=== PATIENT | female | born 1960 | race Caucasian/White ===

== ENCOUNTER 2022-09-13 11:20 | Emergency (ER) | payer OTHER, MEDICARE ==
[~2022-09-13] VITALS: Ht 157.5 cm; Wt 62.1 kg
--- OUTSIDE RECORDS SUMMARY | ~2022-09-13 | XMS | Continuity of Care Document ---
Demographics + + + | Address | [address] | | | [place] [address] | + + + | Preferred Language | Unknown | + + + | Marital Status | Never | + + + | Congregation Affiliation | Unknown | + + + | Race | White | + + + | Ethnic Group | Not or | + + + Author + + + | Author | [facility] | + + + | Organization | [facility] | + + + | Address | [address] [facility] | | | [place] [address] | + + + | Phone | | + + + Care Team Providers + + + + | Care Space And Storage Clerk Name | Role | Phone | + + + + Unavailable | Unavailable | + + + + Unavailable | Unavailable | + + + + Allergies and Intolerances + + + + + | date | description | facility | type | + + + + + | (no date) | Cipro | [facility] | (unknown) | | | | [facility] | | + + + + + | (no date) | Skin Rashes / | [facility] | (unknown) | | | Eruption of skin | [facility] | | + + + + + | (no date) | Skin Rashes | [facility] | (unknown) | | | | [facility] | | + + + + + | (no date) | Cipro 10 MG/ML | [facility] | (unknown) | | | Intravenous | [facility] | | | | Solution | | | + + + + + Encounters No information. Functional Status No information. Immunizations No information. Medications + + + + | date | description | facility | + + + + | 2020-07-27 00:00 | acetaminophen 325 MG / | [facility] | | | oxycodone hydrochloride 5 | | | | MG Oral Tablet | | + + + + | 2020-08-25 00:00 | acetaminophen 325 MG / | [facility] | | | oxycodone hydrochloride 5 | | | | MG Oral Tablet | | + + + + | 2020-09-24 00:00 | acetaminophen 325 MG / | [facility] | | | oxycodone hydrochloride 5 | | | | MG Oral Tablet | | + + + + | 2020-10-12 00:00 | oxycodone hydrochloride 15 | [facility] | | | MG Oral Tablet | | + + + + | 2020-11-11 00:00 | oxycodone hydrochloride 15 | [facility] | | | MG Oral Tablet | | + + + + | 2020-12-14 00:00 | oxycodone hydrochloride 15 | [facility] | | | MG Oral Tablet | | + + + + | 2020-12-22 00:00 | oxycodone hydrochloride 15 | [facility] | | | MG Oral Tablet | | + + + + | 2021-02-09 00:00 | [facility]one [facility]ide 15 | [facility] | | | MG Oral Tablet | | + + + + | 2021-03-15 00:00 | oxycodone hydrochloride 15 | [facility] | | | MG Oral Tablet | | + + + + | 2021-03-29 00:00 | oxycodone hydrochloride 15 | [facility] | | | MG Oral Tablet | | + + + + | 2021-05-07 00:00 | oxycodone hydrochloride 15 | [facility] | | | MG Oral Tablet | | + + + + | 2021-06-08 00:00 | oxycodone hydrochloride 15 | [facility] | | | MG Oral Tablet | | + + + + | 2021-07-08 00:00 | oxycodone hydrochloride 15 | [facility] | | | MG Oral Tablet | | + + + + | 2021-08-05 00:00 | oxycodone hydrochloride 15 | [facility] | | | MG Oral Tablet | | + + + + | 2021-09-02 00:00 | oxycodone hydrochloride 15 | [facility] | | | MG Oral Tablet | | + + + + | 2021-10-04 00:00 | oxycodone hydrochloride 15 | [facility] | | | MG Oral Tablet | | + + + + | 2021-10-26 00:00 | oxycodone hydrochloride 15 | [facility] | | | MG Oral Tablet | | + + + + | 2021-11-30 00:00 | oxycodone hydrochloride 15 | [facility] | | | MG Oral Tablet | | + + + + | 2021-12-29 00:00 | oxycodone hydrochloride 15 | [facility] | | | MG Oral Tablet | | + + + + | 2022-01-24 00:00 | oxycodone hydrochloride 15 | [facility] | | | MG Oral Tablet | | + + + + | 2022-02-22 00:00 | oxycodone hydrochloride 15 | [facility] | | | MG Oral Tablet | | + + + + | 2022-03-15 00:00 | oxycodone hydrochloride 15 | [facility] | | | MG Oral Tablet | | + + + + | 2022-04-19 00:00 | oxycodone hydrochloride 15 | [facility] | | | MG Oral Tablet | | + + + + | 2022-05-17 00:00 | oxycodone hydrochloride 15 | [facility] | | | MG Oral Tablet | | + + + + | 2019-10-04 00:00 | acetaminophen 500 MG / | [facility] | | | diphenhydramine | | | | hydrochloride 25 MG Oral | | | | Tablet [Tylenol PM] | | + + + + | 2019-11-27 00:00 | 60 ACTUAT budesonide 0.16 | [facility] | | | MG/ACTUAT / formoterol | | | | fumarate 0.0045 MG/ACTUAT | | | | Metered Dose Inhaler | | | | [Symbicort] | | + + + + | 2019-11-27 00:00 | Symbicort 160-4.5 MCG/ACT | [facility] | | | IN AERO | | + + + + | 2020-11-23 00:00 | Morphine Sulfate 15 MG | [facility] | | | Oral Tablet | | + + + + | 2020-12-22 00:00 | Morphine Sulfate 15 MG | [facility] | | | Oral Tablet | | + + + + | 2021-02-02 00:00 | Morphine Sulfate 15 MG | [facility] | | | Oral Tablet | | + + + + | 2021-03-02 00:00 | Morphine Sulfate 15 MG | [facility] | | | Oral Tablet | | + + + + | 2021-03-29 00:00 | Morphine Sulfate 15 MG | [facility] | | | Oral Tablet | | + + + + | 2021-04-29 00:00 | Morphine Sulfate 15 MG | [facility] | | | Oral Tablet | | + + + + | 2021-05-12 00:00 | Morphine Sulfate 15 MG | [facility] | | | Oral Tablet | | + + + + | 2021-06-24 00:00 | Morphine Sulfate 15 MG | [facility] | | | Oral Tablet | | + + + + | 2021-07-22 00:00 | Morphine Sulfate 15 MG | [facility] | | | Oral Tablet | | + + + + | 2021-07-24 00:00 | Morphine Sulfate 15 MG | [facility] | | | Oral Tablet | | + + + + | 2021-08-24 00:00 | Morphine Sulfate 15 MG | [facility] | | | Oral Tablet | | + + + + | 2021-09-23 00:00 | Morphine Sulfate 15 MG | [facility] | | | Oral Tablet | | + + + + | 2021-10-26 00:00 | Morphine Sulfate 15 MG | [facility] | | | Oral Tablet | | + + + + | 2021-11-25 00:00 | Morphine Sulfate 15 MG | [facility] | | | Oral Tablet | | + + + + | 2021-12-27 00:00 | Morphine Sulfate 15 MG | [facility] | | | Oral Tablet | | + + + + | 2022-01-24 00:00 | Morphine Sulfate 15 MG | [facility] | | | Oral Tablet | | + + + + | 2022-02-22 00:00 | Morphine Sulfate 15 MG | [facility] | | | Oral Tablet | | + + + + | 2022-03-15 00:00 | Morphine Sulfate 15 MG | [facility] | | | Oral Tablet | | + + + + | 2022-04-19 00:00 | Morphine Sulfate 15 MG | [facility] | | | Oral Tablet | | + + + + | 2022-05-17 00:00 | Morphine Sulfate 15 MG | [facility] | | | Oral Tablet | | + + + + | 2019-10-04 00:00 | meloxicam 15 MG Oral | [facility] | | | Tablet | | + + + + | 2021-10-28 00:00 | Nystatin 199413 UNIT/ML | [facility] | | | Mouth/Throat Suspension | | + + + + | 2020-07-27 00:00 | oxyCODONE-Acetaminophen | [facility] | | | 5-325 MG Oral Tablet | | + + + + | 2020-08-25 00:00 | oxyCODONE-Acetaminophen | [facility] | | | 5-325 MG Oral Tablet | | + + + + | 2020-09-24 00:00 | oxyCODONE-Acetaminophen | [facility] | | | 5-325 MG Oral Tablet | | + + + + | 2021-03-16 00:00 | predniSONE 10 MG Oral | [facility] | | | Tablet | | + + + + | 2019-11-19 00:00 | 30 ACTUAT fluticasone | [facility] | | | furoate 0.1 MG/ACTUAT / | | | | umeclidinium 0.0625 | | | | MG/ACTUAT / vilanterol | | | | 0.025 MG/ACTUAT Dry Powder | | | | Inhaler [Trelegy] | | + + + + | 2021-07-13 00:00 | 30 ACTUAT fluticasone | [facility] | | | furoate 0.1 MG/ACTUAT / | | | | umeclidinium 0.0625 | | | | MG/ACTUAT / vilanterol | | | | 0.025 MG/ACTUAT Dry Powder | | | | Inhaler [Trelegy] | | + + + + | 2021-07-13 00:00 | fluconazole 100 MG Oral | [facility] | | | Tablet | | + + + + | 2021-05-14 00:00 | fluconazole 150 MG Oral | [facility] | | | Tablet | | + + + + | 2020-04-28 00:00 | hydrochlorothiazide 12.5 | [facility] | | | MG / lisinopril 10 MG Oral | | | | Tablet | | + + + + | 2020-12-22 00:00 | hydrochlorothiazide 12.5 | [facility] | | | MG / lisinopril 10 MG Oral | | | | Tablet | | + + + + | 2022-01-19 00:00 | hydrochlorothiazide 12.5 | [facility] | | | MG / lisinopril 10 MG Oral | | | | Tablet | | + + + + | 2022-02-22 00:00 | hydrochlorothiazide 12.5 | [facility] | | | MG / lisinopril 10 MG Oral | | | | Tablet | | + + + + | 2022-03-15 00:00 | omeprazole 20 MG Delayed | [facility] | | | Release Oral Capsule | | + + + + | 2021-03-16 00:00 | prednisone 10 MG Oral | [facility] | | | Tablet | | + + + + | 2019-11-19 00:00 | Trelegy Ellipta | [facility] | | | 100-62.5-25 MCG/INH | | | | Inhalation Aerosol Powder | | | | Breath Activated | | + + + + | 2021-07-13 00:00 | Trelegy Ellipta | [facility] | | | 100-62.5-25 MCG/INH | | | | Inhalation Aerosol Powder | | | | Breath Activated | | + + + + | 2019-10-04 00:00 | Tylenol PM Extra Strength | [facility] | | | 500-25 MG Oral Tablet | | + + + + | 2021-05-07 00:00 | Bactrim DS 800-160 MG Oral | [facility] | | | Tablet | | + + + + | 2021-07-13 00:00 | Fluconazole 100 MG Oral | [facility] | | | Tablet | | + + + + | 2021-03-16 00:00 | benzonatate 200 MG Oral | [facility] | | | Capsule | | + + + + | 2022-03-15 00:00 | benzonatate 200 MG Oral | [facility] | | | Capsule | | + + + + | 2019-10-04 00:00 | gabapentin 600 MG Oral | [facility] | | | Tablet | | + + + + | 2021-05-07 00:00 | gabapentin 600 MG Oral | [facility] | | | Tablet | | + + + + | 2022-01-24 00:00 | gabapentin 600 MG Oral | [facility] | | | Tablet | | + + + + | 2021-10-28 00:00 | nystatin [id number] UNT/ML | [facility] | | | Oral Suspension | | + + + + | 2021-11-30 00:00 | Potassium Chloride ER 10 | [facility] | | | MEQ Oral Tablet Extended | | | | Release | | + + + + | 2021-05-14 00:00 | Fluconazole 150 MG Oral | [facility] | | | Tablet | | + + + + | 2019-10-21 00:00 | traMADol HCl 50 MG Oral | [facility] | | | Tablet | | + + + + | 2019-10-04 00:00 | Meloxicam 15 MG Oral | [facility] | | | Tablet | | + + + + | 2021-05-07 00:00 | amoxicillin 875 MG / | [facility] | | | clavulanate 125 MG Oral | | | | Tablet | | + + + + | 2019-11-27 00:00 | tiotropium 0.018 MG | [facility] | | | Inhalation Powder [Spiriva] | | | | | | + + + + | 2020-04-28 00:00 | | [facility] | | | Lisinopril-hydroCHLOROthiaz | | | | grazyna 10-12.5 MG Oral Tablet | | + + + + | 2020-12-22 00:00 | | [facility] | | | Lisinopril-hydroCHLOROthiaz | | | | grazyna 10-12.5 MG Oral Tablet | | + + + + | 2022-01-19 00:00 | | [facility] | | | Lisinopril-hydroCHLOROthiaz | | | | grazyna 10-12.5 MG Oral Tablet | | + + + + | 2022-02-22 00:00 | | [facility] | | | Lisinopril-hydroCHLOROthiaz | | | | grazyna 10-12.5 MG Oral Tablet | | + + + + | 2019-10-04 00:00 | Gabapentin 600 MG Oral | [facility] | | | Tablet | | + + + + | 2021-05-07 00:00 | Gabapentin 600 MG Oral | [facility] | | | Tablet | | + + + + | 2022-01-24 00:00 | Gabapentin 600 MG Oral | [facility] | | | Tablet | | + + + + | 2021-11-30 00:00 | potassium chloride 10 MEQ | [facility] | | | Extended Release Oral | | | | Tablet | | + + + + | 2021-03-16 00:00 | Benzonatate 200 MG Oral | [facility] | | | Capsule | | + + + + | 2022-03-15 00:00 | Benzonatate 200 MG Oral | [facility] | | | Capsule | | + + + + | 2022-03-15 00:00 | Omeprazole 20 MG Oral | [facility] | | | Capsule Delayed Release | | + + + + | 2020-10-12 00:00 | oxyCODONE HCl 15 MG Oral | [facility] | | | Tablet | | + + + + | 2020-11-11 00:00 | oxyCODONE HCl 15 MG Oral | [facility] | | | Tablet | | + + + + | 2020-12-14 00:00 | oxyCODONE HCl 15 MG Oral | [facility] | | | Tablet | | + + + + | 2020-12-22 00:00 | oxyCODONE HCl 15 MG Oral | [facility] | | | Tablet | | + + + + | 2021-02-09 00:00 | oxyCODONE HCl 15 MG Oral | [facility] | | | Tablet | | + + + + | 2021-03-15 00:00 | oxyCODONE HCl 15 MG Oral | [facility] | | | Tablet | | + + + + | 2021-03-29 00:00 | oxyCODONE HCl 15 MG Oral | [facility] | | | Tablet | | + + + + | 2021-05-07 00:00 | oxyCODONE HCl 15 MG Oral | [facility] | | | Tablet | | + + + + | 2021-06-08 00:00 | oxyCODONE HCl 15 MG Oral | [facility] | | | Tablet | | + + + + | 2021-07-08 00:00 | oxyCODONE HCl 15 MG Oral | [facility] | | | Tablet | | + + + + | 2021-08-05 00:00 | oxyCODONE HCl 15 MG Oral | [facility] | | | Tablet | | + + + + | 2021-09-02 00:00 | oxyCODONE HCl 15 MG Oral | [facility] | | | Tablet | | + + + + | 2021-10-04 00:00 | oxyCODONE HCl 15 MG Oral | [facility] | | | Tablet | | + + + + | 2021-10-26 00:00 | oxyCODONE HCl 15 MG Oral | [facility] | | | Tablet | | + + + + | 2021-11-30 00:00 | oxyCODONE HCl 15 MG Oral | [facility] | | | Tablet | | + + + + | 2021-12-29 00:00 | oxyCODONE HCl 15 MG Oral | [facility] | | | Tablet | | + + + + | 2022-01-24 00:00 | oxyCODONE HCl 15 MG Oral | [facility] | | | Tablet | | + + + + | 2022-02-22 00:00 | oxyCODONE HCl 15 MG Oral | [facility] | | | Tablet | | + + + + | 2022-03-15 00:00 | oxyCODONE HCl 15 MG Oral | [facility] | | | Tablet | | + + + + | 2022-04-19 00:00 | oxyCODONE HCl 15 MG Oral | [facility] | | | Tablet | | + + + + | 2022-05-17 00:00 | oxyCODONE HCl 15 MG Oral | [facility] | | | Tablet | | + + + + | 2019-11-19 00:00 | Corrigan 5-325 MG Oral Tablet | [facility] | | | | | + + + + | 2019-12-23 00:00 | Corrigan 5-325 MG Oral Tablet | [facility] | | | | | + + + + | 2019-12-27 00:00 | Corrigan 5-325 MG Oral Tablet | [facility] | | | | | + + + + | 2020-01-27 00:00 | Corrigan 5-325 MG Oral Tablet | [facility] | | | | | + + + + | 2019-10-21 00:00 | Ventolin HFA 108 (90 Base) | [facility] | | | MCG/ACT Inhalation Aerosol | | | | Solution | | + + + + | 2020-12-22 00:00 | Ventolin HFA 108 (90 Base) | [facility] | | | MCG/ACT Inhalation Aerosol | | | | Solution | | + + + + | 2022-03-15 00:00 | Ventolin HFA 108 (90 Base) | [facility] | | | MCG/ACT Inhalation Aerosol | | | | Solution | | + + + + | 2021-05-07 00:00 | Amoxicillin-Pot | [facility] | | | Clavulanate 875-125 MG Oral | | | | Tablet | | + + + + | 2020-05-26 00:00 | HYDROcodone-Acetaminophen | [facility] | | | 5-325 MG OR TABS | | + + + + | 2020-02-25 00:00 | HYDROcodone-Acetaminophen | [facility] | | | 5-325 MG Oral Tablet | | + + + + | 2020-03-26 00:00 | HYDROcodone-Acetaminophen | [facility] | | | 5-325 MG Oral Tablet | | + + + + | 2020-04-27 00:00 | HYDROcodone-Acetaminophen | [facility] | | | 5-325 MG Oral Tablet | | + + + + | 2020-05-26 00:00 | HYDROcodone-Acetaminophen | [facility] | | | 5-325 MG Oral Tablet | | + + + + | 2020-06-29 00:00 | HYDROcodone-Acetaminophen | [facility] | | | 5-325 MG Oral Tablet | | + + + + | 2020-08-13 00:00 | Rosuvastatin Calcium 10 MG | [facility] | | | OR TABS | | + + + + | 2020-12-22 00:00 | Rosuvastatin Calcium 10 MG | [facility] | | | Oral Tablet | | + + + + | 2022-01-19 00:00 | Rosuvastatin Calcium 10 MG | [facility] | | | Oral Tablet | | + + + + | 2022-02-22 00:00 | Rosuvastatin Calcium 10 MG | [facility] | | | Oral Tablet | | + + + + | 2019-10-21 00:00 | tramadol hydrochloride 50 | [facility] | | | MG Oral Tablet | | + + + + | 2021-05-07 00:00 | sulfamethoxazole 800 MG / | [facility] | | | trimethoprim 160 MG Oral | | | | Tablet [Bactrim] | | + + + + | 2020-02-25 00:00 | acetaminophen 325 MG / | [facility] | | | hydrocodone bitartrate 5 MG | | | | Oral Tablet | | + + + + | 2020-03-26 00:00 | acetaminophen 325 MG / | [facility] | | | hydrocodone bitartrate 5 MG | | | | Oral Tablet | | + + + + | 2020-04-27 00:00 | acetaminophen 325 MG / | [facility] | | | hydrocodone bitartrate 5 MG | | | | Oral Tablet | | + + + + | 2020-05-26 00:00 | acetaminophen 325 MG / | [facility] | | | hydrocodone bitartrate 5 MG | | | | Oral Tablet | | + + + + | 2020-06-29 00:00 | acetaminophen 325 MG / | [facility] | | | hydrocodone bitartrate 5 MG | | | | Oral Tablet | | + + + + | 2019-11-19 00:00 | acetaminophen 325 MG / | [facility] | | | hydrocodone bitartrate 5 MG | | | | Oral Tablet [Corrigan] | | + + + + | 2019-12-23 00:00 | acetaminophen 325 MG / | [facility] | | | hydrocodone bitartrate 5 MG | | | | Oral Tablet [Corrigan] | | + + + + | 2019-12-27 00:00 | acetaminophen 325 MG / | [facility] | | | hydrocodone bitartrate 5 MG | | | | Oral Tablet [Corrigan] | | + + + + | 2020-01-27 00:00 | acetaminophen 325 MG / | [facility] | | | hydrocodone bitartrate 5 MG | | | | Oral Tablet [Corrigan] | | + + + + | 2019-10-21 00:00 | [id number] 200 ACTUAT | [facility] | | | albuterol 0.09 MG/ACTUAT | | | | Metered Dose Inhaler | | | | [Ventolin] | | + + + + | 2020-12-22 00:00 | [id number] 200 ACTUAT | [facility] | | | albuterol 0.09 MG/ACTUAT | | | | Metered Dose Inhaler | | | | [Ventolin] | | + + + + | 2022-03-15 00:00 | [id number] 200 ACTUAT | [facility] | | | albuterol 0.09 MG/ACTUAT | | | | Metered Dose Inhaler | | | | [Ventolin] | | + + + + | 2020-08-13 00:00 | rosuvastatin calcium 10 MG | [facility] | | | Oral Tablet | | + + + + | 2020-12-22 00:00 | rosuvastatin calcium 10 MG | [facility] | | | Oral Tablet | | + + + + | 2022-01-19 00:00 | rosuvastatin calcium 10 MG | [facility] | | | Oral Tablet | | + + + + | 2022-02-22 00:00 | rosuvastatin calcium 10 MG | [facility] | | | Oral Tablet | | + + + + | 2019-11-27 00:00 | Ted HandiHaler 18 MCG | [facility] | | | IN CAPS | | + + + + | 2020-11-23 00:00 | morphine sulfate 15 MG | [facility] | | | Oral Tablet | | + + + + | 2020-12-22 00:00 | morphine sulfate 15 MG | [facility] | | | Oral Tablet | | + + + + | 2021-02-02 00:00 | morphine sulfate 15 MG | [facility] | | | Oral Tablet | | + + + + | 2021-03-02 00:00 | morphine sulfate 15 MG | [facility] | | | Oral Tablet | | + + + + | 2021-03-29 00:00 | morphine sulfate 15 MG | [facility] | | | Oral Tablet | | + + + + | 2021-04-29 00:00 | morphine sulfate 15 MG | [facility] | | | Oral Tablet | | + + + + | 2021-05-12 00:00 | morphine sulfate 15 MG | [facility] | | | Oral Tablet | | + + + + | 2021-06-24 00:00 | morphine sulfate 15 MG | [facility] | | | Oral Tablet | | + + + + | 2021-07-22 00:00 | morphine sulfate 15 MG | [facility] | | | Oral Tablet | | + + + + | 2021-07-24 00:00 | morphine sulfate 15 MG | [facility] | | | Oral Tablet | | + + + + | 2021-08-24 00:00 | morphine sulfate 15 MG | [facility] | | | Oral Tablet | | + + + + | 2021-09-23 00:00 | morphine sulfate 15 MG | [facility] | | | Oral Tablet | | + + + + | 2021-10-26 00:00 | morphine sulfate 15 MG | [facility] | | | Oral Tablet | | + + + + | 2021-11-25 00:00 | morphine sulfate 15 MG | [facility] | | | Oral Tablet | | + + + + | 2021-12-27 00:00 | morphine sulfate 15 MG | [facility] | | | Oral Tablet | | + + + + | 2022-01-24 00:00 | morphine sulfate 15 MG | [facility] | | | Oral Tablet | | + + + + | 2022-02-22 00:00 | morphine sulfate 15 MG | [facility] | | | Oral Tablet | | + + + + | 2022-03-15 00:00 | morphine sulfate 15 MG | [facility] | | | Oral Tablet | | + + + + | 2022-04-19 00:00 | morphine sulfate 15 MG | [facility] | | | Oral Tablet | | + + + + | 2022-05-17 00:00 | morphine sulfate 15 MG | [facility] | | | Oral Tablet | | + + + + | 2019-10-04 00:00 | EQ Ibuprofen 200 MG Oral | [facility] | | | Capsule | | + + + + | 2020-12-02 00:00 | Miscellaneous | [facility] | | | | | + + + + | 2019-10-04 00:00 | Trazadone HCL 50mg Oral | [facility] | | | Tablet | | + + + + Problems + + + + | date | description | facility | + + + + | 2019-11-19 00:00 | Chronic obstructive lung | [facility] | | | disease (disorder) | | + + + + | 2019-11-19 00:00 | DISEASE, CHRONIC | [facility] | | | OBSTRUCTIVE PULMONARY | | | | (COPD) | | + + + + | 2019-11-19 00:00 | Chronic Obstructive | [facility] | | | Pulmonary Disease | | + + + + | 2019-12-23 00:00 | Diffuse brain injury | [facility] 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 | | | intervertebral disc | | | | (disorder) | | + + + + | 2019-12-23 00:00 | DEGENERATION OF CERVICAL | [facility] | | | DISC | | + + + + | 2019-12-23 00:00 | DEGENERATION | [facility] | | | LUMBAR/LUMBOSACRAL INTERV | | | | DISC | | + + + + | 2019-12-23 00:00 | Tobacco dependence | [facility] | | | syndrome (disorder) | | + + + + | 2019-12-23 00:00 | Brain injury without open | [facility] | | | intracranial wound | | | | (disorder) | | + + + + | 2019-12-23 00:00 | Intervertebral Disc | [facility] 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 | | | | | + + + + | 2019-12-23 00:00 | Rndx Tobacco Abuse | [facility] | | | | | + + + + | 2020-04-28 00:00 | Benign essential | [facility] | | | hypertension (disorder) | | + + + + | 2020-04-28 00:00 | HTN BENIGN | [facility] | | | | | + + + + | 2020-04-28 00:00 | Essential Hypertension | [facility] [facility] | | | Benign | | + + + + | 2021-10-09 00:00 | Patient left without being | [facility] | | | seen | | + + + + Procedures + + + + | date | description | facility | + + + + | 2021-11-10 00:00 | EGD; Flexible; Transoral; | [facility], [facility]. | | | With Biopsy; Single or | | | | Multiple | | + + + + | 2021-11-10 00:00 | Colonoscopy; Flexible; | [facility]. | | | Diagnostic | | + + + + | 2020-07-03 00:00 | [facility] General [facility] | [facility]. | | | Management 20 min Clinical | | | | Staff Time | | + + + + | 2020-08-03 00:00 | C General Care | [facility] | | | Management 20 min Clinical | | | | Staff Time | | + + + + | 2020-09-02 00:00 | C General Care | [facility] | | | Management 20 min Clinical | | | | Staff Time | | + + + + | 2020-10-03 00:00 | [facility] General Care | [facility] | | | Management 20 min Clinical | | | | Staff Time | | + + + + | 2020-11-03 00:00 | [facility] General Care | [facility] | | | Management 20 min Clinical | | | | Staff Time | | + + + + | 2021-05-18 00:00 | [facility] for Telehealth | [facility] | | | Distant Site Service | | + + + + | 2021-06-14 00:00 | [facility] for Telehealth | [facility] | | | Distant Site Service | | + + + + Results/Labs +--------+--------+ + +---------+--------+ + | test | date | author | facility | value | unit | | | | | | | | | interpreta | | | | | | | | tion | +--------+--------+ + +---------+--------+ + + + | Result panel 1 | + + + + + + +---------+ + + | (unknown) | (no date) | (unknown) | [facility] | (no | (units | (unknown) | | | | | MEDICAL | value) | unknown) | | | | | | GROUP, | | | | | | | | [facility] | | | | + + + + +---------+ + + + + | Result panel 2 | + + + + + + +---------+ + + | (unknown) | (no date) | (unknown) | [facility] | (no | (units | (unknown) | | | | | MEDICAL | value) | unknown) | | | | | | GROUP, | | | | | | | | [facility] | | | | + + + + +---------+ + + + + | Result panel 3 | + + + + + + +---------+ + + | (unknown) | (no date) | (unknown) | [facility] | (no | (units | (unknown) | | | | | MEDICAL | value) | unknown) | | | | | | GROUP, | | | | | | | | [facility] | | | | + + + + +---------+ + + + + | Result panel 4 | + + + + + + +---------+ + + | (unknown) | (no date) | (unknown) | [facility] | (no | (units | (unknown) | | | | | MEDICAL | value) | unknown) | | | | | | GROUP, | | | | | | | | [facility] | | | | + + + + +---------+ + + + + | Result panel 5 | + + + + + + +---------+ + + | (unknown) | (no date) | (unknown) | [facility] | (no | (units | (unknown) | | | | | MEDICAL | value) | unknown) | | | | | | GROUP, | | | | | | | | [facility] | | | | + + + + +---------+ + + + + | Result panel 6 | + + + + + + +---------+ + + | (unknown) | (no date) | (unknown) | [facility] | (no | (units | (unknown) | | | | | MEDICAL | value) | unknown) | | | | | | GROUP, | | | | | | | | [facility] | | | | + + + + +---------+ + + + + | Result panel 7 | + + + + + + +---------+ + + | (unknown) | (no date) | (unknown) | [facility] | (no | (units | (unknown) | | | | | MEDICAL | value) | unknown) | | | | | | GROUP, | | | | | | | | [facility] | | | | + + + + +---------+ + + + + | Result panel 8 | + + + + + + +---------+ + + | (unknown) | (no date) | (unknown) | [facility] | (no | (units | (unknown) | | | | | MEDICAL | value) | unknown) | | | | | | GROUP, | | | | | | | | [facility] | | | | + + + + +---------+ + + + + | Result panel 9 | + + + + + + +---------+ + + | (unknown) | (no date) | (unknown) | [facility] | (no | (units | (unknown) | | | | | MEDICAL | value) | unknown) | | | | | | GROUP, | | | | | | | | [facility] | | | | + + + + +---------+ + + + + | Result panel 10 | + + + + + + +---------+ + + | (unknown) | (no date) | (unknown) | [facility] | (no | (units | (unknown) | | | | | MEDICAL | value) | unknown) | | | | | | GROUP, | | | | | | | | [facility] | | | | + + + + +---------+ + + + + | Result panel 11 | + + + + + + +---------+ + + | (unknown) | (no date) | (unknown) | [facility] | (no | (units | (unknown) | | | | | MEDICAL | value) | unknown) | | | | | | GROUP, | | | | | | | | [facility] | | | | + + + + +---------+ + + + + | Result panel 12 | + + + + + + +---------+ + + | (unknown) | (no date) | (unknown) | [facility] | (no | (units | (unknown) | | | | | MEDICAL | value) | unknown) | | | | | | GROUP, | | | | | | | | [facility] | | | | + + + + +---------+ + + + + | Result panel 13 | + + + + + + +---------+ + + | (unknown) | (no date) | (unknown) | [facility] | (no | (units | (unknown) | | | | | MEDICAL | value) | unknown) | | | | | | GROUP, | | | | | | | | [facility] | | | | + + + + +---------+ + + + + | Result panel 14 | + + + + + + +---------+ + + | (unknown) | (no date) | (unknown) | [facility] | (no | (units | (unknown) | | | | | MEDICAL | value) | unknown) | | | | | | GROUP, | | | | | | | | [facility] | | | | + + + + +---------+ + + + + | Result panel 15 | + + + + + + +---------+ + + | (unknown) | (no date) | (unknown) | [facility] | (no | (units | (unknown) | | | | | MEDICAL | value) | unknown) | | | | | | GROUP, | | | | | | | | [facility] | | | | + + + + +---------+ + + + + | Result panel 16 | + + + + + + +---------+ + + | (unknown) | (no date) | (unknown) | [facility] | (no | (units | (unknown) | | | | | MEDICAL | value) | unknown) | | | | | | GROUP, | | | | | | | | [facility] | | | | + + + + +---------+ + + + + | Result panel 17 | + + + + + + +---------+ + + | (unknown) | (no date) | (unknown) | [facility] | (no | (units | (unknown) | | | | | MEDICAL | value) | unknown) | | | | | | GROUP, | | | | | | | | [facility] | | | | + + + + +---------+ + + + + | Result panel 18 | + + + + + + +---------+ + + | (unknown) | (no date) | (unknown) | [facility] | (no | (units | (unknown) | | | | | MEDICAL | value) | unknown) | | | | | | GROUP, | | | | | | | | [facility] | | | | + + + + +---------+ + + + + | Result panel 19 | + + + + + + +---------+ + + | (unknown) | (no date) | (unknown) | [facility] | (no | (units | (unknown) | | | | | MEDICAL | value) | unknown) | | | | | | GROUP, | | | | | | | | [facility] | | | | + + + + +---------+ + + + + | Result panel 20 | + + + + + + +---------+ + + | (unknown) | (no date) | (unknown) | [facility] | (no | (units | (unknown) | | | | | MEDICAL | value) | unknown) | | | | | | GROUP, | | | | | | | | [facility] | | | | + + + + +---------+ + + + + | Result panel 21 | + + + + + + +---------+ + + | (unknown) | (no date) | (unknown) | [facility] | (no | (units | (unknown) | | | | | MEDICAL | value) | unknown) | | | | | | GROUP, | | | | | | | | [facility] | | | | + + + + +---------+ + + + + | Result panel 22 | + + + + + + +---------+ + + | (unknown) | (no date) | (unknown) | [facility] | (no | (units | (unknown) | | | | | MEDICAL | value) | unknown) | | | | | | GROUP, | | | | | | | | [facility] | | | | + + + + +---------+ + + + + | Result panel 23 | + + + + + + +---------+ + + | (unknown) | (no date) | (unknown) | [facility] | (no | (units | (unknown) | | | | | MEDICAL | value) | unknown) | | | | | | GROUP, | | | | | | | | [facility] | | | | + + + + +---------+ + + + + | Result panel 24 | + + + + + + +---------+ + + | (unknown) | (no date) | (unknown) | [facility] | (no | (units | (unknown) | | | | | MEDICAL | value) | unknown) | | | | | | GROUP, | | | | | | | | [facility] | | | | + + + + +---------+ + + + + | Result panel 25 | + + + + + + +---------+ + + | (unknown) | (no date) | (unknown) | [facility] | (no | (units | (unknown) | | | | | MEDICAL | value) | unknown) | | | | | | GROUP, | | | | | | | | [facility] | | | | + + + + +---------+ + + + + | Result panel 26 | + + + + + + +---------+ + + | (unknown) | (no date) | (unknown) | [facility] | (no | (units | (unknown) | | | | | MEDICAL | value) | unknown) | | | | | | GROUP, | | | | | | | | [facility] | | | | + + + + +---------+ + + + + | Result panel 27 | + + + + + + +---------+ + + | (unknown) | (no date) | (unknown) | [facility] | (no | (units | (unknown) | | | | | MEDICAL | value) | unknown) | | | | | | GROUP, | | | | | | | | [facility] | | | | + + + + +---------+ + + + + | Result panel 28 | + + + + + + +---------+ + + | (unknown) | (no date) | (unknown) | [facility] | (no | (units | (unknown) | | | | | MEDICAL | value) | unknown) | | | | | | GROUP, | | | | | | | | [facility] | | | | + + + + +---------+ + + + + | Result panel 29 | + + + + + + +---------+ + + | (unknown) | (no date) | (unknown) | [facility] | (no | (units | (unknown) | | | | | MEDICAL | value) | unknown) | | | | | | GROUP, | | | | | | | | [facility] | | | | + + + + +---------+ + + + + | Result panel 30 | + + + + + + +---------+ + + | (unknown) | (no date) | (unknown) | [facility] | (no | (units | (unknown) | | | | | MEDICAL | value) | unknown) | | | | | | GROUP, | | | | | | | | [facility] | | | | + + + + +---------+ + + + + | Result panel 31 | + + + + + + +---------+ + + | (unknown) | (no date) | (unknown) | [facility] | (no | (units | (unknown) | | | | | MEDICAL | value) | unknown) | | | | | | GROUP, | | | | | | | | [facility] | | | | + + + + +---------+ + + + + | Result panel 32 | + + + + + + +---------+ + + | (unknown) | (no date) | (unknown) | [facility] | (no | (units | (unknown) | | | | | MEDICAL | value) | unknown) | | | | | | GROUP, | | | | | | | | [facility] | | | | + + + + +---------+ + + + + | Result panel 33 | + + + + + + +---------+ + + | (unknown) | (no date) | (unknown) | [facility] | (no | (units | (unknown) | | | | | MEDICAL | value) | unknown) | | | | | | GROUP, | | | | | | | | [facility] | | | | + + + + +---------+ + + + + | Result panel 34 | + + + + + + +---------+ + + | (unknown) | (no date) | (unknown) | [facility] | (no | (units | (unknown) | | | | | MEDICAL | value) | unknown) | | | | | | GROUP, | | | | | | | | [facility] | | | | + + + + +---------+ + + + + | Result panel 35 | + + + + + + +---------+ + + | (unknown) | (no date) | (unknown) | [facility] | (no | (units | (unknown) | | | | | MEDICAL | value) | unknown) | | | | | | GROUP, | | | | | | | | [facility] | | | | + + + + +---------+ + + + + | Result panel 36 | + + + + + + +---------+ + + | (unknown) | (no date) | (unknown) | [facility] | (no | (units | (unknown) | | | | | MEDICAL | value) | unknown) | | | | | | GROUP, | | | | | | | | [facility] | | | | + + + + +---------+ + + + + | Result panel 37 | + + + + + + +---------+ + + | (unknown) | (no date) | (unknown) | [facility] | (no | (units | (unknown) | | | | | MEDICAL | value) | unknown) | | | | | | GROUP, | | | | | | | | [facility] | | | | + + + + +---------+ + + + + | Result panel 38 | + + + + + + +---------+ + + | (unknown) | (no date) | (unknown) | [facility] | (no | (units | (unknown) | | | | | MEDICAL | value) | unknown) | | | | | | GROUP, | | | | | | | | [facility] | | | | + + + + +---------+ + + + + | Result panel 39 | + + + + + + +---------+ + + | (unknown) | (no date) | (unknown) | [facility] | (no | (units | (unknown) | | | | | MEDICAL | value) | unknown) | | | | | | GROUP, | | | | | | | | [facility] | | | | + + + + +---------+ + + + + | Result panel 40 | + + + + + + +---------+ + + | (unknown) | (no date) | (unknown) | [facility] | (no | (units | (unknown) | | | | | MEDICAL | value) | unknown) | | | | | | GROUP, | | | | | | | | [facility] | | | | + + + + +---------+ + + + + | Result panel 41 | + + + + + + +---------+ + + | (unknown) | (no date) | (unknown) | [facility] | (no | (units | (unknown) | | | | | MEDICAL | value) | unknown) | | | | | | GROUP, | | | | | | | | [facility] | | | | + + + + +---------+ + + + + | Result panel 42 | + + + + + + +---------+ + + | (unknown) | (no date) | (unknown) | [facility] | (no | (units | (unknown) | | | | | MEDICAL | value) | unknown) | | | | | | GROUP, | | | | | | | | [facility] | | | | + + + + +---------+ + + + + | Result panel 43 | + + + + + + +---------+ + + | (unknown) | (no date) | (unknown) | [facility] | (no | (units | (unknown) | | | | | MEDICAL | value) | unknown) | | | | | | GROUP, | | | | | | | | [facility] | | | | + + + + +---------+ + + + + | Result panel 44 | + + + + + + +---------+ + + | (unknown) | (no date) | (unknown) | [facility] | (no | (units | (unknown) | | | | | MEDICAL | value) | unknown) | | | | | | GROUP, | | | | | | | | [facility] | | | | + + + + +---------+ + + + + | Result panel 45 | + + + + + + +---------+ + + | (unknown) | (no date) | (unknown) | [facility] | (no | (units | (unknown) | | | | | MEDICAL | value) | unknown) | | | | | | GROUP, | | | | | | | | [facility] | | | | + + + + +---------+ + + + + | Result panel 46 | + + + + + + +---------+ + + | (unknown) | (no date) | (unknown) | [facility] | (no | (units | (unknown) | | | | | MEDICAL | value) | unknown) | | | | | | GROUP, | | | | | | | | [facility] | | | | + + + + +---------+ + + + + | Result panel 47 | + + + + + + +---------+ + + | (unknown) | (no date) | (unknown) | [facility] | (no | (units | (unknown) | | | | | MEDICAL | value) | unknown) | | | | | | GROUP, | | | | | | | | [facility] | | | | + + + + +---------+ + + + + | Result panel 48 | + + + + + + +---------+ + + | (unknown) | (no date) | (unknown) | [facility] | (no | (units | (unknown) | | | | | MEDICAL | value) | unknown) | | | | | | GROUP, | | | | | | | | [facility] | | | | + + + + +---------+ + + + + | Result panel 49 | + + + + + + +---------+ + + | (unknown) | (no date) | (unknown) | [facility] | (no | (units | (unknown) | | | | | MEDICAL | value) | unknown) | | | | | | GROUP, | | | | | | | | [facility] | | | | + + + + +---------+ + + + + | Result panel 50 | + + + + + + +---------+ + + | (unknown) | (no date) | (unknown) | [facility] | (no | (units | (unknown) | | | | | MEDICAL | value) | unknown) | | | | | | GROUP, | | | | | | | | [facility] | | | | + + + + +---------+ + + + + | Result panel 51 | + + + + + + +---------+ + + | (unknown) | (no date) | (unknown) | [facility] | (no | (units | (unknown) | | | | | MEDICAL | value) | unknown) | | | | | | GROUP, | | | | | | | | [facility] | | | | + + + + +---------+ + + + + | Result panel 52 | + + + + + + +---------+ + + | (unknown) | (no date) | (unknown) | [facility] | (no | (units | (unknown) | | | | | MEDICAL | value) | unknown) | | | | | | GROUP, | | | | | | | | [facility] | | | | + + + + +---------+ + + + + | Result panel 53 | + + + + + + +---------+ + + | (unknown) | (no date) | (unknown) | [facility] | (no | (units | (unknown) | | | | | MEDICAL | value) | unknown) | | | | | | GROUP, | | | | | | | | [facility] | | | | + + + + +---------+ + + + + | Result panel 54 | + + + + + + +---------+ + + | (unknown) | (no date) | (unknown) | [facility] | (no | (units | (unknown) | | | | | MEDICAL | value) | unknown) | | | | | | GROUP, | | | | | | | | [facility] | | | | + + + + +---------+ + + + + | Result panel 55 | + + + + + + +---------+ + + | (unknown) | (no date) | (unknown) | [facility] | (no | (units | (unknown) | | | | | MEDICAL | value) | unknown) | | | | | | GROUP, | | | | | | | | [facility] | | | | + + + + +---------+ + + + + | Result panel 56 | + + + + + + +---------+ + + | (unknown) | (no date) | (unknown) | [facility] | (no | (units | (unknown) | | | | | MEDICAL | value) | unknown) | | | | | | GROUP, | | | | | | | | [facility] | | | | + + + + +---------+ + + + + | Result panel 57 | + + + + + + +---------+ + + | (unknown) | (no date) | (unknown) | [facility] | (no | (units | (unknown) | | | | | MEDICAL | value) | unknown) | | | | | | GROUP, | | | | | | | | [facility] | | | | + + + + +---------+ + + + + | Result panel 58 | + + + + + + +---------+ + + | (unknown) | (no date) | (unknown) | [facility] | (no | (units | (unknown) | | | | | MEDICAL | value) | unknown) | | | | | | GROUP, | | | | | | | | [facility] | | | | + + + + +---------+ + + + + | Result panel 59 | + + + + + + +---------+ + + | (unknown) | (no date) | (unknown) | [facility] | (no | (units | (unknown) | | | | | MEDICAL | value) | unknown) | | | | | | GROUP, | | | | | | | | [facility] | | | | + + + + +---------+ + + + + | Result panel 60 | + + + + + + +---------+ + + | (unknown) | (no date) | (unknown) | [facility] | (no | (units | (unknown) | | | | | MEDICAL | value) | unknown) | | | | | | GROUP, | | | | | | | | [facility] | | | | + + + + +---------+ + + + + | Result panel 61 | + + + + + + +---------+ + + | (unknown) | (no date) | (unknown) | [facility] | (no | (units | (unknown) | | | | | MEDICAL | value) | unknown) | | | | | | GROUP, | | | | | | | | [facility] | | | | + + + + +---------+ + + + + | Result panel 62 | + + + + + + +---------+ + + | (unknown) | (no date) | (unknown) | [facility] | (no | (units | (unknown) | | | | | MEDICAL | value) | unknown) | | | | | | GROUP, | | | | | | | | [facility] | | | | + + + + +---------+ + + + + | Result panel 63 | + + + + + + +---------+ + + | (unknown) | (no date) | (unknown) | [facility] | (no | (units | (unknown) | | | | | MEDICAL | value) | unknown) | | | | | | GROUP, | | | | | | | | [facility] | | | | + + + + +---------+ + + + + | Result panel 64 | + + + + + + +---------+ + + | (unknown) | (no date) | (unknown) | [facility] | (no | (units | (unknown) | | | | | MEDICAL | value) | unknown) | | | | | | GROUP, | | | | | | | | [facility] | | | | + + + + +---------+ + + + + | Result panel 65 | + + + + + + +---------+ + + | (unknown) | (no date) | (unknown) | [facility] | (no | (units | (unknown) | | | | | MEDICAL | value) | unknown) | | | | | | GROUP, | | | | | | | | [facility] | | | | + + + + +---------+ + + + + | Result panel 66 | + + + + + + +---------+ + + | (unknown) | (no date) | (unknown) | [facility] | (no | (units | (unknown) | | | | | MEDICAL | value) | unknown) | | | | | | GROUP, | | | | | | | | [facility] | | | | + + + + +---------+ + + + + | Result panel 67 | + + + + + + +---------+ + + | (unknown) | (no date) | (unknown) | [facility] | (no | (units | (unknown) | | | | | MEDICAL | value) | unknown) | | | | | | GROUP, | | | | | | | | [facility] | | | | + + + + +---------+ + + + + | Result panel 68 | + + + + + + +---------+ + + | (unknown) | (no date) | (unknown) | [facility] | (no | (units | (unknown) | | | | | MEDICAL | value) | unknown) | | | | | | GROUP, | | | | | | | | [facility] | | | | + + + + +---------+ + + + + | Result panel 69 | + + + + + + +---------+ + + | (unknown) | (no date) | (unknown) | [facility] | (no | (units | (unknown) | | | | | MEDICAL | value) | unknown) | | | | | | GROUP, | | | | | | | | [facility] | | | | + + + + +---------+ + + + + | Result panel 70 | + + + + + + +---------+ + + | (unknown) | (no date) | (unknown) | [facility] | (no | (units | (unknown) | | | | | MEDICAL | value) | unknown) | | | | | | GROUP, | | | | | | | | [facility] | | | | + + + + +---------+ + + + + | Result panel 71 | + + + + + + +---------+ + + | (unknown) | (no date) | (unknown) | [facility] | (no | (units | (unknown) | | | | | MEDICAL | value) | unknown) | | | | | | GROUP, | | | | | | | | [facility] | | | | + + + + +---------+ + + + + | Result panel 72 | + + + + + + +---------+ + + | (unknown) | (no date) | (unknown) | [facility] | (no | (units | (unknown) | | | | | MEDICAL | value) | unknown) | | | | | | GROUP, | | | | | | | | [facility] | | | | + + + + +---------+ + + + + | Result panel 73 | + + + + + + +---------+ + + | (unknown) | (no date) | (unknown) | [facility] | (no | (units | (unknown) | | | | | MEDICAL | value) | unknown) | | | | | | GROUP, | | | | | | | | [facility] | | | | + + + + +---------+ + + + + | Result panel 74 | + + + + + + +---------+ + + | (unknown) | (no date) | (unknown) | [facility] | (no | (units | (unknown) | | | | | MEDICAL | value) | unknown) | | | | | | GROUP, | | | | | | | | [facility] | | | | + + + + +---------+ + + + + | Result panel 75 | + + + + + + +---------+ + + | (unknown) | (no date) | (unknown) | [facility] | (no | (units | (unknown) | | | | | MEDICAL | value) | unknown) | | | | | | GROUP, | | | | | | | | [facility] | | | | + + + + +---------+ + + + + | Result panel 76 | + + + + + + +---------+ + + | (unknown) | (no date) | (unknown) | [facility] | (no | (units | (unknown) | | | | | MEDICAL | value) | unknown) | | | | | | GROUP, | | | | | | | | [facility] | | | | + + + + +---------+ + + + + | Result panel 77 | + + + + + + +---------+ + + | (unknown) | (no date) | (unknown) | [facility] | (no | (units | (unknown) | | | | | MEDICAL | value) | unknown) | | | | | | GROUP, | | | | | | | | [facility] | | | | + + + + +---------+ + + + + | Result panel 78 | + + + + + + +---------+ + + | (unknown) | (no date) | (unknown) | [facility] | (no | (units | (unknown) | | | | | MEDICAL | value) | unknown) | | | | | | GROUP, | | | | | | | | [facility] | | | | + + + + +---------+ + + + + | Result panel 79 | + + + + + + +---------+ + + | (unknown) | (no date) | (unknown) | [facility] | (no | (units | (unknown) | | | | | MEDICAL | value) | unknown) | | | | | | GROUP, | | | | | | | | [facility] | | | | + + + + +---------+ + + + + | Result panel 80 | + + + + + + +---------+ + + | (unknown) | (no date) | (unknown) | [facility] | (no | (units | (unknown) | | | | | MEDICAL | value) | unknown) | | | | | | GROUP, | | | | | | | | [facility] | | | | + + + + +---------+ + + + + | Result panel 81 | + + + + + + +---------+ + + | (unknown) | (no date) | (unknown) | [facility] | (no | (units | (unknown) | | | | | MEDICAL | value) | unknown) | | | | | | GROUP, | | | | | | | | [facility] | | | | + + + + +---------+ + + + + | Result panel 82 | + + + + + + +---------+ + + | (unknown) | (no date) | (unknown) | [facility] | (no | (units | (unknown) | | | | | MEDICAL | value) | unknown) | | | | | | GROUP, | | | | | | | | [facility] | | | | + + + + +---------+ + + + + | Result panel 83 | + + + + + + +---------+ + + | (unknown) | (no date) | (unknown) | [facility] | (no | (units | (unknown) | | | | | MEDICAL | value) | unknown) | | | | | | GROUP, | | | | | | | | [facility] | | | | + + + + +---------+ + + + + | Result panel 84 | + + + + + + +---------+ + + | (unknown) | (no date) | (unknown) | [facility] | (no | (units | (unknown) | | | | | MEDICAL | value) | unknown) | | | | | | GROUP, | | | | | | | | [facility] | | | | + + + + +---------+ + + + + | Result panel 85 | + + + + + + +---------+ + + | (unknown) | (no date) | (unknown) | [facility] | (no | (units | (unknown) | | | | | MEDICAL | value) | unknown) | | | | | | GROUP, | | | | | | | | [facility] | | | | + + + + +---------+ + + + + | Result panel 86 | + + + + + + +---------+ + + | (unknown) | (no date) | (unknown) | [facility] | (no | (units | (unknown) | | | | | MEDICAL | value) | unknown) | | | | | | [facility], | | | | | | | | [facility] | | | | + + + + +---------+ + + + + | Result panel 87 | + + + + + + +---------+ + + | (unknown) | (no date) | (unknown) | [facility] | (no | (units | (unknown) | | | | | MEDICAL | value) | unknown) | | | | | | GROUP, | | | | | | | | [facility] | | | | + + + + +---------+ + + + + | Result panel 88 | + + + + + + +---------+ + + | (unknown) | (no date) | (unknown) | [facility] | (no | (units | (unknown) | | | | | MEDICAL | value) | unknown) | | | | | | GROUP, | | | | | | | | [facility] | | | | + + + + +---------+ + + + + | Result panel 89 | + + + + + + +---------+ + + | (unknown) | (no date) | (unknown) | [facility] | (no | (units | (unknown) | | | | | MEDICAL | value) | unknown) | | | | | | [facility], | | | | | | | | [facility] | | | | + + + + +---------+ + + + + | Result panel 90 | + + + + + + +---------+ + + | (unknown) | (no date) | (unknown) | [facility] | (no | (units | (unknown) | | | | | MEDICAL | value) | unknown) | | | | | | [facility], | | | | | | | | [facility] | | | | + + + + +---------+ + + + + | Result panel 91 | + + + + + + +---------+ + + | (unknown) | (no date) | (unknown) | [facility] | (no | (units | (unknown) | | | | | MEDICAL | value) | unknown) | | | | | | GROUP, | | | | | | | | [facility] | | | | + + + + +---------+ + + + + | Result panel 92 | + + + + + + +---------+ + + | (unknown) | (no date) | (unknown) | [facility] | (no | (units | (unknown) | | | | | MEDICAL | value) | unknown) | | | | | | GROUP, | | | | | | | | [facility] | | | | + + + + +---------+ + + + + | Result panel 93 | + + + + + + +---------+ + + | (unknown) | (no date) | (unknown) | [facility] | (no | (units | (unknown) | | | | | MEDICAL | value) | unknown) | | | | | | [facility], | | | | | | | | [facility] | | | | + + + + +---------+ + + + + | Result panel 94 | + + + + + + +---------+ + + | (unknown) | (no date) | (unknown) | [facility] | (no | (units | (unknown) | | | | | MEDICAL | value) | unknown) | | | | | | [facility], | | | | | | | | [facility] | | | | + + + + +---------+ + + + + | Result panel 95 | + + + + + + +---------+ + + | (unknown) | (no date) | (unknown) | [facility] | (no | (units | (unknown) | | | | | MEDICAL | value) | unknown) | | | | | | [facility], | | | | | | | | [facility] | | | | + + + + +---------+ + + + + | Result panel 96 | + + + + + + +---------+ + + | (unknown) | (no date) | (unknown) | [facility] | (no | (units | (unknown) | | | | | MED[facility] | value) | unknown) | | | | | | [facility], | | | | | | | | [facility] | | | | + + + + +---------+ + + + + | Result panel 97 | + + + + + + +---------+ + + | (unknown) | (no date) | (unknown) | [facility] | (no | (units | (unknown) | | | | | MEDICAL | value) | unknown) | | | | | | GROUP, | | | | | | | | [facility] | | | | + + + + +---------+ + + + + | Result panel 98 | + + + + + + +---------+ + + | (unknown) | (no date) | (unknown) | [facility] | (no | (units | (unknown) | | | | | MED[facility] | value) | unknown) | | | | | | [facility], | | | | | | | | [facility] | | | | + + + + +---------+ + + + + | Result panel 99 | + + + + + + +---------+ + + | (unknown) | (no date) | (unknown) | [facility] | (no | (units | (unknown) | | | | | MED[facility] | value) | unknown) | | | | | | [facility], | | | | | | | | [facility] | | | | + + + + +---------+ + + + + | Result panel 100 | + + + + + + +---------+ + + | (unknown) | (no date) | (unknown) | [facility] | (no | (units | (unknown) | | | | | [facility] | value) | unknown) | | | | | | [facility], | | | | | | | | [facility] | | | | + + + + +---------+ + + + + | Result panel 101 | + + + + + + +---------+ + + | (unknown) | (no date) | (unknown) | [facility] | (no | (units | (unknown) | | | | | [facility] | value) | unknown) | | | | | | [facility], | | | | | | | | [facility] | | | | + + + + +---------+ + + + + | Result panel 102 | + + + + + + +---------+ + + | (unknown) | (no date) | (unknown) | [facility] | (no | (units | (unknown) | | | | | [facility] | value) | unknown) | | | | | | [facility], | | | | | | | | [facility] | | | | + + + + +---------+ + + + + | Result panel 103 | + + + + + + +---------+ + + | (unknown) | (no date) | (unknown) | [facility] | (no | (units | (unknown) | | | | | [facility] | value) | unknown) | | | | | | [facility], | | | | | | | | [facility] | | | | + + + + +---------+ + + + + | Result panel 104 | + + + + + + +---------+ + + | (unknown) | (no date) | (unknown) | [facility] | (no | (units | (unknown) | | | | | [facility] | value) | unknown) | | | | | | [facility], | | | | | | | | [facility] | | | | + + + + +---------+ + + + + | Result panel 105 | + + + + + + +---------+ + + | (unknown) | (no date) | (unknown) | [facility] | (no | (units | (unknown) | | | | | [facility] | value) | unknown) | | | | | | [facility], | | | | | | | | [facility] | | | | + + + + +---------+ + + + + | Result panel 106 | + + + + + + +---------+ + + | (unknown) | (no date) | (unknown) | [facility] | (no | (units | (unknown) | | | | | [facility] | value) | unknown) | | | | | | [facility], | | | | | | | | [facility] | | | | + + + + +---------+ + + + + | Result panel 107 | + + + + + + +---------+ + + | (unknown) | (no date) | (unknown) | [facility] | (no | (units | (unknown) | | | | | [facility] | value) | unknown) | | | | | | [facility], | | | | | | | | [facility] | | | | + + + + +---------+ + + + + | Result panel 108 | + + + + + + +---------+ + + | (unknown) | (no date) | (unknown) | [facility] | (no | (units | (unknown) | | | | | [facility] | value) | unknown) | | | | | | [facility], | | | | | | | | [facility] | | | | + + + + +---------+ + + + + | Result panel 109 | + + + + + + +---------+ + + | (unknown) | (no date) | (unknown) | [facility] | (no | (units | (unknown) | | | | | [facility] | value) | unknown) | | | | | | [facility], | | | | | | | | [facility] | | | | + + + + +---------+ + + + + | Result panel 110 | + + + + + + +---------+ + + | (unknown) | (no date) | (unknown) | [facility] | (no | (units | (unknown) | | | | | [facility] | value) | unknown) | | | | | | [facility], | | | | | | | | [facility] | | | | + + + + +---------+ + + + + | Result panel 111 | + + + + + + +---------+ + + | (unknown) | (no date) | (unknown) | [facility] | (no | (units | (unknown) | | | | | [facility] | value) | unknown) | | | | | | [facility], | | | | | | | | [facility] | | | | + + + + +---------+ + + + + | Result panel 112 | + + + + + + +---------+ + + | (unknown) | (no date) | (unknown) | [facility] | (no | (units | (unknown) | | | | | [facility] | value) | unknown) | | | | | | [facility], | | | | | | | | [facility] | | | | + + + + +---------+ + + + + | Result panel 113 | + + + + + + +---------+ + + | (unknown) | (no date) | (unknown) | [facility] | (no | (units | (unknown) | | | | | [facility] | value) | unknown) | | | | | | [facility], | | | | | | | | [facility] | | | | + + + + +---------+ + + + + | Result panel 114 | + + + + + + +---------+ + + | (unknown) | (no date) | (unknown) | [facility] | (no | (units | (unknown) | | | | | [facility] | value) | unknown) | | | | | | [facility], | | | | | | | | [facility] | | | | + + + + +---------+ + + + + | Result panel 115 | + + + + + + +---------+ + + | (unknown) | (no date) | (unknown) | [facility] | (no | (units | (unknown) | | | | | [facility] | value) | unknown) | | | | | | [facility], | | | | | | | | [facility] | | | | + + + + +---------+ + + + + | Result panel 116 | + + + + + + +---------+ + + | (unknown) | (no date) | (unknown) | [facility] | (no | (units | (unknown) | | | | | [facility] | value) | unknown) | | | | | | [facility], | | | | | | | | [facility] | | | | + + + + +---------+ + + + + | Result panel 117 | + + + + + + +---------+ + + | (unknown) | (no date) | (unknown) | [facility] | (no | (units | (unknown) | | | | | [facility] | value) | unknown) | | | | | | [facility], | | | | | | | | [facility] | | | | + + + + +---------+ + + + + | Result panel 118 | + + + + + + +---------+ + + | (unknown) | (no date) | (unknown) | [facility] | (no | (units | (unknown) | | | | | [facility] | value) | unknown) | | | | | | [facility], | | | | | | | | [facility] | | | | + + + + +---------+ + + + + | Result panel 119 | + + + + + + +---------+ + + | (unknown) | (no date) | (unknown) | [facility] | (no | (units | (unknown) | | | | | [facility] | value) | unknown) | | | | | | [facility], | | | | | | | | [facility] | | | | + + + + +---------+ + + + + | Result panel 120 | + + + + + + +---------+ + + | (unknown) | (no date) | (unknown) | [facility] | (no | (units | (unknown) | | | | | [facility] | value) | unknown) | | | | | | [facility], | | | | | | | | [facility] | | | | + + + + +---------+ + + + + | Result panel 121 | + + + + + + +---------+ + + | (unknown) | (no date) | (unknown) | [facility] | (no | (units | (unknown) | | | | | [facility] | value) | unknown) | | | | | | [facility], | | | | | | | | [facility] | | | | + + + + +---------+ + + + + | Result panel 122 | + + + + + + +---------+ + + | (unknown) | (no date) | (unknown) | [facility] | (no | (units | (unknown) | | | | | [facility] | value) | unknown) | | | | | | [facility], | | | | | | | | [facility] | | | | + + + + +---------+ + + + + | Result panel 123 | + + + + + + +---------+ + + | (unknown) | (no date) | (unknown) | [facility] | (no | (units | (unknown) | | | | | [facility] | value) | unknown) | | | | | | [facility], | | | | | | | | [facility] | | | | + + + + +---------+ + + + + | Result panel 124 | + + + + + + +---------+ + + | (unknown) | (no date) | (unknown) | [facility] | (no | (units | (unknown) | | | | | [facility] | value) | unknown) | | | | | | [facility], | | | | | | | | [facility] | | | | + + + + +---------+ + + + + | Result panel 125 | + + + + + + +---------+ + + | (unknown) | (no date) | (unknown) | [facility] | (no | (units | (unknown) | | | | | [facility] | value) | unknown) | | | | | | [facility], | | | | | | | | [facility] | | | | + + + + +---------+ + + + + | Result panel 126 | + + + + + + +---------+ + + | (unknown) | (no date) | (unknown) | [facility] | (no | (units | (unknown) | | | | | [facility] | value) | unknown) | | | | | | [facility], | | | | | | | | [facility] | | | | + + + + +---------+ + + + + | Result panel 127 | + + + + + + +---------+ + + | (unknown) | (no date) | (unknown) | [facility] | (no | (units | (unknown) | | | | | [facility] | value) | unknown) | | | | | | [facility], | | | | | | | | [facility] | | | | + + + + +---------+ + + + + | Result panel 128 | + + + + + + +---------+ + + | (unknown) | (no date) | (unknown) | [facility] | (no | (units | (unknown) | | | | | [facility] | value) | unknown) | | | | | | [facility], | | | | | | | | [facility] | | | | + + + + +---------+ + + + + | Result panel 129 | + + + + + + +---------+ + + | (unknown) | (no date) | (unknown) | [facility] | (no | (units | (unknown) | | | | | [facility] | value) | unknown) | | | | | | [facility], | | | | | | | | [facility] | | | | + + + + +---------+ + + + + | Result panel 130 | + + + + + + +---------+ + + | (unknown) | (no date) | (unknown) | [facility] | (no | (units | (unknown) | | | | | [facility] | value) | unknown) | | | | | | [facility], | | | | | | | | [facility] | | | | + + + + +---------+ + + + + | Result panel 131 | + + + + + + +---------+ + + | (unknown) | (no date) | (unknown) | [facility] | (no | (units | (unknown) | | | | | [facility] | value) | unknown) | | | | | | [facility], | | | | | | | | [facility] | | | | + + + + +---------+ + + + + | Result panel 132 | + + + + + + +---------+ + + | (unknown) | (no date) | (unknown) | [facility] | (no | (units | (unknown) | | | | | [facility] | value) | unknown) | | | | | | [facility], | | | | | | | | [facility] | | | | + + + + +---------+ + + + + | Result panel 133 | + + + + + + +---------+ + + | (unknown) | (no date) | (unknown) | [facility] | (no | (units | (unknown) | | | | | [facility] | value) | unknown) | | | | | | [facility], | | | | | | | | [facility] | | | | + + + + +---------+ + + + + | Result panel 134 | + + + + + + +---------+ + + | (unknown) | (no date) | (unknown) | [facility] | (no | (units | (unknown) | | | | | [facility] | value) | unknown) | | | | | | [facility], | | | | | | | | [facility] | | | | + + + + +---------+ + + + + | Result panel 135 | + + + + + + +---------+ + + | (unknown) | (no date) | (unknown) | [facility] | (no | (units | (unknown) | | | | | [facility] | value) | unknown) | | | | | | [facility], | | | | | | | | [facility] | | | | + + + + +---------+ + + + + | Result panel 136 | + + + + + + +---------+ + + | (unknown) | (no date) | (unknown) | [facility] | (no | (units | (unknown) | | | | | [facility] | value) | unknown) | | | | | | [facility], | | | | | | | | [facility] | | | | + + + + +---------+ + + + + | Result panel 137 | + + + + + + +---------+ + + | (unknown) | (no date) | (unknown) | [facility] | (no | (units | (unknown) | | | | | [facility] | value) | unknown) | | | | | | [facility], | | | | | | | | [facility] | | | | + + + + +---------+ + + + + | Result panel 138 | + + + + + + +---------+ + + | (unknown) | (no date) | (unknown) | [facility] | (no | (units | (unknown) | | | | | [facility] | value) | unknown) | | | | | | [facility], | | | | | | | | [facility] | | | | + + + + +---------+ + + + + | Result panel 139 | + + + + + + +---------+ + + | (unknown) | (no date) | (unknown) | [facility] | (no | (units | (unknown) | | | | | [facility] | value) | unknown) | | | | | | [facility], | | | | | | | | [facility] | | | | + + + + +---------+ + + + + | Result panel 140 | + + + + + + +---------+ + + | (unknown) | (no date) | (unknown) | [facility] | (no | (units | (unknown) | | | | | [facility] | value) | unknown) | | | | | | [facility], | | | | | | | | [facility] | | | | + + + + +---------+ + + + + | Result panel 141 | + + + + + + +---------+ + + | (unknown) | (no date) | (unknown) | [facility] | (no | (units | (unknown) | | | | | [facility] | value) | unknown) | | | | | | [facility], | | | | | | | | [facility] | | | | + + + + +---------+ + + + + | Result panel 142 | + + + + + + +---------+ + + | (unknown) | (no date) | (unknown) | [facility] | (no | (units | (unknown) | | | | | [facility] | value) | unknown) | | | | | | [facility], | | | | | | | | [facility] | | | | + + + + +---------+ + + + + | Result panel 143 | + + + + + + +---------+ + + | (unknown) | (no date) | (unknown) | [facility] | (no | (units | (unknown) | | | | | [facility] | value) | unknown) | | | | | | [facility], | | | | | | | | [facility] | | | | + + + + +---------+ + + + + | Result panel 144 | + + + + + + +---------+ + + | (unknown) | (no date) | (unknown) | [facility] | (no | (units | (unknown) | | | | | [facility] | value) | unknown) | | | | | | [facility], | | | | | | | | [facility] | | | | + + + + +---------+ + + + + | Result panel 145 | + + + + + + +---------+ + + | (unknown) | (no date) | (unknown) | [facility] | (no | (units | (unknown) | | | | | [facility] | value) | unknown) | | | | | | [facility], | | | | | | | | [facility] | | | | + + + + +---------+ + + + + | Result panel 146 | + + + + + + +---------+ + + | (unknown) | (no date) | (unknown) | [facility] | (no | (units | (unknown) | | | | | [facility] | value) | unknown) | | | | | | [facility], | | | | | | | | [facility] | | | | + + + + +---------+ + + + + | Result panel 147 | + + + + + + +---------+ + + | (unknown) | (no date) | (unknown) | [facility] | (no | (units | (unknown) | | | | | [facility] | value) | unknown) | | | | | | [facility], | | | | | | | | [facility] | | | | + + + + +---------+ + + + + | Result panel 148 | + + + + + + +---------+ + + | (unknown) | (no date) | (unknown) | [facility] | (no | (units | (unknown) | | | | | [facility] | value) | unknown) | | | | | | [facility], | | | | | | | | [facility] | | | | + + + + +---------+ + + + + | Result panel 149 | + + + + + + +---------+ + + | (unknown) | (no date) | (unknown) | [facility] | (no | (units | (unknown) | | | | | MED[facility] | value) | unknown) | | | | | | [facility], | | | | | | | | [facility] | | | | + + + + +---------+ + + + + | Result panel 150 | + + + + + + +---------+ + + | (unknown) | (no date) | (unknown) | [facility] | (no | (units | (unknown) | | | | | [facility] | value) | unknown) | | | | | | [facility], | | | | | | | | [facility] | | | | + + + + +---------+ + + + + | Result panel 151 | + + + + + + +---------+ + + | (unknown) | (no date) | (unknown) | [facility] | (no | (units | (unknown) | | | | | [facility] | value) | unknown) | | | | | | [facility], | | | | | | | | [facility] | | | | + + + + +---------+ + + + + | Result panel 152 | + + + + + + +---------+ + + | (unknown) | (no date) | (unknown) | [facility] | (no | (units | (unknown) | | | | | MED[facility] | value) | unknown) | | | | | | [facility], | | | | | | | | [facility] | | | | + + + + +---------+ + + + + | Result panel 153 | + + + + + + +---------+ + + | (unknown) | (no date) | (unknown) | [facility] | (no | (units | (unknown) | | | | | MED[facility] | value) | unknown) | | | | | | [facility], | | | | | | | | [facility] | | | | + + + + +---------+ + + + + | Result panel 154 | + + + + + + +---------+ + + | (unknown) | (no date) | (unknown) | [facility] | (no | (units | (unknown) | | | | | [facility] | value) | unknown) | | | | | | [facility], | | | | | | | | [facility] | | | | + + + + +---------+ + + + + | Result panel 155 | + + + + + + +---------+ + + | (unknown) | (no date) | (unknown) | [facility] | (no | (units | (unknown) | | | | | [facility] | value) | unknown) | | | | | | [facility], | | | | | | | | [facility] | | | | + + + + +---------+ + + + + | Result panel 156 | + + + + + + +---------+ + + | (unknown) | (no date) | (unknown) | [facility] | (no | (units | (unknown) | | | | | [facility] | value) | unknown) | | | | | | [facility], | | | | | | | | [facility] | | | | + + + + +---------+ + + + + | Result panel 157 | + + + + + + +---------+ + + | (unknown) | (no date) | (unknown) | [facility] | (no | (units | (unknown) | | | | | [facility] | value) | unknown) | | | | | | [facility], | | | | | | | | [facility] | | | | + + + + +---------+ + + + + | Result panel 158 | + + + + + + +---------+ + + | (unknown) | (no date) | (unknown) | [facility] | (no | (units | (unknown) | | | | | [facility] | value) | unknown) | | | | | | [facility], | | | | | | | | [facility] | | | | + + + + +---------+ + + + + | Result panel 159 | + + + + + + +---------+ + + | (unknown) | (no date) | (unknown) | [facility] | (no | (units | (unknown) | | | | | [facility] | value) | unknown) | | | | | | [facility], | | | | | | | | [facility] | | | | + + + + +---------+ + + + + | Result panel 160 | + + + + + + +---------+ + + | (unknown) | (no date) | (unknown) | [facility] | (no | (units | (unknown) | | | | | [facility] | value) | unknown) | | | | | | [facility], | | | | | | | | [facility] | | | | + + + + +---------+ + + + + | Result panel 161 | + + + + + + +---------+ + + | (unknown) | (no date) | (unknown) | [facility] | (no | (units | (unknown) | | | | | MED[facility] | value) | unknown) | | | | | | GROUP, | | | | | | | | [facility] | | | | + + + + +---------+ + + + + | Result panel 162 | + + + + + + +---------+ + + | (unknown) | (no date) | (unknown) | [facility] | (no | (units | (unknown) | | | | | [facility] | value) | unknown) | | | | | | [facility], | | | | | | | | [facility] | | | | + + + + +---------+ + + + + | Result panel 163 | + + + + + + +---------+ + + | (unknown) | (no date) | (unknown) | [facility] | (no | (units | (unknown) | | | | | MED[facility] | value) | unknown) | | | | | | GROUP, | | | | | | | | [facility] | | | | + + + + +---------+ + + + + | Result panel 164 | + + + + + + +---------+ + + | (unknown) | (no date) | (unknown) | [facility] | (no | (units | (unknown) | | | | | MED[facility] | value) | unknown) | | | | | | GROUP, | | | | | | | | [facility] | | | | + + + + +---------+ + + + + | Result panel 165 | + + + + + + +---------+ + + | (unknown) | (no date) | (unknown) | [facility] | (no | (units | (unknown) | | | | | MEDICAL | value) | unknown) | | | | | | GROUP, | | | | | | | | [facility] | | | | + + + + +---------+ + + + + | Result panel 166 | + + + + + + +---------+ + + | (unknown) | (no date) | (unknown) | [facility] | (no | (units | (unknown) | | | | | MEDICAL | value) | unknown) | | | | | | GROUP, | | | | | | | | [facility] | | | | + + + + +---------+ + + + + | Result panel 167 | + + + + + + +---------+ + + | (unknown) | (no date) | (unknown) | [facility] | (no | (units | (unknown) | | | | | MEDICAL | value) | unknown) | | | | | | GROUP, | | | | | | | | [facility] | | | | + + + + +---------+ + + + + | Result panel 168 | + + + + + + +---------+ + + | (unknown) | (no date) | (unknown) | [facility] | (no | (units | (unknown) | | | | | MEDICAL | value) | unknown) | | | | | | GROUP, | | | | | | | | [facility] | | | | + + + + +---------+ + + + + | Result panel 169 | + + + + + + +---------+ + + | (unknown) | (no date) | (unknown) | [facility] | (no | (units | (unknown) | | | | | MEDICAL | value) | unknown) | | | | | | GROUP, | | | | | | | | [facility] | | | | + + + + +---------+ + + + + | Result panel 170 | + + + + + + +---------+ + + | (unknown) | (no date) | (unknown) | [facility] | (no | (units | (unknown) | | | | | MEDICAL | value) | unknown) | | | | | | GROUP, | | | | | | | | [facility] | | | | + + + + +---------+ + + + + | Result panel 171 | + + + + + + +---------+ + + | (unknown) | (no date) | (unknown) | [facility] | (no | (units | (unknown) | | | | | MEDICAL | value) | unknown) | | | | | | GROUP, | | | | | | | | [facility] | | | | + + + + +---------+ + + + + | Result panel 172 | + + + + + + +---------+ + + | (unknown) | (no date) | (unknown) | [facility] | (no | (units | (unknown) | | | | | MEDICAL | value) | unknown) | | | | | | GROUP, | | | | | | | | [facility] | | | | + + + + +---------+ + + + + | Result panel 173 | + + + + + + +---------+ + + | (unknown) | (no date) | (unknown) | [facility] | (no | (units | (unknown) | | | | | MEDICAL | value) | unknown) | | | | | | GROUP, | | | | | | | | [facility] | | | | + + + + +---------+ + + + + | Result panel 174 | + + + + + + +---------+ + + | (unknown) | (no date) | (unknown) | [facility] | (no | (units | (unknown) | | | | | MEDICAL | value) | unknown) | | | | | | GROUP, | | | | | | | | [facility] | | | | + + + + +---------+ + + + + | Result panel 175 | + + + + + + +---------+ + + | (unknown) | (no date) | (unknown) | [facility] | (no | (units | (unknown) | | | | | MEDICAL | value) | unknown) | | | | | | GROUP, | | | | | | | | [facility] | | | | + + + + +---------+ + + + + | Result panel 176 | + + + + + + +---------+ + + | (unknown) | (no date) | (unknown) | [facility] | (no | (units | (unknown) | | | | | MEDICAL | value) | unknown) | | | | | | GROUP, | | | | | | | | [facility] | | | | + + + + +---------+ + + + + | Result panel 177 | + + + + + + +---------+ + + | (unknown) | (no date) | (unknown) | [facility] | (no | (units | (unknown) | | | | | MEDICAL | value) | unknown) | | | | | | GROUP, | | | | | | | | [facility] | | | | + + + + +---------+ + + + + | Result panel 178 | + + + + + + +---------+ + + | (unknown) | (no date) | (unknown) | [facility] | (no | (units | (unknown) | | | | | MEDICAL | value) | unknown) | | | | | | GROUP, | | | | | | | | [facility] | | | | + + + + +---------+ + + + + | Result panel 179 | + + + + + + +---------+ + + | (unknown) | (no date) | (unknown) | [facility] | (no | (units | (unknown) | | | | | MEDICAL | value) | unknown) | | | | | | GROUP, | | | | | | | | [facility] | | | | + + + + +---------+ + + + + | Result panel 180 | + + + + + + +---------+ + + | (unknown) | (no date) | (unknown) | [facility] | (no | (units | (unknown) | | | | | MEDICAL | value) | unknown) | | | | | | GROUP, | | | | | | | | [facility] | | | | + + + + +---------+ + + + + | Result panel 181 | + + + + + + +---------+ + + | (unknown) | (no date) | (unknown) | [facility] | (no | (units | (unknown) | | | | | MEDICAL | value) | unknown) | | | | | | GROUP, | | | | | | | | [facility] | | | | + + + + +---------+ + + + + | Result panel 182 | + + + + + + +---------+ + + | (unknown) | (no date) | (unknown) | [facility] | (no | (units | (unknown) | | | | | MEDICAL | value) | unknown) | | | | | | GROUP, | | | | | | | | [facility] | | | | + + + + +---------+ + + + + | Result panel 183 | + + + + + + +---------+ + + | (unknown) | (no date) | (unknown) | [facility] | (no | (units | (unknown) | | | | | MEDICAL | value) | unknown) | | | | | | GROUP, | | | | | | | | [facility] | | | | + + + + +---------+ + + + + | Result panel 184 | + + + + + + +---------+ + + | (unknown) | (no date) | (unknown) | [facility] | (no | (units | (unknown) | | | | | MEDICAL | value) | unknown) | | | | | | GROUP, | | | | | | | | [facility] | | | | + + + + +---------+ + + + + | Result panel 185 | + + + + + + +---------+ + + | (unknown) | (no date) | (unknown) | [facility] | (no | (units | (unknown) | | | | | MEDICAL | value) | unknown) | | | | | | GROUP, | | | | | | | | [facility] | | | | + + + + +---------+ + + + + | Result panel 186 | + + + + + + +---------+ + + | (unknown) | (no date) | (unknown) | [facility] | (no | (units | (unknown) | | | | | MEDICAL | value) | unknown) | | | | | | GROUP, | | | | | | | | [facility] | | | | + + + + +---------+ + + + + | Result panel 187 | + + + + + + +---------+ + + | (unknown) | (no date) | (unknown) | [facility] | (no | (units | (unknown) | | | | | MEDICAL | value) | unknown) | | | | | | GROUP, | | | | | | | | [facility] | | | | + + + + +---------+ + + + + | Result panel 188 | + + + + + + +---------+ + + | (unknown) | (no date) | (unknown) | [facility] | (no | (units | (unknown) | | | | | MEDICAL | value) | unknown) | | | | | | GROUP, | | | | | | | | [facility] | | | | + + + + +---------+ + + + + | Result panel 189 | + + + + + + +---------+ + + | (unknown) | (no date) | (unknown) | [facility] | (no | (units | (unknown) | | | | | MEDICAL | value) | unknown) | | | | | | GROUP, | | | | | | | | [facility] | | | | + + + + +---------+ + + + + | Result panel 190 | + + + + + + +---------+ + + | (unknown) | (no date) | (unknown) | [facility] | (no | (units | (unknown) | | | | | MEDICAL | value) | unknown) | | | | | | GROUP, | | | | | | | | [facility] | | | | + + + + +---------+ + + + + | Result panel 191 | + + + + + + +---------+ + + | (unknown) | (no date) | (unknown) | [facility] | (no | (units | (unknown) | | | | | MEDICAL | value) | unknown) | | | | | | GROUP, | | | | | | | | [facility] | | | | + + + + +---------+ + + + + | Result panel 192 | + + + + + + +---------+ + + | (unknown) | (no date) | (unknown) | [facility] | (no | (units | (unknown) | | | | | MEDICAL | value) | unknown) | | | | | | GROUP, | | | | | | | | [facility] | | | | + + + + +---------+ + + + + | Result panel 193 | + + + + + + +---------+ + + | (unknown) | (no date) | (unknown) | [facility] | (no | (units | (unknown) | | | | | MEDICAL | value) | unknown) | | | | | | GROUP, | | | | | | | | [facility] | | | | + + + + +---------+ + + + + | Result panel 194 | + + + + + + +---------+ + + | (unknown) | (no date) | (unknown) | [facility] | (no | (units | (unknown) | | | | | MEDICAL | value) | unknown) | | | | | | GROUP, | | | | | | | | [facility] | | | | + + + + +---------+ + + + + | Result panel 195 | + + + + + + +---------+ + + | (unknown) | (no date) | (unknown) | [facility] | (no | (units | (unknown) | | | | | MEDICAL | value) | unknown) | | | | | | GROUP, | | | | | | | | [facility] | | | | + + + + +---------+ + + + + | Result panel 196 | + + + + + + +---------+ + + | (unknown) | (no date) | (unknown) | [facility] | (no | (units | (unknown) | | | | | MEDICAL | value) | unknown) | | | | | | GROUP, | | | | | | | | [facility] | | | | + + + + +---------+ + + + + | Result panel 197 | + + + + + + +---------+ + + | (unknown) | (no date) | (unknown) | [facility] | (no | (units | (unknown) | | | | | MEDICAL | value) | unknown) | | | | | | GROUP, | | | | | | | | [facility] | | | | + + + + +---------+ + + + + | Result panel 198 | + + + + + + +---------+ + + | (unknown) | (no date) | (unknown) | [facility] | (no | (units | (unknown) | | | | | MEDICAL | value) | unknown) | | | | | | [facility] | | | | | | [facility] | | | | + + + + +---------+ + + + + | Result panel 199 | + + + + + + +---------+ + + | (unknown) | (no date) | (unknown) | [facility] | (no | (units | (unknown) | | | | | MEDICAL | value) | unknown) | | | | | | [facility] | | | | | | | | [facility] | | | | + + + + +---------+ + + + + | Result panel 200 | + + + + + + +---------+ + + | (unknown) | (no date) | (unknown) | [facility] | (no | (units | (unknown) | | | | | [facility] | value) | unknown) | | | | | | [facility] | | | | | | | | [facility] | | | | + + + + +---------+ + + + + | Result panel 201 | + + + + + + +---------+ + + | (unknown) | (no date) | (unknown) | [facility] | (no | (units | (unknown) | | | | | [facility] | value) | unknown) | | | | | | [facility] | | | | | | | | [facility] | | | | + + + + +---------+ + + + + | Result panel 202 | + + + + + + +---------+ + + | (unknown) | (no date) | (unknown) | [facility] | (no | (units | (unknown) | | | | | [facility] | value) | unknown) | | | | | | [facility] | | | | | | | | [facility] | | | | + + + + +---------+ + + + + | Result panel 203 | + + + + + + +---------+ + + | (unknown) | (no date) | (unknown) | [facility] | (no | (units | (unknown) | | | | | [facility] | value) | unknown) | | | | | | [facility] | | | | | | | | [facility] | | | | + + + + +---------+ + + + + | Result panel 204 | + + + + + + +---------+ + + | (unknown) | (no date) | (unknown) | [facility] | (no | (units | (unknown) | | | | | [facility] | value) | unknown) | | | | | | [facility] | | | | | | | | [facility] | | | | + + + + +---------+ + + + + | Result panel 205 | + + + + + + +---------+ + + | (unknown) | (no date) | (unknown) | [facility] | (no | (units | (unknown) | | | | | [facility] | value) | unknown) | | | | | | [facility] | | | | | | | | [facility] | | | | + + + + +---------+ + + + + | Result panel 206 | + + + + + + +---------+ + + | (unknown) | (no date) | (unknown) | [facility] | (no | (units | (unknown) | | | | | [facility] | value) | unknown) | | | | | | [facility] | | | | | | | | [facility] | | | | + + + + +---------+ + + + + | Result panel 207 | + + + + + + +---------+ + + | (unknown) | (no date) | (unknown) | [facility] | (no | (units | (unknown) | | | | | [facility] | value) | unknown) | | | | | | [facility] | | | | | | | | [facility] | | | | + + + + +---------+ + + + + | Result panel 208 | + + + + + + +---------+ + + | (unknown) | (no date) | (unknown) | [facility] | (no | (units | (unknown) | | | | | [facility] | value) | unknown) | | | | | | [facility], | | | | | | | | [facility] | | | | + + + + +---------+ + + + + | Result panel 209 | + + + + + + +---------+ + + | (unknown) | (no date) | (unknown) | [facility] | (no | (units | (unknown) | | | | | [facility] | value) | unknown) | | | | | | [facility], | | | | | | | | [facility] | | | | + + + + +---------+ + + + + | Result panel 210 | + + + + + + +---------+ + + | (unknown) | (no date) | (unknown) | [facility] | (no | (units | (unknown) | | | | | [facility] | value) | unknown) | | | | | | [facility], | | | | | | | | [facility] | | | | + + + + +---------+ + + + + | Result panel 211 | + + + + + + +---------+ + + | (unknown) | (no date) | (unknown) | [facility] | (no | (units | (unknown) | | | | | [facility] | value) | unknown) | | | | | | [facility], | | | | | | | | [facility] | | | | + + + + +---------+ + + + + | Result panel 212 | + + + + + + +---------+ + + | (unknown) | (no date) | (unknown) | [facility] | (no | (units | (unknown) | | | | | [facility] | value) | unknown) | | | | | | [facility], | | | | | | | | [facility] | | | | + + + + +---------+ + + + + | Result panel 213 | + + + + + + +---------+ + + | (unknown) | (no date) | (unknown) | [facility] | (no | (units | (unknown) | | | | | [facility] | value) | unknown) | | | | | | [facility] | | | | | | | | [facility] | | | | + + + + +---------+ + + + + | Result panel 214 | + + + + + + +---------+ + + | (unknown) | (no date) | (unknown) | [facility] | (no | (units | (unknown) | | | | | [facility] | value) | unknown) | | | | | | [facility], | | | | | | | | [facility] | | | | + + + + +---------+ + + + + | Result panel 215 | + + + + + + +---------+ + + | (unknown) | (no date) | (unknown) | [facility] | (no | (units | (unknown) | | | | | [facility] | value) | unknown) | | | | | | [facility], | | | | | | | | [facility] | | | | + + + + +---------+ + + + + | Result panel 216 | + + + + + + +---------+ + + | (unknown) | (no date) | (unknown) | [facility] | (no | (units | (unknown) | | | | | [facility] | value) | unknown) | | | | | | [facility], | | | | | | | | [facility] | | | | + + + + +---------+ + + + + | Result panel 217 | + + + + + + +---------+ + + | (unknown) | (no date) | (unknown) | [facility] | (no | (units | (unknown) | | | | | [facility] | value) | unknown) | | | | | | [facility] | | | | | | | | [facility] | | | | + + + + +---------+ + + + + | Result panel 218 | + + + + + + +---------+ + + | (unknown) | (no date) | (unknown) | [facility] | (no | (units | (unknown) | | | | | [facility] | value) | unknown) | | | | | | [facility] | | | | | | | | [facility] | | | | + + + + +---------+ + + + + | Result panel 219 | + + + + + + +---------+ + + | (unknown) | (no date) | (unknown) | [facility] | (no | (units | (unknown) | | | | | [facility] | value) | unknown) | | | | | | [facility] | | | | | | | | [facility] | | | | + + + + +---------+ + + + + | Result panel 220 | + + + + + + +---------+ + + | (unknown) | (no date) | (unknown) | [facility] | (no | (units | (unknown) | | | | | [facility] | value) | unknown) | | | | | | [facility] | | | | | | | | [facility] | | | | + + + + +---------+ + + + + | Result panel 221 | + + + + + + +---------+ + + | (unknown) | (no date) | (unknown) | [facility] | (no | (units | (unknown) | | | | | [facility] | value) | unknown) | | | | | | [facility], | | | | | | | | [facility] | | | | + + + + +---------+ + + + + | Result panel 222 | + + + + + + +---------+ + + | (unknown) | (no date) | (unknown) | [facility] | (no | (units | (unknown) | | | | | [facility] | value) | unknown) | | | | | | [facility], | | | | | | | | [facility] | | | | + + + + +---------+ + + + + | Result panel 223 | + + + + + + +---------+ + + | (unknown) | (no date) | (unknown) | [facility] | (no | (units | (unknown) | | | | | [facility] | value) | unknown) | | | | | | [facility], | | | | | | | | [facility] | | | | + + + + +---------+ + + + + | Result panel 224 | + + + + + + +---------+ + + | (unknown) | (no date) | (unknown) | [facility] | (no | (units | (unknown) | | | | | [facility] | value) | unknown) | | | | | | [facility], | | | | | | | | [facility] | | | | + + + + +---------+ + + + + | Result panel 225 | + + + + + + +---------+ + + | (unknown) | (no date) | (unknown) | [facility] | (no | (units | (unknown) | | | | | [facility] | value) | unknown) | | | | | | [facility], | | | | | | | | [facility] | | | | + + + + +---------+ + + + + | Result panel 226 | + + + + + + +---------+ + + | (unknown) | (no date) | (unknown) | [facility] | (no | (units | (unknown) | | | | | [facility] | value) | unknown) | | | | | | [facility], | | | | | | | | [facility] | | | | + + + + +---------+ + + + + | Result panel 227 | + + + + + + +---------+ + + | (unknown) | (no date) | (unknown) | [facility] | (no | (units | (unknown) | | | | | [facility] | value) | unknown) | | | | | | [facility], | | | | | | | | [facility] | | | | + + + + +---------+ + + + + | Result panel 228 | + + + + + + +---------+ + + | (unknown) | (no date) | (unknown) | [facility] | (no | (units | (unknown) | | | | | [facility] | value) | unknown) | | | | | | [facility], | | | | | | | | [facility] | | | | + + + + +---------+ + + + + | Result panel 229 | + + + + + + +---------+ + + | (unknown) | (no date) | (unknown) | [facility] | (no | (units | (unknown) | | | | | [facility] | value) | unknown) | | | | | | [facility], | | | | | | | | [facility] | | | | + + + + +---------+ + + + + | Result panel 230 | + + + + + + +---------+ + + | (unknown) | (no date) | (unknown) | [facility] | (no | (units | (unknown) | | | | | [facility] | value) | unknown) | | | | | | [facility], | | | | | | | | [facility] | | | | + + + + +---------+ + + + + | Result panel 231 | + + + + + + +---------+ + + | (unknown) | (no date) | (unknown) | [facility] | (no | (units | (unknown) | | | | | [facility] | value) | unknown) | | | | | | [facility], | | | | | | | | [facility] | | | | + + + + +---------+ + + + + | Result panel 232 | + + + + + + +---------+ + + | (unknown) | (no date) | (unknown) | [facility] | (no | (units | (unknown) | | | | | [facility] | value) | unknown) | | | | | | [facility], | | | | | | | | [facility] | | | | + + + + +---------+ + + + + | Result panel 233 | + + + + + + +---------+ + + | (unknown) | (no date) | (unknown) | [facility] | (no | (units | (unknown) | | | | | [facility] | value) | unknown) | | | | | | [facility], | | | | | | | | [facility] | | | | + + + + +---------+ + + + + | Result panel 234 | + + + + + + +---------+ + + | (unknown) | (no date) | (unknown) | [facility] | (no | (units | (unknown) | | | | | [facility] | value) | unknown) | | | | | | [facility], | | | | | | | | [facility] | | | | + + + + +---------+ + + + + | Result panel 235 | + + + + + + +---------+ + + | (unknown) | (no date) | (unknown) | [facility] | (no | (units | (unknown) | | | | | [facility] | value) | unknown) | | | | | | [facility], | | | | | | | | [facility] | | | | + + + + +---------+ + + + + | Result panel 236 | + + + + + + +---------+ + + | (unknown) | (no date) | (unknown) | [facility] | (no | (units | (unknown) | | | | | [facility] | value) | unknown) | | | | | | [facility], | | | | | | | | [facility] | | | | + + + + +---------+ + + + + | Result panel 237 | + + + + + + +---------+ + + | (unknown) | (no date) | (unknown) | [facility] | (no | (units | (unknown) | | | | | [facility] | value) | unknown) | | | | | | [facility], | | | | | | | | [facility] | | | | + + + + +---------+ + + + + | Result panel 238 | + + + + + + +---------+ + + | (unknown) | (no date) | (unknown) | [facility] | (no | (units | (unknown) | | | | | [facility] | value) | unknown) | | | | | | [facility], | | | | | | | | [facility] | | | | + + + + +---------+ + + + + | Result panel 239 | + + + + + + +---------+ + + | (unknown) | (no date) | (unknown) | [facility] | (no | (units | (unknown) | | | | | [facility] | value) | unknown) | | | | | | [facility], | | | | | | | | [facility] | | | | + + + + +---------+ + + + + | Result panel 240 | + + + + + + +---------+ + + | (unknown) | (no date) | (unknown) | [facility] | (no | (units | (unknown) | | | | | [facility] | value) | unknown) | | | | | | [facility], | | | | | | | | [facility] | | | | + + + + +---------+ + + + + | Result panel 241 | + + + + + + +---------+ + + | (unknown) | (no date) | (unknown) | [facility] | (no | (units | (unknown) | | | | | [facility] | value) | unknown) | | | | | | [facility], | | | | | | | | [facility] | | | | + + + + +---------+ + + + + | Result panel 242 | + + + + + + +---------+ + + | (unknown) | (no date) | (unknown) | [facility] | (no | (units | (unknown) | | | | | [facility] | value) | unknown) | | | | | | [facility], | | | | | | | | [facility] | | | | + + + + +---------+ + + + + | Result panel 243 | + + + + + + +---------+ + + | (unknown) | (no date) | (unknown) | [facility] | (no | (units | (unknown) | | | | | [facility] | value) | unknown) | | | | | | [facility], | | | | | | | | [facility] | | | | + + + + +---------+ + + + + | Result panel 244 | + + + + + + +---------+ + + | (unknown) | (no date) | (unknown) | [facility] | (no | (units | (unknown) | | | | | [facility] | value) | unknown) | | | | | | [facility], | | | | | | | | [facility] | | | | + + + + +---------+ + + + + | Result panel 245 | + + + + + + +---------+ + + | (unknown) | (no date) | (unknown) | [facility] | (no | (units | (unknown) | | | | | [facility] | value) | unknown) | | | | | | [facility], | | | | | | | | [facility] | | | | + + + + +---------+ + + + + | Result panel 246 | + + + + + + +---------+ + + | (unknown) | (no date) | (unknown) | [facility] | (no | (units | (unknown) | | | | | [facility] | value) | unknown) | | | | | | [facility], | | | | | | | | [facility] | | | | + + + + +---------+ + + + + | Result panel 247 | + + + + + + +---------+ + + | (unknown) | (no date) | (unknown) | [facility] | (no | (units | (unknown) | | | | | [facility] | value) | unknown) | | | | | | [facility], | | | | | | | | [facility] | | | | + + + + +---------+ + + + + | Result panel 248 | + + + + + + +---------+ + + | (unknown) | (no date) | (unknown) | [facility] | (no | (units | (unknown) | | | | | [facility] | value) | unknown) | | | | | | [facility], | | | | | | | | [facility] | | | | + + + + +---------+ + + + + | Result panel 249 | + + + + + + +---------+ + + | (unknown) | (no date) | (unknown) | [facility] | (no | (units | (unknown) | | | | | [facility] | value) | unknown) | | | | | | [facility], | | | | | | | | [facility] | | | | + + + + +---------+ + + + + | Result panel 250 | + + + + + + +---------+ + + | (unknown) | (no date) | (unknown) | [facility] | (no | (units | (unknown) | | | | | [facility] | value) | unknown) | | | | | | [facility], | | | | | | | | [facility] | | | | + + + + +---------+ + + + + | Result panel 251 | + + + + + + +---------+ + + | (unknown) | (no date) | (unknown) | [facility] | (no | (units | (unknown) | | | | | [facility] | value) | unknown) | | | | | | [facility], | | | | | | | | [facility] | | | | + + + + +---------+ + + + + | Result panel 252 | + + + + + + +---------+ + + | (unknown) | (no date) | (unknown) | [facility] | (no | (units | (unknown) | | | | | MED[facility] | value) | unknown) | | | | | | [facility], | | | | | | | | [facility] | | | | + + + + +---------+ + + + + | Result panel 253 | + + + + + + +---------+ + + | (unknown) | (no date) | (unknown) | [facility] | (no | (units | (unknown) | | | | | [facility] | value) | unknown) | | | | | | [facility], | | | | | | | | [facility] | | | | + + + + +---------+ + + + + | Result panel 254 | + + + + + + +---------+ + + | (unknown) | (no date) | (unknown) | [facility] | (no | (units | (unknown) | | | | | [facility] | value) | unknown) | | | | | | [facility], | | | | | | | | [facility] | | | | + + + + +---------+ + + + + | Result panel 255 | + + + + + + +---------+ + + | (unknown) | (no date) | (unknown) | [facility] | (no | (units | (unknown) | | | | | [facility] | value) | unknown) | | | | | | [facility], | | | | | | | | [facility] | | | | + + + + +---------+ + + + + | Result panel 256 | + + + + + + +---------+ + + | (unknown) | (no date) | (unknown) | [facility] | (no | (units | (unknown) | | | | | [facility] | value) | unknown) | | | | | | [facility], | | | | | | | | [facility] | | | | + + + + +---------+ + + + + | Result panel 257 | + + + + + + +---------+ + + | (unknown) | (no date) | (unknown) | [facility] | (no | (units | (unknown) | | | | | [facility] | value) | unknown) | | | | | | [facility], | | | | | | | | [facility] | | | | + + + + +---------+ + + + + | Result panel 258 | + + + + + + +---------+ + + | (unknown) | (no date) | (unknown) | [facility] | (no | (units | (unknown) | | | | | [facility] | value) | unknown) | | | | | | [facility], | | | | | | | | [facility] | | | | + + + + +---------+ + + + + | Result panel 259 | + + + + + + +---------+ + + | (unknown) | (no date) | (unknown) | [facility] | (no | (units | (unknown) | | | | | [facility] | value) | unknown) | | | | | | [facility], | | | | | | | | [facility] | | | | + + + + +---------+ + + + + | Result panel 260 | + + + + + + +---------+ + + | (unknown) | (no date) | (unknown) | [facility] | (no | (units | (unknown) | | | | | [facility] | value) | unknown) | | | | | | [facility], | | | | | | | | [facility] | | | | + + + + +---------+ + + + + | Result panel 261 | + + + + + + +---------+ + + | (unknown) | (no date) | (unknown) | [facility] | (no | (units | (unknown) | | | | | [facility] | value) | unknown) | | | | | | [facility], | | | | | | | | [facility] | | | | + + + + +---------+ + + + + | Result panel 262 | + + + + + + +---------+ + + | (unknown) | (no date) | (unknown) | [facility] | (no | (units | (unknown) | | | | | [facility] | value) | unknown) | | | | | | [facility], | | | | | | | | [facility] | | | | + + + + +---------+ + + + + | Result panel 263 | + + + + + + +---------+ + + | (unknown) | (no date) | (unknown) | [facility] | (no | (units | (unknown) | | | | | [facility] | value) | unknown) | | | | | | [facility], | | | | | | | | [facility] | | | | + + + + +---------+ + + + + | Result panel 264 | + + + + + + +---------+ + + | (unknown) | (no date) | (unknown) | [facility] | (no | (units | (unknown) | | | | | [facility] | value) | unknown) | | | | | | [facility], | | | | | | | | [facility] | | | | + + + + +---------+ + + + + | Result panel 265 | + + + + + + +---------+ + + | (unknown) | (no date) | (unknown) | [facility] | (no | (units | (unknown) | | | | | [facility] | value) | unknown) | | | | | | [facility], | | | | | | | | [facility] | | | | + + + + +---------+ + + + + | Result panel 266 | + + + + + + +---------+ + + | (unknown) | (no date) | (unknown) | [facility] | (no | (units | (unknown) | | | | | MEDICAL | value) | unknown) | | | | | | [facility], | | | | | | | | [facility] | | | | + + + + +---------+ + + + + | Result panel 267 | + + + + + + +---------+ + + | (unknown) | (no date) | (unknown) | [facility] | (no | (units | (unknown) | | | | | MED[facility] | value) | unknown) | | | | | | [facility], | | | | | | | | [facility] | | | | + + + + +---------+ + + + + | Result panel 268 | + + + + + + +---------+ + + | (unknown) | (no date) | (unknown) | [facility] | (no | (units | (unknown) | | | | | MED[facility] | value) | unknown) | | | | | | [facility], | | | | | | | | [facility] | | | | + + + + +---------+ + + + + | Result panel 269 | + + + + + + +---------+ + + | (unknown) | (no date) | (unknown) | [facility] | (no | (units | (unknown) | | | | | MEDICAL | value) | unknown) | | | | | | [facility], | | | | | | | | [facility] | | | | + + + + +---------+ + + + + | Result panel 270 | + + + + + + +---------+ + + | (unknown) | (no date) | (unknown) | [facility] | (no | (units | (unknown) | | | | | MEDICAL | value) | unknown) | | | | | | [facility], | | | | | | | | [facility] | | | | + + + + +---------+ + + + + | Result panel 271 | + + + + + + +---------+ + + | (unknown) | (no date) | (unknown) | [facility] | (no | (units | (unknown) | | | | | MEDICAL | value) | unknown) | | | | | | [facility], | | | | | | | | [facility] | | | | + + + + +---------+ + + + + | Result panel 272 | + + + + + + +---------+ + + | (unknown) | (no date) | (unknown) | [facility] | (no | (units | (unknown) | | | | | MEDICAL | value) | unknown) | | | | | | [facility], | | | | | | | | [facility] | | | | + + + + +---------+ + + + + | Result panel 273 | + + + + + + +---------+ + + | (unknown) | (no date) | (unknown) | [facility] | (no | (units | (unknown) | | | | | MEDICAL | value) | unknown) | | | | | | [facility], | | | | | | | | [facility] | | | | + + + + +---------+ + + + + | Result panel 274 | + + + + + + +---------+ + + | (unknown) | (no date) | (unknown) | [facility] | (no | (units | (unknown) | | | | | MEDICAL | value) | unknown) | | | | | | [facility], | | | | | | | | [facility] | | | | + + + + +---------+ + + + + | Result panel 275 | + + + + + + +---------+ + + | (unknown) | (no date) | (unknown) | [facility] | (no | (units | (unknown) | | | | | MEDICAL | value) | unknown) | | | | | | [facility], | | | | | | | | [facility] | | | | + + + + +---------+ + + + + | Result panel 276 | + + + + + + +---------+ + + | (unknown) | (no date) | (unknown) | [facility] | (no | (units | (unknown) | | | | | MEDICAL | value) | unknown) | | | | | | [facility], | | | | | | | | [facility] | | | | + + + + +---------+ + + + + | Result panel 277 | + + + + + + +---------+ + + | (unknown) | (no date) | (unknown) | [facility] | (no | (units | (unknown) | | | | | MEDICAL | value) | unknown) | | | | | | GROUP, | | | | | | | | [facility] | | | | + + + + +---------+ + + + + | Result panel 278 | + + + + + + +---------+ + + | (unknown) | (no date) | (unknown) | [facility] | (no | (units | (unknown) | | | | | MEDICAL | value) | unknown) | | | | | | GROUP, | | | | | | | | [facility] | | | | + + + + +---------+ + + + + | Result panel 279 | + + + + + + +---------+ + + | (unknown) | (no date) | (unknown) | [facility] | (no | (units | (unknown) | | | | | MEDICAL | value) | unknown) | | | | | | GROUP, | | | | | | | | [facility] | | | | + + + + +---------+ + + + + | Result panel 280 | + + + + + + +---------+ + + | (unknown) | (no date) | (unknown) | [facility] | (no | (units | (unknown) | | | | | MEDICAL | value) | unknown) | | | | | | GROUP, | | | | | | | | [facility] | | | | + + + + +---------+ + + + + | Result panel 281 | + + + + + + +---------+ + + | (unknown) | (no date) | (unknown) | [facility] | (no | (units | (unknown) | | | | | MEDICAL | value) | unknown) | | | | | | [facility], | | | | | | | | [facility] | | | | + + + + +---------+ + + + + | Result panel 282 | + + + + + + +---------+ + + | (unknown) | (no date) | (unknown) | [facility] | (no | (units | (unknown) | | | | | MEDICAL | value) | unknown) | | | | | | GROUP, | | | | | | | | [facility] | | | | + + + + +---------+ + + + + | Result panel 283 | + + + + + + +---------+ + + | (unknown) | (no date) | (unknown) | [facility] | (no | (units | (unknown) | | | | | MEDICAL | value) | unknown) | | | | | | GROUP, | | | | | | | | [facility] | | | | + + + + +---------+ + + + + | Result panel 284 | + + + + + + +---------+ + + | (unknown) | (no date) | (unknown) | [facility] | (no | (units | (unknown) | | | | | MEDICAL | value) | unknown) | | | | | | GROUP, | | | | | | | | [facility] | | | | + + + + +---------+ + + + + | Result panel 285 | + + + + + + +---------+ + + | (unknown) | (no date) | (unknown) | [facility] | (no | (units | (unknown) | | | | | MEDICAL | value) | unknown) | | | | | | GROUP, | | | | | | | | [facility] | | | | + + + + +---------+ + + + + | Result panel 286 | + + + + + + +---------+ + + | (unknown) | (no date) | (unknown) | [facility] | (no | (units | (unknown) | | | | | MEDICAL | value) | unknown) | | | | | | GROUP, | | | | | | | | [facility] | | | | + + + + +---------+ + + + + | Result panel 287 | + + + + + + +---------+ + + | (unknown) | (no date) | (unknown) | [facility] | (no | (units | (unknown) | | | | | MEDICAL | value) | unknown) | | | | | | GROUP, | | | | | | | | [facility] | | | | + + + + +---------+ + + + + | Result panel 288 | + + + + + + +---------+ + + | (unknown) | (no date) | (unknown) | [facility] | (no | (units | (unknown) | | | | | MEDICAL | value) | unknown) | | | | | | [facility], | | | | | | | | [facility] | | | | + + + + +---------+ + + + + | Result panel 289 | + + + + + + +---------+ + + | (unknown) | (no date) | (unknown) | [facility] | (no | (units | (unknown) | | | | | MEDICAL | value) | unknown) | | | | | | [facility], | | | | | | | | [facility] | | | | + + + + +---------+ + + + + | Result panel 290 | + + + + + + +---------+ + + | (unknown) | (no date) | (unknown) | [facility] | (no | (units | (unknown) | | | | | MEDICAL | value) | unknown) | | | | | | [facility], | | | | | | | | [facility] | | | | + + + + +---------+ + + + + | Result panel 291 | + + + + + + +---------+ + + | (unknown) | (no date) | (unknown) | [facility] | (no | (units | (unknown) | | | | | MEDICAL | value) | unknown) | | | | | | [facility], | | | | | | | | [facility] | | | | + + + + +---------+ + + + + | Result panel 292 | + + + + + + +---------+ + + | (unknown) | (no date) | (unknown) | [facility] | (no | (units | (unknown) | | | | | MEDICAL | value) | unknown) | | | | | | [facility], | | | | | | | | [facility] | | | | + + + + +---------+ + + + + | Result panel 293 | + + + + + + +---------+ + + | (unknown) | (no date) | (unknown) | [facility] | (no | (units | (unknown) | | | | | MEDICAL | value) | unknown) | | | | | | [facility], | | | | | | | | [facility] | | | | + + + + +---------+ + + + + | Result panel 294 | + + + + + + +---------+ + + | (unknown) | (no date) | (unknown) | [facility] | (no | (units | (unknown) | | | | | MEDICAL | value) | unknown) | | | | | | [facility], | | | | | | | | [facility] | | | | + + + + +---------+ + + + + | Result panel 295 | + + + + + + +---------+ + + | (unknown) | (no date) | (unknown) | [facility] | (no | (units | (unknown) | | | | | MEDICAL | value) | unknown) | | | | | | [facility], | | | | | | | | [facility] | | | | + + + + +---------+ + + + + | Result panel 296 | + + + + + + +---------+ + + | (unknown) | (no date) | (unknown) | [facility] | (no | (units | (unknown) | | | | | MEDICAL | value) | unknown) | | | | | | [facility], | | | | | | | | [facility] | | | | + + + + +---------+ + + + + | Result panel 297 | + + + + + + +---------+ + + | (unknown) | (no date) | (unknown) | [facility] | (no | (units | (unknown) | | | | | MEDICAL | value) | unknown) | | | | | | [facility], | | | | | | | | [facility] | | | | + + + + +---------+ + + + + | Result panel 298 | + + + + + + +---------+ + + | (unknown) | (no date) | (unknown) | [facility] | (no | (units | (unknown) | | | | | MEDICAL | value) | unknown) | | | | | | [facility], | | | | | | | | [facility] | | | | + + + + +---------+ + + + + | Result panel 299 | + + + + + + +---------+ + + | (unknown) | (no date) | (unknown) | [facility] | (no | (units | (unknown) | | | | | MEDICAL | value) | unknown) | | | | | | [facility], | | | | | | | | [facility] | | | | + + + + +---------+ + + + + | Result panel 300 | + + + + + + +---------+ + + | (unknown) | (no date) | (unknown) | [facility] | (no | (units | (unknown) | | | | | MEDICAL | value) | unknown) | | | | | | GROUP, | | | | | | | | [facility] | | | | + + + + +---------+ + + + + | Result panel 301 | + + + + + + +---------+ + + | (unknown) | (no date) | (unknown) | [facility] | (no | (units | (unknown) | | | | | MEDICAL | value) | unknown) | | | | | | GROUP, | | | | | | | | [facility] | | | | + + + + +---------+ + + + + | Result panel 302 | + + + + + + +---------+ + + | (unknown) | (no date) | (unknown) | [facility] | (no | (units | (unknown) | | | | | MEDICAL | value) | unknown) | | | | | | GROUP, | | | | | | | | [facility] | | | | + + + + +---------+ + + + + | Result panel 303 | + + + + + + +---------+ + + | (unknown) | (no date) | (unknown) | [facility] | (no | (units | (unknown) | | | | | MEDICAL | value) | unknown) | | | | | | GROUP, | | | | | | | | [facility] | | | | + + + + +---------+ + + + + | Result panel 304 | + + + + + + +---------+ + + | (unknown) | (no date) | (unknown) | [facility] | (no | (units | (unknown) | | | | | MEDICAL | value) | unknown) | | | | | | GROUP, | | | | | | | | [facility] | | | | + + + + +---------+ + + + + | Result panel 305 | + + + + + + +---------+ + + | (unknown) | (no date) | (unknown) | [facility] | (no | (units | (unknown) | | | | | MEDICAL | value) | unknown) | | | | | | GROUP, | | | | | | | | [facility] | | | | + + + + +---------+ + + + + | Result panel 306 | + + + + + + +---------+ + + | (unknown) | (no date) | (unknown) | [facility] | (no | (units | (unknown) | | | | | MEDICAL | value) | unknown) | | | | | | GROUP, | | | | | | | | [facility] | | | | + + + + +---------+ + + + + | Result panel 307 | + + + + + + +---------+ + + | (unknown) | (no date) | (unknown) | [facility] | (no | (units | (unknown) | | | | | MEDICAL | value) | unknown) | | | | | | GROUP, | | | | | | | | [facility] | | | | + + + + +---------+ + + + + | Result panel 308 | + + + + + + +---------+ + + | (unknown) | (no date) | (unknown) | [facility] | (no | (units | (unknown) | | | | | MEDICAL | value) | unknown) | | | | | | GROUP, | | | | | | | | [facility] | | | | + + + + +---------+ + + + + | Result panel 309 | + + + + + + +---------+ + + | (unknown) | (no date) | (unknown) | [facility] | (no | (units | (unknown) | | | | | MEDICAL | value) | unknown) | | | | | | GROUP, | | | | | | | | [facility] | | | | + + + + +---------+ + + + + | Result panel 310 | + + + + + + +---------+ + + | (unknown) | (no date) | (unknown) | [facility] | (no | (units | (unknown) | | | | | MEDICAL | value) | unknown) | | | | | | GROUP, | | | | | | | | [facility] | | | | + + + + +---------+ + + + + | Result panel 311 | + + + + + + +---------+ + + | (unknown) | (no date) | (unknown) | [facility] | (no | (units | (unknown) | | | | | MEDICAL | value) | unknown) | | | | | | GROUP, | | | | | | | | [facility] | | | | + + + + +---------+ + + + + | Result panel 312 | + + + + + + +---------+ + + | (unknown) | (no date) | (unknown) | [facility] | (no | (units | (unknown) | | | | | MEDICAL | value) | unknown) | | | | | | GROUP, | | | | | | | | [facility] | | | | + + + + +---------+ + + + + | Result panel 313 | + + + + + + +---------+ + + | (unknown) | (no date) | (unknown) | [facility] | (no | (units | (unknown) | | | | | MEDICAL | value) | unknown) | | | | | | GROUP, | | | | | | | | [facility] | | | | + + + + +---------+ + + + + | Result panel 314 | + + + + + + +---------+ + + | (unknown) | (no date) | (unknown) | [facility] | (no | (units | (unknown) | | | | | MEDICAL | value) | unknown) | | | | | | GROUP, | | | | | | | | [facility] | | | | + + + + +---------+ + + + + | Result panel 315 | + + + + + + +---------+ + + | (unknown) | (no date) | (unknown) | [facility] | (no | (units | (unknown) | | | | | MEDICAL | value) | unknown) | | | | | | GROUP, | | | | | | | | [facility] | | | | + + + + +---------+ + + + + | Result panel 316 | + + + + + + +---------+ + + | (unknown) | (no date) | (unknown) | [facility] | (no | (units | (unknown) | | | | | MEDICAL | value) | unknown) | | | | | | GROUP, | | | | | | | | [facility] | | | | + + + + +---------+ + + + + | Result panel 317 | + + + + + + +---------+ + + | (unknown) | (no date) | (unknown) | [facility] | (no | (units | (unknown) | | | | | MEDICAL | value) | unknown) | | | | | | GROUP, | | | | | | | | [facility] | | | | + + + + +---------+ + + + + | Result panel 318 | + + + + + + +---------+ + + | (unknown) | (no date) | (unknown) | [facility] | (no | (units | (unknown) | | | | | MEDICAL | value) | unknown) | | | | | | GROUP, | | | | | | | | [facility] | | | | + + + + +---------+ + + + + | Result panel 319 | + + + + + + +---------+ + + | (unknown) | (no date) | (unknown) | [facility] | (no | (units | (unknown) | | | | | MEDICAL | value) | unknown) | | | | | | GROUP, | | | | | | | | [facility] | | | | + + + + +---------+ + + + + | Result panel 320 | + + + + + + +---------+ + + | (unknown) | (no date) | (unknown) | [facility] | (no | (units | (unknown) | | | | | MEDICAL | value) | unknown) | | | | | | GROUP, | | | | | | | | [facility] | | | | + + + + +---------+ + + + + | Result panel 321 | + + + + + + +---------+ + + | (unknown) | (no date) | (unknown) | [facility] | (no | (units | (unknown) | | | | | MEDICAL | value) | unknown) | | | | | | GROUP, | | | | | | | | [facility] | | | | + + + + +---------+ + + + + | Result panel 322 | + + + + + + +---------+ + + | (unknown) | (no date) | (unknown) | [facility] | (no | (units | (unknown) | | | | | MEDICAL | value) | unknown) | | | | | | GROUP, | | | | | | | | [facility] | | | | + + + + +---------+ + + + + | Result panel 323 | + + + + + + +---------+ + + | (unknown) | (no date) | (unknown) | [facility] | (no | (units | (unknown) | | | | | MEDICAL | value) | unknown) | | | | | | GROUP, | | | | | | | | [facility] | | | | + + + + +---------+ + + + + | Result panel 324 | + + + + + + +---------+ + + | (unknown) | (no date) | (unknown) | [facility] | (no | (units | (unknown) | | | | | MEDICAL | value) | unknown) | | | | | | GROUP, | | | | | | | | [facility] | | | | + + + + +---------+ + + + + | Result panel 325 | + + + + + + +---------+ + + | (unknown) | (no date) | (unknown) | [facility] | (no | (units | (unknown) | | | | | MEDICAL | value) | unknown) | | | | | | GROUP, | | | | | | | | [facility] | | | | + + + + +---------+ + + + + | Result panel 326 | + + + + + + +---------+ + + | (unknown) | (no date) | (unknown) | [facility] | (no | (units | (unknown) | | | | | MEDICAL | value) | unknown) | | | | | | GROUP, | | | | | | | | [facility] | | | | + + + + +---------+ + + + + | Result panel 327 | + + + + + + +---------+ + + | (unknown) | (no date) | (unknown) | [facility] | (no | (units | (unknown) | | | | | MEDICAL | value) | unknown) | | | | | | GROUP, | | | | | | | | [facility] | | | | + + + + +---------+ + + + + | Result panel 328 | + + + + + + +---------+ + + | (unknown) | (no date) | (unknown) | [facility] | (no | (units | (unknown) | | | | | MEDICAL | value) | unknown) | | | | | | GROUP, | | | | | | | | [facility] | | | | + + + + +---------+ + + + + | Result panel 329 | + + + + + + +---------+ + + | (unknown) | (no date) | (unknown) | [facility] | (no | (units | (unknown) | | | | | MEDICAL | value) | unknown) | | | | | | GROUP, | | | | | | | | [facility] | | | | + + + + +---------+ + + + + | Result panel 330 | + + + + + + +---------+ + + | (unknown) | (no date) | (unknown) | [facility] | (no | (units | (unknown) | | | | | MEDICAL | value) | unknown) | | | | | | GROUP, | | | | | | | | [facility] | | | | + + + + +---------+ + + + + | Result panel 331 | + + + + + + +---------+ + + | (unknown) | (no date) | (unknown) | [facility] | (no | (units | (unknown) | | | | | MEDICAL | value) | unknown) | | | | | | GROUP, | | | | | | | | [facility] | | | | + + + + +---------+ + + + + | Result panel 332 | + + + + + + +---------+ + + | (unknown) | (no date) | (unknown) | [facility] | (no | (units | (unknown) | | | | | MEDICAL | value) | unknown) | | | | | | GROUP, | | | | | | | | [facility] | | | | + + + + +---------+ + + + + | Result panel 333 | + + + + + + +---------+ + + | (unknown) | (no date) | (unknown) | [facility] | (no | (units | (unknown) | | | | | MEDICAL | value) | unknown) | | | | | | GROUP, | | | | | | | | [facility] | | | | + + + + +---------+ + + + + | Result panel 334 | + + + + + + +---------+ + + | (unknown) | (no date) | (unknown) | [facility] | (no | (units | (unknown) | | | | | MEDICAL | value) | unknown) | | | | | | GROUP, | | | | | | | | [facility] | | | | + + + + +---------+ + + + + | Result panel 335 | + + + + + + +---------+ + + | (unknown) | (no date) | (unknown) | [facility] | (no | (units | (unknown) | | | | | MEDICAL | value) | unknown) | | | | | | GROUP, | | | | | | | | [facility] | | | | + + + + +---------+ + + + + | Result panel 336 | + + + + + + +---------+ + + | (unknown) | (no date) | (unknown) | [facility] | (no | (units | (unknown) | | | | | MEDICAL | value) | unknown) | | | | | | GROUP, | | | | | | | | [facility] | | | | + + + + +---------+ + + + + | Result panel 337 | + + + + + + +---------+ + + | (unknown) | (no date) | (unknown) | [facility] | (no | (units | (unknown) | | | | | MEDICAL | value) | unknown) | | | | | | GROUP, | | | | | | | | [facility] | | | | + + + + +---------+ + + + + | Result panel 338 | + + + + + + +---------+ + + | (unknown) | (no date) | (unknown) | [facility] | (no | (units | (unknown) | | | | | MEDICAL | value) | unknown) | | | | | | GROUP, | | | | | | | | [facility] | | | | + + + + +---------+ + + + + | Result panel 339 | + + + + + + +---------+ + + | (unknown) | (no date) | (unknown) | [facility] | (no | (units | (unknown) | | | | | MEDICAL | value) | unknown) | | | | | | GROUP, | | | | | | | | [facility] | | | | + + + + +---------+ + + + + | Result panel 340 | + + + + + + +---------+ + + | (unknown) | (no date) | (unknown) | [facility] | (no | (units | (unknown) | | | | | MEDICAL | value) | unknown) | | | | | | GROUP, | | | | | | | | [facility] | | | | + + + + +---------+ + + + + | Result panel 341 | + + + + + + +---------+ + + | (unknown) | (no date) | (unknown) | [facility] | (no | (units | (unknown) | | | | | MEDICAL | value) | unknown) | | | | | | GROUP, | | | | | | | | [facility] | | | | + + + + +---------+ + + + + | Result panel 342 | + + + + + + +---------+ + + | (unknown) | (no date) | (unknown) | [facility] | (no | (units | (unknown) | | | | | MEDICAL | value) | unknown) | | | | | | GROUP, | | | | | | | | [facility] | | | | + + + + +---------+ + + + + | Result panel 343 | + + + + + + +---------+ + + | (unknown) | (no date) | (unknown) | [facility] | (no | (units | (unknown) | | | | | MEDICAL | value) | unknown) | | | | | | GROUP, | | | | | | | | [facility] | | | | + + + + +---------+ + + + + | Result panel 344 | + + + + + + +---------+ + + | (unknown) | (no date) | (unknown) | [facility] | (no | (units | (unknown) | | | | | MEDICAL | value) | unknown) | | | | | | GROUP, | | | | | | | | [facility] | | | | + + + + +---------+ + + + + | Result panel 345 | + + + + + + +---------+ + + | (unknown) | (no date) | (unknown) | [facility] | (no | (units | (unknown) | | | | | MEDICAL | value) | unknown) | | | | | | GROUP, | | | | | | | | [facility] | | | | + + + + +---------+ + + + + | Result panel 346 | + + + + + + +---------+ + + | (unknown) | (no date) | (unknown) | [facility] | (no | (units | (unknown) | | | | | MEDICAL | value) | unknown) | | | | | | GROUP, | | | | | | | | [facility] | | | | + + + + +---------+ + + + + | Result panel 347 | + + + + + + +---------+ + + | (unknown) | (no date) | (unknown) | [facility] | (no | (units | (unknown) | | | | | MEDICAL | value) | unknown) | | | | | | GROUP, | | | | | | | | [facility] | | | | + + + + +---------+ + + + + | Result panel 348 | + + + + + + +---------+ + + | (unknown) | (no date) | (unknown) | [facility] | (no | (units | (unknown) | | | | | MEDICAL | value) | unknown) | | | | | | GROUP, | | | | | | | | [facility] | | | | + + + + +---------+ + + + + | Result panel 349 | + + + + + + +---------+ + + | (unknown) | (no date) | (unknown) | [facility] | (no | (units | (unknown) | | | | | MEDICAL | value) | unknown) | | | | | | GROUP, | | | | | | | | [facility] | | | | + + + + +---------+ + + + + | Result panel 350 | + + + + + + +---------+ + + | (unknown) | (no date) | (unknown) | [facility] | (no | (units | (unknown) | | | | | MEDICAL | value) | unknown) | | | | | | GROUP, | | | | | | | | [facility] | | | | + + + + +---------+ + + + + | Result panel 351 | + + + + + + +---------+ + + | (unknown) | (no date) | (unknown) | [facility] | (no | (units | (unknown) | | | | | MEDICAL | value) | unknown) | | | | | | GROUP, | | | | | | | | [facility] | | | | + + + + +---------+ + + + + | Result panel 352 | + + + + + + +---------+ + + | (unknown) | (no date) | (unknown) | [facility] | (no | (units | (unknown) | | | | | MEDICAL | value) | unknown) | | | | | | GROUP, | | | | | | | | [facility] | | | | + + + + +---------+ + + + + | Result panel 353 | + + + + + + +---------+ + + | (unknown) | (no date) | (unknown) | [facility] | (no | (units | (unknown) | | | | | MEDICAL | value) | unknown) | | | | | | GROUP, | | | | | | | | [facility] | | | | + + + + +---------+ + + + + | Result panel 354 | + + + + + + +---------+ + + | (unknown) | (no date) | (unknown) | [facility] | (no | (units | (unknown) | | | | | MEDICAL | value) | unknown) | | | | | | GROUP, | | | | | | | | [facility] | | | | + + + + +---------+ + + + + | Result panel 355 | + + + + + + +---------+ + + | (unknown) | (no date) | (unknown) | [facility] | (no | (units | (unknown) | | | | | MEDICAL | value) | unknown) | | | | | | GROUP, | | | | | | | | [facility] | | | | + + + + +---------+ + + + + | Result panel 356 | + + + + + + +---------+ + + | (unknown) | (no date) | (unknown) | [facility] | (no | (units | (unknown) | | | | | MEDICAL | value) | unknown) | | | | | | GROUP, | | | | | | | | [facility] | | | | + + + + +---------+ + + + + | Result panel 357 | + + + + + + +---------+ + + | (unknown) | (no date) | (unknown) | [facility] | (no | (units | (unknown) | | | | | MEDICAL | value) | unknown) | | | | | | GROUP, | | | | | | | | [facility] | | | | + + + + +---------+ + + + + | Result panel 358 | + + + + + + +---------+ + + | (unknown) | (no date) | (unknown) | [facility] | (no | (units | (unknown) | | | | | MEDICAL | value) | unknown) | | | | | | GROUP, | | | | | | | | [facility] | | | | + + + + +---------+ + + + + | Result panel 359 | + + + + + + +---------+ + + | (unknown) | (no date) | (unknown) | [facility] | (no | (units | (unknown) | | | | | MEDICAL | value) | unknown) | | | | | | GROUP, | | | | | | | | [facility] | | | | + + + + +---------+ + + + + | Result panel 360 | + + + + + + +---------+ + + | (unknown) | (no date) | (unknown) | [facility] | (no | (units | (unknown) | | | | | MEDICAL | value) | unknown) | | | | | | GROUP, | | | | | | | | [facility] | | | | + + + + +---------+ + + + + | Result panel 361 | + + + + + + +---------+ + + | (unknown) | (no date) | (unknown) | [facility] | (no | (units | (unknown) | | | | | MEDICAL | value) | unknown) | | | | | | GROUP, | | | | | | | | [facility] | | | | + + + + +---------+ + + + + | Result panel 362 | + + + + + + +---------+ + + | (unknown) | (no date) | (unknown) | [facility] | (no | (units | (unknown) | | | | | MEDICAL | value) | unknown) | | | | | | GROUP, | | | | | | | | [facility] | | | | + + + + +---------+ + + + + | Result panel 363 | + + + + + + +---------+ + + | (unknown) | (no date) | (unknown) | [facility] | (no | (units | (unknown) | | | | | MEDICAL | value) | unknown) | | | | | | GROUP, | | | | | | | | [facility] | | | | + + + + +---------+ + + + + | Result panel 364 | + + + + + + +---------+ + + | (unknown) | (no date) | (unknown) | [facility] | (no | (units | (unknown) | | | | | MEDICAL | value) | unknown) | | | | | | GROUP, | | | | | | | | [facility] | | | | + + + + +---------+ + + + + | Result panel 365 | + + + + + + +---------+ + + | (unknown) | (no date) | (unknown) | [facility] | (no | (units | (unknown) | | | | | MEDICAL | value) | unknown) | | | | | | GROUP, | | | | | | | | [facility] | | | | + + + + +---------+ + + + + | Result panel 366 | + + + + + + +---------+ + + | (unknown) | (no date) | (unknown) | [facility] | (no | (units | (unknown) | | | | | MEDICAL | value) | unknown) | | | | | | GROUP, | | | | | | | | [facility] | | | | + + + + +---------+ + + + + | Result panel 367 | + + + + + + +---------+ + + | (unknown) | (no date) | (unknown) | [facility] | (no | (units | (unknown) | | | | | MEDICAL | value) | unknown) | | | | | | GROUP, | | | | | | | | [facility] | | | | + + + + +---------+ + + + + | Result panel 368 | + + + + + + +---------+ + + | (unknown) | (no date) | (unknown) | [facility] | (no | (units | (unknown) | | | | | MEDICAL | value) | unknown) | | | | | | GROUP, | | | | | | | | [facility] | | | | + + + + +---------+ + + + + | Result panel 369 | + + + + + + +---------+ + + | (unknown) | (no date) | (unknown) | [facility] | (no | (units | (unknown) | | | | | MEDICAL | value) | unknown) | | | | | | GROUP, | | | | | | | | [facility] | | | | + + + + +---------+ + + + + | Result panel 370 | + + + + + + +---------+ + + | (unknown) | (no date) | (unknown) | [facility] | (no | (units | (unknown) | | | | | MEDICAL | value) | unknown) | | | | | | GROUP, | | | | | | | | [facility] | | | | + + + + +---------+ + + + + | Result panel 371 | + + + + + + +---------+ + + | (unknown) | (no date) | (unknown) | [facility] | (no | (units | (unknown) | | | | | MEDICAL | value) | unknown) | | | | | | GROUP, | | | | | | | | [facility] | | | | + + + + +---------+ + + + + | Result panel 372 | + + + + + + +---------+ + + | (unknown) | (no date) | (unknown) | [facility] | (no | (units | (unknown) | | | | | MEDICAL | value) | unknown) | | | | | | GROUP, | | | | | | | | [facility] | | | | + + + + +---------+ + + + + | Result panel 373 | + + + + + + +---------+ + + | (unknown) | (no date) | (unknown) | [facility] | (no | (units | (unknown) | | | | | MEDICAL | value) | unknown) | | | | | | GROUP, | | | | | | | | [facility] | | | | + + + + +---------+ + + + + | Result panel 374 | + + + + + + +---------+ + + | (unknown) | (no date) | (unknown) | [facility] | (no | (units | (unknown) | | | | | MEDICAL | value) | unknown) | | | | | | GROUP, | | | | | | | | [facility] | | | | + + + + +---------+ + + + + | Result panel 375 | + + + + + + +---------+ + + | (unknown) | (no date) | (unknown) | [facility] | (no | (units | (unknown) | | | | | MEDICAL | value) | unknown) | | | | | | GROUP, | | | | | | | | [facility] | | | | + + + + +---------+ + + + + | Result panel 376 | + + + + + + +---------+ + + | (unknown) | (no date) | (unknown) | [facility] | (no | (units | (unknown) | | | | | MEDICAL | value) | unknown) | | | | | | GROUP, | | | | | | | | [facility] | | | | + + + + +---------+ + + + + | Result panel 377 | + + + + + + +---------+ + + | (unknown) | (no date) | (unknown) | [facility] | (no | (units | (unknown) | | | | | MEDICAL | value) | unknown) | | | | | | GROUP, | | | | | | | | [facility] | | | | + + + + +---------+ + + + + | Result panel 378 | + + + + + + +---------+ + + | (unknown) | (no date) | (unknown) | [facility] | (no | (units | (unknown) | | | | | MEDICAL | value) | unknown) | | | | | | GROUP, | | | | | | | | [facility] | | | | + + + + +---------+ + + + + | Result panel 379 | + + + + + + +---------+ + + | (unknown) | (no date) | (unknown) | [facility] | (no | (units | (unknown) | | | | | MEDICAL | value) | unknown) | | | | | | GROUP, | | | | | | | | [facility] | | | | + + + + +---------+ + + + + | Result panel 380 | + + + + + + +---------+ + + | (unknown) | (no date) | (unknown) | [facility] | (no | (units | (unknown) | | | | | MEDICAL | value) | unknown) | | | | | | GROUP, | | | | | | | | [facility] | | | | + + + + +---------+ + + + + | Result panel 381 | + + + + + + +---------+ + + | (unknown) | (no date) | (unknown) | [facility] | (no | (units | (unknown) | | | | | MEDICAL | value) | unknown) | | | | | | GROUP, | | | | | | | | [facility] | | | | + + + + +---------+ + + + + | Result panel 382 | + + + + + + +---------+ + + | (unknown) | (no date) | (unknown) | [facility] | (no | (units | (unknown) | | | | | MEDICAL | value) | unknown) | | | | | | GROUP, | | | | | | | | [facility] | | | | + + + + +---------+ + + + + | Result panel 383 | + + + + + + +---------+ + + | (unknown) | (no date) | (unknown) | [facility] | (no | (units | (unknown) | | | | | MEDICAL | value) | unknown) | | | | | | GROUP, | | | | | | | | [facility] | | | | + + + + +---------+ + + + + | Result panel 384 | + + + + + + +---------+ + + | (unknown) | (no date) | (unknown) | [facility] | (no | (units | (unknown) | | | | | MEDICAL | value) | unknown) | | | | | | GROUP, | | | | | | | | [facility] | | | | + + + + +---------+ + + + + | Result panel 385 | + + + + + + +---------+ + + | (unknown) | (no date) | (unknown) | [facility] | (no | (units | (unknown) | | | | | MEDICAL | value) | unknown) | | | | | | GROUP, | | | | | | | | [facility] | | | | + + + + +---------+ + + + + | Result panel 386 | + + + + + + +---------+ + + | (unknown) | (no date) | (unknown) | [facility] | (no | (units | (unknown) | | | | | MEDICAL | value) | unknown) | | | | | | GROUP, | | | | | | | | [facility] | | | | + + + + +---------+ + + + + | Result panel 387 | + + + + + + +---------+ + + | (unknown) | (no date) | (unknown) | [facility] | (no | (units | (unknown) | | | | | MEDICAL | value) | unknown) | | | | | | GROUP, | | | | | | | | [facility] | | | | + + + + +---------+ + + + + | Result panel 388 | + + + + + + +---------+ + + | (unknown) | (no date) | (unknown) | [facility] | (no | (units | (unknown) | | | | | MEDICAL | value) | unknown) | | | | | | GROUP, | | | | | | | | [facility] | | | | + + + + +---------+ + + + + | Result panel 389 | + + + + + + +---------+ + + | (unknown) | (no date) | (unknown) | [facility] | (no | (units | (unknown) | | | | | MEDICAL | value) | unknown) | | | | | | GROUP, | | | | | | | | [facility] | | | | + + + + +---------+ + + + + | Result panel 390 | + + + + + + +---------+ + + | (unknown) | (no date) | (unknown) | [facility] | (no | (units | (unknown) | | | | | MEDICAL | value) | unknown) | | | | | | GROUP, | | | | | | | | [facility] | | | | + + + + +---------+ + + + + | Result panel 391 | + + + + + + +---------+ + + | (unknown) | (no date) | (unknown) | [facility] | (no | (units | (unknown) | | | | | MEDICAL | value) | unknown) | | | | | | [facility], | | | | | | | | [facility] | | | | + + + + +---------+ + + + + | Result panel 392 | + + + + + + +---------+ + + | (unknown) | (no date) | (unknown) | [facility] | (no | (units | (unknown) | | | | | MEDICAL | value) | unknown) | | | | | | [facility], | | | | | | | | [facility] | | | | + + + + +---------+ + + + + | Result panel 393 | + + + + + + +---------+ + + | (unknown) | (no date) | (unknown) | [facility] | (no | (units | (unknown) | | | | | MEDICAL | value) | unknown) | | | | | | [facility], | | | | | | | | [facility] | | | | + + + + +---------+ + + + + | Result panel 394 | + + + + + + +---------+ + + | (unknown) | (no date) | (unknown) | [facility] | (no | (units | (unknown) | | | | | MEDICAL | value) | unknown) | | | | | | [facility], | | | | | | | | [facility] | | | | + + + + +---------+ + + + + | Result panel 395 | + + + + + + +---------+ + + | (unknown) | (no date) | (unknown) | [facility] | (no | (units | (unknown) | | | | | MEDICAL | value) | unknown) | | | | | | [facility], | | | | | | | | [facility] | | | | + + + + +---------+ + + + + | Result panel 396 | + + + + + + +---------+ + + | (unknown) | (no date) | (unknown) | [facility] | (no | (units | (unknown) | | | | | MEDICAL | value) | unknown) | | | | | | [facility], | | | | | | | | [facility] | | | | + + + + +---------+ + + + + | Result panel 397 | + + + + + + +---------+ + + | (unknown) | (no date) | (unknown) | [facility] | (no | (units | (unknown) | | | | | MEDICAL | value) | unknown) | | | | | | [facility], | | | | | | | | [facility] | | | | + + + + +---------+ + + + + | Result panel 398 | + + + + + + +---------+ + + | (unknown) | (no date) | (unknown) | [facility] | (no | (units | (unknown) | | | | | MEDICAL | value) | unknown) | | | | | | [facility], | | | | | | | | [facility] | | | | + + + + +---------+ + + + + | Result panel 399 | + + + + + + +---------+ + + | (unknown) | (no date) | (unknown) | [facility] | (no | (units | (unknown) | | | | | MEDICAL | value) | unknown) | | | | | | [facility], | | | | | | | | [facility] | | | | + + + + +---------+ + + + + | Result panel 400 | + + + + + + +---------+ + + | (unknown) | (no date) | (unknown) | [facility] | (no | (units | (unknown) | | | | | MEDICAL | value) | unknown) | | | | | | GROUP, | | | | | | | | [facility] | | | | + + + + +---------+ + + + + | Result panel 401 | + + + + + + +---------+ + + | (unknown) | (no date) | (unknown) | [facility] | (no | (units | (unknown) | | | | | MEDICAL | value) | unknown) | | | | | | [facility], | | | | | | | | [facility] | | | | + + + + +---------+ + + + + | Result panel 402 | + + + + + + +---------+ + + | (unknown) | (no date) | (unknown) | [facility] | (no | (units | (unknown) | | | | | MEDICAL | value) | unknown) | | | | | | [facility], | | | | | | | | [facility] | | | | + + + + +---------+ + + + + | Result panel 403 | + + + + + + +---------+ + + | (unknown) | (no date) | (unknown) | [facility] | (no | (units | (unknown) | | | | | MEDICAL | value) | unknown) | | | | | | GROUP, | | | | | | | | [facility] | | | | + + + + +---------+ + + + + | Result panel 404 | + + + + + + +---------+ + + | (unknown) | (no date) | (unknown) | [facility] | (no | (units | (unknown) | | | | | MEDICAL | value) | unknown) | | | | | | GROUP, | | | | | | | | [facility] | | | | + + + + +---------+ + + + + | Result panel 405 | + + + + + + +---------+ + + | (unknown) | (no date) | (unknown) | [facility] | (no | (units | (unknown) | | | | | MEDICAL | value) | unknown) | | | | | | GROUP, | | | | | | | | [facility] | | | | + + + + +---------+ + + + + | Result panel 406 | + + + + + + +---------+ + + | (unknown) | (no date) | (unknown) | [facility] | (no | (units | (unknown) | | | | | MEDICAL | value) | unknown) | | | | | | GROUP, | | | | | | | | [facility] | | | | + + + + +---------+ + + + + | Result panel 407 | + + + + + + +---------+ + + | (unknown) | (no date) | (unknown) | [facility] | (no | (units | (unknown) | | | | | MEDICAL | value) | unknown) | | | | | | GROUP, | | | | | | | | [facility] | | | | + + + + +---------+ + + + + | Result panel 408 | + + + + + + +---------+ + + | (unknown) | (no date) | (unknown) | [facility] | (no | (units | (unknown) | | | | | MEDICAL | value) | unknown) | | | | | | GROUP, | | | | | | | | [facility] | | | | + + + + +---------+ + + + + | Result panel 409 | + + + + + + +---------+ + + | (unknown) | (no date) | (unknown) | [facility] | (no | (units | (unknown) | | | | | MEDICAL | value) | unknown) | | | | | | GROUP, | | | | | | | | [facility] | | | | + + + + +---------+ + + + + | Result panel 410 | + + + + + + +---------+ + + | (unknown) | (no date) | (unknown) | [facility] | (no | (units | (unknown) | | | | | MEDICAL | value) | unknown) | | | | | | GROUP, | | | | | | | | [facility] | | | | + + + + +---------+ + + + + | Result panel 411 | + + + + + + +---------+ + + | (unknown) | (no date) | (unknown) | [facility] | (no | (units | (unknown) | | | | | MEDICAL | value) | unknown) | | | | | | GROUP, | | | | | | | | [facility] | | | | + + + + +---------+ + + + + | Result panel 412 | + + + + + + +---------+ + + | (unknown) | (no date) | (unknown) | [facility] | (no | (units | (unknown) | | | | | MEDICAL | value) | unknown) | | | | | | GROUP, | | | | | | | | [facility] | | | | + + + + +---------+ + + + + | Result panel 413 | + + + + + + +---------+ + + | (unknown) | (no date) | (unknown) | [facility] | (no | (units | (unknown) | | | | | MEDICAL | value) | unknown) | | | | | | GROUP, | | | | | | | | [facility] | | | | + + + + +---------+ + + + + | Result panel 414 | + + + + + + +---------+ + + | (unknown) | (no date) | (unknown) | [facility] | (no | (units | (unknown) | | | | | MEDICAL | value) | unknown) | | | | | | GROUP, | | | | | | | | [facility] | | | | + + + + +---------+ + + + + | Result panel 415 | + + + + + + +---------+ + + | (unknown) | (no date) | (unknown) | [facility] | (no | (units | (unknown) | | | | | MEDICAL | value) | unknown) | | | | | | GROUP, | | | | | | | | [facility] | | | | + + + + +---------+ + + + + | Result panel 416 | + + + + + + +---------+ + + | (unknown) | (no date) | (unknown) | [facility] | (no | (units | (unknown) | | | | | MEDICAL | value) | unknown) | | | | | | GROUP, | | | | | | | | [facility] | | | | + + + + +---------+ + + + + | Result panel 417 | + + + + + + +---------+ + + | (unknown) | (no date) | (unknown) | [facility] | (no | (units | (unknown) | | | | | MEDICAL | value) | unknown) | | | | | | GROUP, | | | | | | | | [facility] | | | | + + + + +---------+ + + + + | Result panel 418 | + + + + + + +---------+ + + | (unknown) | (no date) | (unknown) | [facility] | (no | (units | (unknown) | | | | | MEDICAL | value) | unknown) | | | | | | GROUP, | | | | | | | | [facility] | | | | + + + + +---------+ + + + + | Result panel 419 | + + + + + + +---------+ + + | (unknown) | (no date) | (unknown) | [facility] | (no | (units | (unknown) | | | | | MEDICAL | value) | unknown) | | | | | | GROUP, | | | | | | | | [facility] | | | | + + + + +---------+ + + + + | Result panel 420 | + + + + + + +---------+ + + | (unknown) | (no date) | (unknown) | [facility] | (no | (units | (unknown) | | | | | MEDICAL | value) | unknown) | | | | | | GROUP, | | | | | | | | [facility] | | | | + + + + +---------+ + + + + | Result panel 421 | + + + + + + +---------+ + + | (unknown) | (no date) | (unknown) | [facility] | (no | (units | (unknown) | | | | | MEDICAL | value) | unknown) | | | | | | GROUP, | | | | | | | | [facility] | | | | + + + + +---------+ + + + + | Result panel 422 | + + + + + + +---------+ + + | (unknown) | (no date) | (unknown) | [facility] | (no | (units | (unknown) | | | | | MEDICAL | value) | unknown) | | | | | | GROUP, | | | | | | | | [facility] | | | | + + + + +---------+ + + + + | Result panel 423 | + + + + + + +---------+ + + | (unknown) | (no date) | (unknown) | [facility] | (no | (units | (unknown) | | | | | MEDICAL | value) | unknown) | | | | | | GROUP, | | | | | | | | [facility] | | | | + + + + +---------+ + + + + | Result panel 424 | + + + + + + +---------+ + + | (unknown) | (no date) | (unknown) | [facility] | (no | (units | (unknown) | | | | | MEDICAL | value) | unknown) | | | | | | GROUP, | | | | | | | | [facility] | | | | + + + + +---------+ + + + + | Result panel 425 | + + + + + + +---------+ + + | (unknown) | (no date) | (unknown) | [facility] | (no | (units | (unknown) | | | | | MEDICAL | value) | unknown) | | | | | | GROUP, | | | | | | | | [facility] | | | | + + + + +---------+ + + + + | Result panel 426 | + + + + + + +---------+ + + | (unknown) | (no date) | (unknown) | [facility] | (no | (units | (unknown) | | | | | MEDICAL | value) | unknown) | | | | | | GROUP, | | | | | | | | [facility] | | | | + + + + +---------+ + + + + | Result panel 427 | + + + + + + +---------+ + + | (unknown) | (no date) | (unknown) | [facility] | (no | (units | (unknown) | | | | | MEDICAL | value) | unknown) | | | | | | GROUP, | | | | | | | | [facility] | | | | + + + + +---------+ + + + + | Result panel 428 | + + + + + + +---------+ + + | (unknown) | (no date) | (unknown) | [facility] | (no | (units | (unknown) | | | | | MEDICAL | value) | unknown) | | | | | | GROUP, | | | | | | | | [facility] | | | | + + + + +---------+ + + + + | Result panel 429 | + + + + + + +---------+ + + | (unknown) | (no date) | (unknown) | [facility] | (no | (units | (unknown) | | | | | MEDICAL | value) | unknown) | | | | | | GROUP, | | | | | | | | [facility] | | | | + + + + +---------+ + + + + | Result panel 430 | + + + + + + +---------+ + + | (unknown) | (no date) | (unknown) | [facility] | (no | (units | (unknown) | | | | | MEDICAL | value) | unknown) | | | | | | GROUP, | | | | | | | | [facility] | | | | + + + + +---------+ + + + + | Result panel 431 | + + + + + + +---------+ + + | (unknown) | (no date) | (unknown) | [facility] | (no | (units | (unknown) | | | | | MEDICAL | value) | unknown) | | | | | | GROUP, | | | | | | | | [facility] | | | | + + + + +---------+ + + + + | Result panel 432 | + + + + + + +---------+ + + | (unknown) | (no date) | (unknown) | [facility] | (no | (units | (unknown) | | | | | MEDICAL | value) | unknown) | | | | | | GROUP, | | | | | | | | [facility] | | | | + + + + +---------+ + + + + | Result panel 433 | + + + + + + +---------+ + + | (unknown) | (no date) | (unknown) | [facility] | (no | (units | (unknown) | | | | | MEDICAL | value) | unknown) | | | | | | GROUP, | | | | | | | | [facility] | | | | + + + + +---------+ + + + + | Result panel 434 | + + + + + + +---------+ + + | (unknown) | (no date) | (unknown) | [facility] | (no | (units | (unknown) | | | | | MEDICAL | value) | unknown) | | | | | | GROUP, | | | | | | | | [facility] | | | | + + + + +---------+ + + + + | Result panel 435 | + + + + + + +---------+ + + | (unknown) | (no date) | (unknown) | [facility] | (no | (units | (unknown) | | | | | MEDICAL | value) | unknown) | | | | | | GROUP, | | | | | | | | [facility] | | | | + + + + +---------+ + + + + | Result panel 436 | + + + + + + +---------+ + + | (unknown) | (no date) | (unknown) | [facility] | (no | (units | (unknown) | | | | | MEDICAL | value) | unknown) | | | | | | GROUP, | | | | | | | | [facility] | | | | + + + + +---------+ + + + + | Result panel 437 | + + + + + + +---------+ + + | (unknown) | (no date) | (unknown) | [facility] | (no | (units | (unknown) | | | | | MEDICAL | value) | unknown) | | | | | | GROUP, | | | | | | | | [facility] | | | | + + + + +---------+ + + + + | Result panel 438 | + + + + + + +---------+ + + | (unknown) | (no date) | (unknown) | [facility] | (no | (units | (unknown) | | | | | MEDICAL | value) | unknown) | | | | | | GROUP, | | | | | | | | [facility] | | | | + + + + +---------+ + + + + | Result panel 439 | + + + + + + +---------+ + + | (unknown) | (no date) | (unknown) | [facility] | (no | (units | (unknown) | | | | | MEDICAL | value) | unknown) | | | | | | GROUP, | | | | | | | | [facility] | | | | + + + + +---------+ + + + + | Result panel 440 | + + + + + + +---------+ + + | (unknown) | (no date) | (unknown) | [facility] | (no | (units | (unknown) | | | | | MEDICAL | value) | unknown) | | | | | | GROUP, | | | | | | | | [facility] | | | | + + + + +---------+ + + + + | Result panel 441 | + + + + + + +---------+ + + | (unknown) | (no date) | (unknown) | [facility] | (no | (units | (unknown) | | | | | MEDICAL | value) | unknown) | | | | | | GROUP, | | | | | | | | [facility] | | | | + + + + +---------+ + + + + | Result panel 442 | + + + + + + +---------+ + + | (unknown) | (no date) | (unknown) | [facility] | (no | (units | (unknown) | | | | | MEDICAL | value) | unknown) | | | | | | GROUP, | | | | | | | | [facility] | | | | + + + + +---------+ + + + + | Result panel 443 | + + + + + + +---------+ + + | (unknown) | (no date) | (unknown) | [facility] | (no | (units | (unknown) | | | | | MEDICAL | value) | unknown) | | | | | | GROUP, | | | | | | | | [facility] | | | | + + + + +---------+ + + + + | Result panel 444 | + + + + + + +---------+ + + | (unknown) | (no date) | (unknown) | [facility] | (no | (units | (unknown) | | | | | MEDICAL | value) | unknown) | | | | | | GROUP, | | | | | | | | [facility] | | | | + + + + +---------+ + + + + | Result panel 445 | + + + + + + +---------+ + + | (unknown) | (no date) | (unknown) | [facility] | (no | (units | (unknown) | | | | | MEDICAL | value) | unknown) | | | | | | GROUP, | | | | | | | | [facility] | | | | + + + + +---------+ + + + + | Result panel 446 | + + + + + + +---------+ + + | (unknown) | (no date) | (unknown) | [facility] | (no | (units | (unknown) | | | | | MEDICAL | value) | unknown) | | | | | | GROUP, | | | | | | | | [facility] | | | | + + + + +---------+ + + + + | Result panel 447 | + + + + + + +---------+ + + | (unknown) | (no date) | (unknown) | [facility] | (no | (units | (unknown) | | | | | MEDICAL | value) | unknown) | | | | | | GROUP, | | | | | | | | [facility] | | | | + + + + +---------+ + + + + | Result panel 448 | + + + + + + +---------+ + + | (unknown) | (no date) | (unknown) | [facility] | (no | (units | (unknown) | | | | | MEDICAL | value) | unknown) | | | | | | GROUP, | | | | | | | | [facility] | | | | + + + + +---------+ + + + + | Result panel 449 | + + + + + + +---------+ + + | (unknown) | (no date) | (unknown) | [facility] | (no | (units | (unknown) | | | | | MEDICAL | value) | unknown) | | | | | | GROUP, | | | | | | | | [facility] | | | | + + + + +---------+ + + + + | Result panel 450 | + + + + + + +---------+ + + | (unknown) | (no date) | (unknown) | [facility] | (no | (units | (unknown) | | | | | MEDICAL | value) | unknown) | | | | | | GROUP, | | | | | | | | [facility] | | | | + + + + +---------+ + + + + | Result panel 451 | + + + + + + +---------+ + + | (unknown) | (no date) | (unknown) | [facility] | (no | (units | (unknown) | | | | | MEDICAL | value) | unknown) | | | | | | GROUP, | | | | | | | | [facility] | | | | + + + + +---------+ + + + + | Result panel 452 | + + + + + + +---------+ + + | (unknown) | (no date) | (unknown) | [facility] | (no | (units | (unknown) | | | | | MEDICAL | value) | unknown) | | | | | | GROUP, | | | | | | | | [facility] | | | | + + + + +---------+ + + + + | Result panel 453 | + + + + + + +---------+ + + | (unknown) | (no date) | (unknown) | [facility] | (no | (units | (unknown) | | | | | MEDICAL | value) | unknown) | | | | | | GROUP, | | | | | | | | [facility] | | | | + + + + +---------+ + + + + | Result panel 454 | + + + + + + +---------+ + + | (unknown) | (no date) | (unknown) | [facility] | (no | (units | (unknown) | | | | | MEDICAL | value) | unknown) | | | | | | GROUP, | | | | | | | | [facility] | | | | + + + + +---------+ + + + + | Result panel 455 | + + + + + + +---------+ + + | (unknown) | (no date) | (unknown) | [facility] | (no | (units | (unknown) | | | | | MEDICAL | value) | unknown) | | | | | | GROUP, | | | | | | | | [facility] | | | | + + + + +---------+ + + + + | Result panel 456 | + + + + + + +---------+ + + | (unknown) | (no date) | (unknown) | [facility] | (no | (units | (unknown) | | | | | MEDICAL | value) | unknown) | | | | | | GROUP, | | | | | | | | [facility] | | | | + + + + +---------+ + + + + | Result panel 457 | + + + + + + +---------+ + + | (unknown) | (no date) | (unknown) | [facility] | (no | (units | (unknown) | | | | | MEDICAL | value) | unknown) | | | | | | GROUP, | | | | | | | | [facility] | | | | + + + + +---------+ + + + + | Result panel 458 | + + + + + + +---------+ + + | (unknown) | (no date) | (unknown) | [facility] | (no | (units | (unknown) | | | | | MEDICAL | value) | unknown) | | | | | | GROUP, | | | | | | | | [facility] | | | | + + + + +---------+ + + + + | Result panel 459 | + + + + + + +---------+ + + | (unknown) | (no date) | (unknown) | [facility] | (no | (units | (unknown) | | | | | MEDICAL | value) | unknown) | | | | | | GROUP, | | | | | | | | [facility] | | | | + + + + +---------+ + + + + | Result panel 460 | + + + + + + +---------+ + + | (unknown) | (no date) | (unknown) | [facility] | (no | (units | (unknown) | | | | | MEDICAL | value) | unknown) | | | | | | GROUP, | | | | | | | | [facility] | | | | + + + + +---------+ + + + + | Result panel 461 | + + + + + + +---------+ + + | (unknown) | (no date) | (unknown) | [facility] | (no | (units | (unknown) | | | | | MEDICAL | value) | unknown) | | | | | | GROUP, | | | | | | | | [facility] | | | | + + + + +---------+ + + + + | Result panel 462 | + + + + + + +---------+ + + | (unknown) | (no date) | (unknown) | [facility] | (no | (units | (unknown) | | | | | MEDICAL | value) | unknown) | | | | | | GROUP, | | | | | | | | [facility] | | | | + + + + +---------+ + + + + | Result panel 463 | + + + + + + +---------+ + + | (unknown) | (no date) | (unknown) | [facility] | (no | (units | (unknown) | | | | | MEDICAL | value) | unknown) | | | | | | GROUP, | | | | | | | | [facility] | | | | + + + + +---------+ + + + + | Result panel 464 | + + + + + + +---------+ + + | (unknown) | (no date) | (unknown) | [facility] | (no | (units | (unknown) | | | | | MEDICAL | value) | unknown) | | | | | | GROUP, | | | | | | | | [facility] | | | | + + + + +---------+ + + + + | Result panel 465 | + + + + + + +---------+ + + | (unknown) | (no date) | (unknown) | [facility] | (no | (units | (unknown) | | | | | MEDICAL | value) | unknown) | | | | | | GROUP, | | | | | | | | [facility] | | | | + + + + +---------+ + + + + | Result panel 466 | + + + + + + +---------+ + + | (unknown) | (no date) | (unknown) | [facility] | (no | (units | (unknown) | | | | | MEDICAL | value) | unknown) | | | | | | GROUP, | | | | | | | | [facility] | | | | + + + + +---------+ + + + + | Result panel 467 | + + + + + + +---------+ + + | (unknown) | (no date) | (unknown) | [facility] | (no | (units | (unknown) | | | | | MEDICAL | value) | unknown) | | | | | | GROUP, | | | | | | | | [facility] | | | | + + + + +---------+ + + + + | Result panel 468 | + + + + + + +---------+ + + | (unknown) | (no date) | (unknown) | [facility] | (no | (units | (unknown) | | | | | MEDICAL | value) | unknown) | | | | | | GROUP, | | | | | | | | [facility] | | | | + + + + +---------+ + + + + | Result panel 469 | + + + + + + +---------+ + + | (unknown) | (no date) | (unknown) | [facility] | (no | (units | (unknown) | | | | | MEDICAL | value) | unknown) | | | | | | GROUP, | | | | | | | | [facility] | | | | + + + + +---------+ + + + + | Result panel 470 | + + + + + + +---------+ + + | (unknown) | (no date) | (unknown) | [facility] | (no | (units | (unknown) | | | | | MEDICAL | value) | unknown) | | | | | | GROUP, | | | | | | | | [facility] | | | | + + + + +---------+ + + + + | Result panel 471 | + + + + + + +---------+ + + | (unknown) | (no date) | (unknown) | [facility] | (no | (units | (unknown) | | | | | MEDICAL | value) | unknown) | | | | | | GROUP, | | | | | | | | [facility] | | | | + + + + +---------+ + + + + | Result panel 472 | + + + + + + +---------+ + + | (unknown) | (no date) | (unknown) | [facility] | (no | (units | (unknown) | | | | | MEDICAL | value) | unknown) | | | | | | GROUP, | | | | | | | | [facility] | | | | + + + + +---------+ + + + + | Result panel 473 | + + + + + + +---------+ + + | (unknown) | (no date) | (unknown) | [facility] | (no | (units | (unknown) | | | | | MEDICAL | value) | unknown) | | | | | | GROUP, | | | | | | | | [facility] | | | | + + + + +---------+ + + + + | Result panel 474 | + + + + + + +---------+ + + | (unknown) | (no date) | (unknown) | [facility] | (no | (units | (unknown) | | | | | MEDICAL | value) | unknown) | | | | | | GROUP, | | | | | | | | [facility] | | | | + + + + +---------+ + + + + | Result panel 475 | + + + + + + +---------+ + + | (unknown) | (no date) | (unknown) | [facility] | (no | (units | (unknown) | | | | | MEDICAL | value) | unknown) | | | | | | GROUP, | | | | | | | | [facility] | | | | + + + + +---------+ + + + + | Result panel 476 | + + + + + + +---------+ + + | (unknown) | (no date) | (unknown) | [facility] | (no | (units | (unknown) | | | | | MEDICAL | value) | unknown) | | | | | | GROUP, | | | | | | | | [facility] | | | | + + + + +---------+ + + + + | Result panel 477 | + + + + + + +---------+ + + | (unknown) | (no date) | (unknown) | [facility] | (no | (units | (unknown) | | | | | MEDICAL | value) | unknown) | | | | | | GROUP, | | | | | | | | [facility] | | | | + + + + +---------+ + + + + | Result panel 478 | + + + + + + +---------+ + + | (unknown) | (no date) | (unknown) | [facility] | (no | (units | (unknown) | | | | | MEDICAL | value) | unknown) | | | | | | GROUP, | | | | | | | | [facility] | | | | + + + + +---------+ + + + + | Result panel 479 | + + + + + + +---------+ + + | (unknown) | (no date) | (unknown) | [facility] | (no | (units | (unknown) | | | | | MEDICAL | value) | unknown) | | | | | | GROUP, | | | | | | | | [facility] | | | | + + + + +---------+ + + + + | Result panel 480 | + + + + + + +---------+ + + | (unknown) | (no date) | (unknown) | [facility] | (no | (units | (unknown) | | | | | MEDICAL | value) | unknown) | | | | | | GROUP, | | | | | | | | [facility] | | | | + + + + +---------+ + + + + | Result panel 481 | + + + + + + +---------+ + + | (unknown) | (no date) | (unknown) | [facility] | (no | (units | (unknown) | | | | | MEDICAL | value) | unknown) | | | | | | GROUP, | | | | | | | | [facility] | | | | + + + + +---------+ + + + + | Result panel 482 | + + + + + + +---------+ + + | (unknown) | (no date) | (unknown) | [facility] | (no | (units | (unknown) | | | | | MEDICAL | value) | unknown) | | | | | | GROUP, | | | | | | | | [facility] | | | | + + + + +---------+ + + + + | Result panel 483 | + + + + + + +---------+ + + | (unknown) | (no date) | (unknown) | [facility] | (no | (units | (unknown) | | | | | MEDICAL | value) | unknown) | | | | | | GROUP, | | | | | | | | [facility] | | | | + + + + +---------+ + + + + | Result panel 484 | + + + + + + +---------+ + + | (unknown) | (no date) | (unknown) | [facility] | (no | (units | (unknown) | | | | | MEDICAL | value) | unknown) | | | | | | GROUP, | | | | | | | | [facility] | | | | + + + + +---------+ + + + + | Result panel 485 | + + + + + + +---------+ + + | (unknown) | (no date) | (unknown) | [facility] | (no | (units | (unknown) | | | | | MEDICAL | value) | unknown) | | | | | | GROUP, | | | | | | | | [facility] | | | | + + + + +---------+ + + + + | Result panel 486 | + + + + + + +---------+ + + | (unknown) | (no date) | (unknown) | [facility] | (no | (units | (unknown) | | | | | MEDICAL | value) | unknown) | | | | | | GROUP, | | | | | | | | [facility] | | | | + + + + +---------+ + + + + | Result panel 487 | + + + + + + +---------+ + + | (unknown) | (no date) | (unknown) | [facility] | (no | (units | (unknown) | | | | | MEDICAL | value) | unknown) | | | | | | GROUP, | | | | | | | | [facility] | | | | + + + + +---------+ + + + + | Result panel 488 | + + + + + + +---------+ + + | (unknown) | (no date) | (unknown) | [facility] | (no | (units | (unknown) | | | | | MEDICAL | value) | unknown) | | | | | | GROUP, | | | | | | | | [facility] | | | | + + + + +---------+ + + + + | Result panel 489 | + + + + + + +---------+ + + | (unknown) | (no date) | (unknown) | [facility] | (no | (units | (unknown) | | | | | MEDICAL | value) | unknown) | | | | | | GROUP, | | | | | | | | [facility] | | | | + + + + +---------+ + + + + | Result panel 490 | + + + + + + +---------+ + + | (unknown) | (no date) | (unknown) | [facility] | (no | (units | (unknown) | | | | | MEDICAL | value) | unknown) | | | | | | GROUP, | | | | | | | | [facility] | | | | + + + + +---------+ + + + + | Result panel 491 | + + + + + + +---------+ + + | (unknown) | (no date) | (unknown) | [facility] | (no | (units | (unknown) | | | | | MEDICAL | value) | unknown) | | | | | | [facility], | | | | | | | | [facility] | | | | + + + + +---------+ + + + + | Result panel 492 | + + + + + + +---------+ + + | (unknown) | (no date) | (unknown) | [facility] | (no | (units | (unknown) | | | | | MEDICAL | value) | unknown) | | | | | | [facility], | | | | | | | | [facility] | | | | + + + + +---------+ + + + + | Result panel 493 | + + + + + + +---------+ + + | (unknown) | (no date) | (unknown) | [facility] | (no | (units | (unknown) | | | | | MEDICAL | value) | unknown) | | | | | | [facility], | | | | | | | | [facility] | | | | + + + + +---------+ + + + + | Result panel 494 | + + + + + + +---------+ + + | (unknown) | (no date) | (unknown) | [facility] | (no | (units | (unknown) | | | | | MEDICAL | value) | unknown) | | | | | | [facility], | | | | | | | | [facility] | | | | + + + + +---------+ + + + + | Result panel 495 | + + + + + + +---------+ + + | (unknown) | (no date) | (unknown) | [facility] | (no | (units | (unknown) | | | | | MEDICAL | value) | unknown) | | | | | | [facility], | | | | | | | | [facility] | | | | + + + + +---------+ + + + + | Result panel 496 | + + + + + + +---------+ + + | (unknown) | (no date) | (unknown) | [facility] | (no | (units | (unknown) | | | | | MEDICAL | value) | unknown) | | | | | | [facility], | | | | | | | | [facility] | | | | + + + + +---------+ + + + + | Result panel 497 | + + + + + + +---------+ + + | (unknown) | (no date) | (unknown) | [facility] | (no | (units | (unknown) | | | | | MEDICAL | value) | unknown) | | | | | | [facility], | | | | | | | | [facility] | | | | + + + + +---------+ + + + + | Result panel 498 | + + + + + + +---------+ + + | (unknown) | (no date) | (unknown) | [facility] | (no | (units | (unknown) | | | | | MEDICAL | value) | unknown) | | | | | | [facility], | | | | | | | | [facility] | | | | + + + + +---------+ + + + + | Result panel 499 | + + + + + + +---------+ + + | (unknown) | (no date) | (unknown) | [facility] | (no | (units | (unknown) | | | | | MEDICAL | value) | unknown) | | | | | | [facility], | | | | | | | | [facility] | | | | + + + + +---------+ + + + + | Result panel 500 | + + + + + + +---------+ + + | (unknown) | (no date) | (unknown) | [facility] | (no | (units | (unknown) | | | | | MEDICAL | value) | unknown) | | | | | | [facility], | | | | | | | | [facility] | | | | + + + + +---------+ + + + + | Result panel 501 | + + + + + + +---------+ + + | (unknown) | (no date) | (unknown) | [facility] | (no | (units | (unknown) | | | | | MEDICAL | value) | unknown) | | | | | | [facility], | | | | | | | | [facility] | | | | + + + + +---------+ + + + + | Result panel 502 | + + + + + + +---------+ + + | (unknown) | (no date) | (unknown) | [facility] | (no | (units | (unknown) | | | | | MEDICAL | value) | unknown) | | | | | | [facility], | | | | | | | | [facility] | | | | + + + + +---------+ + + + + | Result panel 503 | + + + + + + +---------+ + + | (unknown) | (no date) | (unknown) | [facility] | (no | (units | (unknown) | | | | | MEDICAL | value) | unknown) | | | | | | [facility], | | | | | | | | [facility] | | | | + + + + +---------+ + + + + | Result panel 504 | + + + + + + +---------+ + + | (unknown) | (no date) | (unknown) | [facility] | (no | (units | (unknown) | | | | | MEDICAL | value) | unknown) | | | | | | [facility], | | | | | | | | [facility] | | | | + + + + +---------+ + + + + | Result panel 505 | + + + + + + +---------+ + + | (unknown) | (no date) | (unknown) | [facility] | (no | (units | (unknown) | | | | | MEDICAL | value) | unknown) | | | | | | GROUP, | | | | | | | | [facility] | | | | + + + + +---------+ + + + + | Result panel 506 | + + + + + + +---------+ + + | (unknown) | (no date) | (unknown) | [facility] | (no | (units | (unknown) | | | | | MEDICAL | value) | unknown) | | | | | | GROUP, | | | | | | | | [facility] | | | | + + + + +---------+ + + + + | Result panel 507 | + + + + + + +---------+ + + | (unknown) | (no date) | (unknown) | [facility] | (no | (units | (unknown) | | | | | MEDICAL | value) | unknown) | | | | | | GROUP, | | | | | | | | [facility] | | | | + + + + +---------+ + + + + | Result panel 508 | + + + + + + +---------+ + + | (unknown) | (no date) | (unknown) | [facility] | (no | (units | (unknown) | | | | | MEDICAL | value) | unknown) | | | | | | GROUP, | | | | | | | | [facility] | | | | + + + + +---------+ + + + + | Result panel 509 | + + + + + + +---------+ + + | (unknown) | (no date) | (unknown) | [facility] | (no | (units | (unknown) | | | | | MEDICAL | value) | unknown) | | | | | | GROUP, | | | | | | | | [facility] | | | | + + + + +---------+ + + + + | Result panel 510 | + + + + + + +---------+ + + | (unknown) | (no date) | (unknown) | [facility] | (no | (units | (unknown) | | | | | MEDICAL | value) | unknown) | | | | | | GROUP, | | | | | | | | [facility] | | | | + + + + +---------+ + + + + | Result panel 511 | + + + + + + +---------+ + + | (unknown) | (no date) | (unknown) | [facility] | (no | (units | (unknown) | | | | | MEDICAL | value) | unknown) | | | | | | GROUP, | | | | | | | | [facility] | | | | + + + + +---------+ + + + + | Result panel 512 | + + + + + + +---------+ + + | (unknown) | (no date) | (unknown) | [facility] | (no | (units | (unknown) | | | | | MEDICAL | value) | unknown) | | | | | | GROUP, | | | | | | | | [facility] | | | | + + + + +---------+ + + + + | Result panel 513 | + + + + + + +---------+ + + | (unknown) | (no date) | (unknown) | [facility] | (no | (units | (unknown) | | | | | MEDICAL | value) | unknown) | | | | | | GROUP, | | | | | | | | [facility] | | | | + + + + +---------+ + + + + | Result panel 514 | + + + + + + +---------+ + + | (unknown) | (no date) | (unknown) | [facility] | (no | (units | (unknown) | | | | | MEDICAL | value) | unknown) | | | | | | GROUP, | | | | | | | | [facility] | | | | + + + + +---------+ + + + + | Result panel 515 | + + + + + + +---------+ + + | (unknown) | (no date) | (unknown) | [facility] | (no | (units | (unknown) | | | | | MEDICAL | value) | unknown) | | | | | | GROUP, | | | | | | | | [facility] | | | | + + + + +---------+ + + + + | Result panel 516 | + + + + + + +---------+ + + | (unknown) | (no date) | (unknown) | [facility] | (no | (units | (unknown) | | | | | MEDICAL | value) | unknown) | | | | | | GROUP, | | | | | | | | [facility] | | | | + + + + +---------+ + + + + | Result panel 517 | + + + + + + +---------+ + + | (unknown) | (no date) | (unknown) | [facility] | (no | (units | (unknown) | | | | | MEDICAL | value) | unknown) | | | | | | GROUP, | | | | | | | | [facility] | | | | + + + + +---------+ + + + + | Result panel 518 | + + + + + + +---------+ + + | (unknown) | (no date) | (unknown) | [facility] | (no | (units | (unknown) | | | | | MEDICAL | value) | unknown) | | | | | | GROUP, | | | | | | | | [facility] | | | | + + + + +---------+ + + + + | Result panel 519 | + + + + + + +---------+ + + | (unknown) | (no date) | (unknown) | [facility] | (no | (units | (unknown) | | | | | MEDICAL | value) | unknown) | | | | | | GROUP, | | | | | | | | [facility] | | | | + + + + +---------+ + + + + | Result panel 520 | + + + + + + +---------+ + + | (unknown) | (no date) | (unknown) | [facility] | (no | (units | (unknown) | | | | | MEDICAL | value) | unknown) | | | | | | GROUP, | | | | | | | | [facility] | | | | + + + + +---------+ + + + + | Result panel 521 | + + + + + + +---------+ + + | (unknown) | (no date) | (unknown) | [facility] | (no | (units | (unknown) | | | | | MEDICAL | value) | unknown) | | | | | | GROUP, | | | | | | | | [facility] | | | | + + + + +---------+ + + + + | Result panel 522 | + + + + + + +---------+ + + | (unknown) | (no date) | (unknown) | [facility] | (no | (units | (unknown) | | | | | MEDICAL | value) | unknown) | | | | | | GROUP, | | | | | | | | [facility] | | | | + + + + +---------+ + + + + | Result panel 523 | + + + + + + +---------+ + + | (unknown) | (no date) | (unknown) | [facility] | (no | (units | (unknown) | | | | | MEDICAL | value) | unknown) | | | | | | GROUP, | | | | | | | | [facility] | | | | + + + + +---------+ + + + + | Result panel 524 | + + + + + + +---------+ + + | (unknown) | (no date) | (unknown) | [facility] | (no | (units | (unknown) | | | | | MEDICAL | value) | unknown) | | | | | | GROUP, | | | | | | | | [facility] | | | | + + + + +---------+ + + + + | Result panel 525 | + + + + + + +---------+ + + | (unknown) | (no date) | (unknown) | [facility] | (no | (units | (unknown) | | | | | MEDICAL | value) | unknown) | | | | | | GROUP, | | | | | | | | [facility] | | | | + + + + +---------+ + + + + | Result panel 526 | + + + + + + +---------+ + + | (unknown) | (no date) | (unknown) | [facility] | (no | (units | (unknown) | | | | | MEDICAL | value) | unknown) | | | | | | GROUP, | | | | | | | | [facility] | | | | + + + + +---------+ + + + + | Result panel 527 | + + + + + + +---------+ + + | (unknown) | (no date) | (unknown) | [facility] | (no | (units | (unknown) | | | | | MEDICAL | value) | unknown) | | | | | | GROUP, | | | | | | | | [facility] | | | | + + + + +---------+ + + + + | Result panel 528 | + + + + + + +---------+ + + | (unknown) | (no date) | (unknown) | [facility] | (no | (units | (unknown) | | | | | MEDICAL | value) | unknown) | | | | | | GROUP, | | | | | | | | [facility] | | | | + + + + +---------+ + + + + | Result panel 529 | + + + + + + +---------+ + + | (unknown) | (no date) | (unknown) | [facility] | (no | (units | (unknown) | | | | | MEDICAL | value) | unknown) | | | | | | GROUP, | | | | | | | | [facility] | | | | + + + + +---------+ + + + + | Result panel 530 | + + + + + + +---------+ + + | (unknown) | (no date) | (unknown) | [facility] | (no | (units | (unknown) | | | | | MEDICAL | value) | unknown) | | | | | | GROUP, | | | | | | | | [facility] | | | | + + + + +---------+ + + + + | Result panel 531 | + + + + + + +---------+ + + | (unknown) | (no date) | (unknown) | [facility] | (no | (units | (unknown) | | | | | MEDICAL | value) | unknown) | | | | | | GROUP, | | | | | | | | [facility] | | | | + + + + +---------+ + + + + | Result panel 532 | + + + + + + +---------+ + + | (unknown) | (no date) | (unknown) | [facility] | (no | (units | (unknown) | | | | | MEDICAL | value) | unknown) | | | | | | GROUP, | | | | | | | | [facility] | | | | + + + + +---------+ + + + + | Result panel 533 | + + + + + + +---------+ + + | (unknown) | (no date) | (unknown) | [facility] | (no | (units | (unknown) | | | | | MEDICAL | value) | unknown) | | | | | | GROUP, | | | | | | | | [facility] | | | | + + + + +---------+ + + + + | Result panel 534 | + + + + + + +---------+ + + | (unknown) | (no date) | (unknown) | [facility] | (no | (units | (unknown) | | | | | MEDICAL | value) | unknown) | | | | | | GROUP, | | | | | | | | [facility] | | | | + + + + +---------+ + + + + | Result panel 535 | + + + + + + +---------+ + + | (unknown) | (no date) | (unknown) | [facility] | (no | (units | (unknown) | | | | | MEDICAL | value) | unknown) | | | | | | GROUP, | | | | | | | | [facility] | | | | + + + + +---------+ + + + + | Result panel 536 | + + + + + + +---------+ + + | (unknown) | (no date) | (unknown) | [facility] | (no | (units | (unknown) | | | | | MEDICAL | value) | unknown) | | | | | | GROUP, | | | | | | | | [facility] | | | | + + + + +---------+ + + + + | Result panel 537 | + + + + + + +---------+ + + | (unknown) | (no date) | (unknown) | [facility] | (no | (units | (unknown) | | | | | MEDICAL | value) | unknown) | | | | | | GROUP, | | | | | | | | [facility] | | | | + + + + +---------+ + + + + | Result panel 538 | + + + + + + +---------+ + + | (unknown) | (no date) | (unknown) | [facility] | (no | (units | (unknown) | | | | | MEDICAL | value) | unknown) | | | | | | GROUP, | | | | | | | | [facility] | | | | + + + + +---------+ + + + + | Result panel 539 | + + + + + + +---------+ + + | (unknown) | (no date) | (unknown) | [facility] | (no | (units | (unknown) | | | | | MEDICAL | value) | unknown) | | | | | | GROUP, | | | | | | | | [facility] | | | | + + + + +---------+ + + + + | Result panel 540 | + + + + + + +---------+ + + | (unknown) | (no date) | (unknown) | [facility] | (no | (units | (unknown) | | | | | MEDICAL | value) | unknown) | | | | | | GROUP, | | | | | | | | [facility] | | | | + + + + +---------+ + + + + | Result panel 541 | + + + + + + +---------+ + + | (unknown) | (no date) | (unknown) | [facility] | (no | (units | (unknown) | | | | | MEDICAL | value) | unknown) | | | | | | GROUP, | | | | | | | | [facility] | | | | + + + + +---------+ + + + + | Result panel 542 | + + + + + + +---------+ + + | (unknown) | (no date) | (unknown) | [facility] | (no | (units | (unknown) | | | | | MEDICAL | value) | unknown) | | | | | | GROUP, | | | | | | | | [facility] | | | | + + + + +---------+ + + + + | Result panel 543 | + + + + + + +---------+ + + | (unknown) | (no date) | (unknown) | [facility] | (no | (units | (unknown) | | | | | MEDICAL | value) | unknown) | | | | | | GROUP, | | | | | | | | [facility] | | | | + + + + +---------+ + + + + | Result panel 544 | + + + + + + +---------+ + + | (unknown) | (no date) | (unknown) | [facility] | (no | (units | (unknown) | | | | | MEDICAL | value) | unknown) | | | | | | GROUP, | | | | | | | | [facility] | | | | + + + + +---------+ + + + + | Result panel 545 | + + + + + + +---------+ + + | (unknown) | (no date) | (unknown) | [facility] | (no | (units | (unknown) | | | | | MEDICAL | value) | unknown) | | | | | | GROUP, | | | | | | | | [facility] | | | | + + + + +---------+ + + + + | Result panel 546 | + + + + + + +---------+ + + | (unknown) | (no date) | (unknown) | [facility] | (no | (units | (unknown) | | | | | MEDICAL | value) | unknown) | | | | | | GROUP, | | | | | | | | [facility] | | | | + + + + +---------+ + + + + | Result panel 547 | + + + + + + +---------+ + + | (unknown) | (no date) | (unknown) | [facility] | (no | (units | (unknown) | | | | | MEDICAL | value) | unknown) | | | | | | GROUP, | | | | | | | | [facility] | | | | + + + + +---------+ + + + + | Result panel 548 | + + + + + + +---------+ + + | (unknown) | (no date) | (unknown) | [facility] | (no | (units | (unknown) | | | | | MEDICAL | value) | unknown) | | | | | | GROUP, | | | | | | | | [facility] | | | | + + + + +---------+ + + + + | Result panel 549 | + + + + + + +---------+ + + | (unknown) | (no date) | (unknown) | [facility] | (no | (units | (unknown) | | | | | MEDICAL | value) | unknown) | | | | | | GROUP, | | | | | | | | [facility] | | | | + + + + +---------+ + + + + | Result panel 550 | + + + + + + +---------+ + + | (unknown) | (no date) | (unknown) | [facility] | (no | (units | (unknown) | | | | | MEDICAL | value) | unknown) | | | | | | GROUP, | | | | | | | | [facility] | | | | + + + + +---------+ + + + + | Result panel 551 | + + + + + + +---------+ + + | (unknown) | (no date) | (unknown) | [facility] | (no | (units | (unknown) | | | | | MEDICAL | value) | unknown) | | | | | | GROUP, | | | | | | | | [facility] | | | | + + + + +---------+ + + + + | Result panel 552 | + + + + + + +---------+ + + | (unknown) | (no date) | (unknown) | [facility] | (no | (units | (unknown) | | | | | MEDICAL | value) | unknown) | | | | | | GROUP, | | | | | | | | [facility] | | | | + + + + +---------+ + + + + | Result panel 553 | + + + + + + +---------+ + + | (unknown) | (no date) | (unknown) | [facility] | (no | (units | (unknown) | | | | | MEDICAL | value) | unknown) | | | | | | GROUP, | | | | | | | | [facility] | | | | + + + + +---------+ + + + + | Result panel 554 | + + + + + + +---------+ + + | (unknown) | (no date) | (unknown) | [facility] | (no | (units | (unknown) | | | | | MEDICAL | value) | unknown) | | | | | | GROUP, | | | | | | | | [facility] | | | | + + + + +---------+ + + + + | Result panel 555 | + + + + + + +---------+ + + | (unknown) | (no date) | (unknown) | [facility] | (no | (units | (unknown) | | | | | MEDICAL | value) | unknown) | | | | | | GROUP, | | | | | | | | [facility] | | | | + + + + +---------+ + + + + | Result panel 556 | + + + + + + +---------+ + + | (unknown) | (no date) | (unknown) | [facility] | (no | (units | (unknown) | | | | | MEDICAL | value) | unknown) | | | | | | GROUP, | | | | | | | | [facility] | | | | + + + + +---------+ + + + + | Result panel 557 | + + + + + + +---------+ + + | (unknown) | (no date) | (unknown) | [facility] | (no | (units | (unknown) | | | | | MEDICAL | value) | unknown) | | | | | | GROUP, | | | | | | | | [facility] | | | | + + + + +---------+ + + + + | Result panel 558 | + + + + + + +---------+ + + | (unknown) | (no date) | (unknown) | [facility] | (no | (units | (unknown) | | | | | MEDICAL | value) | unknown) | | | | | | GROUP, | | | | | | | | [facility] | | | | + + + + +---------+ + + + + | Result panel 559 | + + + + + + +---------+ + + | (unknown) | (no date) | (unknown) | [facility] | (no | (units | (unknown) | | | | | MEDICAL | value) | unknown) | | | | | | GROUP, | | | | | | | | [facility] | | | | + + + + +---------+ + + + + | Result panel 560 | + + + + + + +---------+ + + | (unknown) | (no date) | (unknown) | [facility] | (no | (units | (unknown) | | | | | MEDICAL | value) | unknown) | | | | | | GROUP, | | | | | | | | [facility] | | | | + + + + +---------+ + + + + | Result panel 561 | + + + + + + +---------+ + + | (unknown) | (no date) | (unknown) | [facility] | (no | (units | (unknown) | | | | | MEDICAL | value) | unknown) | | | | | | GROUP, | | | | | | | | [facility] | | | | + + + + +---------+ + + + + | Result panel 562 | + + + + + + +---------+ + + | (unknown) | (no date) | (unknown) | [facility] | (no | (units | (unknown) | | | | | MEDICAL | value) | unknown) | | | | | | GROUP, | | | | | | | | [facility] | | | | + + + + +---------+ + + + + | Result panel 563 | + + + + + + +---------+ + + | (unknown) | (no date) | (unknown) | [facility] | (no | (units | (unknown) | | | | | MEDICAL | value) | unknown) | | | | | | GROUP, | | | | | | | | [facility] | | | | + + + + +---------+ + + + + | Result panel 564 | + + + + + + +---------+ + + | (unknown) | (no date) | (unknown) | [facility] | (no | (units | (unknown) | | | | | MEDICAL | value) | unknown) | | | | | | GROUP, | | | | | | | | [facility] | | | | + + + + +---------+ + + + + | Result panel 565 | + + + + + + +---------+ + + | (unknown) | (no date) | (unknown) | [facility] | (no | (units | (unknown) | | | | | MEDICAL | value) | unknown) | | | | | | GROUP, | | | | | | | | [facility] | | | | + + + + +---------+ + + + + | Result panel 566 | + + + + + + +---------+ + + | (unknown) | (no date) | (unknown) | [facility] | (no | (units | (unknown) | | | | | MEDICAL | value) | unknown) | | | | | | GROUP, | | | | | | | | [facility] | | | | + + + + +---------+ + + + + | Result panel 567 | + + + + + + +---------+ + + | (unknown) | (no date) | (unknown) | [facility] | (no | (units | (unknown) | | | | | MEDICAL | value) | unknown) | | | | | | GROUP, | | | | | | | | [facility] | | | | + + + + +---------+ + + + + | Result panel 568 | + + + + + + +---------+ + + | (unknown) | (no date) | (unknown) | [facility] | (no | (units | (unknown) | | | | | MEDICAL | value) | unknown) | | | | | | GROUP, | | | | | | | | [facility] | | | | + + + + +---------+ + + + + | Result panel 569 | + + + + + + +---------+ + + | (unknown) | (no date) | (unknown) | [facility] | (no | (units | (unknown) | | | | | MEDICAL | value) | unknown) | | | | | | GROUP, | | | | | | | | [facility] | | | | + + + + +---------+ + + + + | Result panel 570 | + + + + + + +---------+ + + | (unknown) | (no date) | (unknown) | [facility] | (no | (units | (unknown) | | | | | MEDICAL | value) | unknown) | | | | | | GROUP, | | | | | | | | [facility] | | | | + + + + +---------+ + + + + | Result panel 571 | + + + + + + +---------+ + + | (unknown) | (no date) | (unknown) | [facility] | (no | (units | (unknown) | | | | | MEDICAL | value) | unknown) | | | | | | GROUP, | | | | | | | | [facility] | | | | + + + + +---------+ + + + + | Result panel 572 | + + + + + + +---------+ + + | (unknown) | (no date) | (unknown) | [facility] | (no | (units | (unknown) | | | | | MEDICAL | value) | unknown) | | | | | | GROUP, | | | | | | | | [facility] | | | | + + + + +---------+ + + + + | Result panel 573 | + + + + + + +---------+ + + | (unknown) | (no date) | (unknown) | [facility] | (no | (units | (unknown) | | | | | MEDICAL | value) | unknown) | | | | | | GROUP, | | | | | | | | [facility] | | | | + + + + +---------+ + + + + | Result panel 574 | + + + + + + +---------+ + + | (unknown) | (no date) | (unknown) | [facility] | (no | (units | (unknown) | | | | | MEDICAL | value) | unknown) | | | | | | GROUP, | | | | | | | | [facility] | | | | + + + + +---------+ + + + + | Result panel 575 | + + + + + + +---------+ + + | (unknown) | (no date) | (unknown) | [facility] | (no | (units | (unknown) | | | | | MEDICAL | value) | unknown) | | | | | | GROUP, | | | | | | | | [facility] | | | | + + + + +---------+ + + + + | Result panel 576 | + + + + + + +---------+ + + | (unknown) | (no date) | (unknown) | [facility] | (no | (units | (unknown) | | | | | MEDICAL | value) | unknown) | | | | | | GROUP, | | | | | | | | [facility] | | | | + + + + +---------+ + + + + | Result panel 577 | + + + + + + +---------+ + + | (unknown) | (no date) | (unknown) | [facility] | (no | (units | (unknown) | | | | | MEDICAL | value) | unknown) | | | | | | GROUP, | | | | | | | | [facility] | | | | + + + + +---------+ + + + + | Result panel 578 | + + + + + + +---------+ + + | (unknown) | (no date) | (unknown) | [facility] | (no | (units | (unknown) | | | | | MEDICAL | value) | unknown) | | | | | | GROUP, | | | | | | | | [facility] | | | | + + + + +---------+ + + + + | Result panel 579 | + + + + + + +---------+ + + | (unknown) | (no date) | (unknown) | [facility] | (no | (units | (unknown) | | | | | MEDICAL | value) | unknown) | | | | | | GROUP, | | | | | | | | [facility] | | | | + + + + +---------+ + + + + | Result panel 580 | + + + + + + +---------+ + + | (unknown) | (no date) | (unknown) | [facility] | (no | (units | (unknown) | | | | | MEDICAL | value) | unknown) | | | | | | GROUP, | | | | | | | | [facility] | | | | + + + + +---------+ + + + + | Result panel 581 | + + + + + + +---------+ + + | (unknown) | (no date) | (unknown) | [facility] | (no | (units | (unknown) | | | | | MEDICAL | value) | unknown) | | | | | | GROUP, | | | | | | | | [facility] | | | | + + + + +---------+ + + + + | Result panel 582 | + + + + + + +---------+ + + | (unknown) | (no date) | (unknown) | [facility] | (no | (units | (unknown) | | | | | MEDICAL | value) | unknown) | | | | | | GROUP, | | | | | | | | [facility] | | | | + + + + +---------+ + + + + | Result panel 583 | + + + + + + +---------+ + + | (unknown) | (no date) | (unknown) | [facility] | (no | (units | (unknown) | | | | | MEDICAL | value) | unknown) | | | | | | GROUP, | | | | | | | | [facility] | | | | + + + + +---------+ + + + + | Result panel 584 | + + + + + + +---------+ + + | (unknown) | (no date) | (unknown) | [facility] | (no | (units | (unknown) | | | | | MEDICAL | value) | unknown) | | | | | | GROUP, | | | | | | | | [facility] | | | | + + + + +---------+ + + + + | Result panel 585 | + + + + + + +---------+ + + | (unknown) | (no date) | (unknown) | [facility] | (no | (units | (unknown) | | | | | MEDICAL | value) | unknown) | | | | | | GROUP, | | | | | | | | [facility] | | | | + + + + +---------+ + + + + | Result panel 586 | + + + + + + +---------+ + + | (unknown) | (no date) | (unknown) | [facility] | (no | (units | (unknown) | | | | | MEDICAL | value) | unknown) | | | | | | GROUP, | | | | | | | | [facility] | | | | + + + + +---------+ + + + + | Result panel 587 | + + + + + + +---------+ + + | (unknown) | (no date) | (unknown) | [facility] | (no | (units | (unknown) | | | | | MEDICAL | value) | unknown) | | | | | | GROUP, | | | | | | | | [facility] | | | | + + + + +---------+ + + + + | Result panel 588 | + + + + + + +---------+ + + | (unknown) | (no date) | (unknown) | [facility] | (no | (units | (unknown) | | | | | MEDICAL | value) | unknown) | | | | | | GROUP, | | | | | | | | [facility] | | | | + + + + +---------+ + + + + | Result panel 589 | + + + + + + +---------+ + + | (unknown) | (no date) | (unknown) | [facility] | (no | (units | (unknown) | | | | | MEDICAL | value) | unknown) | | | | | | GROUP, | | | | | | | | [facility] | | | | + + + + +---------+ + + + + | Result panel 590 | + + + + + + +---------+ + + | (unknown) | (no date) | (unknown) | [facility] | (no | (units | (unknown) | | | | | MEDICAL | value) | unknown) | | | | | | GROUP, | | | | | | | | [facility] | | | | + + + + +---------+ + + + + | Result panel 591 | + + + + + + +---------+ + + | (unknown) | (no date) | (unknown) | [facility] | (no | (units | (unknown) | | | | | MEDICAL | value) | unknown) | | | | | | GROUP, | | | | | | | | [facility] | | | | + + + + +---------+ + + + + | Result panel 592 | + + + + + + +---------+ + + | (unknown) | (no date) | (unknown) | [facility] | (no | (units | (unknown) | | | | | MEDICAL | value) | unknown) | | | | | | GROUP, | | | | | | | | [facility] | | | | + + + + +---------+ + + + + | Result panel 593 | + + + + + + +---------+ + + | (unknown) | (no date) | (unknown) | [facility] | (no | (units | (unknown) | | | | | MEDICAL | value) | unknown) | | | | | | GROUP, | | | | | | | | [facility] | | | | + + + + +---------+ + + + + | Result panel 594 | + + + + + + +---------+ + + | (unknown) | (no date) | (unknown) | [facility] | (no | (units | (unknown) | | | | | MEDICAL | value) | unknown) | | | | | | [facility], | | | | | | | | [facility] | | | | + + + + +---------+ + + + + | Result panel 595 | + + + + + + +---------+ + + | (unknown) | (no date) | (unknown) | [facility] | (no | (units | (unknown) | | | | | MEDICAL | value) | unknown) | | | | | | [facility], | | | | | | | | [facility] | | | | + + + + +---------+ + + + + | Result panel 596 | + + + + + + +---------+ + + | (unknown) | (no date) | (unknown) | [facility] | (no | (units | (unknown) | | | | | MEDICAL | value) | unknown) | | | | | | [facility], | | | | | | | | [facility] | | | | + + + + +---------+ + + + + | Result panel 597 | + + + + + + +---------+ + + | (unknown) | (no date) | (unknown) | [facility] | (no | (units | (unknown) | | | | | MEDICAL | value) | unknown) | | | | | | [facility], | | | | | | | | [facility] | | | | + + + + +---------+ + + + + | Result panel 598 | + + + + + + +---------+ + + | (unknown) | (no date) | (unknown) | [facility] | (no | (units | (unknown) | | | | | MEDICAL | value) | unknown) | | | | | | [facility], | | | | | | | | [facility] | | | | + + + + +---------+ + + + + | Result panel 599 | + + + + + + +---------+ + + | (unknown) | (no date) | (unknown) | [facility] | (no | (units | (unknown) | | | | | MEDICAL | value) | unknown) | | | | | | [facility], | | | | | | | | [facility] | | | | + + + + +---------+ + + + + | Result panel 600 | + + + + + + +---------+ + + | (unknown) | (no date) | (unknown) | [facility] | (no | (units | (unknown) | | | | | MEDICAL | value) | unknown) | | | | | | [facility], | | | | | | | | [facility] | | | | + + + + +---------+ + + + + | Result panel 601 | + + + + + + +---------+ + + | (unknown) | (no date) | (unknown) | [facility] | (no | (units | (unknown) | | | | | MEDICAL | value) | unknown) | | | | | | [facility], | | | | | | | | [facility] | | | | + + + + +---------+ + + + + | Result panel 602 | + + + + + + +---------+ + + | (unknown) | (no date) | (unknown) | [facility] | (no | (units | (unknown) | | | | | MEDICAL | value) | unknown) | | | | | | [facility], | | | | | | | | [facility] | | | | + + + + +---------+ + + + + | Result panel 603 | + + + + + + +---------+ + + | (unknown) | (no date) | (unknown) | [facility] | (no | (units | (unknown) | | | | | MEDICAL | value) | unknown) | | | | | | [facility], | | | | | | | | [facility] | | | | + + + + +---------+ + + + + | Result panel 604 | + + + + + + +---------+ + + | (unknown) | (no date) | (unknown) | [facility] | (no | (units | (unknown) | | | | | MEDICAL | value) | unknown) | | | | | | [facility], | | | | | | | | [facility] | | | | + + + + +---------+ + + + + | Result panel 605 | + + + + + + +---------+ + + | (unknown) | (no date) | (unknown) | [facility] | (no | (units | (unknown) | | | | | MEDICAL | value) | unknown) | | | | | | [facility], | | | | | | | | [facility] | | | | + + + + +---------+ + + + + | Result panel 606 | + + + + + + +---------+ + + | (unknown) | (no date) | (unknown) | [facility] | (no | (units | (unknown) | | | | | MEDICAL | value) | unknown) | | | | | | [facility], | | | | | | | | [facility] | | | | + + + + +---------+ + + + + | Result panel 607 | + + + + + + +---------+ + + | (unknown) | (no date) | (unknown) | [facility] | (no | (units | (unknown) | | | | | MEDICAL | value) | unknown) | | | | | | GROUP, | | | | | | | | [facility] | | | | + + + + +---------+ + + + + | Result panel 608 | + + + + + + +---------+ + + | (unknown) | (no date) | (unknown) | [facility] | (no | (units | (unknown) | | | | | MEDICAL | value) | unknown) | | | | | | GROUP, | | | | | | | | [facility] | | | | + + + + +---------+ + + + + | Result panel 609 | + + + + + + +---------+ + + | (unknown) | (no date) | (unknown) | [facility] | (no | (units | (unknown) | | | | | MEDICAL | value) | unknown) | | | | | | GROUP, | | | | | | | | [facility] | | | | + + + + +---------+ + + + + | Result panel 610 | + + + + + + +---------+ + + | (unknown) | (no date) | (unknown) | [facility] | (no | (units | (unknown) | | | | | MEDICAL | value) | unknown) | | | | | | GROUP, | | | | | | | | [facility] | | | | + + + + +---------+ + + + + | Result panel 611 | + + + + + + +---------+ + + | (unknown) | (no date) | (unknown) | [facility] | (no | (units | (unknown) | | | | | MEDICAL | value) | unknown) | | | | | | GROUP, | | | | | | | | [facility] | | | | + + + + +---------+ + + + + | Result panel 612 | + + + + + + +---------+ + + | (unknown) | (no date) | (unknown) | [facility] | (no | (units | (unknown) | | | | | MEDICAL | value) | unknown) | | | | | | GROUP, | | | | | | | | [facility] | | | | + + + + +---------+ + + + + | Result panel 613 | + + + + + + +---------+ + + | (unknown) | (no date) | (unknown) | [facility] | (no | (units | (unknown) | | | | | MEDICAL | value) | unknown) | | | | | | GROUP, | | | | | | | | [facility] | | | | + + + + +---------+ + + + + | Result panel 614 | + + + + + + +---------+ + + | (unknown) | (no date) | (unknown) | [facility] | (no | (units | (unknown) | | | | | MEDICAL | value) | unknown) | | | | | | GROUP, | | | | | | | | [facility] | | | | + + + + +---------+ + + + + | Result panel 615 | + + + + + + +---------+ + + | (unknown) | (no date) | (unknown) | [facility] | (no | (units | (unknown) | | | | | MEDICAL | value) | unknown) | | | | | | GROUP, | | | | | | | | [facility] | | | | + + + + +---------+ + + + + | Result panel 616 | + + + + + + +---------+ + + | (unknown) | (no date) | (unknown) | [facility] | (no | (units | (unknown) | | | | | MEDICAL | value) | unknown) | | | | | | GROUP, | | | | | | | | [facility] | | | | + + + + +---------+ + + + + | Result panel 617 | + + + + + + +---------+ + + | (unknown) | (no date) | (unknown) | [facility] | (no | (units | (unknown) | | | | | MEDICAL | value) | unknown) | | | | | | GROUP, | | | | | | | | [facility] | | | | + + + + +---------+ + + + + | Result panel 618 | + + + + + + +---------+ + + | (unknown) | (no date) | (unknown) | [facility] | (no | (units | (unknown) | | | | | MEDICAL | value) | unknown) | | | | | | GROUP, | | | | | | | | [facility] | | | | + + + + +---------+ + + + + | Result panel 619 | + + + + + + +---------+ + + | (unknown) | (no date) | (unknown) | [facility] | (no | (units | (unknown) | | | | | MEDICAL | value) | unknown) | | | | | | GROUP, | | | | | | | | [facility] | | | | + + + + +---------+ + + + + | Result panel 620 | + + + + + + +---------+ + + | (unknown) | (no date) | (unknown) | [facility] | (no | (units | (unknown) | | | | | MEDICAL | value) | unknown) | | | | | | GROUP, | | | | | | | | [facility] | | | | + + + + +---------+ + + + + | Result panel 621 | + + + + + + +---------+ + + | (unknown) | (no date) | (unknown) | [facility] | (no | (units | (unknown) | | | | | MEDICAL | value) | unknown) | | | | | | GROUP, | | | | | | | | [facility] | | | | + + + + +---------+ + + + + | Result panel 622 | + + + + + + +---------+ + + | (unknown) | (no date) | (unknown) | [facility] | (no | (units | (unknown) | | | | | MEDICAL | value) | unknown) | | | | | | GROUP, | | | | | | | | [facility] | | | | + + + + +---------+ + + + + | Result panel 623 | + + + + + + +---------+ + + | (unknown) | (no date) | (unknown) | [facility] | (no | (units | (unknown) | | | | | MEDICAL | value) | unknown) | | | | | | GROUP, | | | | | | | | [facility] | | | | + + + + +---------+ + + + + | Result panel 624 | + + + + + + +---------+ + + | (unknown) | (no date) | (unknown) | [facility] | (no | (units | (unknown) | | | | | MEDICAL | value) | unknown) | | | | | | GROUP, | | | | | | | | [facility] | | | | + + + + +---------+ + + + + | Result panel 625 | + + + + + + +---------+ + + | (unknown) | (no date) | (unknown) | [facility] | (no | (units | (unknown) | | | | | MEDICAL | value) | unknown) | | | | | | GROUP, | | | | | | | | [facility] | | | | + + + + +---------+ + + + + | Result panel 626 | + + + + + + +---------+ + + | (unknown) | (no date) | (unknown) | [facility] | (no | (units | (unknown) | | | | | MEDICAL | value) | unknown) | | | | | | GROUP, | | | | | | | | [facility] | | | | + + + + +---------+ + + + + | Result panel 627 | + + + + + + +---------+ + + | (unknown) | (no date) | (unknown) | [facility] | (no | (units | (unknown) | | | | | MEDICAL | value) | unknown) | | | | | | GROUP, | | | | | | | | [facility] | | | | + + + + +---------+ + + + + | Result panel 628 | + + + + + + +---------+ + + | (unknown) | (no date) | (unknown) | [facility] | (no | (units | (unknown) | | | | | MEDICAL | value) | unknown) | | | | | | GROUP, | | | | | | | | [facility] | | | | + + + + +---------+ + + + + | Result panel 629 | + + + + + + +---------+ + + | (unknown) | (no date) | (unknown) | [facility] | (no | (units | (unknown) | | | | | MEDICAL | value) | unknown) | | | | | | GROUP, | | | | | | | | [facility] | | | | + + + + +---------+ + + + + | Result panel 630 | + + + + + + +---------+ + + | (unknown) | (no date) | (unknown) | [facility] | (no | (units | (unknown) | | | | | MEDICAL | value) | unknown) | | | | | | GROUP, | | | | | | | | [facility] | | | | + + + + +---------+ + + + + | Result panel 631 | + + + + + + +---------+ + + | (unknown) | (no date) | (unknown) | [facility] | (no | (units | (unknown) | | | | | MEDICAL | value) | unknown) | | | | | | GROUP, | | | | | | | | [facility] | | | | + + + + +---------+ + + + + | Result panel 632 | + + + + + + +---------+ + + | (unknown) | (no date) | (unknown) | [facility] | (no | (units | (unknown) | | | | | MEDICAL | value) | unknown) | | | | | | GROUP, | | | | | | | | [facility] | | | | + + + + +---------+ + + + + | Result panel 633 | + + + + + + +---------+ + + | (unknown) | (no date) | (unknown) | [facility] | (no | (units | (unknown) | | | | | MEDICAL | value) | unknown) | | | | | | GROUP, | | | | | | | | [facility] | | | | + + + + +---------+ + + + + | Result panel 634 | + + + + + + +---------+ + + | (unknown) | (no date) | (unknown) | [facility] | (no | (units | (unknown) | | | | | MEDICAL | value) | unknown) | | | | | | GROUP, | | | | | | | | [facility] | | | | + + + + +---------+ + + + + | Result panel 635 | + + + + + + +---------+ + + | (unknown) | (no date) | (unknown) | [facility] | (no | (units | (unknown) | | | | | MEDICAL | value) | unknown) | | | | | | GROUP, | | | | | | | | [facility] | | | | + + + + +---------+ + + + + | Result panel 636 | + + + + + + +---------+ + + | (unknown) | (no date) | (unknown) | [facility] | (no | (units | (unknown) | | | | | MEDICAL | value) | unknown) | | | | | | GROUP, | | | | | | | | [facility] | | | | + + + + +---------+ + + + + | Result panel 637 | + + + + + + +---------+ + + | (unknown) | (no date) | (unknown) | [facility] | (no | (units | (unknown) | | | | | MEDICAL | value) | unknown) | | | | | | GROUP, | | | | | | | | [facility] | | | | + + + + +---------+ + + + + | Result panel 638 | + + + + + + +---------+ + + | (unknown) | (no date) | (unknown) | [facility] | (no | (units | (unknown) | | | | | MEDICAL | value) | unknown) | | | | | | GROUP, | | | | | | | | [facility] | | | | + + + + +---------+ + + + + | Result panel 639 | + + + + + + +---------+ + + | (unknown) | (no date) | (unknown) | [facility] | (no | (units | (unknown) | | | | | MEDICAL | value) | unknown) | | | | | | GROUP, | | | | | | | | [facility] | | | | + + + + +---------+ + + + + | Result panel 640 | + + + + + + +---------+ + + | (unknown) | (no date) | (unknown) | [facility] | (no | (units | (unknown) | | | | | MEDICAL | value) | unknown) | | | | | | GROUP, | | | | | | | | [facility] | | | | + + + + +---------+ + + + + | Result panel 641 | + + + + + + +---------+ + + | (unknown) | (no date) | (unknown) | [facility] | (no | (units | (unknown) | | | | | MEDICAL | value) | unknown) | | | | | | GROUP, | | | | | | | | [facility] | | | | + + + + +---------+ + + + + | Result panel 642 | + + + + + + +---------+ + + | (unknown) | (no date) | (unknown) | [facility] | (no | (units | (unknown) | | | | | MEDICAL | value) | unknown) | | | | | | GROUP, | | | | | | | | [facility] | | | | + + + + +---------+ + + + + | Result panel 643 | + + + + + + +---------+ + + | (unknown) | (no date) | (unknown) | [facility] | (no | (units | (unknown) | | | | | MEDICAL | value) | unknown) | | | | | | GROUP, | | | | | | | | [facility] | | | | + + + + +---------+ + + + + | Result panel 644 | + + + + + + +---------+ + + | (unknown) | (no date) | (unknown) | [facility] | (no | (units | (unknown) | | | | | MEDICAL | value) | unknown) | | | | | | GROUP, | | | | | | | | [facility] | | | | + + + + +---------+ + + + + | Result panel 645 | + + + + + + +---------+ + + | (unknown) | (no date) | (unknown) | [facility] | (no | (units | (unknown) | | | | | MEDICAL | value) | unknown) | | | | | | GROUP, | | | | | | | | [facility] | | | | + + + + +---------+ + + + + | Result panel 646 | + + + + + + +---------+ + + | (unknown) | (no date) | (unknown) | [facility] | (no | (units | (unknown) | | | | | MEDICAL | value) | unknown) | | | | | | GROUP, | | | | | | | | [facility] | | | | + + + + +---------+ + + + + | Result panel 647 | + + + + + + +---------+ + + | (unknown) | (no date) | (unknown) | [facility] | (no | (units | (unknown) | | | | | MEDICAL | value) | unknown) | | | | | | GROUP, | | | | | | | | [facility] | | | | + + + + +---------+ + + + + | Result panel 648 | + + + + + + +---------+ + + | (unknown) | (no date) | (unknown) | [facility] | (no | (units | (unknown) | | | | | MEDICAL | value) | unknown) | | | | | | GROUP, | | | | | | | | [facility] | | | | + + + + +---------+ + + + + | Result panel 649 | + + + + + + +---------+ + + | (unknown) | (no date) | (unknown) | [facility] | (no | (units | (unknown) | | | | | MEDICAL | value) | unknown) | | | | | | GROUP, | | | | | | | | [facility] | | | | + + + + +---------+ + + + + | Result panel 650 | + + + + + + +---------+ + + | (unknown) | (no date) | (unknown) | [facility] | (no | (units | (unknown) | | | | | MEDICAL | value) | unknown) | | | | | | GROUP, | | | | | | | | [facility] | | | | + + + + +---------+ + + + + | Result panel 651 | + + + + + + +---------+ + + | (unknown) | (no date) | (unknown) | [facility] | (no | (units | (unknown) | | | | | MEDICAL | value) | unknown) | | | | | | GROUP, | | | | | | | | [facility] | | | | + + + + +---------+ + + + + | Result panel 652 | + + + + + + +---------+ + + | (unknown) | (no date) | (unknown) | [facility] | (no | (units | (unknown) | | | | | MEDICAL | value) | unknown) | | | | | | GROUP, | | | | | | | | [facility] | | | | + + + + +---------+ + + + + | Result panel 653 | + + + + + + +---------+ + + | (unknown) | (no date) | (unknown) | [facility] | (no | (units | (unknown) | | | | | MEDICAL | value) | unknown) | | | | | | GROUP, | | | | | | | | [facility] | | | | + + + + +---------+ + + + + | Result panel 654 | + + + + + + +---------+ + + | (unknown) | (no date) | (unknown) | [facility] | (no | (units | (unknown) | | | | | MEDICAL | value) | unknown) | | | | | | GROUP, | | | | | | | | [facility] | | | | + + + + +---------+ + + + + | Result panel 655 | + + + + + + +---------+ + + | (unknown) | (no date) | (unknown) | [facility] | (no | (units | (unknown) | | | | | MEDICAL | value) | unknown) | | | | | | GROUP, | | | | | | | | [facility] | | | | + + + + +---------+ + + + + | Result panel 656 | + + + + + + +---------+ + + | (unknown) | (no date) | (unknown) | [facility] | (no | (units | (unknown) | | | | | MEDICAL | value) | unknown) | | | | | | GROUP, | | | | | | | | [facility] | | | | + + + + +---------+ + + + + | Result panel 657 | + + + + + + +---------+ + + | (unknown) | (no date) | (unknown) | [facility] | (no | (units | (unknown) | | | | | MEDICAL | value) | unknown) | | | | | | GROUP, | | | | | | | | [facility] | | | | + + + + +---------+ + + + + | Result panel 658 | + + + + + + +---------+ + + | (unknown) | (no date) | (unknown) | [facility] | (no | (units | (unknown) | | | | | MEDICAL | value) | unknown) | | | | | | GROUP, | | | | | | | | [facility] | | | | + + + + +---------+ + + + + | Result panel 659 | + + + + + + +---------+ + + | (unknown) | (no date) | (unknown) | [facility] | (no | (units | (unknown) | | | | | MEDICAL | value) | unknown) | | | | | | GROUP, | | | | | | | | [facility] | | | | + + + + +---------+ + + + + | Result panel 660 | + + + + + + +---------+ + + | (unknown) | (no date) | (unknown) | [facility] | (no | (units | (unknown) | | | | | MEDICAL | value) | unknown) | | | | | | GROUP, | | | | | | | | [facility] | | | | + + + + +---------+ + + + + | Result panel 661 | + + + + + + +---------+ + + | (unknown) | (no date) | (unknown) | [facility] | (no | (units | (unknown) | | | | | MEDICAL | value) | unknown) | | | | | | GROUP, | | | | | | | | [facility] | | | | + + + + +---------+ + + + + | Result panel 662 | + + + + + + +---------+ + + | (unknown) | (no date) | (unknown) | [facility] | (no | (units | (unknown) | | | | | MEDICAL | value) | unknown) | | | | | | GROUP, | | | | | | | | [facility] | | | | + + + + +---------+ + + + + | Result panel 663 | + + + + + + +---------+ + + | (unknown) | (no date) | (unknown) | [facility] | (no | (units | (unknown) | | | | | MEDICAL | value) | unknown) | | | | | | GROUP, | | | | | | | | [facility] | | | | + + + + +---------+ + + + + | Result panel 664 | + + + + + + +---------+ + + | (unknown) | (no date) | (unknown) | [facility] | (no | (units | (unknown) | | | | | MEDICAL | value) | unknown) | | | | | | GROUP, | | | | | | | | [facility] | | | | + + + + +---------+ + + + + | Result panel 665 | + + + + + + +---------+ + + | (unknown) | (no date) | (unknown) | [facility] | (no | (units | (unknown) | | | | | MEDICAL | value) | unknown) | | | | | | GROUP, | | | | | | | | [facility] | | | | + + + + +---------+ + + + + | Result panel 666 | + + + + + + +---------+ + + | (unknown) | (no date) | (unknown) | [facility] | (no | (units | (unknown) | | | | | MEDICAL | value) | unknown) | | | | | | GROUP, | | | | | | | | [facility] | | | | + + + + +---------+ + + + + | Result panel 667 | + + + + + + +---------+ + + | (unknown) | (no date) | (unknown) | [facility] | (no | (units | (unknown) | | | | | MEDICAL | value) | unknown) | | | | | | GROUP, | | | | | | | | [facility] | | | | + + + + +---------+ + + + + | Result panel 668 | + + + + + + +---------+ + + | (unknown) | (no date) | (unknown) | [facility] | (no | (units | (unknown) | | | | | MEDICAL | value) | unknown) | | | | | | GROUP, | | | | | | | | [facility] | | | | + + + + +---------+ + + + + | Result panel 669 | + + + + + + +---------+ + + | (unknown) | (no date) | (unknown) | [facility] | (no | (units | (unknown) | | | | | MEDICAL | value) | unknown) | | | | | | GROUP, | | | | | | | | [facility] | | | | + + + + +---------+ + + + + | Result panel 670 | + + + + + + +---------+ + + | (unknown) | (no date) | (unknown) | [facility] | (no | (units | (unknown) | | | | | MEDICAL | value) | unknown) | | | | | | GROUP, | | | | | | | | [facility] | | | | + + + + +---------+ + + + + | Result panel 671 | + + + + + + +---------+ + + | (unknown) | (no date) | (unknown) | [facility] | (no | (units | (unknown) | | | | | MEDICAL | value) | unknown) | | | | | | GROUP, | | | | | | | | [facility] | | | | + + + + +---------+ + + + + | Result panel 672 | + + + + + + +---------+ + + | (unknown) | (no date) | (unknown) | [facility] | (no | (units | (unknown) | | | | | MEDICAL | value) | unknown) | | | | | | GROUP, | | | | | | | | [facility] | | | | + + + + +---------+ + + + + | Result panel 673 | + + + + + + +---------+ + + | (unknown) | (no date) | (unknown) | [facility] | (no | (units | (unknown) | | | | | MEDICAL | value) | unknown) | | | | | | GROUP, | | | | | | | | [facility] | | | | + + + + +---------+ + + + + | Result panel 674 | + + + + + + +---------+ + + | (unknown) | (no date) | (unknown) | [facility] | (no | (units | (unknown) | | | | | MEDICAL | value) | unknown) | | | | | | GROUP, | | | | | | | | [facility] | | | | + + + + +---------+ + + + + | Result panel 675 | + + + + + + +---------+ + + | (unknown) | (no date) | (unknown) | [facility] | (no | (units | (unknown) | | | | | MEDICAL | value) | unknown) | | | | | | GROUP, | | | | | | | | [facility] | | | | + + + + +---------+ + + + + | Result panel 676 | + + + + + + +---------+ + + | (unknown) | (no date) | (unknown) | [facility] | (no | (units | (unknown) | | | | | MEDICAL | value) | unknown) | | | | | | GROUP, | | | | | | | | [facility] | | | | + + + + +---------+ + + + + | Result panel 677 | + + + + + + +---------+ + + | (unknown) | (no date) | (unknown) | [facility] | (no | (units | (unknown) | | | | | MEDICAL | value) | unknown) | | | | | | GROUP, | | | | | | | | [facility] | | | | + + + + +---------+ + + + + | Result panel 678 | + + + + + + +---------+ + + | (unknown) | (no date) | (unknown) | [facility] | (no | (units | (unknown) | | | | | MEDICAL | value) | unknown) | | | | | | GROUP, | | | | | | | | [facility] | | | | + + + + +---------+ + + + + | Result panel 679 | + + + + + + +---------+ + + | (unknown) | (no date) | (unknown) | [facility] | (no | (units | (unknown) | | | | | MEDICAL | value) | unknown) | | | | | | GROUP, | | | | | | | | [facility] | | | | + + + + +---------+ + + + + | Result panel 680 | + + + + + + +---------+ + + | (unknown) | (no date) | (unknown) | [facility] | (no | (units | (unknown) | | | | | MEDICAL | value) | unknown) | | | | | | GROUP, | | | | | | | | [facility] | | | | + + + + +---------+ + + + + | Result panel 681 | + + + + + + +---------+ + + | (unknown) | (no date) | (unknown) | [facility] | (no | (units | (unknown) | | | | | MEDICAL | value) | unknown) | | | | | | GROUP, | | | | | | | | [facility] | | | | + + + + +---------+ + + + + | Result panel 682 | + + + + + + +---------+ + + | (unknown) | (no date) | (unknown) | [facility] | (no | (units | (unknown) | | | | | MEDICAL | value) | unknown) | | | | | | GROUP, | | | | | | | | [facility] | | | | + + + + +---------+ + + + + | Result panel 683 | + + + + + + +---------+ + + | (unknown) | (no date) | (unknown) | [facility] | (no | (units | (unknown) | | | | | MEDICAL | value) | unknown) | | | | | | GROUP, | | | | | | | | [facility] | | | | + + + + +---------+ + + + + | Result panel 684 | + + + + + + +---------+ + + | (unknown) | (no date) | (unknown) | [facility] | (no | (units | (unknown) | | | | | MEDICAL | value) | unknown) | | | | | | GROUP, | | | | | | | | [facility] | | | | + + + + +---------+ + + + + | Result panel 685 | + + + + + + +---------+ + + | (unknown) | (no date) | (unknown) | [facility] | (no | (units | (unknown) | | | | | MEDICAL | value) | unknown) | | | | | | GROUP, | | | | | | | | [facility] | | | | + + + + +---------+ + + + + | Result panel 686 | + + + + + + +---------+ + + | (unknown) | (no date) | (unknown) | [facility] | (no | (units | (unknown) | | | | | MEDICAL | value) | unknown) | | | | | | GROUP, | | | | | | | | [facility] | | | | + + + + +---------+ + + + + | Result panel 687 | + + + + + + +---------+ + + | (unknown) | (no date) | (unknown) | [facility] | (no | (units | (unknown) | | | | | MEDICAL | value) | unknown) | | | | | | GROUP, | | | | | | | | [facility] | | | | + + + + +---------+ + + + + | Result panel 688 | + + + + + + +---------+ + + | (unknown) | (no date) | (unknown) | [facility] | (no | (units | (unknown) | | | | | MEDICAL | value) | unknown) | | | | | | GROUP, | | | | | | | | [facility] | | | | + + + + +---------+ + + + + | Result panel 689 | + + + + + + +---------+ + + | (unknown) | (no date) | (unknown) | [facility] | (no | (units | (unknown) | | | | | MEDICAL | value) | unknown) | | | | | | GROUP, | | | | | | | | [facility] | | | | + + + + +---------+ + + + + | Result panel 690 | + + + + + + +---------+ + + | (unknown) | (no date) | (unknown) | [facility] | (no | (units | (unknown) | | | | | MEDICAL | value) | unknown) | | | | | | GROUP, | | | | | | | | [facility] | | | | + + + + +---------+ + + + + | Result panel 691 | + + + + + + +---------+ + + | (unknown) | (no date) | (unknown) | [facility] | (no | (units | (unknown) | | | | | MEDICAL | value) | unknown) | | | | | | GROUP, | | | | | | | | [facility] | | | | + + + + +---------+ + + + + | Result panel 692 | + + + + + + +---------+ + + | (unknown) | (no date) | (unknown) | [facility] | (no | (units | (unknown) | | | | | MEDICAL | value) | unknown) | | | | | | GROUP, | | | | | | | | [facility] | | | | + + + + +---------+ + + + + | Result panel 693 | + + + + + + +---------+ + + | (unknown) | (no date) | (unknown) | [facility] | (no | (units | (unknown) | | | | | MEDICAL | value) | unknown) | | | | | | GROUP, | | | | | | | | [facility] | | | | + + + + +---------+ + + + + | Result panel 694 | + + + + + + +---------+ + + | (unknown) | (no date) | (unknown) | [facility] | (no | (units | (unknown) | | | | | MEDICAL | value) | unknown) | | | | | | GROUP, | | | | | | | | [facility] | | | | + + + + +---------+ + + + + | Result panel 695 | + + + + + + +---------+ + + | (unknown) | (no date) | (unknown) | [facility] | (no | (units | (unknown) | | | | | MEDICAL | value) | unknown) | | | | | | [facility] | | | | | | | | [facility] | | | | + + + + +---------+ + + + + | Result panel 696 | + + + + + + +---------+ + + | (unknown) | (no date) | (unknown) | [facility] | (no | (units | (unknown) | | | | | [facility] | value) | unknown) | | | | | | [facility] | | | | | | | | [facility] | | | | + + + + +---------+ + + + + | Result panel 697 | + + + + + + +---------+ + + | (unknown) | (no date) | (unknown) | [facility] | (no | (units | (unknown) | | | | | [facility] | value) | unknown) | | | | | | [facility] | | | | | | | | [facility] | | | | + + + + +---------+ + + + + | Result panel 698 | + + + + + + +---------+ + + | (unknown) | (no date) | (unknown) | [facility] | (no | (units | (unknown) | | | | | [facility] | value) | unknown) | | | | | | [facility] | | | | | | | | [facility] | | | | + + + + +---------+ + + + + | Result panel 699 | + + + + + + +---------+ + + | (unknown) | (no date) | (unknown) | [facility] | (no | (units | (unknown) | | | | | [facility] | value) | unknown) | | | | | | [facility] | | | | | | | | [facility] | | | | + + + + +---------+ + + + + | Result panel 700 | + + + + + + +---------+ + + | (unknown) | (no date) | (unknown) | [facility] | (no | (units | (unknown) | | | | | [facility] | value) | unknown) | | | | | | [facility] | | | | | | | | [facility] | | | | + + + + +---------+ + + + + | Result panel 701 | + + + + + + +---------+ + + | (unknown) | (no date) | (unknown) | [facility] | (no | (units | (unknown) | | | | | [facility] | value) | unknown) | | | | | | [facility] | | | | | | | | [facility] | | | | + + + + +---------+ + + + + | Result panel 702 | + + + + + + +---------+ + + | (unknown) | (no date) | (unknown) | [facility] | (no | (units | (unknown) | | | | | [facility] | value) | unknown) | | | | | | [facility] | | | | | | | | [facility] | | | | + + + + +---------+ + + + + | Result panel 703 | + + + + + + +---------+ + + | (unknown) | (no date) | (unknown) | [facility] | (no | (units | (unknown) | | | | | [facility] | value) | unknown) | | | | | | [facility] | | | | | | | | [facility] | | | | + + + + +---------+ + + + + | Result panel 704 | + + + + + + +---------+ + + | (unknown) | (no date) | (unknown) | [facility] | (no | (units | (unknown) | | | | | [facility] | value) | unknown) | | | | | | [facility] | | | | | | | | [facility] | | | | + + + + +---------+ + + + + | Result panel 705 | + + + + + + +---------+ + + | (unknown) | (no date) | (unknown) | [facility] | (no | (units | (unknown) | | | | | [facility] | value) | unknown) | | | | | | [facility] | | | | | | | | [facility] | | | | + + + + +---------+ + + + + | Result panel 706 | + + + + + + +---------+ + + | (unknown) | (no date) | (unknown) | [facility] | (no | (units | (unknown) | | | | | [facility] | value) | unknown) | | | | | | [facility] | | | | | | | | [facility] | | | | + + + + +---------+ + + + + | Result panel 707 | + + + + + + +---------+ + + | (unknown) | (no date) | (unknown) | [facility] | (no | (units | (unknown) | | | | | [facility] | value) | unknown) | | | | | | [facility] | | | | | | | | [facility] | | | | + + + + +---------+ + + + + | Result panel 708 | + + + + + + +---------+ + + | (unknown) | (no date) | (unknown) | [facility] | (no | (units | (unknown) | | | | | [facility] | value) | unknown) | | | | | | [facility] | | | | | | | | [facility] | | | | + + + + +---------+ + + + + | Result panel 709 | + + + + + + +---------+ + + | (unknown) | (no date) | (unknown) | [facility] | (no | (units | (unknown) | | | | | MEDICAL | value) | unknown) | | | | | | GROUP, | | | | | | | | [facility] | | | | + + + + +---------+ + + + + | Result panel 710 | + + + + + + +---------+ + + | (unknown) | (no date) | (unknown) | [facility] | (no | (units | (unknown) | | | | | MEDICAL | value) | unknown) | | | | | | GROUP, | | | | | | | | [facility] | | | | + + + + +---------+ + + + + | Result panel 711 | + + + + + + +---------+ + + | (unknown) | (no date) | (unknown) | [facility] | (no | (units | (unknown) | | | | | MEDICAL | value) | unknown) | | | | | | GROUP, | | | | | | | | [facility] | | | | + + + + +---------+ + + + + | Result panel 712 | + + + + + + +---------+ + + | (unknown) | (no date) | (unknown) | [facility] | (no | (units | (unknown) | | | | | MEDICAL | value) | unknown) | | | | | | GROUP, | | | | | | | | [facility] | | | | + + + + +---------+ + + + + | Result panel 713 | + + + + + + +---------+ + + | (unknown) | (no date) | (unknown) | [facility] | (no | (units | (unknown) | | | | | MEDICAL | value) | unknown) | | | | | | GROUP, | | | | | | | | [facility] | | | | + + + + +---------+ + + + + | Result panel 714 | + + + + + + +---------+ + + | (unknown) | (no date) | (unknown) | [facility] | (no | (units | (unknown) | | | | | MEDICAL | value) | unknown) | | | | | | GROUP, | | | | | | | | [facility] | | | | + + + + +---------+ + + + + | Result panel 715 | + + + + + + +---------+ + + | (unknown) | (no date) | (unknown) | [facility] | (no | (units | (unknown) | | | | | MEDICAL | value) | unknown) | | | | | | GROUP, | | | | | | | | [facility] | | | | + + + + +---------+ + + + + | Result panel 716 | + + + + + + +---------+ + + | (unknown) | (no date) | (unknown) | [facility] | (no | (units | (unknown) | | | | | MEDICAL | value) | unknown) | | | | | | GROUP, | | | | | | | | [facility] | | | | + + + + +---------+ + + + + | Result panel 717 | + + + + + + +---------+ + + | (unknown) | (no date) | (unknown) | [facility] | (no | (units | (unknown) | | | | | MEDICAL | value) | unknown) | | | | | | GROUP, | | | | | | | | [facility] | | | | + + + + +---------+ + + + + | Result panel 718 | + + + + + + +---------+ + + | (unknown) | (no date) | (unknown) | [facility] | (no | (units | (unknown) | | | | | MEDICAL | value) | unknown) | | | | | | GROUP, | | | | | | | | [facility] | | | | + + + + +---------+ + + + + | Result panel 719 | + + + + + + +---------+ + + | (unknown) | (no date) | (unknown) | [facility] | (no | (units | (unknown) | | | | | MEDICAL | value) | unknown) | | | | | | GROUP, | | | | | | | | [facility] | | | | + + + + +---------+ + + + + | Result panel 720 | + + + + + + +---------+ + + | (unknown) | (no date) | (unknown) | [facility] | (no | (units | (unknown) | | | | | MEDICAL | value) | unknown) | | | | | | GROUP, | | | | | | | | [facility] | | | | + + + + +---------+ + + + + | Result panel 721 | + + + + + + +---------+ + + | (unknown) | (no date) | (unknown) | [facility] | (no | (units | (unknown) | | | | | MEDICAL | value) | unknown) | | | | | | GROUP, | | | | | | | | [facility] | | | | + + + + +---------+ + + + + | Result panel 722 | + + + + + + +---------+ + + | (unknown) | (no date) | (unknown) | [facility] | (no | (units | (unknown) | | | | | MEDICAL | value) | unknown) | | | | | | GROUP, | | | | | | | | [facility] | | | | + + + + +---------+ + + + + | Result panel 723 | + + + + + + +---------+ + + | (unknown) | (no date) | (unknown) | [facility] | (no | (units | (unknown) | | | | | MEDICAL | value) | unknown) | | | | | | GROUP, | | | | | | | | [facility] | | | | + + + + +---------+ + + + + | Result panel 724 | + + + + + + +---------+ + + | (unknown) | (no date) | (unknown) | [facility] | (no | (units | (unknown) | | | | | MEDICAL | value) | unknown) | | | | | | GROUP, | | | | | | | | [facility] | | | | + + + + +---------+ + + + + | Result panel 725 | + + + + + + +---------+ + + | (unknown) | (no date) | (unknown) | [facility] | (no | (units | (unknown) | | | | | MEDICAL | value) | unknown) | | | | | | GROUP, | | | | | | | | [facility] | | | | + + + + +---------+ + + + + | Result panel 726 | + + + + + + +---------+ + + | (unknown) | (no date) | (unknown) | [facility] | (no | (units | (unknown) | | | | | MEDICAL | value) | unknown) | | | | | | GROUP, | | | | | | | | [facility] | | | | + + + + +---------+ + + + + | Result panel 727 | + + + + + + +---------+ + + | (unknown) | (no date) | (unknown) | [facility] | (no | (units | (unknown) | | | | | MEDICAL | value) | unknown) | | | | | | GROUP, | | | | | | | | [facility] | | | | + + + + +---------+ + + + + | Result panel 728 | + + + + + + +---------+ + + | (unknown) | (no date) | (unknown) | [facility] | (no | (units | (unknown) | | | | | MEDICAL | value) | unknown) | | | | | | GROUP, | | | | | | | | [facility] | | | | + + + + +---------+ + + + + | Result panel 729 | + + + + + + +---------+ + + | (unknown) | (no date) | (unknown) | [facility] | (no | (units | (unknown) | | | | | MEDICAL | value) | unknown) | | | | | | GROUP, | | | | | | | | [facility] | | | | + + + + +---------+ + + + + | Result panel 730 | + + + + + + +---------+ + + | (unknown) | (no date) | (unknown) | [facility] | (no | (units | (unknown) | | | | | MEDICAL | value) | unknown) | | | | | | GROUP, | | | | | | | | [facility] | | | | + + + + +---------+ + + + + | Result panel 731 | + + + + + + +---------+ + + | (unknown) | (no date) | (unknown) | [facility] | (no | (units | (unknown) | | | | | MEDICAL | value) | unknown) | | | | | | GROUP, | | | | | | | | [facility] | | | | + + + + +---------+ + + + + | Result panel 732 | + + + + + + +---------+ + + | (unknown) | (no date) | (unknown) | [facility] | (no | (units | (unknown) | | | | | MEDICAL | value) | unknown) | | | | | | GROUP, | | | | | | | | [facility] | | | | + + + + +---------+ + + + + | Result panel 733 | + + + + + + +---------+ + + | (unknown) | (no date) | (unknown) | [facility] | (no | (units | (unknown) | | | | | MEDICAL | value) | unknown) | | | | | | GROUP, | | | | | | | | [facility] | | | | + + + + +---------+ + + + + | Result panel 734 | + + + + + + +---------+ + + | (unknown) | (no date) | (unknown) | [facility] | (no | (units | (unknown) | | | | | MEDICAL | value) | unknown) | | | | | | GROUP, | | | | | | | | [facility] | | | | + + + + +---------+ + + + + | Result panel 735 | + + + + + + +---------+ + + | (unknown) | (no date) | (unknown) | [facility] | (no | (units | (unknown) | | | | | MEDICAL | value) | unknown) | | | | | | GROUP, | | | | | | | | [facility] | | | | + + + + +---------+ + + + + | Result panel 736 | + + + + + + +---------+ + + | (unknown) | (no date) | (unknown) | [facility] | (no | (units | (unknown) | | | | | MEDICAL | value) | unknown) | | | | | | GROUP, | | | | | | | | [facility] | | | | + + + + +---------+ + + + + | Result panel 737 | + + + + + + +---------+ + + | (unknown) | (no date) | (unknown) | [facility] | (no | (units | (unknown) | | | | | MEDICAL | value) | unknown) | | | | | | GROUP, | | | | | | | | [facility] | | | | + + + + +---------+ + + + + | Result panel 738 | + + + + + + +---------+ + + | (unknown) | (no date) | (unknown) | [facility] | (no | (units | (unknown) | | | | | MEDICAL | value) | unknown) | | | | | | GROUP, | | | | | | | | [facility] | | | | + + + + +---------+ + + + + | Result panel 739 | + + + + + + +---------+ + + | (unknown) | (no date) | (unknown) | [facility] | (no | (units | (unknown) | | | | | MEDICAL | value) | unknown) | | | | | | GROUP, | | | | | | | | [facility] | | | | + + + + +---------+ + + + + | Result panel 740 | + + + + + + +---------+ + + | (unknown) | (no date) | (unknown) | [facility] | (no | (units | (unknown) | | | | | MEDICAL | value) | unknown) | | | | | | GROUP, | | | | | | | | [facility] | | | | + + + + +---------+ + + + + | Result panel 741 | + + + + + + +---------+ + + | (unknown) | (no date) | (unknown) | [facility] | (no | (units | (unknown) | | | | | MEDICAL | value) | unknown) | | | | | | GROUP, | | | | | | | | [facility] | | | | + + + + +---------+ + + + + | Result panel 742 | + + + + + + +---------+ + + | (unknown) | (no date) | (unknown) | [facility] | (no | (units | (unknown) | | | | | MEDICAL | value) | unknown) | | | | | | GROUP, | | | | | | | | [facility] | | | | + + + + +---------+ + + + + | Result panel 743 | + + + + + + +---------+ + + | (unknown) | (no date) | (unknown) | [facility] | (no | (units | (unknown) | | | | | MEDICAL | value) | unknown) | | | | | | GROUP, | | | | | | | | [facility] | | | | + + + + +---------+ + + + + | Result panel 744 | + + + + + + +---------+ + + | (unknown) | (no date) | (unknown) | [facility] | (no | (units | (unknown) | | | | | MEDICAL | value) | unknown) | | | | | | GROUP, | | | | | | | | [facility] | | | | + + + + +---------+ + + + + | Result panel 745 | + + + + + + +---------+ + + | (unknown) | (no date) | (unknown) | [facility] | (no | (units | (unknown) | | | | | MEDICAL | value) | unknown) | | | | | | GROUP, | | | | | | | | [facility] | | | | + + + + +---------+ + + + + | Result panel 746 | + + + + + + +---------+ + + | (unknown) | (no date) | (unknown) | [facility] | (no | (units | (unknown) | | | | | MEDICAL | value) | unknown) | | | | | | GROUP, | | | | | | | | [facility] | | | | + + + + +---------+ + + + + | Result panel 747 | + + + + + + +---------+ + + | (unknown) | (no date) | (unknown) | [facility] | (no | (units | (unknown) | | | | | MEDICAL | value) | unknown) | | | | | | GROUP, | | | | | | | | [facility] | | | | + + + + +---------+ + + + + | Result panel 748 | + + + + + + +---------+ + + | (unknown) | (no date) | (unknown) | [facility] | (no | (units | (unknown) | | | | | MEDICAL | value) | unknown) | | | | | | GROUP, | | | | | | | | [facility] | | | | + + + + +---------+ + + + + | Result panel 749 | + + + + + + +---------+ + + | (unknown) | (no date) | (unknown) | [facility] | (no | (units | (unknown) | | | | | MEDICAL | value) | unknown) | | | | | | GROUP, | | | | | | | | [facility] | | | | + + + + +---------+ + + + + | Result panel 750 | + + + + + + +---------+ + + | (unknown) | (no date) | (unknown) | [facility] | (no | (units | (unknown) | | | | | MEDICAL | value) | unknown) | | | | | | GROUP, | | | | | | | | [facility] | | | | + + + + +---------+ + + + + | Result panel 751 | + + + + + + +---------+ + + | (unknown) | (no date) | (unknown) | [facility] | (no | (units | (unknown) | | | | | MEDICAL | value) | unknown) | | | | | | GROUP, | | | | | | | | [facility] | | | | + + + + +---------+ + + + + | Result panel 752 | + + + + + + +---------+ + + | (unknown) | (no date) | (unknown) | [facility] | (no | (units | (unknown) | | | | | MEDICAL | value) | unknown) | | | | | | GROUP, | | | | | | | | [facility] | | | | + + + + +---------+ + + + + | Result panel 753 | + + + + + + +---------+ + + | (unknown) | (no date) | (unknown) | [facility] | (no | (units | (unknown) | | | | | MEDICAL | value) | unknown) | | | | | | GROUP, | | | | | | | | [facility] | | | | + + + + +---------+ + + + + | Result panel 754 | + + + + + + +---------+ + + | (unknown) | (no date) | (unknown) | [facility] | (no | (units | (unknown) | | | | | MEDICAL | value) | unknown) | | | | | | GROUP, | | | | | | | | [facility] | | | | + + + + +---------+ + + + + | Result panel 755 | + + + + + + +---------+ + + | (unknown) | (no date) | (unknown) | [facility] | (no | (units | (unknown) | | | | | MEDICAL | value) | unknown) | | | | | | GROUP, | | | | | | | | [facility] | | | | + + + + +---------+ + + + + | Result panel 756 | + + + + + + +---------+ + + | (unknown) | (no date) | (unknown) | [facility] | (no | (units | (unknown) | | | | | MEDICAL | value) | unknown) | | | | | | GROUP, | | | | | | | | [facility] | | | | + + + + +---------+ + + + + | Result panel 757 | + + + + + + +---------+ + + | (unknown) | (no date) | (unknown) | [facility] | (no | (units | (unknown) | | | | | MEDICAL | value) | unknown) | | | | | | GROUP, | | | | | | | | [facility] | | | | + + + + +---------+ + + + + | Result panel 758 | + + + + + + +---------+ + + | (unknown) | (no date) | (unknown) | [facility] | (no | (units | (unknown) | | | | | MEDICAL | value) | unknown) | | | | | | GROUP, | | | | | | | | [facility] | | | | + + + + +---------+ + + + + | Result panel 759 | + + + + + + +---------+ + + | (unknown) | (no date) | (unknown) | [facility] | (no | (units | (unknown) | | | | | MEDICAL | value) | unknown) | | | | | | GROUP, | | | | | | | | [facility] | | | | + + + + +---------+ + + + + | Result panel 760 | + + + + + + +---------+ + + | (unknown) | (no date) | (unknown) | [facility] | (no | (units | (unknown) | | | | | MEDICAL | value) | unknown) | | | | | | GROUP, | | | | | | | | [facility] | | | | + + + + +---------+ + + + + | Result panel 761 | + + + + + + +---------+ + + | (unknown) | (no date) | (unknown) | [facility] | (no | (units | (unknown) | | | | | MEDICAL | value) | unknown) | | | | | | GROUP, | | | | | | | | [facility] | | | | + + + + +---------+ + + + + | Result panel 762 | + + + + + + +---------+ + + | (unknown) | (no date) | (unknown) | [facility] | (no | (units | (unknown) | | | | | MEDICAL | value) | unknown) | | | | | | GROUP, | | | | | | | | [facility] | | | | + + + + +---------+ + + + + | Result panel 763 | + + + + + + +---------+ + + | (unknown) | (no date) | (unknown) | [facility] | (no | (units | (unknown) | | | | | MEDICAL | value) | unknown) | | | | | | GROUP, | | | | | | | | [facility] | | | | + + + + +---------+ + + + + | Result panel 764 | + + + + + + +---------+ + + | (unknown) | (no date) | (unknown) | [facility] | (no | (units | (unknown) | | | | | MEDICAL | value) | unknown) | | | | | | GROUP, | | | | | | | | [facility] | | | | + + + + +---------+ + + + + | Result panel 765 | + + + + + + +---------+ + + | (unknown) | (no date) | (unknown) | [facility] | (no | (units | (unknown) | | | | | MEDICAL | value) | unknown) | | | | | | GROUP, | | | | | | | | [facility] | | | | + + + + +---------+ + + + + | Result panel 766 | + + + + + + +---------+ + + | (unknown) | (no date) | (unknown) | [facility] | (no | (units | (unknown) | | | | | MEDICAL | value) | unknown) | | | | | | GROUP, | | | | | | | | [facility] | | | | + + + + +---------+ + + + + | Result panel 767 | + + + + + + +---------+ + + | (unknown) | (no date) | (unknown) | [facility] | (no | (units | (unknown) | | | | | MEDICAL | value) | unknown) | | | | | | GROUP, | | | | | | | | [facility] | | | | + + + + +---------+ + + + + | Result panel 768 | + + + + + + +---------+ + + | (unknown) | (no date) | (unknown) | [facility] | (no | (units | (unknown) | | | | | MEDICAL | value) | unknown) | | | | | | GROUP, | | | | | | | | [facility] | | | | + + + + +---------+ + + + + | Result panel 769 | + + + + + + +---------+ + + | (unknown) | (no date) | (unknown) | [facility] | (no | (units | (unknown) | | | | | MEDICAL | value) | unknown) | | | | | | GROUP, | | | | | | | | [facility] | | | | + + + + +---------+ + + + + | Result panel 770 | + + + + + + +---------+ + + | (unknown) | (no date) | (unknown) | [facility] | (no | (units | (unknown) | | | | | MEDICAL | value) | unknown) | | | | | | GROUP, | | | | | | | | [facility] | | | | + + + + +---------+ + + + + | Result panel 771 | + + + + + + +---------+ + + | (unknown) | (no date) | (unknown) | [facility] | (no | (units | (unknown) | | | | | MEDICAL | value) | unknown) | | | | | | GROUP, | | | | | | | | [facility] | | | | + + + + +---------+ + + + + | Result panel 772 | + + + + + + +---------+ + + | (unknown) | (no date) | (unknown) | [facility] | (no | (units | (unknown) | | | | | MEDICAL | value) | unknown) | | | | | | GROUP, | | | | | | | | [facility] | | | | + + + + +---------+ + + + + | Result panel 773 | + + + + + + +---------+ + + | (unknown) | (no date) | (unknown) | [facility] | (no | (units | (unknown) | | | | | MEDICAL | value) | unknown) | | | | | | GROUP, | | | | | | | | [facility] | | | | + + + + +---------+ + + + + | Result panel 774 | + + + + + + +---------+ + + | (unknown) | (no date) | (unknown) | [facility] | (no | (units | (unknown) | | | | | MEDICAL | value) | unknown) | | | | | | GROUP, | | | | | | | | [facility] | | | | + + + + +---------+ + + + + | Result panel 775 | + + + + + + +---------+ + + | (unknown) | (no date) | (unknown) | [facility] | (no | (units | (unknown) | | | | | MEDICAL | value) | unknown) | | | | | | GROUP, | | | | | | | | [facility] | | | | + + + + +---------+ + + + + | Result panel 776 | + + + + + + +---------+ + + | (unknown) | (no date) | (unknown) | [facility] | (no | (units | (unknown) | | | | | MEDICAL | value) | unknown) | | | | | | GROUP, | | | | | | | | [facility] | | | | + + + + +---------+ + + + + | Result panel 777 | + + + + + + +---------+ + + | (unknown) | (no date) | (unknown) | [facility] | (no | (units | (unknown) | | | | | MEDICAL | value) | unknown) | | | | | | GROUP, | | | | | | | | [facility] | | | | + + + + +---------+ + + + + | Result panel 778 | + + + + + + +---------+ + + | (unknown) | (no date) | (unknown) | [facility] | (no | (units | (unknown) | | | | | MEDICAL | value) | unknown) | | | | | | GROUP, | | | | | | | | [facility] | | | | + + + + +---------+ + + + + | Result panel 779 | + + + + + + +---------+ + + | (unknown) | (no date) | (unknown) | [facility] | (no | (units | (unknown) | | | | | MEDICAL | value) | unknown) | | | | | | GROUP, | | | | | | | | [facility] | | | | + + + + +---------+ + + + + | Result panel 780 | + + + + + + +---------+ + + | (unknown) | (no date) | (unknown) | [facility] | (no | (units | (unknown) | | | | | MEDICAL | value) | unknown) | | | | | | GROUP, | | | | | | | | [facility] | | | | + + + + +---------+ + + + + | Result panel 781 | + + + + + + +---------+ + + | (unknown) | (no date) | (unknown) | [facility] | (no | (units | (unknown) | | | | | MEDICAL | value) | unknown) | | | | | | GROUP, | | | | | | | | [facility] | | | | + + + + +---------+ + + + + | Result panel 782 | + + + + + + +---------+ + + | (unknown) | (no date) | (unknown) | [facility] | (no | (units | (unknown) | | | | | MEDICAL | value) | unknown) | | | | | | GROUP, | | | | | | | | [facility] | | | | + + + + +---------+ + + + + | Result panel 783 | + + + + + + +---------+ + + | (unknown) | (no date) | (unknown) | [facility] | (no | (units | (unknown) | | | | | MEDICAL | value) | unknown) | | | | | | GROUP, | | | | | | | | [facility] | | | | + + + + +---------+ + + + + | Result panel 784 | + + + + + + +---------+ + + | (unknown) | (no date) | (unknown) | [facility] | (no | (units | (unknown) | | | | | MEDICAL | value) | unknown) | | | | | | GROUP, | | | | | | | | [facility] | | | | + + + + +---------+ + + + + | Result panel 785 | + + + + + + +---------+ + + | (unknown) | (no date) | (unknown) | [facility] | (no | (units | (unknown) | | | | | MEDICAL | value) | unknown) | | | | | | GROUP, | | | | | | | | [facility] | | | | + + + + +---------+ + + + + | Result panel 786 | + + + + + + +---------+ + + | (unknown) | (no date) | (unknown) | [facility] | (no | (units | (unknown) | | | | | MEDICAL | value) | unknown) | | | | | | GROUP, | | | | | | | | [facility] | | | | + + + + +---------+ + + + + | Result panel 787 | + + + + + + +---------+ + + | (unknown) | (no date) | (unknown) | [facility] | (no | (units | (unknown) | | | | | MEDICAL | value) | unknown) | | | | | | GROUP, | | | | | | | | [facility] | | | | + + + + +---------+ + + + + | Result panel 788 | + + + + + + +---------+ + + | (unknown) | (no date) | (unknown) | [facility] | (no | (units | (unknown) | | | | | MEDICAL | value) | unknown) | | | | | | GROUP, | | | | | | | | [facility] | | | | + + + + +---------+ + + + + | Result panel 789 | + + + + + + +---------+ + + | (unknown) | (no date) | (unknown) | [facility] | (no | (units | (unknown) | | | | | MEDICAL | value) | unknown) | | | | | | GROUP, | | | | | | | | [facility] | | | | + + + + +---------+ + + + + | Result panel 790 | + + + + + + +---------+ + + | (unknown) | (no date) | (unknown) | [facility] | (no | (units | (unknown) | | | | | MEDICAL | value) | unknown) | | | | | | GROUP, | | | | | | | | [facility] | | | | + + + + +---------+ + + + + | Result panel 791 | + + + + + + +---------+ + + | (unknown) | (no date) | (unknown) | [facility] | (no | (units | (unknown) | | | | | MEDICAL | value) | unknown) | | | | | | GROUP, | | | | | | | | [facility] | | | | + + + + +---------+ + + + + | Result panel 792 | + + + + + + +---------+ + + | (unknown) | (no date) | (unknown) | [facility] | (no | (units | (unknown) | | | | | MEDICAL | value) | unknown) | | | | | | GROUP, | | | | | | | | [facility] | | | | + + + + +---------+ + + + + | Result panel 793 | + + + + + + +---------+ + + | (unknown) | (no date) | (unknown) | [facility] | (no | (units | (unknown) | | | | | MEDICAL | value) | unknown) | | | | | | GROUP, | | | | | | | | [facility] | | | | + + + + +---------+ + + + + | Result panel 794 | + + + + + + +---------+ + + | (unknown) | (no date) | (unknown) | [facility] | (no | (units | (unknown) | | | | | MEDICAL | value) | unknown) | | | | | | GROUP, | | | | | | | | [facility] | | | | + + + + +---------+ + + + + | Result panel 795 | + + + + + + +---------+ + + | (unknown) | (no date) | (unknown) | [facility] | (no | (units | (unknown) | | | | | MEDICAL | value) | unknown) | | | | | | GROUP, | | | | | | | | [facility] | | | | + + + + +---------+ + + + + | Result panel 796 | + + + + + + +---------+ + + | (unknown) | (no date) | (unknown) | [facility] | (no | (units | (unknown) | | | | | MEDICAL | value) | unknown) | | | | | | GROUP, | | | | | | | | [facility] | | | | + + + + +---------+ + + + + | Result panel 797 | + + + + + + +---------+ + + | (unknown) | (no date) | (unknown) | [facility] | (no | (units | (unknown) | | | | | MEDICAL | value) | unknown) | | | | | | [facility], | | | | | | | | [facility] | | | | + + + + +---------+ + + + + | Result panel 798 | + + + + + + +---------+ + + | (unknown) | (no date) | (unknown) | [facility] | (no | (units | (unknown) | | | | | [facility] | value) | unknown) | | | | | | [facility], | | | | | | | | [facility] | | | | + + + + +---------+ + + + + | Result panel 799 | + + + + + + +---------+ + + | (unknown) | (no date) | (unknown) | [facility] | (no | (units | (unknown) | | | | | [facility] | value) | unknown) | | | | | | [facility], | | | | | | | | [facility] | | | | + + + + +---------+ + + + + | Result panel 800 | + + + + + + +---------+ + + | (unknown) | (no date) | (unknown) | [facility] | (no | (units | (unknown) | | | | | [facility] | value) | unknown) | | | | | | [facility], | | | | | | | | [facility] | | | | + + + + +---------+ + + + + | Result panel 801 | + + + + + + +---------+ + + | (unknown) | (no date) | (unknown) | [facility] | (no | (units | (unknown) | | | | | [facility] | value) | unknown) | | | | | | [facility], | | | | | | | | [facility] | | | | + + + + +---------+ + + + + | Result panel 802 | + + + + + + +---------+ + + | (unknown) | (no date) | (unknown) | [facility] | (no | (units | (unknown) | | | | | [facility] | value) | unknown) | | | | | | [facility], | | | | | | | | [facility] | | | | + + + + +---------+ + + + + | Result panel 803 | + + + + + + +---------+ + + | (unknown) | (no date) | (unknown) | [facility] | (no | (units | (unknown) | | | | | [facility] | value) | unknown) | | | | | | [facility], | | | | | | | | [facility] | | | | + + + + +---------+ + + + + | Result panel 804 | + + + + + + +---------+ + + | (unknown) | (no date) | (unknown) | [facility] | (no | (units | (unknown) | | | | | [facility] | value) | unknown) | | | | | | [facility], | | | | | | | | [facility] | | | | + + + + +---------+ + + + + | Result panel 805 | + + + + + + +---------+ + + | (unknown) | (no date) | (unknown) | [facility] | (no | (units | (unknown) | | | | | [facility] | value) | unknown) | | | | | | [facility], | | | | | | | | [facility] | | | | + + + + +---------+ + + + + | Result panel 806 | + + + + + + +---------+ + + | (unknown) | (no date) | (unknown) | [facility] | (no | (units | (unknown) | | | | | [facility] | value) | unknown) | | | | | | [facility], | | | | | | | | [facility] | | | | + + + + +---------+ + + + + | Result panel 807 | + + + + + + +---------+ + + | (unknown) | (no date) | (unknown) | [facility] | (no | (units | (unknown) | | | | | [facility] | value) | unknown) | | | | | | [facility], | | | | | | | | [facility] | | | | + + + + +---------+ + + + + | Result panel 808 | + + + + + + +---------+ + + | (unknown) | (no date) | (unknown) | [facility] | (no | (units | (unknown) | | | | | [facility] | value) | unknown) | | | | | | [facility], | | | | | | | | [facility] | | | | + + + + +---------+ + + + + | Result panel 809 | + + + + + + +---------+ + + | (unknown) | (no date) | (unknown) | [facility] | (no | (units | (unknown) | | | | | [facility] | value) | unknown) | | | | | | [facility], | | | | | | | | [facility] | | | | + + + + +---------+ + + + + | Result panel 810 | + + + + + + +---------+ + + | (unknown) | (no date) | (unknown) | [facility] | (no | (units | (unknown) | | | | | [facility]ICAL | value) | unknown) | | | | | | [facility], | | | | | | | | [facility] | | | | + + + + +---------+ + + + + | Result panel 811 | + + + + + + +---------+ + + | (unknown) | (no date) | (unknown) | [facility] | (no | (units | (unknown) | | | | | MEDICAL | value) | unknown) | | | | | | GROUP, | | | | | | | | [facility] | | | | + + + + +---------+ + + + + | Result panel 812 | + + + + + + +---------+ + + | (unknown) | (no date) | (unknown) | [facility] | (no | (units | (unknown) | | | | | MEDICAL | value) | unknown) | | | | | | GROUP, | | | | | | | | [facility] | | | | + + + + +---------+ + + + + | Result panel 813 | + + + + + + +---------+ + + | (unknown) | (no date) | (unknown) | [facility] | (no | (units | (unknown) | | | | | MEDICAL | value) | unknown) | | | | | | GROUP, | | | | | | | | [facility] | | | | + + + + +---------+ + + + + | Result panel 814 | + + + + + + +---------+ + + | (unknown) | (no date) | (unknown) | [facility] | (no | (units | (unknown) | | | | | MEDICAL | value) | unknown) | | | | | | GROUP, | | | | | | | | [facility] | | | | + + + + +---------+ + + + + | Result panel 815 | + + + + + + +---------+ + + | (unknown) | (no date) | (unknown) | [facility] | (no | (units | (unknown) | | | | | MEDICAL | value) | unknown) | | | | | | GROUP, | | | | | | | | [facility] | | | | + + + + +---------+ + + + + | Result panel 816 | + + + + + + +---------+ + + | (unknown) | (no date) | (unknown) | [facility] | (no | (units | (unknown) | | | | | MEDICAL | value) | unknown) | | | | | | GROUP, | | | | | | | | [facility] | | | | + + + + +---------+ + + + + | Result panel 817 | + + + + + + +---------+ + + | (unknown) | (no date) | (unknown) | [facility] | (no | (units | (unknown) | | | | | MEDICAL | value) | unknown) | | | | | | GROUP, | | | | | | | | [facility] | | | | + + + + +---------+ + + + + | Result panel 818 | + + + + + + +---------+ + + | (unknown) | (no date) | (unknown) | [facility] | (no | (units | (unknown) | | | | | MEDICAL | value) | unknown) | | | | | | GROUP, | | | | | | | | [facility] | | | | + + + + +---------+ + + + + | Result panel 819 | + + + + + + +---------+ + + | (unknown) | (no date) | (unknown) | [facility] | (no | (units | (unknown) | | | | | MEDICAL | value) | unknown) | | | | | | GROUP, | | | | | | | | [facility] | | | | + + + + +---------+ + + + + | Result panel 820 | + + + + + + +---------+ + + | (unknown) | (no date) | (unknown) | [facility] | (no | (units | (unknown) | | | | | MEDICAL | value) | unknown) | | | | | | GROUP, | | | | | | | | [facility] | | | | + + + + +---------+ + + + + | Result panel 821 | + + + + + + +---------+ + + | (unknown) | (no date) | (unknown) | [facility] | (no | (units | (unknown) | | | | | MEDICAL | value) | unknown) | | | | | | GROUP, | | | | | | | | [facility] | | | | + + + + +---------+ + + + + | Result panel 822 | + + + + + + +---------+ + + | (unknown) | (no date) | (unknown) | [facility] | (no | (units | (unknown) | | | | | MEDICAL | value) | unknown) | | | | | | GROUP, | | | | | | | | [facility] | | | | + + + + +---------+ + + + + | Result panel 823 | + + + + + + +---------+ + + | (unknown) | (no date) | (unknown) | [facility] | (no | (units | (unknown) | | | | | MEDICAL | value) | unknown) | | | | | | GROUP, | | | | | | | | [facility] | | | | + + + + +---------+ + + + + | Result panel 824 | + + + + + + +---------+ + + | (unknown) | (no date) | (unknown) | [facility] | (no | (units | (unknown) | | | | | MEDICAL | value) | unknown) | | | | | | GROUP, | | | | | | | | [facility] | | | | + + + + +---------+ + + + + | Result panel 825 | + + + + + + +---------+ + + | (unknown) | (no date) | (unknown) | [facility] | (no | (units | (unknown) | | | | | MEDICAL | value) | unknown) | | | | | | GROUP, | | | | | | | | [facility] | | | | + + + + +---------+ + + + + | Result panel 826 | + + + + + + +---------+ + + | (unknown) | (no date) | (unknown) | [facility] | (no | (units | (unknown) | | | | | MEDICAL | value) | unknown) | | | | | | GROUP, | | | | | | | | [facility] | | | | + + + + +---------+ + + + + | Result panel 827 | + + + + + + +---------+ + + | (unknown) | (no date) | (unknown) | [facility] | (no | (units | (unknown) | | | | | MEDICAL | value) | unknown) | | | | | | GROUP, | | | | | | | | [facility] | | | | + + + + +---------+ + + + + | Result panel 828 | + + + + + + +---------+ + + | (unknown) | (no date) | (unknown) | [facility] | (no | (units | (unknown) | | | | | MEDICAL | value) | unknown) | | | | | | GROUP, | | | | | | | | [facility] | | | | + + + + +---------+ + + + + | Result panel 829 | + + + + + + +---------+ + + | (unknown) | (no date) | (unknown) | [facility] | (no | (units | (unknown) | | | | | MEDICAL | value) | unknown) | | | | | | GROUP, | | | | | | | | [facility] | | | | + + + + +---------+ + + + + | Result panel 830 | + + + + + + +---------+ + + | (unknown) | (no date) | (unknown) | [facility] | (no | (units | (unknown) | | | | | MEDICAL | value) | unknown) | | | | | | GROUP, | | | | | | | | [facility] | | | | + + + + +---------+ + + + + | Result panel 831 | + + + + + + +---------+ + + | (unknown) | (no date) | (unknown) | [facility] | (no | (units | (unknown) | | | | | MEDICAL | value) | unknown) | | | | | | GROUP, | | | | | | | | [facility] | | | | + + + + +---------+ + + + + | Result panel 832 | + + + + + + +---------+ + + | (unknown) | (no date) | (unknown) | [facility] | (no | (units | (unknown) | | | | | MEDICAL | value) | unknown) | | | | | | GROUP, | | | | | | | | [facility] | | | | + + + + +---------+ + + + + | Result panel 833 | + + + + + + +---------+ + + | (unknown) | (no date) | (unknown) | [facility] | (no | (units | (unknown) | | | | | MEDICAL | value) | unknown) | | | | | | GROUP, | | | | | | | | [facility] | | | | + + + + +---------+ + + + + | Result panel 834 | + + + + + + +---------+ + + | (unknown) | (no date) | (unknown) | [facility] | (no | (units | (unknown) | | | | | MEDICAL | value) | unknown) | | | | | | GROUP, | | | | | | | | [facility] | | | | + + + + +---------+ + + + + | Result panel 835 | + + + + + + +---------+ + + | (unknown) | (no date) | (unknown) | [facility] | (no | (units | (unknown) | | | | | MEDICAL | value) | unknown) | | | | | | GROUP, | | | | | | | | [facility] | | | | + + + + +---------+ + + + + | Result panel 836 | + + + + + + +---------+ + + | (unknown) | (no date) | (unknown) | [facility] | (no | (units | (unknown) | | | | | MEDICAL | value) | unknown) | | | | | | GROUP, | | | | | | | | [facility] | | | | + + + + +---------+ + + + + | Result panel 837 | + + + + + + +---------+ + + | (unknown) | (no date) | (unknown) | [facility] | (no | (units | (unknown) | | | | | MEDICAL | value) | unknown) | | | | | | GROUP, | | | | | | | | [facility] | | | | + + + + +---------+ + + + + | Result panel 838 | + + + + + + +---------+ + + | (unknown) | (no date) | (unknown) | [facility] | (no | (units | (unknown) | | | | | MEDICAL | value) | unknown) | | | | | | GROUP, | | | | | | | | [facility] | | | | + + + + +---------+ + + + + | Result panel 839 | + + + + + + +---------+ + + | (unknown) | (no date) | (unknown) | [facility] | (no | (units | (unknown) | | | | | MEDICAL | value) | unknown) | | | | | | GROUP, | | | | | | | | [facility] | | | | + + + + +---------+ + + + + | Result panel 840 | + + + + + + +---------+ + + | (unknown) | (no date) | (unknown) | [facility] | (no | (units | (unknown) | | | | | MEDICAL | value) | unknown) | | | | | | GROUP, | | | | | | | | [facility] | | | | + + + + +---------+ + + + + | Result panel 841 | + + + + + + +---------+ + + | (unknown) | (no date) | (unknown) | [facility] | (no | (units | (unknown) | | | | | MEDICAL | value) | unknown) | | | | | | GROUP, | | | | | | | | [facility] | | | | + + + + +---------+ + + + + | Result panel 842 | + + + + + + +---------+ + + | (unknown) | (no date) | (unknown) | [facility] | (no | (units | (unknown) | | | | | MEDICAL | value) | unknown) | | | | | | GROUP, | | | | | | | | [facility] | | | | + + + + +---------+ + + + + | Result panel 843 | + + + + + + +---------+ + + | (unknown) | (no date) | (unknown) | [facility] | (no | (units | (unknown) | | | | | MEDICAL | value) | unknown) | | | | | | GROUP, | | | | | | | | [facility] | | | | + + + + +---------+ + + + + | Result panel 844 | + + + + + + +---------+ + + | (unknown) | (no date) | (unknown) | [facility] | (no | (units | (unknown) | | | | | MEDICAL | value) | unknown) | | | | | | GROUP, | | | | | | | | [facility] | | | | + + + + +---------+ + + + + | Result panel 845 | + + + + + + +---------+ + + | (unknown) | (no date) | (unknown) | [facility] | (no | (units | (unknown) | | | | | MEDICAL | value) | unknown) | | | | | | GROUP, | | | | | | | | [facility] | | | | + + + + +---------+ + + + + | Result panel 846 | + + + + + + +---------+ + + | (unknown) | (no date) | (unknown) | [facility] | (no | (units | (unknown) | | | | | MEDICAL | value) | unknown) | | | | | | GROUP, | | | | | | | | [facility] | | | | + + + + +---------+ + + + + | Result panel 847 | + + + + + + +---------+ + + | (unknown) | (no date) | (unknown) | [facility] | (no | (units | (unknown) | | | | | MEDICAL | value) | unknown) | | | | | | GROUP, | | | | | | | | [facility] | | | | + + + + +---------+ + + + + | Result panel 848 | + + + + + + +---------+ + + | (unknown) | (no date) | (unknown) | [facility] | (no | (units | (unknown) | | | | | MEDICAL | value) | unknown) | | | | | | GROUP, | | | | | | | | [facility] | | | | + + + + +---------+ + + + + | Result panel 849 | + + + + + + +---------+ + + | (unknown) | (no date) | (unknown) | [facility] | (no | (units | (unknown) | | | | | MEDICAL | value) | unknown) | | | | | | GROUP, | | | | | | | | [facility] | | | | + + + + +---------+ + + + + | Result panel 850 | + + + + + + +---------+ + + | (unknown) | (no date) | (unknown) | [facility] | (no | (units | (unknown) | | | | | MEDICAL | value) | unknown) | | | | | | GROUP, | | | | | | | | [facility] | | | | + + + + +---------+ + + + + | Result panel 851 | + + + + + + +---------+ + + | (unknown) | (no date) | (unknown) | [facility] | (no | (units | (unknown) | | | | | MEDICAL | value) | unknown) | | | | | | GROUP, | | | | | | | | [facility] | | | | + + + + +---------+ + + + + | Result panel 852 | + + + + + + +---------+ + + | (unknown) | (no date) | (unknown) | [facility] | (no | (units | (unknown) | | | | | MEDICAL | value) | unknown) | | | | | | GROUP, | | | | | | | | [facility] | | | | + + + + +---------+ + + + + | Result panel 853 | + + + + + + +---------+ + + | (unknown) | (no date) | (unknown) | [facility] | (no | (units | (unknown) | | | | | MEDICAL | value) | unknown) | | | | | | GROUP, | | | | | | | | [facility] | | | | + + + + +---------+ + + + + | Result panel 854 | + + + + + + +---------+ + + | (unknown) | (no date) | (unknown) | [facility] | (no | (units | (unknown) | | | | | MEDICAL | value) | unknown) | | | | | | GROUP, | | | | | | | | [facility] | | | | + + + + +---------+ + + + + | Result panel 855 | + + + + + + +---------+ + + | (unknown) | (no date) | (unknown) | [facility] | (no | (units | (unknown) | | | | | MEDICAL | value) | unknown) | | | | | | GROUP, | | | | | | | | [facility] | | | | + + + + +---------+ + + + + | Result panel 856 | + + + + + + +---------+ + + | (unknown) | (no date) | (unknown) | [facility] | (no | (units | (unknown) | | | | | MEDICAL | value) | unknown) | | | | | | GROUP, | | | | | | | | [facility] | | | | + + + + +---------+ + + + + | Result panel 857 | + + + + + + +---------+ + + | (unknown) | (no date) | (unknown) | [facility] | (no | (units | (unknown) | | | | | MEDICAL | value) | unknown) | | | | | | GROUP, | | | | | | | | [facility] | | | | + + + + +---------+ + + + + | Result panel 858 | + + + + + + +---------+ + + | (unknown) | (no date) | (unknown) | [facility] | (no | (units | (unknown) | | | | | MEDICAL | value) | unknown) | | | | | | GROUP, | | | | | | | | [facility] | | | | + + + + +---------+ + + + + | Result panel 859 | + + + + + + +---------+ + + | (unknown) | (no date) | (unknown) | [facility] | (no | (units | (unknown) | | | | | MEDICAL | value) | unknown) | | | | | | GROUP, | | | | | | | | [facility] | | | | + + + + +---------+ + + + + | Result panel 860 | + + + + + + +---------+ + + | (unknown) | (no date) | (unknown) | [facility] | (no | (units | (unknown) | | | | | MEDICAL | value) | unknown) | | | | | | GROUP, | | | | | | | | [facility] | | | | + + + + +---------+ + + + + | Result panel 861 | + + + + + + +---------+ + + | (unknown) | (no date) | (unknown) | [facility] | (no | (units | (unknown) | | | | | MEDICAL | value) | unknown) | | | | | | GROUP, | | | | | | | | [facility] | | | | + + + + +---------+ + + + + | Result panel 862 | + + + + + + +---------+ + + | (unknown) | (no date) | (unknown) | [facility] | (no | (units | (unknown) | | | | | MEDICAL | value) | unknown) | | | | | | GROUP, | | | | | | | | [facility] | | | | + + + + +---------+ + + + + | Result panel 863 | + + + + + + +---------+ + + | (unknown) | (no date) | (unknown) | [facility] | (no | (units | (unknown) | | | | | MEDICAL | value) | unknown) | | | | | | GROUP, | | | | | | | | [facility] | | | | + + + + +---------+ + + + + | Result panel 864 | + + + + + + +---------+ + + | (unknown) | (no date) | (unknown) | [facility] | (no | (units | (unknown) | | | | | MEDICAL | value) | unknown) | | | | | | GROUP, | | | | | | | | [facility] | | | | + + + + +---------+ + + + + | Result panel 865 | + + + + + + +---------+ + + | (unknown) | (no date) | (unknown) | [facility] | (no | (units | (unknown) | | | | | MEDICAL | value) | unknown) | | | | | | GROUP, | | | | | | | | [facility] | | | | + + + + +---------+ + + + + | Result panel 866 | + + + + + + +---------+ + + | (unknown) | (no date) | (unknown) | [facility] | (no | (units | (unknown) | | | | | MEDICAL | value) | unknown) | | | | | | GROUP, | | | | | | | | [facility] | | | | + + + + +---------+ + + + + | Result panel 867 | + + + + + + +---------+ + + | (unknown) | (no date) | (unknown) | [facility] | (no | (units | (unknown) | | | | | MEDICAL | value) | unknown) | | | | | | GROUP, | | | | | | | | [facility] | | | | + + + + +---------+ + + + + | Result panel 868 | + + + + + + +---------+ + + | (unknown) | (no date) | (unknown) | [facility] | (no | (units | (unknown) | | | | | MEDICAL | value) | unknown) | | | | | | GROUP, | | | | | | | | [facility] | | | | + + + + +---------+ + + + + | Result panel 869 | + + + + + + +---------+ + + | (unknown) | (no date) | (unknown) | [facility] | (no | (units | (unknown) | | | | | MEDICAL | value) | unknown) | | | | | | GROUP, | | | | | | | | [facility] | | | | + + + + +---------+ + + + + | Result panel 870 | + + + + + + +---------+ + + | (unknown) | (no date) | (unknown) | [facility] | (no | (units | (unknown) | | | | | MEDICAL | value) | unknown) | | | | | | GROUP, | | | | | | | | [facility] | | | | + + + + +---------+ + + + + | Result panel 871 | + + + + + + +---------+ + + | (unknown) | (no date) | (unknown) | [facility] | (no | (units | (unknown) | | | | | MEDICAL | value) | unknown) | | | | | | GROUP, | | | | | | | | [facility] | | | | + + + + +---------+ + + + + | Result panel 872 | + + + + + + +---------+ + + | (unknown) | (no date) | (unknown) | [facility] | (no | (units | (unknown) | | | | | MEDICAL | value) | unknown) | | | | | | GROUP, | | | | | | | | [facility] | | | | + + + + +---------+ + + + + | Result panel 873 | + + + + + + +---------+ + + | (unknown) | (no date) | (unknown) | [facility] | (no | (units | (unknown) | | | | | MEDICAL | value) | unknown) | | | | | | GROUP, | | | | | | | | [facility] | | | | + + + + +---------+ + + + + | Result panel 874 | + + + + + + +---------+ + + | (unknown) | (no date) | (unknown) | [facility] | (no | (units | (unknown) | | | | | MEDICAL | value) | unknown) | | | | | | GROUP, | | | | | | | | [facility] | | | | + + + + +---------+ + + + + | Result panel 875 | + + + + + + +---------+ + + | (unknown) | (no date) | (unknown) | [facility] | (no | (units | (unknown) | | | | | MEDICAL | value) | unknown) | | | | | | GROUP, | | | | | | | | [facility] | | | | + + + + +---------+ + + + + | Result panel 876 | + + + + + + +---------+ + + | (unknown) | (no date) | (unknown) | [facility] | (no | (units | (unknown) | | | | | MEDICAL | value) | unknown) | | | | | | GROUP, | | | | | | | | [facility] | | | | + + + + +---------+ + + + + | Result panel 877 | + + + + + + +---------+ + + | (unknown) | (no date) | (unknown) | [facility] | (no | (units | (unknown) | | | | | MEDICAL | value) | unknown) | | | | | | GROUP, | | | | | | | | [facility] | | | | + + + + +---------+ + + + + | Result panel 878 | + + + + + + +---------+ + + | (unknown) | (no date) | (unknown) | [facility] | (no | (units | (unknown) | | | | | MEDICAL | value) | unknown) | | | | | | GROUP, | | | | | | | | [facility] | | | | + + + + +---------+ + + + + | Result panel 879 | + + + + + + +---------+ + + | (unknown) | (no date) | (unknown) | [facility] | (no | (units | (unknown) | | | | | MEDICAL | value) | unknown) | | | | | | GROUP, | | | | | | | | [facility] | | | | + + + + +---------+ + + + + | Result panel 880 | + + + + + + +---------+ + + | (unknown) | (no date) | (unknown) | [facility] | (no | (units | (unknown) | | | | | MEDICAL | value) | unknown) | | | | | | GROUP, | | | | | | | | [facility] | | | | + + + + +---------+ + + + + | Result panel 881 | + + + + + + +---------+ + + | (unknown) | (no date) | (unknown) | [facility] | (no | (units | (unknown) | | | | | MEDICAL | value) | unknown) | | | | | | GROUP, | | | | | | | | [facility] | | | | + + + + +---------+ + + + + | Result panel 882 | + + + + + + +---------+ + + | (unknown) | (no date) | (unknown) | [facility] | (no | (units | (unknown) | | | | | MEDICAL | value) | unknown) | | | | | | GROUP, | | | | | | | | [facility] | | | | + + + + +---------+ + + + + | Result panel 883 | + + + + + + +---------+ + + | (unknown) | (no date) | (unknown) | [facility] | (no | (units | (unknown) | | | | | MEDICAL | value) | unknown) | | | | | | GROUP, | | | | | | | | [facility] | | | | + + + + +---------+ + + + + | Result panel 884 | + + + + + + +---------+ + + | (unknown) | (no date) | (unknown) | [facility] | (no | (units | (unknown) | | | | | MEDICAL | value) | unknown) | | | | | | GROUP, | | | | | | | | [facility] | | | | + + + + +---------+ + + + + | Result panel 885 | + + + + + + +---------+ + + | (unknown) | (no date) | (unknown) | [facility] | (no | (units | (unknown) | | | | | MEDICAL | value) | unknown) | | | | | | GROUP, | | | | | | | | [facility] | | | | + + + + +---------+ + + + + | Result panel 886 | + + + + + + +---------+ + + | (unknown) | (no date) | (unknown) | [facility] | (no | (units | (unknown) | | | | | MEDICAL | value) | unknown) | | | | | | GROUP, | | | | | | | | [facility] | | | | + + + + +---------+ + + + + | Result panel 887 | + + + + + + +---------+ + + | (unknown) | (no date) | (unknown) | [facility] | (no | (units | (unknown) | | | | | MEDICAL | value) | unknown) | | | | | | GROUP, | | | | | | | | [facility] | | | | + + + + +---------+ + + + + | Result panel 888 | + + + + + + +---------+ + + | (unknown) | (no date) | (unknown) | [facility] | (no | (units | (unknown) | | | | | MEDICAL | value) | unknown) | | | | | | GROUP, | | | | | | | | [facility] | | | | + + + + +---------+ + + + + | Result panel 889 | + + + + + + +---------+ + + | (unknown) | (no date) | (unknown) | [facility] | (no | (units | (unknown) | | | | | MEDICAL | value) | unknown) | | | | | | GROUP, | | | | | | | | [facility] | | | | + + + + +---------+ + + + + | Result panel 890 | + + + + + + +---------+ + + | (unknown) | (no date) | (unknown) | [facility] | (no | (units | (unknown) | | | | | MEDICAL | value) | unknown) | | | | | | GROUP, | | | | | | | | [facility] | | | | + + + + +---------+ + + + + | Result panel 891 | + + + + + + +---------+ + + | (unknown) | (no date) | (unknown) | [facility] | (no | (units | (unknown) | | | | | MEDICAL | value) | unknown) | | | | | | GROUP, | | | | | | | | [facility] | | | | + + + + +---------+ + + + + | Result panel 892 | + + + + + + +---------+ + + | (unknown) | (no date) | (unknown) | [facility] | (no | (units | (unknown) | | | | | MEDICAL | value) | unknown) | | | | | | GROUP, | | | | | | | | [facility] | | | | + + + + +---------+ + + + + | Result panel 893 | + + + + + + +---------+ + + | (unknown) | (no date) | (unknown) | [facility] | (no | (units | (unknown) | | | | | MEDICAL | value) | unknown) | | | | | | GROUP, | | | | | | | | [facility] | | | | + + + + +---------+ + + + + | Result panel 894 | + + + + + + +---------+ + + | (unknown) | (no date) | (unknown) | [facility] | (no | (units | (unknown) | | | | | MEDICAL | value) | unknown) | | | | | | GROUP, | | | | | | | | [facility] | | | | + + + + +---------+ + + + + | Result panel 895 | + + + + + + +---------+ + + | (unknown) | (no date) | (unknown) | [facility] | (no | (units | (unknown) | | | | | MEDICAL | value) | unknown) | | | | | | GROUP, | | | | | | | | [facility] | | | | + + + + +---------+ + + + + | Result panel 896 | + + + + + + +---------+ + + | (unknown) | (no date) | (unknown) | [facility] | (no | (units | (unknown) | | | | | MEDICAL | value) | unknown) | | | | | | GROUP, | | | | | | | | [facility] | | | | + + + + +---------+ + + + + | Result panel 897 | + + + + + + +---------+ + + | (unknown) | (no date) | (unknown) | [facility] | (no | (units | (unknown) | | | | | MEDICAL | value) | unknown) | | | | | | GROUP, | | | | | | | | [facility] | | | | + + + + +---------+ + + + + | Result panel 898 | + + + + + + +---------+ + + | (unknown) | (no date) | (unknown) | [facility] | (no | (units | (unknown) | | | | | MEDICAL | value) | unknown) | | | | | | GROUP, | | | | | | | | [facility] | | | | + + + + +---------+ + + + + | Result panel 899 | + + + + + + +---------+ + + | (unknown) | (no date) | (unknown) | [facility] | (no | (units | (unknown) | | | | | [facility] | value) | unknown) | | | | | | [facility] | | | | | | | | [facility] | | | | + + + + +---------+ + + + + | Result panel 900 | + + + + + + +---------+ + + | (unknown) | (no date) | (unknown) | [facility] | (no | (units | (unknown) | | | | | [facility] | value) | unknown) | | | | | | [facility] | | | | | | | | [facility] | | | | + + + + +---------+ + + + + | Result panel 901 | + + + + + + +---------+ + + | (unknown) | (no date) | (unknown) | [facility] | (no | (units | (unknown) | | | | | [facility] | value) | unknown) | | | | | | [facility] | [facility] | | | | | | [facility] | | | | + + + + +---------+ + + + + | Result panel 902 | + + + + + + +---------+ + + | (unknown) | (no date) | (unknown) | [facility] | (no | (units | (unknown) | | | | | [facility] | value) | unknown) | | | | | | [facility] | | | | | | | | [facility] | | | | + + + + +---------+ + + + + | Result panel 903 | + + + + + + +---------+ + + | (unknown) | (no date) | (unknown) | [facility] | (no | (units | (unknown) | | | | | [facility] | value) | unknown) | | | | | | [facility] | [facility] | | | | | | [facility] | | | | + + + + +---------+ + + + + | Result panel 904 | + + + + + + +---------+ + + | (unknown) | (no date) | (unknown) | [facility] | (no | (units | (unknown) | | | | | [facility] | value) | unknown) | | | | | | [facility] | [facility] | | | | | | [facility] | | | | + + + + +---------+ + + + + | Result panel 905 | + + + + + + +---------+ + + | (unknown) | (no date) | (unknown) | [facility] | (no | (units | (unknown) | | | | | [facility] | value) | unknown) | | | | | | [facility] | | | | | | | | [facility] | | | | + + + + +---------+ + + + + | Result panel 906 | + + + + + + +---------+ + + | (unknown) | (no date) | (unknown) | [facility] | (no | (units | (unknown) | | | | | [facility] | value) | unknown) | | | | | | [facility] | | | | | | | | [facility] | | | | + + + + +---------+ + + + + | Result panel 907 | + + + + + + +---------+ + + | (unknown) | (no date) | (unknown) | [facility] | (no | (units | (unknown) | | | | | [facility] | value) | unknown) | | | | | | [facility] | | | | | | | | [facility] | | | | + + + + +---------+ + + + + | Result panel 908 | + + + + + + +---------+ + + | (unknown) | (no date) | (unknown) | [facility] | (no | (units | (unknown) | | | | | [facility] | value) | unknown) | | | | | | [facility] | | | | | | | | [facility] | | | | + + + + +---------+ + + + + | Result panel 909 | + + + + + + +---------+ + + | (unknown) | (no date) | (unknown) | [facility] | (no | (units | (unknown) | | | | | [facility] | value) | unknown) | | | | | | [facility] | | | | | | | | [facility] | | | | + + + + +---------+ + + + + | Result panel 910 | + + + + + + +---------+ + + | (unknown) | (no date) | (unknown) | [facility] | (no | (units | (unknown) | | | | | [facility] | value) | unknown) | | | | | | [facility] | | | | | | | | [facility] | | | | + + + + +---------+ + + + + | Result panel 911 | + + + + + + +---------+ + + | (unknown) | (no date) | (unknown) | [facility] | (no | (units | (unknown) | | | | | [facility] | value) | unknown) | | | | | | [facility] | | | | | | | | [facility] | | | | + + + + +---------+ + + + + | Result panel 912 | + + + + + + +---------+ + + | (unknown) | (no date) | (unknown) | [facility] | (no | (units | (unknown) | | | | | [facility] | value) | unknown) | | | | | | [facility] | | | | | | | | [facility] | | | | + + + + +---------+ + + + + | Result panel 913 | + + + + + + +---------+ + + | (unknown) | (no date) | (unknown) | [facility] | (no | (units | (unknown) | | | | | MEDICAL | value) | unknown) | | | | | | [facility], | | | | | | | | [facility] | | | | + + + + +---------+ + + + + | Result panel 914 | + + + + + + +---------+ + + | (unknown) | (no date) | (unknown) | [facility] | (no | (units | (unknown) | | | | | MEDICAL | value) | unknown) | | | | | | [facility], | | | | | | | | [facility] | | | | + + + + +---------+ + + + + | Result panel 915 | + + + + + + +---------+ + + | (unknown) | (no date) | (unknown) | [facility] | (no | (units | (unknown) | | | | | MEDICAL | value) | unknown) | | | | | | [facility], | | | | | | | | [facility] | | | | + + + + +---------+ + + + + | Result panel 916 | + + + + + + +---------+ + + | (unknown) | (no date) | (unknown) | [facility] | (no | (units | (unknown) | | | | | MEDICAL | value) | unknown) | | | | | | [facility], | | | | | | | | [facility] | | | | + + + + +---------+ + + + + | Result panel 917 | + + + + + + +---------+ + + | (unknown) | (no date) | (unknown) | [facility] | (no | (units | (unknown) | | | | | MED[facility] | value) | unknown) | | | | | | [facility], | | | | | | | | [facility] | | | | + + + + +---------+ + + + + | Result panel 918 | + + + + + + +---------+ + + | (unknown) | (no date) | (unknown) | [facility] | (no | (units | (unknown) | | | | | [facility] | value) | unknown) | | | | | | [facility], | | | | | | | | [facility] | | | | + + + + +---------+ + + + + | Result panel 919 | + + + + + + +---------+ + + | (unknown) | (no date) | (unknown) | [facility] | (no | (units | (unknown) | | | | | [facility] | value) | unknown) | | | | | | [facility], | | | | | | | | [facility] | | | | + + + + +---------+ + + + + | Result panel 920 | + + + + + + +---------+ + + | (unknown) | (no date) | (unknown) | [facility] | (no | (units | (unknown) | | | | | [facility] | value) | unknown) | | | | | | [facility], | | | | | | | | [facility] | | | | + + + + +---------+ + + + + | Result panel 921 | + + + + + + +---------+ + + | (unknown) | (no date) | (unknown) | [facility] | (no | (units | (unknown) | | | | | [facility] | value) | unknown) | | | | | | [facility], | | | | | | | | [facility] | | | | + + + + +---------+ + + + + | Result panel 922 | + + + + + + +---------+ + + | (unknown) | (no date) | (unknown) | [facility] | (no | (units | (unknown) | | | | | [facility] | value) | unknown) | | | | | | [facility], | | | | | | | | [facility] | | | | + + + + +---------+ + + + + | Result panel 923 | + + + + + + +---------+ + + | (unknown) | (no date) | (unknown) | [facility] | (no | (units | (unknown) | | | | | [facility] | value) | unknown) | | | | | | [facility], | | | | | | | | [facility] | | | | + + + + +---------+ + + + + | Result panel 924 | + + + + + + +---------+ + + | (unknown) | (no date) | (unknown) | [facility] | (no | (units | (unknown) | | | | | [facility] | value) | unknown) | | | | | | [facility], | | | | | | | | [facility] | | | | + + + + +---------+ + + + + | Result panel 925 | + + + + + + +---------+ + + | (unknown) | (no date) | (unknown) | [facility] | (no | (units | (unknown) | | | | | [facility] | value) | unknown) | | | | | | [facility], | | | | | | | | [facility] | | | | + + + + +---------+ + + + + | Result panel 926 | + + + + + + +---------+ + + | (unknown) | (no date) | (unknown) | [facility] | (no | (units | (unknown) | | | | | [facility] | value) | unknown) | | | | | | [facility], | | | | | | | | [facility] | | | | + + + + +---------+ + + + + | Result panel 927 | + + + + + + +---------+ + + | (unknown) | (no date) | (unknown) | [facility] | (no | (units | (unknown) | | | | | [facility] | value) | unknown) | | | | | | [facility], | | | | | | | | [facility] | | | | + + + + +---------+ + + + + | Result panel 928 | + + + + + + +---------+ + + | (unknown) | (no date) | (unknown) | [facility] | (no | (units | (unknown) | | | | | [facility] | value) | unknown) | | | | | | [facility], | | | | | | | | [facility] | | | | + + + + +---------+ + + + + | Result panel 929 | + + + + + + +---------+ + + | (unknown) | (no date) | (unknown) | [facility] | (no | (units | (unknown) | | | | | [facility] | value) | unknown) | | | | | | [facility], | | | | | | | | [facility] | | | | + + + + +---------+ + + + + | Result panel 930 | + + + + + + +---------+ + + | (unknown) | (no date) | (unknown) | [facility] | (no | (units | (unknown) | | | | | [facility] | value) | unknown) | | | | | | [facility], | | | | | | | | [facility] | | | | + + + + +---------+ + + + + | Result panel 931 | + + + + + + +---------+ + + | (unknown) | (no date) | (unknown) | [facility] | (no | (units | (unknown) | | | | | [facility] | value) | unknown) | | | | | | [facility], | | | | | | | | [facility] | | | | + + + + +---------+ + + + + | Result panel 932 | + + + + + + +---------+ + + | (unknown) | (no date) | (unknown) | [facility] | (no | (units | (unknown) | | | | | [facility] | value) | unknown) | | | | | | [facility], | | | | | | | | [facility] | | | | + + + + +---------+ + + + + | Result panel 933 | + + + + + + +---------+ + + | (unknown) | (no date) | (unknown) | [facility] | (no | (units | (unknown) | | | | | [facility] | value) | unknown) | | | | | | [facility], | | | | | | | | [facility] | | | | + + + + +---------+ + + + + | Result panel 934 | + + + + + + +---------+ + + | (unknown) | (no date) | (unknown) | [facility] | (no | (units | (unknown) | | | | | [facility] | value) | unknown) | | | | | | [facility], | | | | | | | | [facility] | | | | + + + + +---------+ + + + + | Result panel 935 | + + + + + + +---------+ + + | (unknown) | (no date) | (unknown) | [facility] | (no | (units | (unknown) | | | | | [facility] | value) | unknown) | | | | | | [facility], | | | | | | | | [facility] | | | | + + + + +---------+ + + + + | Result panel 936 | + + + + + + +---------+ + + | (unknown) | (no date) | (unknown) | [facility] | (no | (units | (unknown) | | | | | [facility] | value) | unknown) | | | | | | [facility], | | | | | | | | [facility] | | | | + + + + +---------+ + + + + | Result panel 937 | + + + + + + +---------+ + + | (unknown) | (no date) | (unknown) | [facility] | (no | (units | (unknown) | | | | | [facility] | value) | unknown) | | | | | | [facility], | | | | | | | | [facility] | | | | + + + + +---------+ + + + + | Result panel 938 | + + + + + + +---------+ + + | (unknown) | (no date) | (unknown) | [facility] | (no | (units | (unknown) | | | | | [facility] | value) | unknown) | | | | | | [facility], | | | | | | | | [facility] | | | | + + + + +---------+ + + + + | Result panel 939 | + + + + + + +---------+ + + | (unknown) | (no date) | (unknown) | [facility] | (no | (units | (unknown) | | | | | [facility] | value) | unknown) | | | | | | [facility], | | | | | | | | [facility] | | | | + + + + +---------+ + + + + | Result panel 940 | + + + + + + +---------+ + + | (unknown) | (no date) | (unknown) | [facility] | (no | (units | (unknown) | | | | | [facility] | value) | unknown) | | | | | | [facility], | | | | | | | | [facility] | | | | + + + + +---------+ + + + + | Result panel 941 | + + + + + + +---------+ + + | (unknown) | (no date) | (unknown) | [facility] | (no | (units | (unknown) | | | | | [facility] | value) | unknown) | | | | | | [facility], | | | | | | | | [facility] | | | | + + + + +---------+ + + + + | Result panel 942 | + + + + + + +---------+ + + | (unknown) | (no date) | (unknown) | [facility] | (no | (units | (unknown) | | | | | [facility] | value) | unknown) | | | | | | [facility], | | | | | | | | [facility] | | | | + + + + +---------+ + + + + | Result panel 943 | + + + + + + +---------+ + + | (unknown) | (no date) | (unknown) | [facility] | (no | (units | (unknown) | | | | | [facility] | value) | unknown) | | | | | | [facility], | | | | | | | | [facility] | | | | + + + + +---------+ + + + + | Result panel 944 | + + + + + + +---------+ + + | (unknown) | (no date) | (unknown) | [facility] | (no | (units | (unknown) | | | | | [facility] | value) | unknown) | | | | | | [facility], | | | | | | | | [facility] | | | | + + + + +---------+ + + + + | Result panel 945 | + + + + + + +---------+ + + | (unknown) | (no date) | (unknown) | [facility] | (no | (units | (unknown) | | | | | [facility] | value) | unknown) | | | | | | [facility], | | | | | | | | [facility] | | | | + + + + +---------+ + + + + | Result panel 946 | + + + + + + +---------+ + + | (unknown) | (no date) | (unknown) | [facility] | (no | (units | (unknown) | | | | | [facility] | value) | unknown) | | | | | | [facility], | | | | | | | | [facility] | | | | + + + + +---------+ + + + + | Result panel 947 | + + + + + + +---------+ + + | (unknown) | (no date) | (unknown) | [facility] | (no | (units | (unknown) | | | | | [facility] | value) | unknown) | | | | | | [facility], | | | | | | | | [facility] | | | | + + + + +---------+ + + + + | Result panel 948 | + + + + + + +---------+ + + | (unknown) | (no date) | (unknown) | [facility] | (no | (units | (unknown) | | | | | [facility] | value) | unknown) | | | | | | [facility], | | | | | | | | [facility] | | | | + + + + +---------+ + + + + | Result panel 949 | + + + + + + +---------+ + + | (unknown) | (no date) | (unknown) | [facility] | (no | (units | (unknown) | | | | | [facility] | value) | unknown) | | | | | | [facility], | | | | | | | | [facility] | | | | + + + + +---------+ + + + + | Result panel 950 | + + + + + + +---------+ + + | (unknown) | (no date) | (unknown) | [facility] | (no | (units | (unknown) | | | | | [facility] | value) | unknown) | | | | | | [facility], | | | | | | | | [facility] | | | | + + + + +---------+ + + + + | Result panel 951 | + + + + + + +---------+ + + | (unknown) | (no date) | (unknown) | [facility] | (no | (units | (unknown) | | | | | [facility] | value) | unknown) | | | | | | [facility], | | | | | | | | [facility] | | | | + + + + +---------+ + + + + | Result panel 952 | + + + + + + +---------+ + + | (unknown) | (no date) | (unknown) | [facility] | (no | (units | (unknown) | | | | | [facility] | value) | unknown) | | | | | | [facility], | | | | | | | | [facility] | | | | + + + + +---------+ + + + + | Result panel 953 | + + + + + + +---------+ + + | (unknown) | (no date) | (unknown) | [facility] | (no | (units | (unknown) | | | | | [facility] | value) | unknown) | | | | | | [facility], | | | | | | | | [facility] | | | | + + + + +---------+ + + + + | Result panel 954 | + + + + + + +---------+ + + | (unknown) | (no date) | (unknown) | [facility] | (no | (units | (unknown) | | | | | [facility] | value) | unknown) | | | | | | [facility], | | | | | | | | [facility] | | | | + + + + +---------+ + + + + | Result panel 955 | + + + + + + +---------+ + + | (unknown) | (no date) | (unknown) | [facility] | (no | (units | (unknown) | | | | | [facility] | value) | unknown) | | | | | | [facility], | | | | | | | | [facility] | | | | + + + + +---------+ + + + + | Result panel 956 | + + + + + + +---------+ + + | (unknown) | (no date) | (unknown) | [facility] | (no | (units | (unknown) | | | | | [facility] | value) | unknown) | | | | | | [facility], | | | | | | | | [facility] | | | | + + + + +---------+ + + + + | Result panel 957 | + + + + + + +---------+ + + | (unknown) | (no date) | (unknown) | [facility] | (no | (units | (unknown) | | | | | MEDICAL | value) | unknown) | | | | | | [facility], | | | | | | | | [facility] | | | | + + + + +---------+ + + + + | Result panel 958 | + + + + + + +---------+ + + | (unknown) | (no date) | (unknown) | [facility] | (no | (units | (unknown) | | | | | [facility] | value) | unknown) | | | | | | [facility], | | | | | | | | [facility] | | | | + + + + +---------+ + + + + | Result panel 959 | + + + + + + +---------+ + + | (unknown) | (no date) | (unknown) | [facility] | (no | (units | (unknown) | | | | | [facility] | value) | unknown) | | | | | | [facility], | | | | | | | | [facility] | | | | + + + + +---------+ + + + + | Result panel 960 | + + + + + + +---------+ + + | (unknown) | (no date) | (unknown) | [facility] | (no | (units | (unknown) | | | | | [facility] | value) | unknown) | | | | | | [facility], | | | | | | | | [facility] | | | | + + + + +---------+ + + + + | Result panel 961 | + + + + + + +---------+ + + | (unknown) | (no date) | (unknown) | [facility] | (no | (units | (unknown) | | | | | MEDICAL | value) | unknown) | | | | | | [facility], | | | | | | | | [facility] | | | | + + + + +---------+ + + + + | Result panel 962 | + + + + + + +---------+ + + | (unknown) | (no date) | (unknown) | [facility] | (no | (units | (unknown) | | | | | [facility] | value) | unknown) | | | | | | [facility], | | | | | | | | [facility] | | | | + + + + +---------+ + + + + | Result panel 963 | + + + + + + +---------+ + + | (unknown) | (no date) | (unknown) | [facility] | (no | (units | (unknown) | | | | | MEDICAL | value) | unknown) | | | | | | [facility], | | | | | | | | [facility] | | | | + + + + +---------+ + + + + | Result panel 964 | + + + + + + +---------+ + + | (unknown) | (no date) | (unknown) | [facility] | (no | (units | (unknown) | | | | | [facility] | value) | unknown) | | | | | | [facility], | | | | | | | | [facility] | | | | + + + + +---------+ + + + + | Result panel 965 | + + + + + + +---------+ + + | (unknown) | (no date) | (unknown) | [facility] | (no | (units | (unknown) | | | | | MEDICAL | value) | unknown) | | | | | | [facility], | | | | | | | | [facility] | | | | + + + + +---------+ + + + + | Result panel 966 | + + + + + + +---------+ + + | (unknown) | (no date) | (unknown) | [facility] | (no | (units | (unknown) | | | | | MEDICAL | value) | unknown) | | | | | | [facility], | | | | | | | | [facility] | | | | + + + + +---------+ + + + + | Result panel 967 | + + + + + + +---------+ + + | (unknown) | (no date) | (unknown) | [facility] | (no | (units | (unknown) | | | | | MEDICAL | value) | unknown) | | | | | | [facility], | | | | | | | | [facility] | | | | + + + + +---------+ + + + + | Result panel 968 | + + + + + + +---------+ + + | (unknown) | (no date) | (unknown) | [facility] | (no | (units | (unknown) | | | | | MEDICAL | value) | unknown) | | | | | | [facility], | | | | | | | | [facility] | | | | + + + + +---------+ + + + + | Result panel 969 | + + + + + + +---------+ + + | (unknown) | (no date) | (unknown) | [facility] | (no | (units | (unknown) | | | | | MEDICAL | value) | unknown) | | | | | | [facility], | | | | | | | | [facility] | | | | + + + + +---------+ + + + + | Result panel 970 | + + + + + + +---------+ + + | (unknown) | (no date) | (unknown) | [facility] | (no | (units | (unknown) | | | | | MEDICAL | value) | unknown) | | | | | | [facility], | | | | | | | | [facility] | | | | + + + + +---------+ + + + + | Result panel 971 | + + + + + + +---------+ + + | (unknown) | (no date) | (unknown) | [facility] | (no | (units | (unknown) | | | | | MEDICAL | value) | unknown) | | | | | | [facility], | | | | | | | | [facility] | | | | + + + + +---------+ + + + + | Result panel 972 | + + + + + + +---------+ + + | (unknown) | (no date) | (unknown) | [facility] | (no | (units | (unknown) | | | | | MEDICAL | value) | unknown) | | | | | | [facility], | | | | | | | | [facility] | | | | + + + + +---------+ + + + + | Result panel 973 | + + + + + + +---------+ + + | (unknown) | (no date) | (unknown) | [facility] | (no | (units | (unknown) | | | | | MEDICAL | value) | unknown) | | | | | | [facility], | | | | | | | | [facility] | | | | + + + + +---------+ + + + + | Result panel 974 | + + + + + + +---------+ + + | (unknown) | (no date) | (unknown) | [facility] | (no | (units | (unknown) | | | | | MEDICAL | value) | unknown) | | | | | | [facility], | | | | | | | | [facility] | | | | + + + + +---------+ + + + + | Result panel 975 | + + + + + + +---------+ + + | (unknown) | (no date) | (unknown) | [facility] | (no | (units | (unknown) | | | | | MEDICAL | value) | unknown) | | | | | | [facility], | | | | | | | | [facility] | | | | + + + + +---------+ + + + + | Result panel 976 | + + + + + + +---------+ + + | (unknown) | (no date) | (unknown) | [facility] | (no | (units | (unknown) | | | | | MEDICAL | value) | unknown) | | | | | | [facility], | | | | | | | | [facility] | | | | + + + + +---------+ + + + + | Result panel 977 | + + + + + + +---------+ + + | (unknown) | (no date) | (unknown) | [facility] | (no | (units | (unknown) | | | | | MEDICAL | value) | unknown) | | | | | | [facility], | | | | | | | | [facility] | | | | + + + + +---------+ + + + + | Result panel 978 | + + + + + + +---------+ + + | (unknown) | (no date) | (unknown) | [facility] | (no | (units | (unknown) | | | | | MEDICAL | value) | unknown) | | | | | | [facility], | | | | | | | | [facility] | | | | + + + + +---------+ + + + + | Result panel 979 | + + + + + + +---------+ + + | (unknown) | (no date) | (unknown) | [facility] | (no | (units | (unknown) | | | | | MEDICAL | value) | unknown) | | | | | | [facility], | | | | | | | | [facility] | | | | + + + + +---------+ + + + + | Result panel 980 | + + + + + + +---------+ + + | (unknown) | (no date) | (unknown) | [facility] | (no | (units | (unknown) | | | | | MEDICAL | value) | unknown) | | | | | | [facility], | | | | | | | | [facility] | | | | + + + + +---------+ + + + + | Result panel 981 | + + + + + + +---------+ + + | (unknown) | (no date) | (unknown) | [facility] | (no | (units | (unknown) | | | | | MEDICAL | value) | unknown) | | | | | | [facility], | | | | | | | | [facility] | | | | + + + + +---------+ + + + + | Result panel 982 | + + + + + + +---------+ + + | (unknown) | (no date) | (unknown) | [facility] | (no | (units | (unknown) | | | | | MEDICAL | value) | unknown) | | | | | | GROUP, | | | | | | | | [facility] | | | | + + + + +---------+ + + + + | Result panel 983 | + + + + + + +---------+ + + | (unknown) | (no date) | (unknown) | [facility] | (no | (units | (unknown) | | | | | MEDICAL | value) | unknown) | | | | | | GROUP, | | | | | | | | [facility] | | | | + + + + +---------+ + + + + | Result panel 984 | + + + + + + +---------+ + + | (unknown) | (no date) | (unknown) | [facility] | (no | (units | (unknown) | | | | | MEDICAL | value) | unknown) | | | | | | GROUP, | | | | | | | | [facility] | | | | + + + + +---------+ + + + + | Result panel 985 | + + + + + + +---------+ + + | (unknown) | (no date) | (unknown) | [facility] | (no | (units | (unknown) | | | | | MEDICAL | value) | unknown) | | | | | | GROUP, | | | | | | | | [facility] | | | | + + + + +---------+ + + + + | Result panel 986 | + + + + + + +---------+ + + | (unknown) | (no date) | (unknown) | [facility] | (no | (units | (unknown) | | | | | MEDICAL | value) | unknown) | | | | | | GROUP, | | | | | | | | [facility] | | | | + + + + +---------+ + + + + | Result panel 987 | + + + + + + +---------+ + + | (unknown) | (no date) | (unknown) | [facility] | (no | (units | (unknown) | | | | | MEDICAL | value) | unknown) | | | | | | GROUP, | | | | | | | | [facility] | | | | + + + + +---------+ + + + + | Result panel 988 | + + + + + + +---------+ + + | (unknown) | (no date) | (unknown) | [facility] | (no | (units | (unknown) | | | | | MEDICAL | value) | unknown) | | | | | | GROUP, | | | | | | | | [facility] | | | | + + + + +---------+ + + + + | Result panel 989 | + + + + + + +---------+ + + | (unknown) | (no date) | (unknown) | [facility] | (no | (units | (unknown) | | | | | MEDICAL | value) | unknown) | | | | | | GROUP, | | | | | | | | [facility] | | | | + + + + +---------+ + + + + | Result panel 990 | + + + + + + +---------+ + + | (unknown) | (no date) | (unknown) | [facility] | (no | (units | (unknown) | | | | | MEDICAL | value) | unknown) | | | | | | GROUP, | | | | | | | | [facility] | | | | + + + + +---------+ + + + + | Result panel 991 | + + + + + + +---------+ + + | (unknown) | (no date) | (unknown) | [facility] | (no | (units | (unknown) | | | | | MEDICAL | value) | unknown) | | | | | | GROUP, | | | | | | | | [facility] | | | | + + + + +---------+ + + + + | Result panel 992 | + + + + + + +---------+ + + | (unknown) | (no date) | (unknown) | [facility] | (no | (units | (unknown) | | | | | MEDICAL | value) | unknown) | | | | | | GROUP, | | | | | | | | [facility] | | | | + + + + +---------+ + + + + | Result panel 993 | + + + + + + +---------+ + + | (unknown) | (no date) | (unknown) | [facility] | (no | (units | (unknown) | | | | | MEDICAL | value) | unknown) | | | | | | GROUP, | | | | | | | | [facility] | | | | + + + + +---------+ + + + + | Result panel 994 | + + + + + + +---------+ + + | (unknown) | (no date) | (unknown) | [facility] | (no | (units | (unknown) | | | | | MEDICAL | value) | unknown) | | | | | | GROUP, | | | | | | | | [facility] | | | | + + + + +---------+ + + + + | Result panel 995 | + + + + + + +---------+ + + | (unknown) | (no date) | (unknown) | [facility] | (no | (units | (unknown) | | | | | MEDICAL | value) | unknown) | | | | | | GROUP, | | | | | | | | [facility] | | | | + + + + +---------+ + + + + | Result panel 996 | + + + + + + +---------+ + + | (unknown) | (no date) | (unknown) | [facility] | (no | (units | (unknown) | | | | | MEDICAL | value) | unknown) | | | | | | GROUP, | | | | | | | | [facility] | | | | + + + + +---------+ + + + + | Result panel 997 | + + + + + + +---------+ + + | (unknown) | (no date) | (unknown) | [facility] | (no | (units | (unknown) | | | | | MEDICAL | value) | unknown) | | | | | | GROUP, | | | | | | | | [facility] | | | | + + + + +---------+ + + + + | Result panel 998 | + + + + + + +---------+ + + | (unknown) | (no date) | (unknown) | [facility] | (no | (units | (unknown) | | | | | MEDICAL | value) | unknown) | | | | | | GROUP, | | | | | | | | [facility] | | | | + + + + +---------+ + + + + | Result panel 999 | + + + + + + +---------+ + + | (unknown) | (no date) | (unknown) | [facility] | (no | (units | (unknown) | | | | | MEDICAL | value) | unknown) | | | | | | GROUP, | | | | | | | | [facility] | | | | + + + + +---------+ + + + + | Result panel 1000 | + + + + + + +---------+ + + | (unknown) | (no date) | (unknown) | [facility] | (no | (units | (unknown) | | | | | MEDICAL | value) | unknown) | | | | | | GROUP, | | | | | | | | [facility] | | | | + + + + +---------+ + + + + | Result panel 1001 | + + + + + + +---------+ + + | (unknown) | (no date) | (unknown) | [facility] | (no | (units | (unknown) | | | | | MEDICAL | value) | unknown) | | | | | | GROUP, | | | | | | | | [facility] | | | | + + + + +---------+ + + + + | Result panel 1002 | + + + + + + +---------+ + + | (unknown) | (no date) | (unknown) | [facility] | (no | (units | (unknown) | | | | | MEDICAL | value) | unknown) | | | | | | GROUP, | | | | | | | | [facility] | | | | + + + + +---------+ + + + + | Result panel 1003 | + + + + + + +---------+ + + | (unknown) | (no date) | (unknown) | [facility] | (no | (units | (unknown) | | | | | MEDICAL | value) | unknown) | | | | | | GROUP, | | | | | | | | [facility] | | | | + + + + +---------+ + + + + | Result panel 1004 | + + + + + + +---------+ + + | (unknown) | (no date) | (unknown) | [facility] | (no | (units | (unknown) | | | | | MEDICAL | value) | unknown) | | | | | | GROUP, | | | | | | | | [facility] | | | | + + + + +---------+ + + + + | Result panel 1005 | + + + + + + +---------+ + + | (unknown) | (no date) | (unknown) | [facility] | (no | (units | (unknown) | | | | | MEDICAL | value) | unknown) | | | | | | GROUP, | | | | | | | | [facility] | | | | + + + + +---------+ + + + + | Result panel 1006 | + + + + + + +---------+ + + | (unknown) | (no date) | (unknown) | [facility] | (no | (units | (unknown) | | | | | MEDICAL | value) | unknown) | | | | | | GROUP, | | | | | | | | [facility] | | | | + + + + +---------+ + + + + | Result panel 1007 | + + + + + + +---------+ + + | (unknown) | (no date) | (unknown) | [facility] | (no | (units | (unknown) | | | | | MEDICAL | value) | unknown) | | | | | | GROUP, | | | | | | | | [facility] | | | | + + + + +---------+ + + + + | Result panel 1008 | + + + + + + +---------+ + + | (unknown) | (no date) | (unknown) | [facility] | (no | (units | (unknown) | | | | | MEDICAL | value) | unknown) | | | | | | GROUP, | | | | | | | | [facility] | | | | + + + + +---------+ + + + + | Result panel 1009 | + + + + + + +---------+ + + | (unknown) | (no date) | (unknown) | [facility] | (no | (units | (unknown) | | | | | MEDICAL | value) | unknown) | | | | | | GROUP, | | | | | | | | [facility] | | | | + + + + +---------+ + + + + | Result panel 1010 | + + + + + + +---------+ + + | (unknown) | (no date) | (unknown) | [facility] | (no | (units | (unknown) | | | | | MEDICAL | value) | unknown) | | | | | | GROUP, | | | | | | | | [facility] | | | | + + + + +---------+ + + + + | Result panel 1011 | + + + + + + +---------+ + + | (unknown) | (no date) | (unknown) | [facility] | (no | (units | (unknown) | | | | | MEDICAL | value) | unknown) | | | | | | GROUP, | | | | | | | | [facility] | | | | + + + + +---------+ + + + + | Result panel 1012 | + + + + + + +---------+ + + | (unknown) | (no date) | (unknown) | [facility] | (no | (units | (unknown) | | | | | MEDICAL | value) | unknown) | | | | | | GROUP, | | | | | | | | [facility] | | | | + + + + +---------+ + + + + | Result panel 1013 | + + + + + + +---------+ + + | (unknown) | (no date) | (unknown) | [facility] | (no | (units | (unknown) | | | | | MEDICAL | value) | unknown) | | | | | | GROUP, | | | | | | | | [facility] | | | | + + + + +---------+ + + + + | Result panel 1014 | + + + + + + +---------+ + + | (unknown) | (no date) | (unknown) | [facility] | (no | (units | (unknown) | | | | | MEDICAL | value) | unknown) | | | | | | GROUP, | | | | | | | | [facility] | | | | + + + + +---------+ + + + + | Result panel 1015 | + + + + + + +---------+ + + | (unknown) | (no date) | (unknown) | [facility] | (no | (units | (unknown) | | | | | MEDICAL | value) | unknown) | | | | | | [facility], | | | | | | | | [facility] | | | | + + + + +---------+ + + + + | Result panel 1016 | + + + + + + +---------+ + + | (unknown) | (no date) | (unknown) | [facility] | (no | (units | (unknown) | | | | | MEDICAL | value) | unknown) | | | | | | [facility], | | | | | | | | [facility] | | | | + + + + +---------+ + + + + | Result panel 1017 | + + + + + + +---------+ + + | (unknown) | (no date) | (unknown) | [facility] | (no | (units | (unknown) | | | | | MEDICAL | value) | unknown) | | | | | | [facility], | | | | | | | | [facility] | | | | + + + + +---------+ + + + + | Result panel 1018 | + + + + + + +---------+ + + | (unknown) | (no date) | (unknown) | [facility] | (no | (units | (unknown) | | | | | MEDICAL | value) | unknown) | | | | | | [facility], | | | | | | | | [facility] | | | | + + + + +---------+ + + + + | Result panel 1019 | + + + + + + +---------+ + + | (unknown) | (no date) | (unknown) | [facility] | (no | (units | (unknown) | | | | | MED[facility] | value) | unknown) | | | | | | [facility], | | | | | | | | [facility] | | | | + + + + +---------+ + + + + | Result panel 1020 | + + + + + + +---------+ + + | (unknown) | (no date) | (unknown) | [facility] | (no | (units | (unknown) | | | | | [facility] | value) | unknown) | | | | | | [facility], | | | | | | | | [facility] | | | | + + + + +---------+ + + + + | Result panel 1021 | + + + + + + +---------+ + + | (unknown) | (no date) | (unknown) | [facility] | (no | (units | (unknown) | | | | | [facility] | value) | unknown) | | | | | | [facility], | | | | | | | | [facility] | | | | + + + + +---------+ + + + + | Result panel 1022 | + + + + + + +---------+ + + | (unknown) | (no date) | (unknown) | [facility] | (no | (units | (unknown) | | | | | [facility] | value) | unknown) | | | | | | [facility], | | | | | | | | [facility] | | | | + + + + +---------+ + + + + | Result panel 1023 | + + + + + + +---------+ + + | (unknown) | (no date) | (unknown) | [facility] | (no | (units | (unknown) | | | | | [facility] | value) | unknown) | | | | | | [facility], | | | | | | | | [facility] | | | | + + + + +---------+ + + + + | Result panel 1024 | + + + + + + +---------+ + + | (unknown) | (no date) | (unknown) | [facility] | (no | (units | (unknown) | | | | | [facility] | value) | unknown) | | | | | | [facility], | | | | | | | | [facility] | | | | + + + + +---------+ + + + + | Result panel 1025 | + + + + + + +---------+ + + | (unknown) | (no date) | (unknown) | [facility] | (no | (units | (unknown) | | | | | [facility] | value) | unknown) | | | | | | [facility], | | | | | | | | [facility] | | | | + + + + +---------+ + + + + | Result panel 1026 | + + + + + + +---------+ + + | (unknown) | (no date) | (unknown) | [facility] | (no | (units | (unknown) | | | | | [facility] | value) | unknown) | | | | | | [facility], | | | | | | | | [facility] | | | | + + + + +---------+ + + + + | Result panel 1027 | + + + + + + +---------+ + + | (unknown) | (no date) | (unknown) | [facility] | (no | (units | (unknown) | | | | | [facility] | value) | unknown) | | | | | | [facility], | | | | | | | | [facility] | | | | + + + + +---------+ + + + + | Result panel 1028 | + + + + + + +---------+ + + | (unknown) | (no date) | (unknown) | [facility] | (no | (units | (unknown) | | | | | [facility] | value) | unknown) | | | | | | [facility], | | | | | | | | [facility] | | | | + + + + +---------+ + + + + | Result panel 1029 | + + + + + + +---------+ + + | (unknown) | (no date) | (unknown) | [facility] | (no | (units | (unknown) | | | | | [facility] | value) | unknown) | | | | | | [facility], | | | | | | | | [facility] | | | | + + + + +---------+ + + + + | Result panel 1030 | + + + + + + +---------+ + + | (unknown) | (no date) | (unknown) | [facility] | (no | (units | (unknown) | | | | | [facility] | value) | unknown) | | | | | | [facility], | | | | | | | | [facility] | | | | + + + + +---------+ + + + + | Result panel 1031 | + + + + + + +---------+ + + | (unknown) | (no date) | (unknown) | [facility] | (no | (units | (unknown) | | | | | [facility] | value) | unknown) | | | | | | [facility], | | | | | | | | [facility] | | | | + + + + +---------+ + + + + | Result panel 1032 | + + + + + + +---------+ + + | (unknown) | (no date) | (unknown) | [facility] | (no | (units | (unknown) | | | | | [facility] | value) | unknown) | | | | | | [facility], | | | | | | | | [facility] | | | | + + + + +---------+ + + + + | Result panel 1033 | + + + + + + +---------+ + + | (unknown) | (no date) | (unknown) | [facility] | (no | (units | (unknown) | | | | | [facility] | value) | unknown) | | | | | | [facility], | | | | | | | | [facility] | | | | + + + + +---------+ + + + + | Result panel 1034 | + + + + + + +---------+ + + | (unknown) | (no date) | (unknown) | [facility] | (no | (units | (unknown) | | | | | [facility] | value) | unknown) | | | | | | [facility], | | | | | | | | [facility] | | | | + + + + +---------+ + + + + | Result panel 1035 | + + + + + + +---------+ + + | (unknown) | (no date) | (unknown) | [facility] | (no | (units | (unknown) | | | | | [facility] | value) | unknown) | | | | | | [facility], | | | | | | | | [facility] | | | | + + + + +---------+ + + + + | Result panel 1036 | + + + + + + +---------+ + + | (unknown) | (no date) | (unknown) | [facility] | (no | (units | (unknown) | | | | | [facility] | value) | unknown) | | | | | | [facility], | | | | | | | | [facility] | | | | + + + + +---------+ + + + + | Result panel 1037 | + + + + + + +---------+ + + | (unknown) | (no date) | (unknown) | [facility] | (no | (units | (unknown) | | | | | [facility] | value) | unknown) | | | | | | [facility], | | | | | | | | [facility] | | | | + + + + +---------+ + + + + | Result panel 1038 | + + + + + + +---------+ + + | (unknown) | (no date) | (unknown) | [facility] | (no | (units | (unknown) | | | | | [facility] | value) | unknown) | | | | | | [facility], | | | | | | | | [facility] | | | | + + + + +---------+ + + + + | Result panel 1039 | + + + + + + +---------+ + + | (unknown) | (no date) | (unknown) | [facility] | (no | (units | (unknown) | | | | | [facility] | value) | unknown) | | | | | | [facility], | | | | | | | | [facility] | | | | + + + + +---------+ + + + + | Result panel 1040 | + + + + + + +---------+ + + | (unknown) | (no date) | (unknown) | [facility] | (no | (units | (unknown) | | | | | [facility] | value) | unknown) | | | | | | [facility], | | | | | | | | [facility] | | | | + + + + +---------+ + + + + | Result panel 1041 | + + + + + + +---------+ + + | (unknown) | (no date) | (unknown) | [facility] | (no | (units | (unknown) | | | | | [facility] | value) | unknown) | | | | | | [facility], | | | | | | | | [facility] | | | | + + + + +---------+ + + + + | Result panel 1042 | + + + + + + +---------+ + + | (unknown) | (no date) | (unknown) | [facility] | (no | (units | (unknown) | | | | | [facility] | value) | unknown) | | | | | | [facility], | | | | | | | | [facility] | | | | + + + + +---------+ + + + + | Result panel 1043 | + + + + + + +---------+ + + | (unknown) | (no date) | (unknown) | [facility] | (no | (units | (unknown) | | | | | [facility] | value) | unknown) | | | | | | [facility], | | | | | | | | [facility] | | | | + + + + +---------+ + + + + | Result panel 1044 | + + + + + + +---------+ + + | (unknown) | (no date) | (unknown) | [facility] | (no | (units | (unknown) | | | | | [facility] | value) | unknown) | | | | | | [facility], | | | | | | | | [facility] | | | | + + + + +---------+ + + + + | Result panel 1045 | + + + + + + +---------+ + + | (unknown) | (no date) | (unknown) | [facility] | (no | (units | (unknown) | | | | | [facility] | value) | unknown) | | | | | | [facility], | | | | | | | | [facility] | | | | + + + + +---------+ + + + + | Result panel 1046 | + + + + + + +---------+ + + | (unknown) | (no date) | (unknown) | [facility] | (no | (units | (unknown) | | | | | [facility] | value) | unknown) | | | | | | [facility], | | | | | | | | [facility] | | | | + + + + +---------+ + + + + | Result panel 1047 | + + + + + + +---------+ + + | (unknown) | (no date) | (unknown) | [facility] | (no | (units | (unknown) | | | | | [facility] | value) | unknown) | | | | | | [facility], | | | | | | | | [facility] | | | | + + + + +---------+ + + + + | Result panel 1048 | + + + + + + +---------+ + + | (unknown) | (no date) | (unknown) | [facility] | (no | (units | (unknown) | | | | | [facility] | value) | unknown) | | | | | | [facility], | | | | | | | | [facility] | | | | + + + + +---------+ + + + + | Result panel 1049 | + + + + + + +---------+ + + | (unknown) | (no date) | (unknown) | [facility] | (no | (units | (unknown) | | | | | [facility] | value) | unknown) | | | | | | [facility], | | | | | | | | [facility] | | | | + + + + +---------+ + + + + | Result panel 1050 | + + + + + + +---------+ + + | (unknown) | (no date) | (unknown) | [facility] | (no | (units | (unknown) | | | | | [facility] | value) | unknown) | | | | | | [facility], | | | | | | | | [facility] | | | | + + + + +---------+ + + + + | Result panel 1051 | + + + + + + +---------+ + + | (unknown) | (no date) | (unknown) | [facility] | (no | (units | (unknown) | | | | | [facility] | value) | unknown) | | | | | | [facility], | | | | | | | | [facility] | | | | + + + + +---------+ + + + + | Result panel 1052 | + + + + + + +---------+ + + | (unknown) | (no date) | (unknown) | [facility] | (no | (units | (unknown) | | | | | [facility] | value) | unknown) | | | | | | [facility], | | | | | | | | [facility] | | | | + + + + +---------+ + + + + | Result panel 1053 | + + + + + + +---------+ + + | (unknown) | (no date) | (unknown) | [facility] | (no | (units | (unknown) | | | | | [facility] | value) | unknown) | | | | | | [facility], | | | | | | | | [facility] | | | | + + + + +---------+ + + + + | Result panel 1054 | + + + + + + +---------+ + + | (unknown) | (no date) | (unknown) | [facility] | (no | (units | (unknown) | | | | | [facility] | value) | unknown) | | | | | | [facility], | | | | | | | | [facility] | | | | + + + + +---------+ + + + + | Result panel 1055 | + + + + + + +---------+ + + | (unknown) | (no date) | (unknown) | [facility] | (no | (units | (unknown) | | | | | [facility] | value) | unknown) | | | | | | [facility], | | | | | | | | [facility] | | | | + + + + +---------+ + + + + | Result panel 1056 | + + + + + + +---------+ + + | (unknown) | (no date) | (unknown) | [facility] | (no | (units | (unknown) | | | | | [facility] | value) | unknown) | | | | | | [facility], | | | | | | | | [facility] | | | | + + + + +---------+ + + + + | Result panel 1057 | + + + + + + +---------+ + + | (unknown) | (no date) | (unknown) | [facility] | (no | (units | (unknown) | | | | | [facility] | value) | unknown) | | | | | | [facility], | | | | | | | | [facility] | | | | + + + + +---------+ + + + + | Result panel 1058 | + + + + + + +---------+ + + | (unknown) | (no date) | (unknown) | [facility] | (no | (units | (unknown) | | | | | [facility] | value) | unknown) | | | | | | [facility], | | | | | | | | [facility] | | | | + + + + +---------+ + + + + | Result panel 1059 | + + + + + + +---------+ + + | (unknown) | (no date) | (unknown) | [facility] | (no | (units | (unknown) | | | | | MED[facility] | value) | unknown) | | | | | | [facility], | | | | | | | | [facility] | | | | + + + + +---------+ + + + + | Result panel 1060 | + + + + + + +---------+ + + | (unknown) | (no date) | (unknown) | [facility] | (no | (units | (unknown) | | | | | [facility] | value) | unknown) | | | | | | [facility], | | | | | | | | [facility] | | | | + + + + +---------+ + + + + | Result panel 1061 | + + + + + + +---------+ + + | (unknown) | (no date) | (unknown) | [facility] | (no | (units | (unknown) | | | | | [facility] | value) | unknown) | | | | | | [facility], | | | | | | | | [facility] | | | | + + + + +---------+ + + + + | Result panel 1062 | + + + + + + +---------+ + + | (unknown) | (no date) | (unknown) | [facility] | (no | (units | (unknown) | | | | | [facility] | value) | unknown) | | | | | | [facility], | | | | | | | | [facility] | | | | + + + + +---------+ + + + + | Result panel 1063 | + + + + + + +---------+ + + | (unknown) | (no date) | (unknown) | [facility] | (no | (units | (unknown) | | | | | [facility] | value) | unknown) | | | | | | [facility], | | | | | | | | [facility] | | | | + + + + +---------+ + + + + | Result panel 1064 | + + + + + + +---------+ + + | (unknown) | (no date) | (unknown) | [facility] | (no | (units | (unknown) | | | | | [facility] | value) | unknown) | | | | | | [facility], | | | | | | | | [facility] | | | | + + + + +---------+ + + + + | Result panel 1065 | + + + + + + +---------+ + + | (unknown) | (no date) | (unknown) | [facility] | (no | (units | (unknown) | | | | | [facility] | value) | unknown) | | | | | | [facility], | | | | | | | | [facility] | | | | + + + + +---------+ + + + + | Result panel 1066 | + + + + + + +---------+ + + | (unknown) | (no date) | (unknown) | [facility] | (no | (units | (unknown) | | | | | [facility] | value) | unknown) | | | | | | [facility], | | | | | | | | [facility] | | | | + + + + +---------+ + + + + | Result panel 1067 | + + + + + + +---------+ + + | (unknown) | (no date) | (unknown) | [facility] | (no | (units | (unknown) | | | | | [facility] | value) | unknown) | | | | | | [facility], | | | | | | | | [facility] | | | | + + + + +---------+ + + + + | Result panel 1068 | + + + + + + +---------+ + + | (unknown) | (no date) | (unknown) | [facility] | (no | (units | (unknown) | | | | | MEDICAL | value) | unknown) | | | | | | [facility], | | | | | | | | [facility] | | | | + + + + +---------+ + + + + | Result panel 1069 | + + + + + + +---------+ + + | (unknown) | (no date) | (unknown) | [facility] | (no | (units | (unknown) | | | | | MEDICAL | value) | unknown) | | | | | | [facility], | | | | | | | | [facility] | | | | + + + + +---------+ + + + + | Result panel 1070 | + + + + + + +---------+ + + | (unknown) | (no date) | (unknown) | [facility] | (no | (units | (unknown) | | | | | MED[facility] | value) | unknown) | | | | | | [facility], | | | | | | | | [facility] | | | | + + + + +---------+ + + + + | Result panel 1071 | + + + + + + +---------+ + + | (unknown) | (no date) | (unknown) | [facility] | (no | (units | (unknown) | | | | | MEDICAL | value) | unknown) | | | | | | [facility], | | | | | | | | [facility] | | | | + + + + +---------+ + + + + | Result panel 1072 | + + + + + + +---------+ + + | (unknown) | (no date) | (unknown) | [facility] | (no | (units | (unknown) | | | | | MED[facility] | value) | unknown) | | | | | | [facility], | | | | | | | | [facility] | | | | + + + + +---------+ + + + + | Result panel 1073 | + + + + + + +---------+ + + | (unknown) | (no date) | (unknown) | [facility] | (no | (units | (unknown) | | | | | MED[facility] | value) | unknown) | | | | | | [facility], | | | | | | | | [facility] | | | | + + + + +---------+ + + + + | Result panel 1074 | + + + + + + +---------+ + + | (unknown) | (no date) | (unknown) | [facility] | (no | (units | (unknown) | | | | | MED[facility] | value) | unknown) | | | | | | [facility], | | | | | | | | [facility] | | | | + + + + +---------+ + + + + | Result panel 1075 | + + + + + + +---------+ + + | (unknown) | (no date) | (unknown) | [facility] | (no | (units | (unknown) | | | | | [facility] | value) | unknown) | | | | | | [facility], | | | | | | | | [facility] | | | | + + + + +---------+ + + + + | Result panel 1076 | + + + + + + +---------+ + + | (unknown) | (no date) | (unknown) | [facility] | (no | (units | (unknown) | | | | | [facility] | value) | unknown) | | | | | | [facility], | | | | | | | | [facility] | | | | + + + + +---------+ + + + + | Result panel 1077 | + + + + + + +---------+ + + | (unknown) | (no date) | (unknown) | [facility] | (no | (units | (unknown) | | | | | MEDICAL | value) | unknown) | | | | | | [facility], | | | | | | | | [facility] | | | | + + + + +---------+ + + + + | Result panel 1078 | + + + + + + +---------+ + + | (unknown) | (no date) | (unknown) | [facility] | (no | (units | (unknown) | | | | | [facility] | value) | unknown) | | | | | | [facility], | | | | | | | | [facility] | | | | + + + + +---------+ + + + + | Result panel 1079 | + + + + + + +---------+ + + | (unknown) | (no date) | (unknown) | [facility] | (no | (units | (unknown) | | | | | MED[facility] | value) | unknown) | | | | | | [facility], | | | | | | | | [facility] | | | | + + + + +---------+ + + + + | Result panel 1080 | + + + + + + +---------+ + + | (unknown) | (no date) | (unknown) | [facility] | (no | (units | (unknown) | | | | | MED[facility] | value) | unknown) | | | | | | [facility], | | | | | | | | [facility] | | | | + + + + +---------+ + + + + | Result panel 1081 | + + + + + + +---------+ + + | (unknown) | (no date) | (unknown) | [facility] | (no | (units | (unknown) | | | | | MEDICAL | value) | unknown) | | | | | | [facility], | | | | | | | | [facility] | | | | + + + + +---------+ + + + + | Result panel 1082 | + + + + + + +---------+ + + | (unknown) | (no date) | (unknown) | [facility] | (no | (units | (unknown) | | | | | MEDICAL | value) | unknown) | | | | | | [facility], | | | | | | | | [facility] | | | | + + + + +---------+ + + + + | Result panel 1083 | + + + + + + +---------+ + + | (unknown) | (no date) | (unknown) | [facility] | (no | (units | (unknown) | | | | | MEDICAL | value) | unknown) | | | | | | [facility], | | | | | | | | [facility] | | | | + + + + +---------+ + + + + | Result panel 1084 | + + + + + + +---------+ + + | (unknown) | (no date) | (unknown) | [facility] | (no | (units | (unknown) | | | | | MEDICAL | value) | unknown) | | | | | | GROUP, | | | | | | | | [facility] | | | | + + + + +---------+ + + + + | Result panel 1085 | + + + + + + +---------+ + + | (unknown) | (no date) | (unknown) | [facility] | (no | (units | (unknown) | | | | | MEDICAL | value) | unknown) | | | | | | GROUP, | | | | | | | | [facility] | | | | + + + + +---------+ + + + + | Result panel 1086 | + + + + + + +---------+ + + | (unknown) | (no date) | (unknown) | [facility] | (no | (units | (unknown) | | | | | MEDICAL | value) | unknown) | | | | | | GROUP, | | | | | | | | [facility] | | | | + + + + +---------+ + + + + | Result panel 1087 | + + + + + + +---------+ + + | (unknown) | (no date) | (unknown) | [facility] | (no | (units | (unknown) | | | | | MEDICAL | value) | unknown) | | | | | | GROUP, | | | | | | | | [facility] | | | | + + + + +---------+ + + + + | Result panel 1088 | + + + + + + +---------+ + + | (unknown) | (no date) | (unknown) | [facility] | (no | (units | (unknown) | | | | | MEDICAL | value) | unknown) | | | | | | GROUP, | | | | | | | | [facility] | | | | + + + + +---------+ + + + + | Result panel 1089 | + + + + + + +---------+ + + | (unknown) | (no date) | (unknown) | [facility] | (no | (units | (unknown) | | | | | MEDICAL | value) | unknown) | | | | | | GROUP, | | | | | | | | [facility] | | | | + + + + +---------+ + + + + | Result panel 1090 | + + + + + + +---------+ + + | (unknown) | (no date) | (unknown) | [facility] | (no | (units | (unknown) | | | | | MEDICAL | value) | unknown) | | | | | | GROUP, | | | | | | | | [facility] | | | | + + + + +---------+ + + + + | Result panel 1091 | + + + + + + +---------+ + + | (unknown) | (no date) | (unknown) | [facility] | (no | (units | (unknown) | | | | | MEDICAL | value) | unknown) | | | | | | GROUP, | | | | | | | | [facility] | | | | + + + + +---------+ + + + + | Result panel 1092 | + + + + + + +---------+ + + | (unknown) | (no date) | (unknown) | [facility] | (no | (units | (unknown) | | | | | MEDICAL | value) | unknown) | | | | | | GROUP, | | | | | | | | [facility] | | | | + + + + +---------+ + + + + | Result panel 1093 | + + + + + + +---------+ + + | (unknown) | (no date) | (unknown) | [facility] | (no | (units | (unknown) | | | | | MEDICAL | value) | unknown) | | | | | | GROUP, | | | | | | | | [facility] | | | | + + + + +---------+ + + + + | Result panel 1094 | + + + + + + +---------+ + + | (unknown) | (no date) | (unknown) | [facility] | (no | (units | (unknown) | | | | | MEDICAL | value) | unknown) | | | | | | GROUP, | | | | | | | | [facility] | | | | + + + + +---------+ + + + + | Result panel 1095 | + + + + + + +---------+ + + | (unknown) | (no date) | (unknown) | [facility] | (no | (units | (unknown) | | | | | MEDICAL | value) | unknown) | | | | | | GROUP, | | | | | | | | [facility] | | | | + + + + +---------+ + + + + | Result panel 1096 | + + + + + + +---------+ + + | (unknown) | (no date) | (unknown) | [facility] | (no | (units | (unknown) | | | | | MEDICAL | value) | unknown) | | | | | | GROUP, | | | | | | | | [facility] | | | | + + + + +---------+ + + + + | Result panel 1097 | + + + + + + +---------+ + + | (unknown) | (no date) | (unknown) | [facility] | (no | (units | (unknown) | | | | | MEDICAL | value) | unknown) | | | | | | GROUP, | | | | | | | | [facility] | | | | + + + + +---------+ + + + + | Result panel 1098 | + + + + + + +---------+ + + | (unknown) | (no date) | (unknown) | [facility] | (no | (units | (unknown) | | | | | MEDICAL | value) | unknown) | | | | | | GROUP, | | | | | | | | [facility] | | | | + + + + +---------+ + + + + | Result panel 1099 | + + + + + + +---------+ + + | (unknown) | (no date) | (unknown) | [facility] | (no | (units | (unknown) | | | | | MEDICAL | value) | unknown) | | | | | | GROUP, | | | | | | | | [facility] | | | | + + + + +---------+ + + + + | Result panel 1100 | + + + + + + +---------+ + + | (unknown) | (no date) | (unknown) | [facility] | (no | (units | (unknown) | | | | | MEDICAL | value) | unknown) | | | | | | GROUP, | | | | | | | | [facility] | | | | + + + + +---------+ + + + + | Result panel 1101 | + + + + + + +---------+ + + | (unknown) | (no date) | (unknown) | [facility] | (no | (units | (unknown) | | | | | MEDICAL | value) | unknown) | | | | | | GROUP, | | | | | | | | [facility] | | | | + + + + +---------+ + + + + | Result panel 1102 | + + + + + + +---------+ + + | (unknown) | (no date) | (unknown) | [facility] | (no | (units | (unknown) | | | | | MEDICAL | value) | unknown) | | | | | | GROUP, | | | | | | | | [facility] | | | | + + + + +---------+ + + + + | Result panel 1103 | + + + + + + +---------+ + + | (unknown) | (no date) | (unknown) | [facility] | (no | (units | (unknown) | | | | | MEDICAL | value) | unknown) | | | | | | GROUP, | | | | | | | | [facility] | | | | + + + + +---------+ + + + + | Result panel 1104 | + + + + + + +---------+ + + | (unknown) | (no date) | (unknown) | [facility] | (no | (units | (unknown) | | | | | MEDICAL | value) | unknown) | | | | | | GROUP, | | | | | | | | [facility] | | | | + + + + +---------+ + + + + | Result panel 1105 | + + + + + + +---------+ + + | (unknown) | (no date) | (unknown) | [facility] | (no | (units | (unknown) | | | | | MEDICAL | value) | unknown) | | | | | | GROUP, | | | | | | | | [facility] | | | | + + + + +---------+ + + + + | Result panel 1106 | + + + + + + +---------+ + + | (unknown) | (no date) | (unknown) | [facility] | (no | (units | (unknown) | | | | | MEDICAL | value) | unknown) | | | | | | GROUP, | | | | | | | | [facility] | | | | + + + + +---------+ + + + + | Result panel 1107 | + + + + + + +---------+ + + | (unknown) | (no date) | (unknown) | [facility] | (no | (units | (unknown) | | | | | MEDICAL | value) | unknown) | | | | | | GROUP, | | | | | | | | [facility] | | | | + + + + +---------+ + + + + | Result panel 1108 | + + + + + + +---------+ + + | (unknown) | (no date) | (unknown) | [facility] | (no | (units | (unknown) | | | | | MEDICAL | value) | unknown) | | | | | | GROUP, | | | | | | | | [facility] | | | | + + + + +---------+ + + + + | Result panel 1109 | + + + + + + +---------+ + + | (unknown) | (no date) | (unknown) | [facility] | (no | (units | (unknown) | | | | | MEDICAL | value) | unknown) | | | | | | GROUP, | | | | | | | | [facility] | | | | + + + + +---------+ + + + + | Result panel 1110 | + + + + + + +---------+ + + | (unknown) | (no date) | (unknown) | [facility] | (no | (units | (unknown) | | | | | MEDICAL | value) | unknown) | | | | | | GROUP, | | | | | | | | [facility] | | | | + + + + +---------+ + + + + | Result panel 1111 | + + + + + + +---------+ + + | (unknown) | (no date) | (unknown) | [facility] | (no | (units | (unknown) | | | | | MEDICAL | value) | unknown) | | | | | | GROUP, | | | | | | | | [facility] | | | | + + + + +---------+ + + + + | Result panel 1112 | + + + + + + +---------+ + + | (unknown) | (no date) | (unknown) | [facility] | (no | (units | (unknown) | | | | | MEDICAL | value) | unknown) | | | | | | GROUP, | | | | | | | | [facility] | | | | + + + + +---------+ + + + + | Result panel 1113 | + + + + + + +---------+ + + | (unknown) | (no date) | (unknown) | [facility] | (no | (units | (unknown) | | | | | MEDICAL | value) | unknown) | | | | | | GROUP, | | | | | | | | [facility] | | | | + + + + +---------+ + + + + | Result panel 1114 | + + + + + + +---------+ + + | (unknown) | (no date) | (unknown) | [facility] | (no | (units | (unknown) | | | | | MEDICAL | value) | unknown) | | | | | | GROUP, | | | | | | | | [facility] | | | | + + + + +---------+ + + + + | Result panel 1115 | + + + + + + +---------+ + + | (unknown) | (no date) | (unknown) | [facility] | (no | (units | (unknown) | | | | | MEDICAL | value) | unknown) | | | | | | GROUP, | | | | | | | | [facility] | | | | + + + + +---------+ + + + + | Result panel 1116 | + + + + + + +---------+ + + | (unknown) | (no date) | (unknown) | [facility] | (no | (units | (unknown) | | | | | MEDICAL | value) | unknown) | | | | | | GROUP, | | | | | | | | [facility] | | | | + + + + +---------+ + + + + | Result panel 1117 | + + + + + + +---------+ + + | (unknown) | (no date) | (unknown) | [facility] | (no | (units | (unknown) | | | | | MEDICAL | value) | unknown) | | | | | | [facility] | | | | | | | | [facility] | | | | + + + + +---------+ + + + + | Result panel 1118 | + + + + + + +---------+ + + | (unknown) | (no date) | (unknown) | [facility] | (no | (units | (unknown) | | | | | MEDICAL | value) | unknown) | | | | | | [facility], | | | | | | | | [facility] | | | | + + + + +---------+ + + + + | Result panel 1119 | + + + + + + +---------+ + + | (unknown) | (no date) | (unknown) | [facility] | (no | (units | (unknown) | | | | | MEDICAL | value) | unknown) | | | | | | [facility] | | | | | | | | [facility] | | | | + + + + +---------+ + + + + | Result panel 1120 | + + + + + + +---------+ + + | (unknown) | (no date) | (unknown) | [facility] | (no | (units | (unknown) | | | | | MEDICAL | value) | unknown) | | | | | | [facility] | | | | | | | | [facility] | | | | + + + + +---------+ + + + + | Result panel 1121 | + + + + + + +---------+ + + | (unknown) | (no date) | (unknown) | [facility] | (no | (units | (unknown) | | | | | [facility] | value) | unknown) | | | | | | [facility] | | | | | | | | [facility] | | | | + + + + +---------+ + + + + | Result panel 1122 | + + + + + + +---------+ + + | (unknown) | (no date) | (unknown) | [facility] | (no | (units | (unknown) | | | | | [facility] | value) | unknown) | | | | | | [facility] | | | | | | | | [facility] | | | | + + + + +---------+ + + + + | Result panel 1123 | + + + + + + +---------+ + + | (unknown) | (no date) | (unknown) | [facility] | (no | (units | (unknown) | | | | | MEDICAL | value) | unknown) | | | | | | [facility] | | | | | | | | [facility] | | | | + + + + +---------+ + + + + | Result panel 1124 | + + + + + + +---------+ + + | (unknown) | (no date) | (unknown) | [facility] | (no | (units | (unknown) | | | | | MEDICAL | value) | unknown) | | | | | | [facility] | | | | | | | | [facility] | | | | + + + + +---------+ + + + + | Result panel 1125 | + + + + + + +---------+ + + | (unknown) | (no date) | (unknown) | [facility] | (no | (units | (unknown) | | | | | MEDICAL | value) | unknown) | | | | | | [facility] | | | | | | | | [facility] | | | | + + + + +---------+ + + + + | Result panel 1126 | + + + + + + +---------+ + + | (unknown) | (no date) | (unknown) | [facility] | (no | (units | (unknown) | | | | | MEDICAL | value) | unknown) | | | | | | [facility] | | | | | | | | [facility] | | | | + + + + +---------+ + + + + | Result panel 1127 | + + + + + + +---------+ + + | (unknown) | (no date) | (unknown) | [facility] | (no | (units | (unknown) | | | | | MEDICAL | value) | unknown) | | | | | | [facility], | | | | | | | | [facility] | | | | + + + + +---------+ + + + + | Result panel 1128 | + + + + + + +---------+ + + | (unknown) | (no date) | (unknown) | [facility] | (no | (units | (unknown) | | | | | MEDICAL | value) | unknown) | | | | | | [facility] | | | | | | | | [facility] | | | | + + + + +---------+ + + + + | Result panel 1129 | + + + + + + +---------+ + + | (unknown) | (no date) | (unknown) | [facility] | (no | (units | (unknown) | | | | | MEDICAL | value) | unknown) | | | | | | [facility], | | | | | | | | [facility] | | | | + + + + +---------+ + + + + | Result panel 1130 | + + + + + + +---------+ + + | (unknown) | (no date) | (unknown) | [facility] | (no | (units | (unknown) | | | | | MEDICAL | value) | unknown) | | | | | | [facility], | | | | | | | | [facility] | | | | + + + + +---------+ + + + + | Result panel 1131 | + + + + + + +---------+ + + | (unknown) | (no date) | (unknown) | [facility] | (no | (units | (unknown) | | | | | MEDICAL | value) | unknown) | | | | | | [facility], | | | | | | | | [facility] | | | | + + + + +---------+ + + + + | Result panel 1132 | + + + + + + +---------+ + + | (unknown) | (no date) | (unknown) | [facility] | (no | (units | (unknown) | | | | | MEDICAL | value) | unknown) | | | | | | [facility], | | | | | | | | [facility] | | | | + + + + +---------+ + + + + | Result panel 1133 | + + + + + + +---------+ + + | (unknown) | (no date) | (unknown) | [facility] | (no | (units | (unknown) | | | | | MEDICAL | value) | unknown) | | | | | | [facility], | | | | | | | | [facility] | | | | + + + + +---------+ + + + + | Result panel 1134 | + + + + + + +---------+ + + | (unknown) | (no date) | (unknown) | [facility] | (no | (units | (unknown) | | | | | MEDICAL | value) | unknown) | | | | | | [facility], | | | | | | | | [facility] | | | | + + + + +---------+ + + + + | Result panel 1135 | + + + + + + +---------+ + + | (unknown) | (no date) | (unknown) | [facility] | (no | (units | (unknown) | | | | | MEDICAL | value) | unknown) | | | | | | [facility], | | | | | | | | [facility] | | | | + + + + +---------+ + + + + | Result panel 1136 | + + + + + + +---------+ + + | (unknown) | (no date) | (unknown) | [facility] | (no | (units | (unknown) | | | | | MEDICAL | value) | unknown) | | | | | | [facility], | | | | | | | | [facility] | | | | + + + + +---------+ + + + + | Result panel 1137 | + + + + + + +---------+ + + | (unknown) | (no date) | (unknown) | [facility] | (no | (units | (unknown) | | | | | MEDICAL | value) | unknown) | | | | | | [facility], | | | | | | | | [facility] | | | | + + + + +---------+ + + + + | Result panel 1138 | + + + + + + +---------+ + + | (unknown) | (no date) | (unknown) | [facility] | (no | (units | (unknown) | | | | | MEDICAL | value) | unknown) | | | | | | [facility], | | | | | | | | [facility] | | | | + + + + +---------+ + + + + | Result panel 1139 | + + + + + + +---------+ + + | (unknown) | (no date) | (unknown) | [facility] | (no | (units | (unknown) | | | | | MEDICAL | value) | unknown) | | | | | | [facility], | | | | | | | | [facility] | | | | + + + + +---------+ + + + + | Result panel 1140 | + + + + + + +---------+ + + | (unknown) | (no date) | (unknown) | [facility] | (no | (units | (unknown) | | | | | MEDICAL | value) | unknown) | | | | | | [facility], | | | | | | | | [facility] | | | | + + + + +---------+ + + + + | Result panel 1141 | + + + + + + +---------+ + + | (unknown) | (no date) | (unknown) | [facility] | (no | (units | (unknown) | | | | | MEDICAL | value) | unknown) | | | | | | [facility], | | | | | | | | [facility] | | | | + + + + +---------+ + + + + | Result panel 1142 | + + + + + + +---------+ + + | (unknown) | (no date) | (unknown) | [facility] | (no | (units | (unknown) | | | | | MEDICAL | value) | unknown) | | | | | | [facility], | | | | | | | | [facility] | | | | + + + + +---------+ + + + + | Result panel 1143 | + + + + + + +---------+ + + | (unknown) | (no date) | (unknown) | [facility] | (no | (units | (unknown) | | | | | MEDICAL | value) | unknown) | | | | | | [facility], | | | | | | | | [facility] | | | | + + + + +---------+ + + + + | Result panel 1144 | + + + + + + +---------+ + + | (unknown) | (no date) | (unknown) | [facility] | (no | (units | (unknown) | | | | | MEDICAL | value) | unknown) | | | | | | [facility], | | | | | | | | [facility] | | | | + + + + +---------+ + + + + | Result panel 1145 | + + + + + + +---------+ + + | (unknown) | (no date) | (unknown) | [facility] | (no | (units | (unknown) | | | | | MEDICAL | value) | unknown) | | | | | | [facility], | | | | | | | | [facility] | | | | + + + + +---------+ + + + + | Result panel 1146 | + + + + + + +---------+ + + | (unknown) | (no date) | (unknown) | [facility] | (no | (units | (unknown) | | | | | MEDICAL | value) | unknown) | | | | | | [facility], | | | | | | | | [facility] | | | | + + + + +---------+ + + + + | Result panel 1147 | + + + + + + +---------+ + + | (unknown) | (no date) | (unknown) | [facility] | (no | (units | (unknown) | | | | | MEDICAL | value) | unknown) | | | | | | [facility], | | | | | | | | [facility] | | | | + + + + +---------+ + + + + | Result panel 1148 | + + + + + + +---------+ + + | (unknown) | (no date) | (unknown) | [facility] | (no | (units | (unknown) | | | | | MEDICAL | value) | unknown) | | | | | | [facility], | | | | | | | | [facility] | | | | + + + + +---------+ + + + + | Result panel 1149 | + + + + + + +---------+ + + | (unknown) | (no date) | (unknown) | [facility] | (no | (units | (unknown) | | | | | MEDICAL | value) | unknown) | | | | | | [facility], | | | | | | | | [facility] | | | | + + + + +---------+ + + + + | Result panel 1150 | + + + + + + +---------+ + + | (unknown) | (no date) | (unknown) | [facility] | (no | (units | (unknown) | | | | | MEDICAL | value) | unknown) | | | | | | [facility], | | | | | | | | [facility] | | | | + + + + +---------+ + + + + | Result panel 1151 | + + + + + + +---------+ + + | (unknown) | (no date) | (unknown) | [facility] | (no | (units | (unknown) | | | | | MEDICAL | value) | unknown) | | | | | | [facility], | | | | | | | | [facility] | | | | + + + + +---------+ + + + + | Result panel 1152 | + + + + + + +---------+ + + | (unknown) | (no date) | (unknown) | [facility] | (no | (units | (unknown) | | | | | MEDICAL | value) | unknown) | | | | | | [facility], | | | | | | | | [facility] | | | | + + + + +---------+ + + + + | Result panel 1153 | + + + + + + +---------+ + + | (unknown) | (no date) | (unknown) | [facility] | (no | (units | (unknown) | | | | | MEDICAL | value) | unknown) | | | | | | [facility], | | | | | | | | [facility] | | | | + + + + +---------+ + + + + | Result panel 1154 | + + + + + + +---------+ + + | (unknown) | (no date) | (unknown) | [facility] | (no | (units | (unknown) | | | | | MEDICAL | value) | unknown) | | | | | | [facility], | | | | | | | | [facility] | | | | + + + + +---------+ + + + + | Result panel 1155 | + + + + + + +---------+ + + | (unknown) | (no date) | (unknown) | [facility] | (no | (units | (unknown) | | | | | MEDICAL | value) | unknown) | | | | | | [facility], | | | | | | | | [facility] | | | | + + + + +---------+ + + + + | Result panel 1156 | + + + + + + +---------+ + + | (unknown) | (no date) | (unknown) | [facility] | (no | (units | (unknown) | | | | | MEDICAL | value) | unknown) | | | | | | [facility], | | | | | | | | [facility] | | | | + + + + +---------+ + + + + | Result panel 1157 | + + + + + + +---------+ + + | (unknown) | (no date) | (unknown) | [facility] | (no | (units | (unknown) | | | | | MEDICAL | value) | unknown) | | | | | | [facility], | | | | | | | | [facility] | | | | + + + + +---------+ + + + + | Result panel 1158 | + + + + + + +---------+ + + | (unknown) | (no date) | (unknown) | [facility] | (no | (units | (unknown) | | | | | MEDICAL | value) | unknown) | | | | | | [facility], | | | | | | | | [facility] | | | | + + + + +---------+ + + + + | Result panel 1159 | + + + + + + +---------+ + + | (unknown) | (no date) | (unknown) | [facility] | (no | (units | (unknown) | | | | | MEDICAL | value) | unknown) | | | | | | [facility], | | | | | | | | [facility] | | | | + + + + +---------+ + + + + | Result panel 1160 | + + + + + + +---------+ + + | (unknown) | (no date) | (unknown) | [facility] | (no | (units | (unknown) | | | | | MEDICAL | value) | unknown) | | | | | | [facility], | | | | | | | | [facility] | | | | + + + + +---------+ + + + + | Result panel 1161 | + + + + + + +---------+ + + | (unknown) | (no date) | (unknown) | [facility] | (no | (units | (unknown) | | | | | MEDICAL | value) | unknown) | | | | | | [facility], | | | | | | | | [facility] | | | | + + + + +---------+ + + + + | Result panel 1162 | + + + + + + +---------+ + + | (unknown) | (no date) | (unknown) | [facility] | (no | (units | (unknown) | | | | | MEDICAL | value) | unknown) | | | | | | [facility], | | | | | | | | [facility] | | | | + + + + +---------+ + + + + | Result panel 1163 | + + + + + + +---------+ + + | (unknown) | (no date) | (unknown) | [facility] | (no | (units | (unknown) | | | | | MEDICAL | value) | unknown) | | | | | | [facility], | | | | | | | | [facility] | | | | + + + + +---------+ + + + + | Result panel 1164 | + + + + + + +---------+ + + | (unknown) | (no date) | (unknown) | [facility] | (no | (units | (unknown) | | | | | MEDICAL | value) | unknown) | | | | | | [facility], | | | | | | | | [facility] | | | | + + + + +---------+ + + + + | Result panel 1165 | + + + + + + +---------+ + + | (unknown) | (no date) | (unknown) | [facility] | (no | (units | (unknown) | | | | | MEDICAL | value) | unknown) | | | | | | [facility], | | | | | | | | [facility] | | | | + + + + +---------+ + + + + | Result panel 1166 | + + + + + + +---------+ + + | (unknown) | (no date) | (unknown) | [facility] | (no | (units | (unknown) | | | | | MEDICAL | value) | unknown) | | | | | | [facility], | | | | | | | | [facility] | | | | + + + + +---------+ + + + + | Result panel 1167 | + + + + + + +---------+ + + | (unknown) | (no date) | (unknown) | [facility] | (no | (units | (unknown) | | | | | MEDICAL | value) | unknown) | | | | | | [facility], | | | | | | | | [facility] | | | | + + + + +---------+ + + + + | Result panel 1168 | + + + + + + +---------+ + + | (unknown) | (no date) | (unknown) | [facility] | (no | (units | (unknown) | | | | | MEDICAL | value) | unknown) | | | | | | [facility], | | | | | | | | [facility] | | | | + + + + +---------+ + + + + | Result panel 1169 | + + + + + + +---------+ + + | (unknown) | (no date) | (unknown) | [facility] | (no | (units | (unknown) | | | | | MEDICAL | value) | unknown) | | | | | | [facility], | | | | | | | | [facility] | | | | + + + + +---------+ + + + + | Result panel 1170 | + + + + + + +---------+ + + | (unknown) | (no date) | (unknown) | [facility] | (no | (units | (unknown) | | | | | MEDICAL | value) | unknown) | | | | | | [facility], | | | | | | | | [facility] | | | | + + + + +---------+ + + + + | Result panel 1171 | + + + + + + +---------+ + + | (unknown) | (no date) | (unknown) | [facility] | (no | (units | (unknown) | | | | | MEDICAL | value) | unknown) | | | | | | [facility], | | | | | | | | [facility] | | | | + + + + +---------+ + + + + | Result panel 1172 | + + + + + + +---------+ + + | (unknown) | (no date) | (unknown) | [facility] | (no | (units | (unknown) | | | | | MEDICAL | value) | unknown) | | | | | | [facility], | | | | | | | | [facility] | | | | + + + + +---------+ + + + + | Result panel 1173 | + + + + + + +---------+ + + | (unknown) | (no date) | (unknown) | [facility] | (no | (units | (unknown) | | | | | MEDICAL | value) | unknown) | | | | | | [facility], | | | | | | | | [facility] | | | | + + + + +---------+ + + Social History + + + + | date | description | facility | + + + + | 2020-04-29 00:00 | Unknown if ever smoked | [facility] | | | | | + + + + | 2021-03-16 00:00 | Unknown if ever smoked | [facility] | | | | | + + + + | 2021-03-30 00:00 | Unknown if ever smoked | [facility] | | | | | + + + + | 2021-05-10 00:00 | Unknown if ever smoked | [facility] | | | | | + + + + | 2021-05-17 00:00 | Unknown if ever smoked | [facility] | | | | | + + + + | 2021-05-20 00:00 | Unknown if ever smoked | [facility] | | | | | + + + + | 2021-06-15 00:00 | Unknown if ever smoked | [facility] | | | | | + + + + | 2021-07-15 00:00 | Unknown if ever smoked | [facility] | | | | | + + + + | 2021-09-23 00:00 | Unknown if ever smoked | [facility] | | | | | + + + + | 2021-09-26 00:00 | Unknown if ever smoked | [facility] | | | | | + + + + | 2021-10-14 00:00 | Unknown if ever smoked | [facility] | + + + + | 2021-11-01 00:00 | Unknown if ever smoked | [facility] | | | | | + + + + | 2021-12-24 00:00 | Unknown if ever smoked | [facility] | | | | | + + + + | 2022-01-27 00:00 | Unknown if ever smoked | [facility] | | | | | + + + + | 2022-03-16 00:00 | Unknown if ever smoked | [facility] | | | | | + + + + | 2022-06-15 00:00 | Unknown if ever smoked | [facility] | | | | | + + + + | 2022-09-08 00:00 | Unknown if ever smoked | [facility] | + + + + Vital Signs + + + + + | date | measurement | value | units | + + + + + | 2019-10-04 00:00 | BMI | 26.1 | kg/m2 | + + + + + | 2019-10-04 00:00 | BP_diastolic | 90 | mmHg | + + + + + | 2019-10-04 00:00 | BP_systolic | 130 | mmHg | + + + + + | 2019-10-04 00:00 | BSA | 1.66 | m2 | + + + + + | 2019-10-04 00:00 | heart_rate | 1|1| | completed | + + + + + | 2019-10-04 00:00 | heart_rate | 88 | /min | + + + + + | 2019-10-04 00:00 | height_metric | 157.48 | cm | + + + + + | 2019-10-04 00:00 | height_standard | 62 | in | + + + + + | 2019-10-04 00:00 | weight_metric | 64.64 | kg | + + + + + | 2019-10-04 00:00 | weight_standard | 142.5 | lb | + + + + + | 2019-10-21 00:00 | BMI | 26.7 | kg/m2 | + + + + + | 2019-10-21 00:00 | BP_diastolic | 110 | mmHg | + + + + + | 2019-10-21 00:00 | BP_diastolic | 118 | mmHg | + + + + + | 2019-10-21 00:00 | BP_systolic | 180 | mmHg | + + + + + | 2019-10-21 00:00 | BP_systolic | 184 | mmHg | + + + + + | 2019-10-21 00:00 | BSA | 1.67 | m2 | + + + + + | 2019-10-21 00:00 | heart_rate | 1|1| | completed | + + + + + | 2019-10-21 00:00 | heart_rate | 67 | /min | + + + + + 2019-10-21 00:00 | height_metric | 157.48 | cm | + + + + + 2019-10-21 00:00 | height_standard | 62 | in | + + + + + | 2019-10-21 00:00 | weight_metric | 66.28 | kg | + + + + + | 2019-10-21 00:00 | weight_standard | 146.13 | lb | + + + + + | 2019-11-19 00:00 | BMI | 26.6 | kg/m2 | + + + + + | 2019-11-19 00:00 | BP_diastolic | 118 | mmHg | + + + + + | 2019-11-19 00:00 | BP_systolic | 158 | mmHg | + + + + + | 2019-11-19 00:00 | BSA | 1.67 | m2 | + + + + + | 2019-11-19 00:00 | heart_rate | 1|1| | completed | + + + + + | 2019-11-19 00:00 | heart_rate | 88 | /min | + + + + + | 2019-11-19 00:00 | height_metric | 157.48 | cm | + + + + + | 2019-11-19 00:00 | height_standard | 62 | in | + + + + + | 2019-11-19 00:00 | o2_saturation | 93 | % | + + + + + | 2019-11-19 00:00 | respiration_rate | 24 | /min | + + + + + | 2019-11-19 00:00 | temperature_metric | 36.67 | C | | | | | | + + + + + | 2019-11-19 00:00 | | 98 | F | | | temperature_standar | | | | | d | | | + + + + + | 2019-11-19 00:00 | weight_metric | 66 | kg | + + + + + | 2019-11-19 00:00 | weight_standard | 145.5 | lb | + + + + + | 2019-12-23 00:00 | BMI | 27.1 | kg/m2 | + + + + + | 2019-12-23 00:00 | BP_diastolic | 90 | mmHg | + + + + + | 2019-12-23 00:00 | BP_systolic | 138 | mmHg | + + + + + | 2019-12-23 00:00 | BSA | 1.68 | m2 | + + + + + | 2019-12-23 00:00 | heart_rate | 1|1| | completed | + + + + + | 2019-12-23 00:00 | heart_rate | 90 | /min | + + + + + | 2019-12-23 00:00 | height_metric | 157.48 | cm | + + + + + | 2019-12-23 00:00 | height_standard | 62 | in | + + + + + | 2019-12-23 00:00 | weight_metric | 67.13 | kg | + + + + + | 2019-12-23 00:00 | weight_standard | 148 | lb | + + + + + | 2020-01-27 00:00 | BMI | 27.1 | kg/m2 | + + + + + | 2020-01-27 00:00 | BP_diastolic | 110 | mmHg | + + + + + | 2020-01-27 00:00 | BP_systolic | 138 | mmHg | + + + + + | 2020-01-27 00:00 | BSA | 1.68 | m2 | + + + + + | 2020-01-27 00:00 | heart_rate | 1|1| | completed | + + + + + | 2020-01-27 00:00 | heart_rate | 86 | /min | + + + + + | 2020-01-27 00:00 | height_metric | 157.48 | cm | + + + + + | 2020-01-27 00:00 | height_standard | 62 | in | + + + + + | 2020-01-27 00:00 | weight_metric | 67.3 | kg | + + + + + | 2020-01-27 00:00 | weight_standard | 148.38 | lb | + + + + + | 2020-04-28 00:00 | BMI | 27.8 | kg/m2 | + + + + + | 2020-04-28 00:00 | BP_diastolic | 106 | mmHg | + + + + + | 2020-04-28 00:00 | BP_diastolic | 120 | mmHg | + + + + + | 2020-04-28 00:00 | BP_systolic | 208 | mmHg | + + + + + | 2020-04-28 00:00 | BP_systolic | 210 | mmHg | + + + + + | 2020-04-28 00:00 | BSA | 1.70 | m2 | + + + + + | 2020-04-28 00:00 | heart_rate | 1|1| | completed | + + + + + | 2020-04-28 00:00 | heart_rate | 76 | /min | + + + + + | 2020-04-28 00:00 | height_metric | 157.48 | cm | + + + + + | 2020-04-28 00:00 | height_standard | 62 | in | + + + + + | 2020-04-28 00:00 | respiration_rate | 12 | /min | + + + + + | 2020-04-28 00:00 | temperature_metric | 36.72 | C | | | | | | + + + + + | 2020-04-28 00:00 | | 98.1 | F | | | temperature_standar | | | | | d | | | + + + + + | 2020-04-28 00:00 | weight_metric | 69 | kg | + + + + + | 2020-04-28 00:00 | weight_standard | 152.13 | lb | + + + + + | 2020-07-27 00:00 | BMI | 26.0 | kg/m2 | + + + + + | 2020-07-27 00:00 | BP_diastolic | 76 | mmHg | + + + + + | 2020-07-27 00:00 | BP_systolic | 118 | mmHg | + + + + + | 2020-07-27 00:00 | BSA | 1.65 | m2 | + + + + + | 2020-07-27 00:00 | heart_rate | 92 | /min | + + + + + | 2020-07-27 00:00 | height_metric | 157.48 | cm | + + + + + | 2020-07-27 00:00 | height_standard | 62 | in | + + + + + | 2020-07-27 00:00 | o2_saturation | 90 | % | + + + + + | 2020-07-27 00:00 | temperature_metric | 36.44 | C | | | | | | + + + + + | 2020-07-27 00:00 | | 97.6 | F | | | temperature_standar | | | | | d | | | + + + + + | 2020-07-27 00:00 | weight_metric | 64.47 | kg | + + + + + | 2020-07-27 00:00 | weight_standard | 142.13 | lb | + + + + + | 2020-10-12 00:00 | BMI | 26.2 | kg/m2 | + + + + + | 2020-10-12 00:00 | BP_diastolic | 82 | mmHg | + + + + + | 2020-10-12 00:00 | BP_systolic | 138 | mmHg | + + + + + | 2020-10-12 00:00 | BSA | 1.66 | m2 | + + + + + | 2020-10-12 00:00 | heart_rate | 1|1| | completed | + + + + + | 2020-10-12 00:00 | heart_rate | 92 | /min | + + + + + | 2020-10-12 00:00 | height_metric | 157.48 | cm | + + + + + | 2020-10-12 00:00 | height_standard | 62 | in | + + + + + | 2020-10-12 00:00 | o2_saturation | 93 | % | + + + + + | 2020-10-12 00:00 | temperature_metric | 36.28 | C | | | | | | + + + + + | 2020-10-12 00:00 | | 97.3 | F | | | temperature_standar | | | | | d | | | + + + + + | 2020-10-12 00:00 | weight_metric | 64.92 | kg | + + + + + | 2020-10-12 00:00 | weight_standard | 143.13 | lb | + + + + + | 2020-11-23 00:00 | BMI | 26.3 | kg/m2 | + + + + + | 2020-11-23 00:00 | BP_diastolic | 68 | mmHg | + + + + + | 2020-11-23 00:00 | BP_systolic | 100 | mmHg | + + + + + | 2020-11-23 00:00 | BSA | 1.66 | m2 | + + + + + | 2020-11-23 00:00 | heart_rate | 1|1| | completed | + + + + + | 2020-11-23 00:00 | heart_rate | 92 | /min | + + + + + | 2020-11-23 00:00 | height_metric | 157.48 | cm | + + + + + | 2020-11-23 00:00 | height_standard | 62 | in | + + + + + | 2020-11-23 00:00 | o2_saturation | 89 | % | + + + + + | 2020-11-23 00:00 | temperature_metric | 36.72 | C | | | | | | + + + + + | 2020-11-23 00:00 | | 98.1 | F | | | temperature_standar | | | | | d | | | + + + + + | 2020-11-23 00:00 | weight_metric | 65.32 | kg | + + + + + | 2020-11-23 00:00 | weight_standard | 144 | lb | + + + + + | 2020-12-22 00:00 | BMI | 26.2 | kg/m2 | + + + + + | 2020-12-22 00:00 | BP_diastolic | 62 | mmHg | + + + + + | 2020-12-22 00:00 | BP_systolic | 110 | mmHg | + + + + + | 2020-12-22 00:00 | BSA | 1.66 | m2 | + + + + + | 2020-12-22 00:00 | heart_rate | 1|1| | completed | + + + + + | 2020-12-22 00:00 | heart_rate | 60 | /min | + + + + + | 2020-12-22 00:00 | height_metric | 157.48 | cm | + + + + + | 2020-12-22 00:00 | height_standard | 62 | in | + + + + + | 2020-12-22 00:00 | o2_saturation | 93 | % | + + + + + | 2020-12-22 00:00 | temperature_metric | 36.61 | C | | | | | | + + + + + | 2020-12-22 00:00 | | 97.9 | F | | | temperature_standar | | | | | d | | | + + + + + | 2020-12-22 00:00 | weight_metric | 64.86 | kg | + + + + + | 2020-12-22 00:00 | weight_standard | 143 | lb | + + + + + | 2021-03-16 00:00 | BMI | 26.4 | kg/m2 | + + + + + | 2021-03-16 00:00 | BP_diastolic | 60 | mmHg | + + + + + | 2021-03-16 00:00 | BP_systolic | 100 | mmHg | + + + + + | 2021-03-16 00:00 | BSA | 1.66 | m2 | + + + + + | 2021-03-16 00:00 | BSA | 1.7 | m2 | + + + + + | 2021-03-16 00:00 | heart_rate | 1|1| | completed | + + + + + | 2021-03-16 00:00 | heart_rate | 98 | /min | + + + + + | 2021-03-16 00:00 | height_metric | 157.48 | cm | + + + + + | 2021-03-16 00:00 | height_standard | 62 | in | + + + + + | 2021-03-16 00:00 | o2_saturation | 80 | % | + + + + + | 2021-03-16 00:00 | temperature_metric | 36.39 | C | | | | | | + + + + + | 2021-03-16 00:00 | | 97.5 | F | | | temperature_standar | | | | | d | | | + + + + + | 2021-03-16 00:00 | weight_metric | 65.37 | kg | + + + + + | 2021-03-16 00:00 | weight_standard | 144.13 | lb | + + + + + | 2021-03-29 00:00 | BMI | 25.6 | kg/m2 | + + + + + | 2021-03-29 00:00 | BP_diastolic | 66 | mmHg | + + + + + | 2021-03-29 00:00 | BP_systolic | 128 | mmHg | + + + + + | 2021-03-29 00:00 | BSA | 1.6 | m2 | + + + + + | 2021-03-29 00:00 | BSA | 1.64 | m2 | + + + + + | 2021-03-29 00:00 | heart_rate | 1|1| | completed | + + + + + | 2021-03-29 00:00 | heart_rate | 86 | /min | + + + + + | 2021-03-29 00:00 | height_metric | 157.48 | cm | + + + + + | 2021-03-29 00:00 | height_standard | 62 | in | + + + + + | 2021-03-29 00:00 | o2_saturation | 89 | % | + + + + + | 2021-03-29 00:00 | temperature_metric | 36.61 | C | | | | | | + + + + + | 2021-03-29 00:00 | | 97.9 | F | | | temperature_standar | | | | | d | | | + + + + + | 2021-03-29 00:00 | weight_metric | 63.5 | kg | + + + + + | 2021-03-29 00:00 | weight_standard | 140 | lb | + + + + + | 2021-05-07 00:00 | BMI | 24.7 | kg/m2 | + + + + + | 2021-05-07 00:00 | BP_diastolic | 72 | mmHg | + + + + + | 2021-05-07 00:00 | BP_systolic | 118 | mmHg | + + + + + | 2021-05-07 00:00 | BSA | 1.6 | m2 | + + + + + | 2021-05-07 00:00 | BSA | 1.62 | m2 | + + + + + | 2021-05-07 00:00 | heart_rate | 1|1| | completed | + + + + + | 2021-05-07 00:00 | heart_rate | 92 | /min | + + + + + | 2021-05-07 00:00 | height_metric | 157.48 | cm | + + + + + | 2021-05-07 00:00 | height_standard | 62 | in | + + + + + | 2021-05-07 00:00 | o2_saturation | 82 | % | + + + + + | 2021-05-07 00:00 | temperature_metric | 36.61 | C | | | | | | + + + + + | 2021-05-07 00:00 | | 97.9 | F | | | temperature_standar | | | | | d | | | + + + + + | 2021-05-07 00:00 | weight_metric | 61.35 | kg | + + + + + | 2021-05-07 00:00 | weight_standard | 135.25 | lb | + + + + + | 2021-05-14 00:00 | BP_diastolic | 70 | mmHg | + + + + + | 2021-05-14 00:00 | BP_systolic | 110 | mmHg | + + + + + | 2021-05-14 00:00 | heart_rate | 1|1| | completed | + + + + + | 2021-05-14 00:00 | heart_rate | 87 | /min | + + + + + | 2021-05-14 00:00 | height_metric | 157.48 | cm | + + + + + | 2021-05-14 00:00 | height_standard | 62 | in | + + + + + | 2021-05-14 00:00 | o2_saturation | 89 | % | + + + + + | 2021-05-18 00:00 | BMI | 24.7 | kg/m2 | + + + + + | 2021-05-18 00:00 | BSA | 1.6 | m2 | + + + + + | 2021-05-18 00:00 | BSA | 1.62 | m2 | + + + + + | 2021-05-18 00:00 | heart_rate | 87 | /min | + + + + + | 2021-05-18 00:00 | height_metric | 157.48 | cm | + + + + + | 2021-05-18 00:00 | height_standard | 62 | in | + + + + + | 2021-05-18 00:00 | o2_saturation | 86 | % | + + + + + | 2021-05-18 00:00 | temperature_metric | 36.83 | C | | | | | | + + + + + | 2021-05-18 00:00 | | 98.3 | F | | | temperature_standar | | | | | d | | | + + + + + | 2021-05-18 00:00 | weight_metric | 61.23 | kg | + + + + + | 2021-05-18 00:00 | weight_standard | 135 | lb | + + + + + | 2021-06-14 00:00 | BMI | 25.6 | kg/m2 | + + + + + | 2021-06-14 00:00 | BP_diastolic | 106 | mmHg | + + + + + | 2021-06-14 00:00 | BP_systolic | 148 | mmHg | + + + + + | 2021-06-14 00:00 | BSA | 1.6 | m2 | + + + + + | 2021-06-14 00:00 | BSA | 1.64 | m2 | + + + + + | 2021-06-14 00:00 | heart_rate | 91 | /min | + + + + + | 2021-06-14 00:00 | height_metric | 157.48 | cm | + + + + + | 2021-06-14 00:00 | height_standard | 62 | in | + + + + + | 2021-06-14 00:00 | weight_metric | 63.5 | kg | + + + + + | 2021-06-14 00:00 | weight_standard | 140 | lb | + + + + + | 2021-07-13 00:00 | BMI | 23.8 | kg/m2 | + + + + + | 2021-07-13 00:00 | BP_diastolic | 80 | mmHg | + + + + + | 2021-07-13 00:00 | BP_systolic | 118 | mmHg | + + + + + | 2021-07-13 00:00 | BSA | 1.59 | m2 | + + + + + | 2021-07-13 00:00 | BSA | 1.6 | m2 | + + + + + | 2021-07-13 00:00 | heart_rate | 1|1| | completed | + + + + + | 2021-07-13 00:00 | heart_rate | 92 | /min | + + + + + | 2021-07-13 00:00 | height_metric | 157.48 | cm | + + + + + | 2021-07-13 00:00 | height_standard | 62 | in | + + + + + | 2021-07-13 00:00 | o2_saturation | 84 | % | + + + + + | 2021-07-13 00:00 | temperature_metric | 36.61 | C | | | | | | + + + + + | 2021-07-13 00:00 | | 97.9 | F | | | temperature_standar | | | | | d | | | + + + + + | 2021-07-13 00:00 | weight_metric | 59.14 | kg | + + + + + | 2021-07-13 00:00 | weight_standard | 130.38 | lb | + + + + + | 2021-09-23 00:00 | BMI | 23.4 | kg/m2 | + + + + + | 2021-09-23 00:00 | BP_diastolic | 82 | mmHg | + + + + + | 2021-09-23 00:00 | BP_systolic | 114 | mmHg | + + + + + | 2021-09-23 00:00 | BSA | 1.58 | m2 | + + + + + | 2021-09-23 00:00 | BSA | 1.6 | m2 | + + + + + | 2021-09-23 00:00 | heart_rate | 1|1| | completed | + + + + + | 2021-09-23 00:00 | heart_rate | 81 | /min | + + + + + | 2021-09-23 00:00 | height_metric | 157.48 | cm | + + + + + | 2021-09-23 00:00 | height_standard | 62 | in | + + + + + | 2021-09-23 00:00 | o2_saturation | 92 | % | + + + + + | 2021-09-23 00:00 | temperature_metric | 36.17 | C | | | | | | + + + + + | 2021-09-23 00:00 | | 97.1 | F | | | temperature_standar | | | | | d | | | + + + + + | 2021-09-23 00:00 | weight_metric | 58.06 | kg | + + + + + | 2021-09-23 00:00 | weight_standard | 128 | lb | + + + + + | 2021-10-09 00:00 | BMI | 23.6 | kg/m2 | + + + + + | 2021-10-09 00:00 | BP_diastolic | 60 | mmHg | + + + + + | 2021-10-09 00:00 | BP_systolic | 113 | mmHg | + + + + + | 2021-10-09 00:00 | heart_rate | 89 | /min | + + + + + | 2021-10-09 00:00 | height_metric | 157.48 | cm | + + + + + | 2021-10-09 00:00 | height_standard | 62 | in | + + + + + | 2021-10-09 00:00 | o2_saturation | 94 | % | + + + + + | 2021-10-09 00:00 | respiration_rate | 16 | /min | + + + + + | 2021-10-09 00:00 | temperature_metric | 36.94 | C | | | | | | + + + + + | 2021-10-09 00:00 | | 98.5 | F | | | temperature_standar | | | | | d | | | + + + + + | 2021-10-09 00:00 | weight_metric | 58.51 | kg | + + + + + | 2021-10-09 00:00 | weight_standard | 128.99 | lb | + + + + + | 2021-10-09 00:00 | weight_standard | 129 | lb | + + + + + | 2021-10-28 00:00 | BMI | 22.8 | kg/m2 | + + + + + | 2021-10-28 00:00 | BP_diastolic | 52 | mmHg | + + + + + | 2021-10-28 00:00 | BP_systolic | 90 | mmHg | + + + + + | 2021-10-28 00:00 | BSA | 1.56 | m2 | + + + + + | 2021-10-28 00:00 | BSA | 1.6 | m2 | + + + + + | 2021-10-28 00:00 | heart_rate | 1|1| | completed | + + + + + | 2021-10-28 00:00 | heart_rate | 90 | /min | + + + + + | 2021-10-28 00:00 | height_metric | 157.48 | cm | + + + + + | 2021-10-28 00:00 | height_standard | 62 | in | + + + + + | 2021-10-28 00:00 | o2_saturation | 94 | % | + + + + + | 2021-10-28 00:00 | temperature_metric | 36.61 | C | | | | | | + + + + + | 2021-10-28 00:00 | | 97.9 | F | | | temperature_standar | | | | | d | | | + + + + + | 2021-10-28 00:00 | weight_metric | 56.47 | kg | + + + + + | 2021-10-28 00:00 | weight_standard | 124.5 | lb | + + + + + | 2021-12-21 00:00 | BMI | 23.1 | kg/m2 | + + + + + | 2021-12-21 00:00 | BP_diastolic | 72 | mmHg | + + + + + | 2021-12-21 00:00 | BP_systolic | 120 | mmHg | + + + + + | 2021-12-21 00:00 | BSA | 1.57 | m2 | + + + + + | 2021-12-21 00:00 | BSA | 1.6 | m2 | + + + + + | 2021-12-21 00:00 | heart_rate | 1|1| | completed | + + + + + | 2021-12-21 00:00 | heart_rate | 90 | /min | + + + + + | 2021-12-21 00:00 | height_metric | 157.48 | cm | + + + + + | 2021-12-21 00:00 | height_standard | 62 | in | + + + + + | 2021-12-21 00:00 | o2_saturation | 98 | % | + + + + + | 2021-12-21 00:00 | respiration_rate | 20 | /min | + + + + + | 2021-12-21 00:00 | weight_metric | 57.27 | kg | + + + + + | 2021-12-21 00:00 | weight_standard | 126.25 | lb | + + + + + | 2022-01-24 00:00 | BMI | 24.7 | kg/m2 | + + + + + | 2022-01-24 00:00 | BP_diastolic | 84 | mmHg | + + + + + | 2022-01-24 00:00 | BP_systolic | 126 | mmHg | + + + + + | 2022-01-24 00:00 | BSA | 1.6 | m2 | + + + + + | 2022-01-24 00:00 | BSA | 1.62 | m2 | + + + + + | 2022-01-24 00:00 | heart_rate | 1|1| | completed | + + + + + | 2022-01-24 00:00 | heart_rate | 81 | /min | + + + + + | 2022-01-24 00:00 | height_metric | 157.48 | cm | + + + + + | 2022-01-24 00:00 | height_standard | 62 | in | + + + + + | 2022-01-24 00:00 | o2_saturation | 82 | % | + + + + + | 2022-01-24 00:00 | temperature_metric | 36.61 | C | | | | | | + + + + + | 2022-01-24 00:00 | | 97.9 | F | | | temperature_standar | | | | | d | | | + + + + + | 2022-01-24 00:00 | weight_metric | 61.23 | kg | + + + + + | 2022-01-24 00:00 | weight_standard | 135 | lb | + + + + + | 2022-03-15 00:00 | BMI | 24.3 | 1 | + + + + + | 2022-03-15 00:00 | BP_diastolic | 70 | mmHg | + + + + + | 2022-03-15 00:00 | BP_systolic | 110 | mmHg | + + + + + | 2022-03-15 00:00 | BSA | 1.6 | 1 | + + + + + | 2022-03-15 00:00 | heart_rate | 105 | /min | + + + + + | 2022-03-15 00:00 | heart_rate | 1|1| | completed | + + + + + | 2022-03-15 00:00 | height_metric | 157.48 | cm | + + + + + | 2022-03-15 00:00 | height_standard | 62 | in | + + + + + | 2022-03-15 00:00 | o2_saturation | 87 | % | + + + + + | 2022-03-15 00:00 | temperature_metric | 36.72 | C | | | | | | + + + + + | 2022-03-15 00:00 | | 98.1 | F | | | temperature_standar | | | | | d | | | + + + + + | 2022-03-15 00:00 | weight_metric | 60.33 | kg | + + + + + | 2022-03-15 00:00 | weight_standard | 133 | lb | + + + + + | 2022-06-14 00:00 | BMI | 25.1 | 1 | + + + + + | 2022-06-14 00:00 | BP_diastolic | 72 | mmHg | + + + + + | 2022-06-14 00:00 | BP_systolic | 114 | mmHg | + + + + + | 2022-06-14 00:00 | BSA | 1.6 | 1 | + + + + + | 2022-06-14 00:00 | heart_rate | 1|1| | completed | + + + + + | 2022-06-14 00:00 | heart_rate | 86 | /min | + + + + + | 2022-06-14 00:00 | height_metric | 157.48 | cm | + + + + + | 2022-06-14 00:00 | height_standard | 62 | in | + + + + + | 2022-06-14 00:00 | o2_saturation | 75 | % | + + + + + | 2022-06-14 00:00 | temperature_metric | 36.61 | C | | | | | | + + + + + | 2022-06-14 00:00 | | 97.9 | F | | | temperature_standar | | | | | d | | | + + + + + | 2022-06-14 00:00 | weight_metric | 62.2 | kg | + + + + + | 2022-06-14 00:00 | weight_standard | 137.13 | lb | + + + + + | 2022-09-08 00:00 | BMI | 23.6 | kg/m2 | + + + + + | 2022-09-08 00:00 | BP_diastolic | 00 | mmHg | + + + + + | 2022-09-08 00:00 | BP_systolic | 00 | mmHg | + + + + + | 2022-09-08 00:00 | heart_rate | 00 | /min | + + + + + | 2022-09-08 00:00 | height_metric | 157.48 | cm | + + + + + | 2022-09-08 00:00 | height_standard | 62 | in | + + + + + | 2022-09-08 00:00 | o2_saturation | 00 | % | + + + + + | 2022-09-08 00:00 | respiration_rate | 00 | /min | + + + + + | 2022-09-08 00:00 | temperature_metric | -17.78 | C | | | | | | + + + + + | 2022-09-08 00:00 | | 0 | F | | | temperature_standar | | | | | d | | | + + + + + | 2022-09-08 00:00 | weight_metric | 58.51 | kg | + + + + + | 2022-09-08 00:00 | weight_standard | 128.99 | lb | + + + + + | 2022-09-08 00:00 | weight_standard | 129 | lb | + + + + +"
--- OUTSIDE RECORDS SUMMARY | ~2022-09-13 | XMS | Continuity of Care Document ---
Demographics + + + | Address | [address] | | | [place] [address] | + + + | Preferred Language | Unknown | + + + | Marital Status | Never | + + + | Jehovah'S Witness Affiliation | Unknown | + + + | Race | White | + + + | Ethnic Group | Not or | + + + Author + + + | Author | [facility] | + + + | Organization | [facility] | + + + | Address | [address] | | | [place] [address] | + + + | Phone | | + + + Care Team Providers + + + + | Care Creative Services Producer Name | Role | Phone | + [...] 2020-10-12 00:00 | oxycodone hydrochloride 15 | [facility] | | | MG Oral Tablet | | + + + + | 2020-11-11 00:00 | oxycodone hydrochloride 15 | [facility] | | | MG Oral Tablet | | + + + + | 2020-12-14 00:00 | oxycodone hydrochloride 15 | [facility] | | | MG Oral Tablet | | + + + + | 2020-12-22 00:00 | oxycodone hydrochloride 15 | [facility] | | | MG Oral Tablet | | + + + + | 2021-02-09 00:00 | oxycodone hydrochloride 15 | [facility] | | | MG Oral Tablet | | + + + + | 2021-03-15 00:00 | oxycodone hydrochloride 15 | [facility] | | | MG Oral Tablet | | + + + + | 2021-03-29 00:00 | oxycodone hydrochloride 15 | [facility] | | | MG Oral Tablet | | + + + + | 2021-05-07 00:00 | oxycodone hydrochloride 15 | [facility] | | | MG [...] 2021-10-04 00:00 | oxycodone hydrochloride 15 | [facility] | | | MG Oral Tablet | | + + + + | 2021-10-26 00:00 | oxycodone hydrochloride 15 | [facility] | | | MG Oral Tablet | | + + + + | 2021-11-30 00:00 | oxycodone hydrochloride 15 | [facility] | | | MG Oral Tablet | | + + + + | 2021-12-29 00:00 | oxycodone hydrochloride 15 | [facility] | | | MG Oral Tablet | | + + + + | 2022-01-24 00:00 | oxycodone hydrochloride 15 | [facility] | | | MG Oral Tablet | | + + + + | 2022-02-22 00:00 | oxycodone hydrochloride 15 | [facility] | | | MG Oral Tablet | | + + + + | 2022-03-15 00:00 | oxycodone hydrochloride 15 | [facility] | | | MG Oral Tablet | | + + + + | 2022-04-19 00:00 | oxycodone hydrochloride 15 | [facility] | | | MG Oral Tablet | | + + + + | 2022-05-17 00:00 | oxycodone hydrochloride 15 | [facility] | | | MG Oral Tablet | | + + + + | 2019-10-04 00:00 | acetaminophen 500 MG / | [facility] | | | diphenhydramine | | | | hydrochloride 25 MG Oral | | | | Tablet [Tylenol PM] | | + + + + | 2019-11-27 00:00 | 60 ACTUAT budesonide 0.16 | [facility] | | | MG/ACTUAT / formoterol | | | | fumarate 0.0045 MG/ACTUAT | | | | Metered Dose Inhaler | | | | [Symbicort] | | + + + + | 2019-11-27 00:00 | Symbicort 160-4.5 MCG/ACT | [facility] | | | IN AERO | | + + + + | 2020-11-23 00:00 | Morphine Sulfate 15 MG | [facility] | | | Oral Tablet | | + + + + | 2020-12-22 00:00 | Morphine Sulfate 15 MG | [facility] | | | [...] 00:00 | Morphine Sulfate 15 MG | [facility] | | | Oral Tablet | | + + + + | 2021-05-12 00:00 | Morphine Sulfate 15 MG | [facility] | | | Oral Tablet | | + + + + | 2021-06-24 00:00 | Morphine Sulfate 15 MG | [facility] | | | Oral Tablet | | + + + + | 2021-07-22 00:00 | Morphine Sulfate 15 MG | [facility] | | | Oral Tablet | | + + + + | 2021-07-24 00:00 | Morphine Sulfate 15 MG | [facility] | | | Oral Tablet | | + + + + | 2021-08-24 00:00 | Morphine Sulfate 15 MG | [facility] | | | Oral Tablet | | + + + + | 2021-09-23 00:00 | Morphine Sulfate 15 MG | [facility] | | | Oral Tablet | | + + + + | 2021-10-26 00:00 | Morphine Sulfate 15 MG | [facility] | | | Oral Tablet | | + + + + | 2021-11-25 00:00 | Morphine Sulfate 15 MG | [facility] | | | Oral Tablet | | + + + + | 2021-12-27 00:00 | Morphine Sulfate 15 MG | [facility] | | | Oral Tablet | | + + + + | 2022-01-24 00:00 | Morphine Sulfate 15 MG | [facility] | | | Oral Tablet | | + + + + | 2022-02-22 00:00 | Morphine Sulfate 15 MG | [facility] | | | Oral Tablet | | + + + + | 2022-03-15 00:00 | Morphine Sulfate 15 MG | [facility] | | | Oral Tablet | | + + + + | 2022-04-19 00:00 | Morphine Sulfate 15 MG | [facility] | | | Oral Tablet | | + + + + | 2022-05-17 00:00 | Morphine Sulfate 15 MG | [facility] | | | Oral Tablet | | + + + + | 2019-10-04 00:00 | meloxicam 15 MG Oral | [facility] | | | Tablet | | + + + + | 2021-10-28 00:00 | Nystatin [id number] UNIT/ML | [facility] | | | Mouth/Throat Suspension | | + + + + | 2020-07-27 00:00 | oxyCODONE-Acetaminophen | [facility] | | | 5-325 MG Oral Tablet | | + + + + | 2020-08-25 00:00 | oxyCODONE-Acetaminophen | [facility] | | | 5-325 MG Oral Tablet | | + + + + | 2020-09-24 00:00 | oxyCODONE-Acetaminophen | [facility] | | | 5-325 MG Oral Tablet | | + + + + | 2021-03-16 00:00 | predniSONE 10 MG Oral | [facility] | | | Tablet | | + + + + | 2019-11-19 00:00 | 30 ACTUAT fluticasone | [facility] | | | [...] | 2020-04-28 00:00 | hydrochlorothiazide 12.5 | [facility] | | | MG / lisinopril 10 MG Oral | | | | Tablet | | + + + + | 2020-12-22 00:00 | hydrochlorothiazide 12.5 | [facility] | | | MG / lisinopril 10 MG Oral | | | | Tablet | | + + + + | 2022-01-19 00:00 | hydrochlorothiazide 12.5 | [facility] | | | MG / lisinopril 10 MG Oral | | | | Tablet | | + + + + | 2022-02-22 00:00 | hydrochlorothiazide 12.5 | [facility] | | | MG [...] | Bactrim DS 800-160 MG Oral | [facility] | | | Tablet | | + + + + | 2021-07-13 00:00 | Fluconazole 100 MG Oral | [facility] | | | Tablet | | + + + + | 2021-03-16 00:00 | benzonatate 200 MG Oral | [facility] | | | Capsule | | + + + + | 2022-03-15 00:00 | benzonatate 200 MG Oral | [facility] | | | Capsule [...] + + | 2021-10-28 00:00 | nystatin [id number] UNT/ML | [facility] | | | Oral Suspension | | + + + + | 2021-11-30 00:00 | Potassium Chloride ER 10 | [facility] | | | MEQ Oral Tablet Extended | | | | Release | | + + + + | 2021-05-14 00:00 | Fluconazole 150 MG Oral | [facility] | | | Tablet | | + + + + | 2019-10-21 00:00 | traMADol HCl 50 MG Oral | [facility] | | | Tablet | | + + + + | 2019-10-04 00:00 | Meloxicam 15 MG Oral | [facility] | | | Tablet [...] | oxyCODONE HCl 15 MG Oral | [facility] | | | Tablet | | + + + + | 2021-06-08 00:00 | oxyCODONE HCl 15 MG Oral | [facility] | | | Tablet | | + + + + | 2021-07-08 00:00 | oxyCODONE HCl 15 MG Oral | [facility] | | | Tablet | | + + + + | 2021-08-05 00:00 | oxyCODONE HCl 15 MG Oral | [facility] | | | [...] + + + | 2019-11-19 00:00 | [place] 5-325 MG Oral Tablet | [facility] | | | | | + + + + | 2019-12-23 00:00 | [place] 5-325 MG Oral Tablet | [facility] | | | | | + + + + | 2019-12-27 00:00 | [place] 5-325 MG Oral Tablet | [facility] | | | | | + + + + | 2020-01-27 00:00 | [place] 5-325 MG Oral Tablet | [facility] | | | | | + + + + | 2019-10-21 00:00 | Ventolin HFA 108 (90 Base) | [facility] | | | MCG/ACT Inhalation Aerosol | | | | Solution | | + + + + | 2020-12-22 00:00 | Ventolin HFA 108 (90 Base) | [facility] | | | MCG/ACT Inhalation Aerosol | | | | Solution | | + + + + | 2022-03-15 00:00 | Ventolin HFA 108 (90 Base) | [facility] | | | MCG/ACT Inhalation Aerosol | | | | Solution | | + + + + | 2021-05-07 00:00 | Amoxicillin-Pot | [facility] | | | Clavulanate 875-125 MG Oral | | | | Tablet | | + + + + | 2020-05-26 00:00 | HYDROcodone-Acetaminophen | [facility] | | | 5-325 MG OR TABS | | + + + + | 2020-02-25 00:00 | HYDROcodone-Acetaminophen | [facility] | | | 5-325 [...] 00:00 | Rosuvastatin Calcium 10 MG | [facility] | | | Oral Tablet | | + + + + | 2022-02-22 00:00 | Rosuvastatin Calcium 10 MG | [facility] | | | Oral Tablet | | + + + + | 2019-10-21 00:00 | tramadol hydrochloride 50 | [facility] | | | MG Oral Tablet | | + + + + | 2021-05-07 00:00 | sulfamethoxazole 800 MG / | [facility] | | | trimethoprim [...] MG | | | | Oral Tablet [[place]] | | + + + + | 2019-12-23 00:00 | acetaminophen 325 MG / | [facility] | | | hydrocodone bitartrate 5 MG | | | | Oral Tablet [[place]] | | + + + + | 2019-12-27 00:00 | acetaminophen 325 MG / | [facility] | | | hydrocodone bitartrate 5 MG | | | | Oral Tablet [[place]] | | + + + + | 2020-01-27 00:00 | acetaminophen 325 MG / | [facility] | | | hydrocodone bitartrate 5 MG | | | | Oral Tablet [[place]] | | + + + + | 2019-10-21 00:00 | [id number] 200 ACTUAT | [facility] | | | albuterol 0.09 MG/ACTUAT | | | | Metered Dose Inhaler | | | | [Ventolin] | | + + + + | 2020-12-22 00:00 | [id number] 200 ACTUAT | [facility] | | | albuterol 0.09 MG/ACTUAT | | | | Metered Dose Inhaler | | | | [Ventolin] | | + + + + | 2022-03-15 00:00 | [id number] 200 ACTUAT | [facility] | | | albuterol 0.09 MG/ACTUAT | | | | Metered Dose Inhaler | | | | [Ventolin] | | + + + + | 2020-08-13 00:00 | rosuvastatin calcium 10 MG | [facility] | | | Oral Tablet | | + + + + | 2020-12-22 00:00 | rosuvastatin calcium 10 MG | [facility] | | | Oral Tablet | | + + + + | 2022-01-19 00:00 | rosuvastatin calcium 10 MG | [facility] | | | Oral Tablet | | + + + + | 2022-02-22 00:00 | rosuvastatin calcium 10 MG | [facility] | | | Oral Tablet | | + + + + | 2019-11-27 00:00 | Ted HandiHaler 18 MCG | [facility] | | | IN CAPS | | + + + + | 2020-11-23 00:00 | morphine sulfate 15 MG | [facility] | | | Oral Tablet | | + + + + | 2020-12-22 00:00 | morphine sulfate 15 MG | [facility] | | | Oral Tablet | | + + + + | 2021-02-02 00:00 | morphine sulfate 15 MG | [facility] | | | Oral Tablet | | + + + + | 2021-03-02 00:00 | morphine sulfate 15 MG | [facility] | | | Oral Tablet | | + + + + | 2021-03-29 00:00 | morphine sulfate 15 MG | [facility] | | | Oral Tablet | | + + + + | 2021-04-29 00:00 | morphine sulfate 15 MG | [facility] | | | Oral Tablet | | + + + + | 2021-05-12 00:00 | morphine sulfate 15 MG | [facility] | | | Oral Tablet | | + + + + | 2021-06-24 00:00 | morphine sulfate 15 MG | [facility] | | | [...] 00:00 | morphine sulfate 15 MG | [facility] | | | Oral Tablet | | + + + + | 2021-11-25 00:00 | morphine sulfate 15 MG | [facility] | | | Oral Tablet | | + + + + | 2021-12-27 00:00 | morphine sulfate 15 MG | [facility] | | | Oral [...] 00:00 | morphine sulfate 15 MG | [facility] | | | Oral Tablet | | + + + + | 2022-04-19 00:00 | morphine sulfate 15 MG | [facility] | | | Oral Tablet | | + + + + | 2022-05-17 00:00 | morphine sulfate 15 MG | [facility] | | | Oral Tablet | | + + + + | 2019-10-04 00:00 | EQ Ibuprofen 200 MG Oral | [facility] | | | Capsule | | + + + + | 2020-12-02 00:00 | Miscellaneous | [facility] | | | | | + + + + | 2019-10-04 00:00 | Trazadone HCL 50mg Oral | [facility] | | | [...] | 2020-04-28 00:00 | Benign essential | [facility]. | | | hypertension (disorder) | | + + + + | 2020-04-28 00:00 | HTN BENIGN | [facility]. | | | | | + + + + | 2020-04-28 00:00 | Essential Hypertension | [facility] | | | Benign | | + + + + | 2021-10-09 00:00 | Patient left without being | [facility] | | | seen | | [...] + + + | 2020-10-03 00:00 | [facility] General [facility] | [facility] | | | Management 20 min Clinical | | | | Staff Time | | + + + + | 2020-11-03 00:00 | [facility] General [facility] | [facility] | | | Management 20 min Clinical | | | | Staff Time | | + + + + | 2021-05-18 00:00 | [facility] Pymt for Telehealth | [facility] | | | Distant Site Service | | + + + + | 2021-06-14 00:00 | [facility] Pymt for Telehealth | [facility] | | | [...] 00:00 | Unknown if ever smoked | [facility] | | | | | + + + + | 2021-09-23 00:00 | Unknown if ever smoked | [facility] | | | | | + + + + | 2021-09-26 00:00 | Unknown if ever smoked | [facility] | | | | | + + + + | 2021-10-14 00:00 | Unknown if ever smoked | [facility] | + + + + | 2021-11-01 00:00 | Unknown if ever smoked | [facility] | | | | | + + + + | 2021-12-24 00:00 | Unknown if ever smoked | [facility] | | | | | + + + + | 2022-01-27 00:00 | Unknown if ever smoked | [facility] | | | | | + + + + | 2022-03-16 00:00 | Unknown if ever smoked | [facility] | | | | | + + + + | 2022-06-15 00:00 | Unknown if ever smoked | [facility] | | | | | + + + + | 2022-09-08 00:00 | Unknown if ever smoked | [facility] | + + + + Vital Signs [...]
--- OUTSIDE RECORDS SUMMARY | 2022-09-13 11:23 | XMS ---
PreManage Notification: PHILLIP DUMONT Security Chronic Disease Manager Events 1 event(s) in the past 18 months Most recent security events: Elopement at [facility] 10/09/2021 15:02 - Patient eloped before treatment completed. - Patient with suicidal and/or homicidal ideations eloped. - Patient eloped with IV in place. Details: PATIENT LWBS CRITERIA MET - PDMP - [facility] - 2 Visits in 30 Days CARE PROVIDERS -[place]- Dentist: Beverage Manager Formerly [facility], [facility] PHONE: [phone] Devon Olea [facility] Current PHONE: Unknown Alva Pratt Yard Pilot/Fashion Supervisor 12/04/2021-Current PHONE: [phone] Care Guidelines exist for the following facilities: [facility], [place] ( 04/20/2020 ) Zofia VISIT COUNT (12 MO.) [address] Anthony Letty TOTAL 4 NOTE: Visits indicate total known visits. ED/UCC VISIT TRACKING (12 MO.) 09/13/2022 11:20 [facility] [place] TYPE: Emergency COMPLAINT: - BLOOD PRESSURE PROBLEM 09/08/2022 17:52 [facility] [place] TYPE: Emergency DIAGNOSES: - Chronic obstructive pulmonary disease, unspecified - LOW OXYGEN 09/08/2022 16:15 [facility] [place] TYPE: Emergency COMPLAINT: - LOW O2 SATS 10/09/2021 15:02 [facility] [place] TYPE: Emergency COMPLAINT: - EAR ACHE, DIARRHEA INPATIENT VISIT TRACKING (12 MO.) No inpatient visits to display in this time frame [email or web address]
[2022-09-13] MEDS ORDERED: NICOTINE1 EAC2 TD (12:17)
[2022-09-13] MEDS ORDERED: ROSUVASTATIN CA10 MG PO (12:17)
[2022-09-13 17:54] VITALS: BP 98/67
--- NOTE | 2022-09-15 16:42 | EKG ---
[facility] [address] [facility] [place], [place] [address] Signed Normal sinus rhythm Normal ECG No previous ECGs available Confirmed by ISABEL GILLIS MD ([id number]) on 09/15/2022 4:42:01 PM Electronically Signed By: ISABEL GILLIS 09/15/22 1642 PATIENT NAME: PHILLIP DUMONT Electrocardiogram DATE OF : 60 PHYSICIAN: ISABEL GILLIS REPORT #: [id number] REPORT IS CONFIDENTIAL AND NOT TO BE RELEASED WITHOUT AUTHORIZATION
== END 2022-09-13 17:59 | disposition short-term general hospital (02) ==
LOC: ED 11:20
DX: S52.501A Unspecified fracture of the lower end of right radius, initial encounter for closed fracture (principal); W01.0XXA Fall on same level from slipping, tripping and stumbling without subsequent striking against object, initial encounter; E86.0 Dehydration; J44.9 Chronic obstructive pulmonary disease, unspecified; Z79.899 Other long term (current) drug therapy
CPT/HCPCS: 36415; 51798; 70450; 72125; 73090; 73110; 80048; 80053; 81001; 84484; 85025; 85379; 87502; 93005; 93010; 99285 25; 99406; C9803; G0480; J1885; J7030; J7121; U0002

== ENCOUNTER 2023-10-28 00:23 | Emergency (ER) | payer MEDICARE, OTHER ==
[~2023-10-28] VITALS: Ht 157.5 cm; Wt 65.0 kg
[~2023-10-28 00:23] MED LIST: NICOTINE1 EAC2 TD; ROSUVASTATIN CA10 MG PO
[2023-10-28] MEDS ORDERED: LISINOPRIL-HCT1 EAC2 PO (00:32)
[2023-10-28] MEDS ORDERED: GABAPENTIN600 MG PO (00:32)
[2023-10-28] MEDS ORDERED: OMEPRAZOLE20 MG PO (00:33)
[2023-10-28] MEDS ORDERED: ALBUTEROL SULFATE 0.5% 2.5 MG/0.5 ML VIAL INH ONE (00:45)
[2023-10-28] MEDS ORDERED: methylPREDNISolone SOD SUCC 125 MG/2 ML VIAL IV ONE (00:45)
[2023-10-28 01:02] LABS: BASOPHILS 0.3 % (0-2); EOSINOPHILS 0.7 % (0-6); HEMATOCRIT 50.7 % (35.0-50.0); HEMOGLOBIN 17.1 g/dL (12.0-18.0); LYMPHOCYTES 26.1 % (24-44); MCH 31.1 (27-36); MCHC 33.6 g/dl (30-36); MCV 92.5 fl (81-99); MONOCYTES 9.7 % (0-12); NEUTROPHILS 63.2 % (39-80); PLATELET COUNT 116 K/uL (140-440); RBC 5.49 M/ul (4.3-5.7); RDW 13.6 (10.5-15.0)
[2023-10-28 01:29] LABS: ALBUMIN 3.1 g/dL (3.4-5.0); ALBUMIN/GLOBULIN RATIO 1.03 (1.1-2.4); ANION GAP 7.7 (7-21); BILIRUBIN, TOTAL 0.4 ng/dL (0.2-1.0); BUN/CREATININE RATIO 17.85 (6.0-28.6); CALCIUM 8.6 mg/dL (8.5-10.1); CREATININE, SERUM 0.84 mg/dL (0.55-1.02); POTASSIUM 2.7 mmol/L (3.5-5.1); PROTEIN, TOTAL 6.1 g/dL (6.4-8.2)
[2023-10-28] MEDS ORDERED: POTASSIUM CHLORIDE 10 MEQ TABCR PO ONE (01:45)
[2023-10-28] MEDS ORDERED: methylPREDNISolone 4 MG HOME.PACK PO ONE (01:45)
[2023-10-28] MEDS ORDERED: POTASSIUM CHLORIDE 10 MEQ TABCR ONE (01:57)
[2023-10-28 02:30] VITALS: BP 125/82
== END 2023-10-28 02:30 | disposition home or self-care (01) ==
LOC: ED 00:23
PROVIDERS: Emergency Medicine
DX: J44.1 Chronic obstructive pulmonary disease with (acute) exacerbation (principal); E87.6 Hypokalemia; I10 Essential (primary) hypertension; Z79.899 Other long term (current) drug therapy
CPT/HCPCS: 36415; 71045; 80053; 83880; 85025; 94644; 96374; 99285-25; A9270; J2919

== ENCOUNTER 2023-11-10 14:54 | Emergency (ER) | payer MEDICARE, OTHER ==
[~2023-11-10] VITALS: Ht 157.5 cm; Wt 50.1 kg
[~2023-11-10 14:54] MED LIST changes: +GABAPENTIN600 MG PO; +LISINOPRIL-HCT1 EAC2 PO; +OMEPRAZOLE20 MG PO
--- OUTSIDE RECORDS SUMMARY | 2023-11-10 15:01 | XMS ---
PreManage Notification: PHILLIP DUMONT Security Neuropsychology Director Events No recent Security Events currently on file CRITERIA MET - [facility] - 2 Visits in 30 Days CARE PROVIDERS Alva Pratt Sealer Operator/Distribution Tech 11/05/2023-Current PHONE: [phone] -, [facility] Dentist: Construction Ironworker [facility] PHONE: [phone] -[place]- Dentist: Construction Ironworker Current [facility] PHONE: [phone] Devon Olea DO [facility] Current PHONE: Unknown Care Guidelines exist for the following facilities: [facility] ( 08/24/2018 ) [facility] VISIT COUNT (12 MO.) 2 [facility] TOTAL 2 NOTE: Visits indicate total known visits. ED/UCC VISIT TRACKING (12 MO.) 11/10/2023 14:54 LETI Piña TYPE: Emergency COMPLAINT: - ALTERED MENTAL STATUS 10/28/2023 00:24 [facility] [place] TYPE: Emergency COMPLAINT: - SOB DIAGNOSES: - Chronic obstructive pulmonary disease with (acute) exacerbation - Essential (primary) hypertension - Hypokalemia - Other fpc (current) drug therapy - Shortness of breath INPATIENT VISIT TRACKING (12 MO.) No inpatient visits to display in this time frame [email or web address]
[2023-11-10] MEDS ORDERED: POTASSIUM CHLO10 ME1 PO (15:48)
[2023-11-10 16:09] LABS: BASOPHILS 0.3 % (0-2); EOSINOPHILS 0.5 % (0-6); HEMATOCRIT 51.6 % (35.0-50.0); HEMOGLOBIN 17.6 g/dL (12.0-18.0); LYMPHOCYTES 28.7 % (24-44); MCHC 34.2 g/dl (30-36); MCV 90.7 fl (81-99); MONOCYTES 7.5 % (0-12); PLATELET COUNT 122 K/uL (140-440); RBC 5.69 M/ul (4.3-5.7); RDW 13.4 (10.5-15.0)
[2023-11-10 16:31] LABS: ACETAMINOPHEN 0 ug/mL (10-30); ALBUMIN 3.4 g/dL (3.4-5.0); ALBUMIN/GLOBULIN RATIO 1.13 (1.1-2.4); ALCOHOL, MEDICAL <3 ng/dL (<3); ALKALINE PHOSPHATASE 64 U/L (46-116); ALT (SGPT) 29 U/L (14-59); ANION GAP 13.7 (7-21); AST (SGOT) 15 U/L (15-37); BILIRUBIN, TOTAL 0.8 ng/dL (0.2-1.0); BUN/CREATININE RATIO 10.71 (6.0-28.6); CALCIUM 8.8 mg/dL (8.5-10.1); CARBON DIOXIDE 27 mmol/L (21-32); CHLORIDE 103 mmol/L (98-107); CREATININE, SERUM 0.84 mg/dL (0.55-1.02); GLOMERULAR FILTRATION RATE,EST 78 mL/min (>60); POTASSIUM 2.7 mmol/L (3.5-5.1); PROTEIN, TOTAL 6.4 g/dL (6.4-8.2); SALICYLATE 6.3 mg/dL (2.8-20.0); TSH, 3RD GENERATION 1.768 uIU/mL (0.358-3.740); UREA NITROGEN 9 mg/dL (7-18)
[2023-11-10] MEDS ORDERED: K-TAB ER20 MEQ PO (17:24)
[2023-11-10] MEDS ORDERED: POTASSIUM CHLORIDE 20 MEQ/15 ML CUP PO ONE (17:30)
[2023-11-10 17:34] LABS: BILIRUBIN, URINE NEGATIVE (negative); BLOOD/HGB, URINE NEGATIVE (Negative); KETONE, URINE NEGATIVE (Negative); LEUK ESTERASE, URINE NEGATIVE (negative); NITRITE, URINE NEGATIVE (negative)
[2023-11-10 17:36] VITALS: BP 140/80
[2023-11-10 17:49] LABS: AMPHETAMINES, URINE NEGATIVE (NEGATIVE); BARBITURATES, URINE NEGATIVE (NEGATIVE); BENZODIAZEPINE, URINE NEGATIVE (NEGATIVE); BUPRENORPHINE, URINE NEGATIVE (NEGATIVE); CANNABINOID, URINE NEGATIVE (NEGATIVE); COCAINE, URINE NEGATIVE (NEGATIVE); ECSTASY, URINE NEGATIVE (NEGATIVE); FENTANYL, URINE NEGATIVE (NEGATIVE); METHADONE, URINE NEGATIVE (NEGATIVE); OPIATES, URINE NEGATIVE (NEGATIVE); OXYCODONE, URINE NEGATIVE (NEGATIVE); PHENCYCLIDINE, URINE NEGATIVE (NEGATIVE)
== END 2023-11-10 17:36 | disposition left against medical advice (07) ==
LOC: ED 14:54
PROVIDERS: Emergency Medicine
DX: R41.0 Disorientation, unspecified (principal); E87.6 Hypokalemia; J44.9 Chronic obstructive pulmonary disease, unspecified; I10 Essential (primary) hypertension; F17.200 Nicotine dependence, unspecified, uncomplicated; Z53.29 Procedure and treatment not carried out because of patient's decision for other reasons; Z79.899 Other long term (current) drug therapy
CPT/HCPCS: 36415; 80053; 80307; 81003; 84443; 85025; 99284; A9270; G0480

== ENCOUNTER 2023-11-14 07:41 | Emergency (ER) | payer MEDICARE, OTHER ==
[~2023-11-14] VITALS: Ht 157.5 cm; Wt 51.7 kg
[~2023-11-14 07:41] MED LIST changes: +K-TAB ER20 MEQ PO; +POTASSIUM CHLO10 ME1 PO
--- OUTSIDE RECORDS SUMMARY | 2023-11-14 07:46 | XMS ---
PreManage Notification: PHILLIP DUMONT Security Oracle Database Administrator Events No recent Security Events currently on file CRITERIA MET - [facility] - 2 Visits in 30 Days CARE PROVIDERS Alva Pratt Med Spa Manager/Supervisor [place] 11/05/2023-Current PHONE: [phone] -, [facility] Dentist: Wet Wheeler [facility] PHONE: [phone] -[place]- Dentist: Wet Wheeler Current [facility] PHONE: [phone] Devon Olea DO [facility] Current PHONE: Unknown Care Guidelines exist for the following facilities: [facility] ( 08/24/2018 ) [facility] VISIT COUNT (12 MO.) 3 [facility] TOTAL 3 NOTE: Visits indicate total known visits. ED/UCC VISIT TRACKING (12 MO.) 11/14/2023 07:41 [facility] [place] TYPE: Emergency COMPLAINT: - SMOKE INHALATION 11/10/2023 14:54 [facility] [place] TYPE: Emergency COMPLAINT: - ALTERED MENTAL STATUS DIAGNOSES: - Altered mental status, unspecified - Chronic obstructive pulmonary disease, unspecified - Disorientation, unspecified - Essential (primary) hypertension - Hypokalemia - Nicotine dependence, unspecified, uncomplicated - Other senior business consultant (current) drug therapy - Procedure and treatment not carried out because of patient's decision for other reasons 10/28/2023 00:24 [facility] [place] TYPE: Emergency COMPLAINT: - SOB DIAGNOSES: - Chronic obstructive pulmonary disease with (acute) exacerbation - Essential (primary) hypertension - Hypokalemia - Other senior business consultant (current) drug therapy - Shortness of breath INPATIENT VISIT TRACKING (12 MO.) No inpatient visits to display in this time frame [email or web address]
[2023-11-14] MEDS ORDERED: LISINOPRIL-HCT1 EAC2 PO (07:57)
[2023-11-14] MEDS ORDERED: GABAPENTIN300 MG PO (07:57)
[2023-11-14] MEDS ORDERED: AIRSUPRA 90-810.7 GM INH (07:57)
[2023-11-14] MEDS ORDERED: OMEPRAZOLE20 MG PO (07:57)
[2023-11-14] MEDS ORDERED: ROSUVASTATIN CA10 MG PO (07:57)
[2023-11-14 08:39] VITALS: BP 110/74
== END 2023-11-14 08:43 | disposition home or self-care (01) ==
LOC: ED 07:41
DX: J44.9 Chronic obstructive pulmonary disease, unspecified (principal); I10 Essential (primary) hypertension; Z79.899 Other long term (current) drug therapy
CPT/HCPCS: 99284

== ENCOUNTER 2023-11-14 13:59 | Emergency (ER) | payer MEDICARE, OTHER ==
[~2023-11-14 13:59] MED LIST changes: +AIRSUPRA 90-810.7 GM INH; +GABAPENTIN300 MG PO
--- OUTSIDE RECORDS SUMMARY | 2023-11-14 14:07 | XMS ---
PreManage Notification: PHILLIP DUMONT Security Customer Marketing Assistant Events No recent Security Events currently on file CRITERIA MET - [facility] - 2 Visits in 30 Days CARE PROVIDERS Alva Pratt Aluminum Hydroxide Process Operator/Whizzer 11/05/2023-Current PHONE: [phone] -, [facility] Dentist: Machine Welder [facility] PHONE: [phone] -[place]- Dentist: Machine Welder Current [facility] PHONE: [phone] Devon Olea DO [facility] Current PHONE: Unknown Care Guidelines exist for the following facilities: [facility] ( 08/24/2018 ) [facility] VISIT COUNT (12 MO.) 4 [facility] TOTAL 4 NOTE: Visits indicate total known visits. ED/UCC VISIT TRACKING (12 MO.) 11/14/2023 14:01 LET[facility] [place] TYPE: Emergency COMPLAINT: - MENTAL HEALTH HOLD 11/14/2023 07:41 [facility] [place] TYPE: Emergency COMPLAINT: - SMOKE INHALATION 11/10/2023 14:54 LET[facility] [place] TYPE: Emergency COMPLAINT: - ALTERED MENTAL STATUS DIAGNOSES: - Altered mental status, unspecified - Chronic obstructive pulmonary disease, unspecified - Disorientation, unspecified - Essential (primary) hypertension - Hypokalemia - Nicotine dependence, unspecified, uncomplicated - Other skilled nursing (current) drug therapy - Procedure and treatment not carried out because of patient's decision for other reasons 10/28/2023 00:24 [facility] [place] TYPE: Emergency COMPLAINT: - SOB DIAGNOSES: - Chronic obstructive pulmonary disease with (acute) exacerbation - Essential (primary) hypertension - Hypokalemia - Other roasterman (current) drug therapy - Shortness of breath INPATIENT VISIT TRACKING (12 MO.) No inpatient visits to display in this time frame [email or web address]
[2023-11-14 14:43] LABS: HEMOGLOBIN 17.7 g/dL (12.0-18.0); RDW 13.7 (10.5-15.0)
[2023-11-14 14:46] LABS: BASOPHILS 0.3 % (0-2); EOSINOPHILS 0.5 % (0-6); HEMATOCRIT 53.2 % (35.0-50.0); LYMPHOCYTES 35.2 % (24-44); MCH 30.7 (27-36); MCHC 33.2 g/dl (30-36); MCV 92.6 fl (81-99); MONOCYTES 9.2 % (0-12); NEUTROPHILS 54.8 % (39-80); PLATELET COUNT 166 K/uL (140-440); RBC 5.74 M/ul (4.3-5.7)
[2023-11-14 15:06] LABS: ACETAMINOPHEN 0 ug/mL (10-30); ALBUMIN 3.7 g/dL (3.4-5.0); ALBUMIN/GLOBULIN RATIO 1.19 (1.1-2.4); ALCOHOL, MEDICAL <3 ng/dL (<3); ALKALINE PHOSPHATASE 71 U/L (46-116); ALT (SGPT) 26 U/L (14-59); ANION GAP 11.3 (7-21); AST (SGOT) 14 U/L (15-37); BILIRUBIN, TOTAL 1.3 ng/dL (0.2-1.0); BUN/CREATININE RATIO 16.66 (6.0-28.6); CALCIUM 9.5 mg/dL (8.5-10.1); CARBON DIOXIDE 29 mmol/L (21-32); CHLORIDE 105 mmol/L (98-107); CREATININE, SERUM 1.02 mg/dL (0.55-1.02); GLOMERULAR FILTRATION RATE,EST 62 mL/min (>60); POTASSIUM 3.3 mmol/L (3.5-5.1); PROTEIN, TOTAL 6.8 g/dL (6.4-8.2); SALICYLATE 6.1 mg/dL (2.8-20.0); TSH, 3RD GENERATION 2.195 uIU/mL (0.358-3.740); UREA NITROGEN 17 mg/dL (7-18)
[2023-11-14] MEDS ORDERED: ALBUTEROL SULFATE 0.083% 3 ML VIAL INH SCH (16:00)
[2023-11-14] MEDS ORDERED: NICOTINE 14 MG/24 HR 1 EA TDSY TD SCH (17:59)
[2023-11-14] MEDS ORDERED: ALBUTEROL/IPRATROPIUM 3 ML NEB INH SCH (20:00)
[2023-11-15 09:43] LABS: BILIRUBIN, URINE POSITIVE (negative); BLOOD/HGB, URINE NEGATIVE (Negative); KETONE, URINE TRACE (Negative); LEUK ESTERASE, URINE NEGATIVE (negative); NITRITE, URINE NEGATIVE (negative); PH, URINE 6.5 (5-7)
[2023-11-15 09:48] LABS: BACTERIA, URINE 1+ /hpf (negative); EPITHELIAL CELLS, URINE SQUAMOUS 3+ /lpf (0-1+)
[2023-11-15 09:49] LABS: CASTS, URINE GRANULAR 1+ \\lpf; COLLECTION TYPE, URINE CLEAN CATCH; REFLEX CULTURE, URINE No (No)
[2023-11-15 09:50] LABS: CRYSTALS, URINE CALCIUM OXALATE 1+ (0-1+)
[2023-11-15 10:01] LABS: AMPHETAMINES, URINE NEGATIVE (NEGATIVE); BARBITURATES, URINE NEGATIVE (NEGATIVE); BENZODIAZEPINE, URINE NEGATIVE (NEGATIVE); BUPRENORPHINE, URINE NEGATIVE (NEGATIVE); CANNABINOID, URINE NEGATIVE (NEGATIVE); COCAINE, URINE NEGATIVE (NEGATIVE); ECSTASY, URINE NEGATIVE (NEGATIVE); FENTANYL, URINE NEGATIVE (NEGATIVE); METHADONE, URINE NEGATIVE (NEGATIVE); OPIATES, URINE NEGATIVE (NEGATIVE); OXYCODONE, URINE NEGATIVE (NEGATIVE); PHENCYCLIDINE, URINE NEGATIVE (NEGATIVE)
[2023-11-15] MEDS ORDERED: NICOTINE POLACRILEX 4 MG LOZENGE BUCCAL PRN (21:30)
[2023-11-15] MEDS ORDERED: ALBUTEROL/IPRATROPIUM 3 ML NEB INH PRN (23:45)
[2023-11-16 07:45] VITALS: BP 146/86
== END 2023-11-16 07:45 ==
LOC: ED 13:59
PROVIDERS: Emergency Medicine
DX: J44.9 Chronic obstructive pulmonary disease, unspecified (principal); F03.90 Unspecified dementia, unspecified severity, without behavioral disturbance, psychotic disturbance, mood disturbance, and anxiety; I10 Essential (primary) hypertension; Z59.00 Homelessness unspecified; Z87.891 Personal history of nicotine dependence; Z79.899 Other long term (current) drug therapy
CPT/HCPCS: 36415; 80053; 80307; 81001; 84443; 85025; 94640; G0480; U0002

== ENCOUNTER 2024-10-29 12:01 | Emergency (ER) | payer MEDICARE, OTHER ==
[~2024-10-29] VITALS: Ht 157.5 cm; Wt 46.6 kg
--- OUTSIDE RECORDS SUMMARY | 2024-10-29 12:08 | XMS ---
PreManage Notification: PHILLIP DUMONT Security Manager Customer Service Events No recent Security Events currently on file CRITERIA MET - 6 ED Visits in 6 Months - [facility] - 2 Visits in 30 Days CARE PROVIDERS -, [facility]: [employer] Current [place] PHONE: [phone] [facility] Family Medicine Current HEALTH PHONE: [phone] AMBROCIO ESCAMILLA Nurse Practitioner: Family Current PHONE: [phone] Barb Garsia Physician Cat Tender Current PHONE: Unknown ADOLFO BURNETT Nurse Practitioner: Family Current PHONE: [phone] ARIANA CONTRERAS Nurse Practitioner: Adult Health Current ANAY PHONE: [phone] ERICA CHERY Nurse Practitioner Current PHONE: [phone] GERALDO MONDRAGON NP Nurse Practitioner: Family Junior WATTS PHONE: [phone] DAYANA HERRERA Nurse Practitioner Current PHONE: [phone] FREDY MAHAD [facility] Medicine: Geriatric Medicine Current PHONE: [phone] NANI GODINEZ Nurse Practitioner Current PHONE: [phone] Care Guidelines exist for the following facilities: [facility] ( 08/24/2018 ) Zofia VISIT COUNT (12 MO.) [address] [place] [address] [facility] TOTAL 16 NOTE: Visits indicate total known visits. ED/UCC VISIT TRACKING (12 MO.) 10/29/2024 12:01 [facility] [place] TYPE: Emergency COMPLAINT: - HEADACHE 10/26/2024 17:11 [employer] [facility] [place] TYPE: Emergency DIAGNOSES: - Chronic obstructive pulmonary disease with (acute) exacerbation - General 10/26/2024 14:30 [employer] [facility] [place] TYPE: Emergency DIAGNOSES: - Other chronic pain - Personal history of other diseases of the respiratory system - NEEDS BOOT ADJUSTED 10/25/2024 02:21 [facility] [place] TYPE: Emergency DIAGNOSES: - Chronic obstructive pulmonary disease with (acute) exacerbation - Hypokalemia - Hypoxemia - Difficulty Breathing 10/22/2024 19:49 [facility] [place] TYPE: Emergency DIAGNOSES: - Sciatica, left side - GENERALIZED PAIN 10/22/2024 11:35 [facility] [place] TYPE: Emergency DIAGNOSES: - Chronic obstructive pulmonary disease with (acute) exacerbation - difficulty breathing 09/09/2024 17:06 [employer] [facility] [place] TYPE: Emergency DIAGNOSES: - Disorientation, unspecified - GENERAL 08/18/2024 13:09 [employer] [facility] [place] TYPE: Emergency DIAGNOSES: - Homelessness unspecified - general 08/16/2024 01:25 [employer] [facility] [place] TYPE: Emergency COMPLAINT: - General DIAGNOSES: - General 08/13/2024 19:15 [facility] [place] TYPE: Emergency DIAGNOSES: - Hypovolemia - Urinary tract infection, site not specified - ams 08/01/2024 16:53 [employer] [facility] [place] TYPE: Emergency DIAGNOSES: - Delusional disorders - Emphysema, unspecified - Unspecified psychosis not due to a substance or known physiological condition - MENTAL HEALTH EVALUATION 03/29/2024 13:13 [facility] [place] TYPE: Emergency DIAGNOSES: - Chronic obstructive pulmonary disease with (acute) exacerbation - SHORTNESS OF BREATH 12/29/2023 16:47 [facility] TYPE: Emergency DIAGNOSES: - Unspecified fall, initial encounter - AMB - Fall - Hip Pain 11/14/2023 14:01 [facility] [place] TYPE: Emergency COMPLAINT: - MENTAL HEALTH HOLD DIAGNOSES: - Chronic obstructive pulmonary disease, unspecified - Encounter for general psychiatric examination, requested by authority - Essential (primary) hypertension - Homelessness unspecified - Other director long term care (current) drug therapy - Personal history of nicotine dependence - Unspecified dementia, unspecified severity, without behavioral disturbance, psychotic disturbance, mood disturbance, and anxiety 11/14/2023 07:41 [facility] [place] TYPE: Emergency COMPLAINT: - SMOKE INHALATION DIAGNOSES: - Chronic obstructive pulmonary disease, unspecified - Essential (primary) hypertension - Other director long term care (current) drug therapy - Shortness of breath 11/10/2023 14:54 [facility] [place] TYPE: Emergency COMPLAINT: - ALTERED MENTAL STATUS DIAGNOSES: - Altered mental status, unspecified - Chronic obstructive pulmonary disease, unspecified - Disorientation, unspecified - Essential (primary) hypertension - Hypokalemia - Nicotine dependence, unspecified, uncomplicated - Other assisted (current) drug therapy - Procedure and treatment not carried out because of patient's decision for other reasons INPATIENT VISIT TRACKING (12 MO.) 10/25/2024 02:21 [facility] [place] TYPE: Medical Surgical DIAGNOSES: - Chronic obstructive pulmonary disease with (acute) exacerbation - Hypokalemia - Hypoxemia 08/13/2024 19:15 [facility] [place] TYPE: Medical Surgical DIAGNOSES: - Hypovolemia - Urinary tract infection, site not specified [facility] COMPLAINT: - Psychiatric Evaluation DIAGNOSES: - Other symptoms and signs involving appearance and behavior 03/29/2024 13:13 [facility] [place] TYPE: Medical Surgical DIAGNOSES: - Acute respiratory failure with hypoxia - Acute respiratory failure with hypoxia - Chronic obstructive pulmonary disease with (acute) exacerbation - Chronic obstructive pulmonary disease with (acute) exacerbation 12[facility]29[facility]23 [facility] DIAGNOSES: - Fracture of unspecified part of neck of left femur, initial encounter for closed fracture - Nicotine dependence, unspecified, uncomplicated - Pain in left hip - Unspecified fall, initial encounter 11/16/2023 11:17 [facility] [place] TYPE: Behavioral Health DIAGNOSES: - Altered mental status, unspecified - Bipolar disorder, current episode depressed, severe, with psychotic features - Bipolar disorder, current episode mixed, unspecified - Bipolar disorder, unspecified - Major depressive disorder, single episode, unspecified - Nicotine dependence, unspecified, uncomplicated - Unspecified mental disorder due to known physiological condition - Unspecified psychosis not due to a substance or known physiological condition [email or web address]
[2024-10-29 13:44] VITALS: BP 140/89
== END 2024-10-29 13:45 | disposition home or self-care (01) ==
LOC: ED 12:01
DX: M25.552 Pain in left hip (principal); G89.29 Other chronic pain; I10 Essential (primary) hypertension; J44.9 Chronic obstructive pulmonary disease, unspecified; Z96.642 Presence of left artificial hip joint; Z79.899 Other long term (current) drug therapy
CPT/HCPCS: 99283